=== PATIENT | female | born 1950 | race Caucasian/White ===

== ENCOUNTER 2017-05-12 10:21 | Emergency (ER) | payer MEDICARE, BC ==
[~2017-05-12] VITALS: Ht 177.8 cm; Wt 113.2 kg
[2017-05-12 10:45] VITALS: BP 161/88; PULSE 67; RESP 16; TEMP 97.7; O2SAT 97
[2017-05-12] MEDS ORDERED: FURO1TAB60 PO (11:01)
[2017-05-12] MEDS ORDERED: CELE100C PO (11:01)
[2017-05-12] MEDS ORDERED: TRAM50 PO (11:01)
[2017-05-12] MEDS ORDERED: CLON.5 PO (11:01)
--- NOTE | 2017-05-12 11:24 | PD ---
HPI Chief Complaint: GI Complaint Time Seen by Provider: 10:55 Travel History International Travel<30 days: No Contact w/Intl Traveler<30days: No Traveled to known affect area: No History of Present Illness HPI This 66-year-old female is complaining of weakness. 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 She had a transient stool transplant In November at the [facility] in [place]. She had 3 subsequent urinary tract infections and has had a recurrence of the C. difficile. He had been on vancomycin 4 times a day and it had been tapered and she is currently taking 1 tablet a day. She has been feeling nauseated. She has been having 2-7 episodes of loose stools times watery. She says she was hospitalized couple of months ago for dehydration. She has a history of coronary artery disease and macular degeneration. She is legally blind. PFSH Past Medical History Anxiety: Yes Depression: Yes Cardiovascular Problems: Yes Coronary Artery Disease: Yes Diminished Hearing: No Hypertension: Yes Respiratory: Yes (copd) Immunizations Current: Yes Tetanus Vaccination: Unknown Influenza Vaccination: Yes ?: Not Past Surgical History Appendectomy: Yes Oral Surgery: Yes Tonsillectomy: Yes Social History Alcohol Use: No Tobacco Use: Yes (1/2 TO 1 PK) Substance Use: No Allergies-Medications (Allergen,Severity, Reaction): Coded Allergies: amoxicillin (Verified Allergy, Intermediate, throat pain, 05/12/17) Reported Meds & Prescriptions Reported Meds & Active Scripts Active Reported Celebrex (Celecoxib) 100 Mg Cap 100 Mg PO BID Ultram (Tramadol HCl) 50 Mg Tab 100 Mg PO Q6H PRN Klonopin (Clonazepam) 0.5 Mg Tab 0.5 Mg PO QID Lasix (Furosemide) 40 Mg Tab 40 Mg PO QOD Review of Systems General / Constitutional: No: Fever, Chills Eyes: Positive: Blindness, No: Diploplia HENT: No: Headaches, Vertigo Cardiovascular: No: Chest Pain or Discomfort, Palpitations Respiratory: No: Cough, Shortness of Breath Gastrointestinal: Positive: Nausea, Diarrhea, Abdominal Pain, Loss of Appetite Genitourinary: No: Frequency Neurologic: Positive: Weakness Endocrine: No: Heat Intolerance, Cold Intolerance Hematologic/Lymphatic: No: Easy Bruising Physical Exam Narrative GENERAL: Well-developed female SKIN: Focused skin assessment warm/dry. HEAD: Atraumatic. Normocephalic. EYES: Pupils equal and round. No scleral icterus. No injection or drainage. ENT: No nasal bleeding or discharge. Mucous membranes pink and moist. NECK: Trachea midline. No JVD. CARDIOVASCULAR: Regular rate and rhythm. No murmur appreciated. RESPIRATORY: No accessory muscle use. Clear to auscultation. Breath sounds equal bilaterally. GASTROINTESTINAL: Abdomen soft, non-tender, nondistended. Hepatic and splenic margins not palpable. MUSCULOSKELETAL: No obvious deformities. No clubbing. No cyanosis. No edema. NEUROLOGICAL: Awake and alert. No obvious cranial nerve deficits. Motor grossly within normal limits. Normal speech. PSYCHIATRIC: Appropriate mood and affect; insight and judgment normal. Data Data Last Documented VS Vital Signs Date Time Temp Pulse Resp B/P (MAP) Pulse Ox O2 Delivery O2 Flow Rate FiO2 05/12/17 12:18 58 18 154/84 (107) 100 Room Air 05/12/17 10:45 97.7 Orders Orders Complete Blood Count With Diff (05/12/17 11:20) Comprehensive Metabolic Panel (05/12/17 11:20) Urinalysis - C+S If Indicated (05/12/17 11:20) Magnesium (Mg) (05/12/17 11:20) Enteric Path (Stool) (05/12/17 11:20) C Diff Toxin Pcr (05/12/17 11:20) Sodium Chlor 0.9% 1000 Ml Inj (Ns 1000 M (05/12/17 11:30) Ondansetron Inj (Zofran Inj) (05/12/17 11:30) Urine Culture (05/12/17 11:30) Labs Laboratory Tests Test 05/12/17 11:30 White Blood Count 5.0 TH/MM3 Red Blood Count 4.99 MIL/MM3 Hemoglobin 11.2 GM/DL Hematocrit 35.8 % Mean Corpuscular Volume 71.7 FL Mean Corpuscular Hemoglobin 22.4 PG Mean Corpuscular Hemoglobin Concent 31.3 % Red Cell Distribution Width 19.7 % Platelet Count 179 TH/MM3 Mean Platelet Volume 7.7 FL Neutrophils (%) (Auto) 55.9 % Lymphocytes (%) (Auto) 30.6 % Monocytes (%) (Auto) 7.8 % Eosinophils (%) (Auto) 5.0 % Basophils (%) (Auto) 0.7 % Neutrophils # (Auto) 2.8 TH/MM3 Lymphocytes # (Auto) 1.5 TH/MM3 Monocytes # (Auto) 0.4 TH/MM3 Eosinophils # (Auto) 0.3 TH/MM3 Basophils # (Auto) 0.0 TH/MM3 CBC Comment AUTO DIFF Differential Comment AUTO DIFF CONFIRMED Urine Collection Type CLEAN CATCH Urine Color YELLOW Urine Turbidity SLIGHTY CLOUDY Urine pH 6.0 Urine Specific [place] 1.023 Urine Protein TRACE mg/dL Urine Glucose (UA) NEG mg/dL Urine Ketones NEG mg/dL Urine Occult Blood NEG Urine Nitrite POS Urine Bilirubin NEG Urine Leukocyte Esterase SMALL Urine WBC 20-24 /hpf Urine Squamous Epithelial Cells > 8 /hpf Urine Bacteria MANY /hpf Microscopic Urinalysis Comment CULTURE INDICATED Blood Urea Nitrogen 17 MG/DL Creatinine 1.20 MG/DL Random Glucose 98 MG/DL Total Protein 7.7 GM/DL Albumin 3.8 GM/DL Calcium Level 9.7 MG/DL Magnesium Level 2.4 MG/DL Alkaline Phosphatase 221 U/L Aspartate Amino Transf (AST/SGOT) 24 U/L Alanine Aminotransferase (ALT/SGPT) 23 U/L Total Bilirubin 0.5 MG/DL Sodium Level 141 MEQ/L Potassium Level 3.8 MEQ/L Chloride Level 106 MEQ/L Carbon Dioxide Level 24.8 MEQ/L Anion Gap 10 MEQ/L Estimat Glomerular Filtration Rate 45 ML/MIN [facility] Medical Decision Making Medical Screen Exam Complete: Yes Emergency Medical Condition: Yes Medical Record Reviewed: Yes Differential Diagnosis Differential includes C. difficile, UTI, electrolyte imbalance Narrative Course White count is normal. Urine does show infection. I will prescribe Macrodantin (please like to aggravate her C. difficile certain that she has ongoing C. difficile he was not able to provide a stool sample. She has a follow-up appointment on Wednesday Diagnosis Primary Impression: UTI (urinary tract infection) Scripts Nitrofurantoin Monohydrate Macrocrystals (Macrobid) 100 Mg Capsule 100 MG PO BID for Infection for 14 Days, #28 CAP 0 Refills Prov: Dominic Lewis MD 05/12/17 Disposition: 01 DISCHARGE HOME Condition: Stable Dominic Lewis MD May 12, 2017 11:24
[2017-05-12] MEDS ORDERED: SODIUM CHLOR 0.9% 1000 ML INJ 1,000 ML IV ONE (11:30)
[2017-05-12] MEDS ORDERED: ONDANSETRON HCL 4 MG/2 ML VIAL IV PUSH ONE (11:30)
[2017-05-12 11:46] LABS: AUTOMATED NEUTROPHIL # 2.8 TH/MM3 (1.8-7.7); BASOPHIL % 0.7 % (0.0-2.0); BLOOD, URINE NEG (NEG); EOSINOPHIL # 0.3 TH/MM3 (0-0.4); GLUCOSE,URINE NEG (NEG); HEMATOCRIT 35.8 % (35.0-46.0); KETONE, URINE NEG (NEG); LYMPH % 30.6 % (9.0-44.0); LYMPHOCYTE # 1.5 TH/MM3 (1.0-4.8); MEAN CELL VOLUME 71.7 FL (80.0-100.0); MEAN CORPUSCULAR HEMOGLOBIN 22.4 PG (27.0-34.0); MEAN CORPUSCULAR HGB CONC 31.3 % (32.0-36.0); MONO % 7.8 % (0.0-8.0); NEUT % 55.9 % (16.0-70.0); NITRITE,URINE POS (NEG); PLATELET COUNT 179 TH/MM3 (150-450); RED BLOOD COUNT 4.99 MIL/MM3 (4.00-5.30); RED CELL DISTRIBUTION WIDTH 19.7 % (11.6-17.2)
[2017-05-12 11:47] LABS: HEMO FLAGS AUTO DIFF
[2017-05-12 11:52] LABS: METHOD OF COLLECTION CLEAN CATCH
[2017-05-12 11:53] LABS: URINE COLOR YELLOW (YELLW/STRAW)
[2017-05-12 11:54] LABS: BACTERIA, URINE MANY /hpf; SQUAMOUS EPITHELIAL CELL URINE > 8 /hpf (0-5)
[2017-05-12 11:55] LABS: COMMENT (UR) CULTURE INDICATED; CULTURE IF INDICATED CULTURE INDICATED
[2017-05-12 12:00] LABS: CHLORIDE 106 MEQ/L (98-107); POTASSIUM 3.8 MEQ/L (3.5-5.1); SODIUM (NA) 141 MEQ/L (136-145)
[2017-05-12 12:04] LABS: ANION GAP 10 MEQ/L (5-15); BICARBONATE 24.8 MEQ/L (21.0-32.0); BLOOD UREA NITROGEN 17 MG/DL (7-18); MAGNESIUM 2.4 MG/DL (1.5-2.5)
[2017-05-12 12:07] LABS: ALT (GPT) 23 U/L (10-53); AST (GOT) 24 U/L (15-37); GLOMERULAR FILTRATION RATE 45 ML/MIN (>89)
[2017-05-12 12:09] LABS: TOTAL BILIRUBIN ADULT 0.5 MG/DL (0.2-1.0)
[2017-05-12 12:10] LABS: ALKALINE PHOSPHATASE 221 U/L (45-117)
[2017-05-12 12:14] LABS: SCAN/DIFF AUTO DIFF CONFIRMED
[2017-05-12 12:18] VITALS: BP 154/84; PULSE 58; RESP 18; O2SAT 100
[2017-05-12] MEDS ORDERED: MACR100C2 PO (12:53)
== END 2017-05-12 13:02 | disposition home or self-care (01) ==
LOC: PHED 10:21
DX: N39.0 Urinary tract infection, site not specified (principal); B96.1 Klebsiella pneumoniae [K. pneumoniae] as the cause of diseases classified elsewhere; F17.200 Nicotine dependence, unspecified, uncomplicated; I10 Essential (primary) hypertension; I25.10 Atherosclerotic heart disease of native coronary artery without angina pectoris; Z79.899 Other long term (current) drug therapy
CPT/HCPCS: 80053; 81001; 83735; 85025; 87077; 87086; 87186; 96361; 96374; 99284; J2405; J7030

== ENCOUNTER 2017-06-25 03:11 | Inpatient (IN) | payer MEDICARE, BC ==
[~2017-06-25] VITALS: Ht 177.8 cm; Wt 112.7 kg
[2017-06-25] VITALS (10 sets, daily range): BP systolic 133–172; BP diastolic 63–88; PULSE 50–85; RESP 14–16; TEMP 97.7–98.6; O2SAT 97–100
[~2017-06-25 03:11] MED LIST: ALBUAER3 INH; ALLO100T PO; ASPI81TA23 PO; ATOR20TA15 PO; CALC12502 PO; CELE100C PO; CLON.5 PO; COLC1TAB15 PO; FLUTI110I INH; FURO1TAB60 PO; GABA100C4 PO; GABA800T PO; IPRA17I INH; MAGN400T2 PO; NICO14DI T-DERMAL; OMEP20TA93 PO; POTA-163 PO; TRAM50 PO; VANCOMYCIN 25 MG/ML PO
[2017-06-25] MEDS ORDERED: SODIUM CHLORIDE 0.9% FLUSH 10 ML FLUSH IVF PRN (03:15)
--- NOTE | 2017-06-25 03:22 | PD ---
HPI Chief Complaint: chest pain Time Seen by Provider: 03:14 Travel History International Travel<30 days: No Contact w/Intl Traveler<30days: No Traveled to known affect area: No History of Present Illness HPI 66-year-old female presents to the emergency department by EMS transport from home for evaluation of retrosternal chest pressure and tightness radiating into her neck and jaw with some transient shortness of breath and nausea. Patient received aspirin en route to the hospital. Patient not receive any nitroglycerin. Patient rates her pain as 5/10 in intensity and states feels like a 5-year-old is sitting on her chest. Patient currently denies any shortness of breath sweats nausea or referred neck jaw back shoulder arm pain. Patient states that she recently moved here from [place] and was extensively evaluated previously and has been told that she reportedly has a 70 % occlusion of the LAD but they decided not to stent her vessel as she was asymptomatic reportedly at the time of the catheterization. Patient also has history of hypertension and continues to smoke cigarettes. Patient states she smokes cigarettes because she is nervous. Patient also has history of hypertension. Patient reports history of irregular heartbeat. Patient states that she has a history of frequent ectopic beats and has a history of a right bundle branch block. Patient also reports previous episodes episode of pulmonary edema. Patient reportedly is currently being treated for C. difficile with vancomycin. Patient takes reportedly Lasix every other day to avoid dehydration as well as potassium replacement. No recent febrile illness. No pleuritic chest pain or no reported new lower extremity pain or swelling. PFSH Past Medical History Narrative Medical Anxiety depression CAD hypertension, edema recurrent UTIs C. difficile COPD PE appendectomy tonsillectomy tobacco use nursing notes reviewed Anxiety: Yes Depression: Yes Cardiovascular Problems: Yes Coronary Artery Disease: Yes Diminished Hearing: No Hypertension: Yes Respiratory: Yes (copd) Immunizations Current: Yes Past Surgical History Appendectomy: Yes Oral Surgery: Yes Tonsillectomy: Yes Social History Alcohol Use: No Tobacco Use: Yes (1/2 TO 1 PK) Substance Use: No Allergies-Medications (Allergen,Severity, Reaction): Coded Allergies: amoxicillin (Verified Allergy, Intermediate, throat pain, 06/25/17) Reported Meds & Prescriptions Reported Meds & Active Scripts Active [vancomycin 25mg/ml] Liquid 250 Mg PO QID Gabapentin 800 Mg Tab 800 Mg PO TID Gabapentin 100 Mg Cap 100 Mg PO TID Ultram (Tramadol HCl) 50 Mg Tab 100 Mg PO Q6H PRN Klonopin (Clonazepam) 0.5 Mg Tab 0.5 Mg PO QID Reported Flovent Hfa 12 GM Inh (Fluticasone Propionate) 110 Mcg/Act Inh 2 Puff INH BID Colchicine 0.6 Mg Tab 0.6 Mg PO DAILY Calcium Carbonate 500 Mg Calcium (1250 Mg) Tab 1,250 Mg PO TID 1,250 mg calcium carbonate (500 mg elemental calcium) Proair Hfa 8.5 GM Inh (Albuterol Sulfate) 90 Mcg/Act Aer 2 Puff INH Q6H PRN 108 mcg/actuation Potassium Chloride ER (Potassium Chloride) 20 Meq Tab 20 Meq PO DAILY Omeprazole 20 Mg Tab 20 Mg PO DAILY Nicotine Patch (Nicotine) 14 Mg/24 Hr Patch 14 Mg T-DERMAL DAILY Magnesium Oxide 400 Mg Tab 400 Mg PO DAILY Atrovent HFA 12.9 GM Inh (Ipratropium [place]) 17 Mcg/Actuation Aer 2 Puff INH Q4HR PRN Aspirin EC (Aspirin) 81 Mg Tabdr 81 Mg PO DAILY Atorvastatin (Atorvastatin Calcium) 20 Mg Tab 20 Mg PO HS Allopurinol 100 Mg Tab 100 Mg PO DAILY Celebrex (Celecoxib) 100 Mg Cap 100 Mg PO BID Lasix (Furosemide) 40 Mg Tab 40 Mg PO QOD Review of Systems Except as stated in HPI: all other systems reviewed are Neg General / Constitutional: No: Fever Eyes: No: Visual changes HENT: No: Congestion Cardiovascular: Positive: Chest Pain or Discomfort, No: Diaphoresis, Syncope Respiratory: No: Shortness of Breath Gastrointestinal: No: Nausea, Vomiting, Diarrhea, Abdominal Pain Genitourinary: No: Frequency, Dysuria Musculoskeletal: No: Myalgias, Arthralgias, Edema Skin: No Rash Neurologic: No: Weakness Psychiatric: No: Anxiety Hematologic/Lymphatic: No: Lymph Node Enlargement Physical Exam Narrative GENERAL: Well-developed well-nourished female in no acute distress no respiratory distress; GCS 15 SKIN: Warm and dry. HEAD: Normocephalic. EYES: No scleral icterus. No injection or drainage. NECK: Supple, trachea midline. No JVD or lymphadenopathy. CARDIOVASCULAR: Regular rate and rhythm without murmurs, gallops, or rubs. RESPIRATORY: Breath sounds equal bilaterally. No accessory muscle use. GASTROINTESTINAL: Abdomen soft, non-tender, nondistended. MUSCULOSKELETAL: No cyanosis, or edema. Radial and dorsalis pedis pulses 2+ to palpation bilaterally. BACK: Nontender without obvious deformity. No CVA tenderness. Data Data Last Documented VS Vital Signs Date Time Temp Pulse Resp B/P (MAP) Pulse Ox O2 Delivery O2 Flow Rate FiO2 06/25/17 03:23 Room Air 06/25/17 03:23 156/78 (104) 162/82 (108) 06/25/17 03:23 98 06/25/17 03:19 98.2 85 16 Orders Orders Electrocardiogram (06/25/17 03:14) Basic Metabolic Panel (Bmp) (06/25/17 03:14) Ckmb (Isoenzyme) Profile (06/25/17 03:14) Complete Blood Count With Diff (06/25/17 03:14) Magnesium (Mg) (06/25/17 03:14) Prothrombin Time / Inr (Pt) (06/25/17 03:14) Act Partial Throm Time (Ptt) (06/25/17 03:14) Troponin I (06/25/17 03:14) Chest, Single Ap (06/25/17 03:14) Ecg Monitoring (06/25/17 03:14) Bilateral Bp Monitoring (06/25/17 03:14) Iv Access Insert/Monitor (06/25/17 03:14) Oximetry (06/25/17 03:14) Oxygen Administration (06/25/17 03:14) Sodium Chloride 0.9% Flush (Ns Flush) (06/25/17 03:15) Nitroglycerin Sl (Nitrostat Sl) (06/25/17 03:15) Admit Order (Ed Use Only) (06/25/17 ) Hydrographical Technical Officer / Telemetry [id number] (06/25/17 04:37) Diet Heart Healthy (06/25/17 Breakfast) Activity Oob With Assistance (06/25/17 04:37) Notify Dr: Other (06/25/17 04:37) Labs Laboratory Tests Test 06/25/17 03:30 White Blood Count 5.4 TH/MM3 Red Blood Count 4.74 MIL/MM3 Hemoglobin 10.7 GM/DL Hematocrit 34.5 % Mean Corpuscular Volume 72.9 FL Mean Corpuscular Hemoglobin 22.6 PG Mean Corpuscular Hemoglobin Concent 31.1 % Red Cell Distribution Width 19.9 % Platelet Count 201 TH/MM3 Mean Platelet Volume 7.5 FL Neutrophils (%) (Auto) 50.8 % Lymphocytes (%) (Auto) 34.8 % Monocytes (%) (Auto) 7.8 % Eosinophils (%) (Auto) 5.7 % Basophils (%) (Auto) 0.9 % Neutrophils # (Auto) 2.8 TH/MM3 Lymphocytes # (Auto) 1.9 TH/MM3 Monocytes # (Auto) 0.4 TH/MM3 Eosinophils # (Auto) 0.3 TH/MM3 Basophils # (Auto) 0.0 TH/MM3 CBC Comment AUTO DIFF Differential Comment AUTO DIFF CONFIRMED Platelet Estimate NORMAL Platelet Morphology Comment NORMAL Ovalocytes 1+ Prothrombin Time 10.1 SEC Prothromb Time International Ratio 1.0 RATIO Activated Partial Thromboplast Time 26.2 SEC Blood Urea Nitrogen 18 MG/DL Creatinine 1.20 MG/DL Random Glucose 107 MG/DL Calcium Level 9.5 MG/DL Magnesium Level 2.4 MG/DL Sodium Level 137 MEQ/L Potassium Level 4.0 MEQ/L Chloride Level 103 MEQ/L Carbon Dioxide Level 29.5 MEQ/L Anion Gap 5 MEQ/L Estimat Glomerular Filtration Rate 45 ML/MIN Total Creatine Kinase 35 U/L Troponin I LESS THAN 0.02 NG/ML MDM Medical Decision Making Medical Screen Exam Complete: Yes Emergency Medical Condition: Yes Medical Record Reviewed: Yes Interpretation(s) EKG normal sinus rhythm rate 65 occasional PACs and incomplete right bundle branch block no acute ST elevation or injury pattern Last Impressions Chest X-Ray 06/25/174 Signed Impressions: Service Date/Time: Sunday, June 25, 2017 03:26 - CONCLUSION: No acute disease. Luis Armando Medina MD CBC & BMP Diagram 06/25/17 03:30 Calcium Level 9.5, Magnesium Level 2.4 Vital Signs Date Time Temp Pulse Resp B/P (MAP) Pulse Ox O2 Delivery O2 Flow Rate FiO2 06/25/17 03:23 Room Air 06/25/17 03:23 156/78 (104) 162/82 (108) 06/25/17 03:23 Room Air 06/25/17 03:23 98 06/25/17 03:19 98.2 85 16 151/75 (100) 100 CK: 35, not elevated; troponin I: less than 0.02, not elevated coags: wnl Differential Diagnosis Chest pain, ACS, PA, arrhythmia, electrolyte disturbance, PE, CHF Narrative Course Patient placed on cardiac monitors continuous pulse oximetry IV access obtained specimens collected and sent for resulting EKG performed which shows sinus rhythm no ST elevation evidence of incomplete right bundle branch block. Patient administered sublingual nitroglycerin patient had received aspirin 162 mg by EMS prior to arrival. Patient administered sublingual nitroglycerin 3 with discomfort decreased to 0- 1/10 in intensity Chest x-ray reveals no acute abnormality Laboratory values to be grossly within normal range specifically CK is not elevated and troponin I is not elevated less than 0.02 Plan will be administered to admit patient to chest pain center per protocol; call placed [facility] service Physician Communication Physician Communication discussed with Kathia ESTES for Dr Garza ---obs [facility] Diagnosis Primary Impression: Chest pain Admitting Information Admitting Physician Requests: Observation Jojo Toribio MD Jun 25, 2017 03:22
[2017-06-25 03:39] LABS: AUTOMATED NEUTROPHIL # 2.8 TH/MM3 (1.8-7.7); BASOPHIL % 0.9 % (0.0-2.0); EOSINOPHIL # 0.3 TH/MM3 (0-0.4); EOSINOPHIL % 5.7 % (0.0-4.0); HEMATOCRIT 34.5 % (35.0-46.0); HEMOGLOBIN 10.7 GM/DL (11.6-15.3); LYMPH % 34.8 % (9.0-44.0); LYMPHOCYTE # 1.9 TH/MM3 (1.0-4.8); MEAN CELL VOLUME 72.9 FL (80.0-100.0); MEAN CORPUSCULAR HEMOGLOBIN 22.6 PG (27.0-34.0); MEAN CORPUSCULAR HGB CONC 31.1 % (32.0-36.0); MEAN PLATELET VOLUME 7.5 FL (7.0-11.0); MONO % 7.8 % (0.0-8.0); MONOCYTE # 0.4 TH/MM3 (0-0.9); NEUT % 50.8 % (16.0-70.0); PLATELET COUNT 201 TH/MM3 (150-450); RED BLOOD COUNT 4.74 MIL/MM3 (4.00-5.30); RED CELL DISTRIBUTION WIDTH 19.9 % (11.6-17.2); WHITE BLOOD COUNT 5.4 TH/MM3 (4.0-11.0)
[2017-06-25] MEDS: NITROGLYCERIN 0.4 MG SL 25 TABS/BTL SL SCH ×3 (03:41→04:02)
--- NOTE | 2017-06-25 03:46 | RADRPT ---
EXAM DATE/TIME: 06/25/2017 03:26 [place] COMPARISON: No previous studies available for comparison. INDICATIONS : Irregular heart rate for 1 week MEDICAL HISTORY : None. SURGICAL HISTORY : None. ENCOUNTER: Initial ACUITY: 1 week PAIN SCORE: 0/10 LOCATION: Bilateral chest FINDINGS: The heart size is within normal limits. The lungs are grossly clear. No effusion is seen. There appea rs to be surgical hardware at lower cervical spine. CONCLUSION: No acute disease. Luis Armando Medina MD on June 25, 2017 at 3:43 Board Certified Radiologist. This report was verified electronically.
[2017-06-25 03:49] LABS: CHLORIDE 103 MEQ/L (98-107); SODIUM (NA) 137 MEQ/L (136-145)
[2017-06-25 03:51] LABS: CALCIUM 9.5 MG/DL (8.5-10.1)
[2017-06-25 03:52] LABS: BICARBONATE 29.5 MEQ/L (21.0-32.0); BLOOD UREA NITROGEN 18 MG/DL (7-18); GLUCOSE,RANDOM 107 MG/DL (74-106); MAGNESIUM 2.4 MG/DL (1.5-2.5)
[2017-06-25 03:53] LABS: PROTHROMBIN TIME - PATIENT 10.1 SEC (9.8-11.6)
[2017-06-25 03:54] LABS: OVALOCYTES 1+ (NORMAL)
[2017-06-25 03:55] LABS: GLOMERULAR FILTRATION RATE 45 ML/MIN (>89)
[2017-06-25 04:00] LABS: TROPONIN I LESS THAN 0.02 NG/ML (0.02-0.05)
[2017-06-25] MEDS ORDERED: IOHEXOL 350 MG/ML 100 ML BTL (for Cath Lab) OTHER ONE (04:40)
[2017-06-25] MEDS ORDERED: IOHEXOL 350 MG/ML 50 ML BTL (for Cath Lab) OTHER ONE (04:40)
[2017-06-25] MEDS ORDERED: IODIXANOL 320 MG/ML 10 ML VIAL (for Rad CT) IVCONTRAST ONE (04:40)
[2017-06-25] MEDS ORDERED: ONDANSETRON HCL 4 MG/2 ML VIAL IV PUSH PRN (04:45)
[2017-06-25] MEDS ORDERED: ACETAMINOPHEN 500 MG CPLT PO PRN (04:45)
[2017-06-25] MEDS ORDERED: RESP: ALBUTEROL 2.5 MG/IPRATROPIUM 0.5 MG NEB (PRN) NEB (04:45)
[2017-06-25] MEDS ORDERED: SODIUM CHLORIDE 0.9% FLUSH 10 ML FLUSH IV FLUSH PRN (04:45)
[2017-06-25 06:54] LABS: TROPONIN I LESS THAN 0.02 NG/ML (0.02-0.05)
--- NOTE | 2017-06-25 08:41 | HHI.HP ---
[facility] Leti Hernandez MD Admission Diagnosis Chest pain Diagnoses: Chief Complaint: Chest pain Travel History International Travel<30 Days: No Contact w/Intl Traveler <30 Da: No Traveled to Known Affected Are: No History of Present Illness This is a pleasant 66-year-old female with a known medical history of CAD, hypertension, COPD and chronic C. difficile who presented to the ED with complaints of chest pain. Patient states that yesterday she complained of generalized pain all day and roughly around 2200 last evening she developed a midsternal chest pressure and tightness that radiated up her neck and jaw. She does state that there were associated palpitations. She denies any associated shortness of breath, nausea, vomiting or diaphoresis. Patient rates the pain a five out of ten on pain scale. She does state that she underwent a cardiac stress test over one year ago which was reportedly unremarkable. Although two years ago she did undergo a cardiac catheterization showing a 70% occlusion in her LAD, patient states that at that time she was asymptomatic and no further intervention was taken. She is from [place] and has not established with a stars specialist in [place]. She does follow with her primary care doctor. Patient does have a chronic right bundle branch block and underlying irregular heartbeat?. It should be noted that she also has been treated for chronic C. 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 Denies any recent fever, chills, abdominal pain, nausea, vomiting or dysuria. Review of Systems Constitutional: DENIES: Fever, Chills Eyes: DENIES: Blurred vision, Diplopia Respiratory: DENIES: Cough, Sputum production, Shortness of breath Cardiovascular: COMPLAINS OF: Chest pain, Palpitations Gastrointestinal: COMPLAINS OF: Diarrhea, DENIES: Abdominal pain, Black stools , Bloody stools, Constipation, Nausea, Vomiting Integumentary: DENIES: Abnormal pigmentation Hematologic/lymphatic: DENIES: Bruising Immunologic/allergic: DENIES: Eczema Neurologic: DENIES: Abnormal gait Psychiatric: COMPLAINS OF: Anxiety Except as stated in HPI: all other systems reviewed are Neg Past Family Social History Past Medical History Coronary artery disease Hypertension Recurrent UTIs Chronic C. difficile COPD Tobacco abuse Anxiety and depression Past Surgical History Appendectomy Tonsillectomy Cervical fusion Unspecified oral surgery Reported Medications Active [vancomycin 25mg/ml] Liquid 250 Mg PO QID Gabapentin 800 Mg Tab 800 Mg PO TID Gabapentin 100 Mg Cap 100 Mg PO TID Ultram (Tramadol HCl) 50 Mg Tab 100 Mg PO Q6H PRN Klonopin (Clonazepam) 0.5 Mg Tab 0.5 Mg PO QID Reported Flovent Hfa 12 GM Inh (Fluticasone Propionate) 110 Mcg/Act Inh 2 Puff INH BID Colchicine 0.6 Mg Tab 0.6 Mg PO DAILY Calcium Carbonate 500 Mg Calcium (1250 Mg) Tab 1,250 Mg PO TID 1,250 mg calcium carbonate (500 mg elemental calcium) Proair Hfa 8.5 GM Inh (Albuterol Sulfate) 90 Mcg/Act Aer 2 Puff INH Q6H PRN 108 mcg/actuation Potassium Chloride ER (Potassium Chloride) 20 Meq Tab 20 Meq PO DAILY Omeprazole 20 Mg Tab 20 Mg PO DAILY Nicotine Patch (Nicotine) 14 Mg/24 Hr Patch 14 Mg T-DERMAL DAILY Magnesium Oxide 400 Mg Tab 400 Mg PO DAILY Atrovent HFA 12.9 GM Inh (Ipratropium [place]) 17 Mcg/Actuation Aer 2 Puff INH Q4HR PRN Aspirin EC (Aspirin) 81 Mg Tabdr 81 Mg PO DAILY Atorvastatin (Atorvastatin Calcium) 20 Mg Tab 20 Mg PO HS Allopurinol 100 Mg Tab 100 Mg PO DAILY Celebrex (Celecoxib) 100 Mg Cap 100 Mg PO BID Lasix (Furosemide) 40 Mg Tab 40 Mg PO QOD Allergies: Coded Allergies: amoxicillin (Verified Allergy, Intermediate, throat pain, 06/25/17) Active Ordered Medications Current Medications Medications (Trade) Dose Ordered Sig/Milana Route Start Time Stop Time Status Last Admin (NS Flush) 2 ml UNSCH PRN IVF 06/25/17 03:15 (NS Flush) 2 ml UNSCH PRN IV FLUSH 06/25/17 04:45 (Tylenol) 500 mg Q4H PRN PO 06/25/17 04:45 ([place] 7.5-325 Mg) 1 tab Q4H PRN PO 06/25/17 04:45 (Morphine Inj) 2 mg Q4H PRN IV PUSH 06/25/17 04:45 (Zofran Inj) 4 mg Q6H PRN IV PUSH 06/25/17 04:45 (Nitrostat Sl) 0.4 mg Q5M PRN SL 06/25/17 04:45 (Aspirin) 325 mg DAILY PO 06/25/17 09:00 06/25/17 09:00 (Heparin Inj) 5,000 units Q8H SQ 06/25/17 12:00 (Duoneb Neb) 1 ampule Q4HR NEB PRN NEB 06/25/17 04:45 Family History Paternal and maternal family medical history significant for hypertension. Social History Patient does admit to current tobacco use, states she smokes less than one pack per day since the age of [age]. Denies any alcohol or illicit drug use. Physical Exam Vital Signs Vital Signs Date Time Temp Pulse Resp B/P (MAP) Pulse Ox O2 Delivery O2 Flow Rate FiO2 06/25/17 06:18 98.2 88 18 165/88 (113) 98 06/25/17 03:23 Room Air 06/25/17 03:23 156/78 (104) 162/82 (108) 06/25/17 03:23 Room Air 06/25/17 03:23 98 06/25/17 03:19 98.2 85 16 151/75 (100) 100 Physical Exam GENERAL: Well-nourished, well-developed patient in NAD. SKIN: Warm and dry. No rash. HEAD: Normocephalic. Atraumatic. EYES: Pupils equal and round. No scleral icterus. No injection or drainage. Patient is legally blind. ENT: No nasal bleeding or discharge. Mucous membranes pink and moist. NECK: Supple. Trachea midline. CARDIOVASCULAR: Regular rate and rhythm. S1, S2 noted. No murmur appreciated. No reproducible chest pain to palpation RESPIRATORY: No accessory muscle use. Clear to auscultation. Breath sounds equal bilaterally. GASTROINTESTINAL: Abdomen soft, non-tender, nondistended. Normoactive bowel sounds x4. MUSCULOSKELETAL: No obvious deformities. Extremities without clubbing, cyanosis. Trace by bilateral lower extremity edema. NEUROLOGICAL: Awake and alert. No obvious cranial nerve deficits. Motor grossly within normal limits. 5/5 muscle strength in bilateral upper and lower extremities. Normal speech. PSYCHIATRIC: Appropriate mood and affect; insight and judgment normal. Laboratory Laboratory Tests Test 06/25/17 03:30 06/25/17 06:22 White Blood Count 5.4 Red Blood Count 4.74 Hemoglobin 10.7 Hematocrit 34.5 Mean Corpuscular Volume 72.9 Mean Corpuscular Hemoglobin 22.6 Mean Corpuscular Hemoglobin Concent 31.1 Red Cell Distribution Width 19.9 Platelet Count 201 Mean Platelet Volume 7.5 Neutrophils (%) (Auto) 50.8 Lymphocytes (%) (Auto) 34.8 Monocytes (%) (Auto) 7.8 Eosinophils (%) (Auto) 5.7 Basophils (%) (Auto) 0.9 Neutrophils # (Auto) 2.8 Lymphocytes # (Auto) 1.9 Monocytes # (Auto) 0.4 Eosinophils # (Auto) 0.3 Basophils # (Auto) 0.0 CBC Comment AUTO DIFF Differential Comment AUTO DIFF CONFIRMED Platelet Estimate NORMAL Platelet Morphology Comment NORMAL Ovalocytes 1+ Prothrombin Time 10.1 Prothromb Time International Ratio 1.0 Activated Partial Thromboplast Time 26.2 Blood Urea Nitrogen 18 Creatinine 1.20 Random Glucose 107 Calcium Level 9.5 Magnesium Level 2.4 Sodium Level 137 Potassium Level 4.0 Chloride Level 103 Carbon Dioxide Level 29.5 Anion Gap 5 Estimat Glomerular Filtration Rate 45 Total Creatine Kinase 35 33 Troponin I LESS THAN 0.02 LESS THAN 0.02 Result Diagram: 06/25/17 0330 06/25/17 033 Imaging Last Impressions Chest X-Ray 06/25/17313 Signed Impressions: Service Date/Time: Sunday, June 25, 2017 03:26 - CONCLUSION: No acute disease. Luis Armando Medina MD Septic Shock Reassessment Septic shock perfusion: reassessment completed Caprini VTE Risk Assessment Caprini VTE Risk Assessment: Mod/High Risk (score >= 2) Caprini Risk Assessment Model Point Value = 1 Point Value = 2 Point Value = 3 Point Value = 5 Age 41-60 Minor surgery BMI > 25 kg/m2 Swollen legs Varicose veins or History of unexplained or recurrent spontaneous Oral contraceptives or hormone replacement Sepsis (< 1 month) Serious lung disease, including pneumonia (< 1 month) Abnormal pulmonary function Acute myocardial infarction Congestive heart failure (< 1 month) History of inflammatory bowel disease Medical patient at bed rest Age 61-74 Arthroscopic surgery Major open surgery (> 45 min) Laparoscopic surgery (> 45 min) Malignancy Confined to bed (> 72 hours) Immobilizing plaster cast Central venous access Age >= 75 History of VTE Family history of VTE Factor V Leiden Prothrombin [id number] Lupus anticoagulant Anticardiolipin antibodies Elevated serum homocysteine Heparin-induced thrombocytopenia Other congenital or acquired thrombophilia Stroke (< 1 month) Elective arthroplasty Hip, pelvis, or leg fracture Acute spinal cord injury (< 1 month) Prophylaxis Regimen Total Risk Factor Score Risk Level Prophylaxis Regimen 0-1 Low Early ambulation 2 Moderate Order ONE of the following: *Sequential Compression Device (SCD) *Heparin 5000 units SQ BID 3-4 Higher Order ONE of the following medications: *Heparin 5000 units SQ TID *Enoxaparin/Lovenox 40 mg SQ daily (WT < 150 kg, CrCl > 30 mL/min) *Enoxaparin/Lovenox 30 mg SQ daily (WT < 150 kg, CrCl > 10-29 mL/min) *Enoxaparin/Lovenox 30 mg SQ BID (WT < 150 kg, CrCl > 30 mL/min) AND/OR *Sequential Compression Device (SCD) 5 or more Highest Order ONE of the following medications: *Heparin 5000 units SQ TID (Preferred with Epidurals) *Enoxaparin/Lovenox 40 mg SQ daily (WT < 150 kg, CrCl > 30 mL/min) *Enoxaparin/Lovenox 30 mg SQ daily (WT < 150 kg, CrCl > 10-29 mL/min) *Enoxaparin/Lovenox 30 mg SQ BID (WT < 150 kg, CrCl > 30 mL/min) AND *Sequential Compression Device (SCD) Assessment and Plan Problem List: (1) Chest pain ICD Code: R07.9 - Chest pain, unspecified Status: Acute Plan: Patient has been admitted to the chest pain center for observation, serial EKGs and serial troponins have been ordered for ruling out ACS purposes. Serial troponins are all flattened negative. EKG reviewed showing chronic right bundle branch block with controlled heart rate, no ST changes to indicate any ischemia. Chest x-ray reviewed showing no acute disease. Was given nitroglycerin in the ED, aspirin daily. Chest pain has not resolved. Control pain, [place] and morphine IV available when necessary as needed per pain scale. Patient will undergo a nuclear Lexiscan to rule out any further ischemia. Further hospitalization and treatment plan will depend on nuclear imaging results. Continue to follow. Supportive care. Supplemental O2 as needed. Patient is stable at this time and agreeable to the plan. (2) Hyperlipidemia ICD Code: E78.5 - Hyperlipidemia, unspecified Plan: Continue home statin (3) Congestive heart failure ICD Code: I50.9 - Heart failure, unspecified Plan: Continue Lasix and supplemental potassium. (4) Chronic back pain ICD Code: M54.9 - Dorsalgia, unspecified; G89.29 - Other chronic pain Plan: Continue gabapentin. Morphine IV and [place] available when necessary as needed. DVT prophylaxis: SCDs. Heparin. Assessment and Plan Patient underwent a Lexiscan and reports reviewed showing significant stress- induced ischemia with intermediate risk. There is significant redistribution involving the anterior lateral wall and inferior wall suggesting severe 2-3 vessel disease. EF 60%. Patient updated on results. Call placed to Dr. Higuera, cardiology phone operator, updated on patient status. Will tx to the main [facility] for cardiac catheterization. Hannah Rodriguez Jun 25, 2017 08:41
[2017-06-25] MEDS: ASPIRIN 325 MG TAB PO SCH (09:00)
[2017-06-25 10:07] LABS: BICARBONATE 27.8 MEQ/L (21.0-32.0); BLOOD UREA NITROGEN 18 MG/DL (7-18); CALCIUM 9.4 MG/DL (8.5-10.1); GLUCOSE,RANDOM 98 MG/DL (74-106)
[2017-06-25 10:10] LABS: GLOMERULAR FILTRATION RATE 45 ML/MIN (>89)
[2017-06-25 10:16] LABS: CHLORIDE 106 MEQ/L (98-107); SODIUM (NA) 141 MEQ/L (136-145)
[2017-06-25 10:19] LABS: TROPONIN I LESS THAN 0.02 NG/ML (0.02-0.05)
[2017-06-25] MEDS ORDERED: REGADENOSON INJ 0.4 MG/5 ML SYR IV ONE (10:29)
--- NOTE | 2017-06-25 11:38 | RADRPT ---
EXAM DATE/TIME: 06/25/2017 10:13 [facility] COMPARISON: No previous studies available for comparison. INDICATIONS : Retrosternal chest pain radiating to left neck and jaw with dyspnea and nausea. Angina. Coronary vidhya ry disease. DOSE: 35 mCi Tc99m Myoview at stress. 11 mCi Tc99m Myoview at rest. 0.4 mg Lexiscan STRESS SYMPTOMS: Dyspnea. EJECTION FRACTION: 60% MEDICAL HISTORY : Hypertension. Chronic obstructive pulmonary disease. SURGICAL HISTORY : Appendectomy. Tonsillectomy. ENCOUNTER: Initial ACUITY: 1 day PAIN SCALE: 5/10 LOCATION: Retrosternal chest TECHNIQUE: The patient underwent pharmacologic stress with infusion of prescribed dose. Continuous ECG tracing was monitored during stress. Gated SPECT imaging was performed after stress and conventional SPECT i maging was performed at rest. The examination was performed on a SPECT/CT scanner, both attenuation and non-corrected datasets were reviewed. FINDINGS: There is significant redistribution involving the anterior lateral wall and inferior wall suggesting severe 2-3 vessel disease. Ejection fraction is 60% in spite of the significant redistribution. CONCLUSION: Significant stress-induced ischemia. RISK CATEGORY: Intermediate (1-3% Annual Mortality Rate) Scott Malhotra MD FACR on June 25, 2017 at 11:35 Board Certified Radiologist. This report was verified electronically.
[2017-06-25] MEDS ORDERED: HEPARIN SODIUM - SQ 10,000 UNITS/ML VIAL SQ SCH (12:00)
[2017-06-25] MEDS ORDERED: ALBUTEROL SULFATE 90 MCG/ACT HFA 8 GM INHALER INH PRN (12:00)
[2017-06-25] MEDS: FUROSEMIDE 40 MG TAB PO SCH (12:50)
[2017-06-25] MEDS: GABAPENTIN 400 MG CAP PO SCH ×2 (12:51→17:55)
[2017-06-25] MEDS: CALCIUM CARBONATE 1.25 GM (CA 500 MG) TAB PO SCH ×2 (12:51→17:55)
[2017-06-25] MEDS: GABAPENTIN 100 MG CAP PO SCH ×2 (12:51→17:55)
[2017-06-25] MEDS ORDERED: IPRATROPIUM BROMIDE 17 MCG/ACT 12.9 GM INHALER INH PRN (13:00)
--- NOTE | 2017-06-25 13:33 | TR ---
Date Performed: 06/25/2017 Time Performed: 10:39:09 DOCTOR: Rowdy Scruggs DRUG LIST: CLINICAL HISTORY: CHEST PAIN REASON FOR TEST: Chest pain REASON FOR ENDING: OBSERVATION: CONCLUSION: Lexiscan stress test was performed under standard four minute protocol. Radionucl[place] e was injected one minute prior to ending the test. No electrocardiographic abormalities were present to suggest ischemia. Nuclear imaging and interpretation are pending. COMMENTS:
--- NOTE | 2017-06-25 13:35 | EKG ---
Date Performed: 06/25/2017 Time Performed: 09:16:49 PTAGE: 66 years EKG: Sinus rhythm WITH FIRST DEGREE AV BLOCK POSSIBLE RIGHT VENTRICULAR CONDUCTION DELAY NONSPECIFIC T-WAVE ABNORMALIT Y ABNORMAL ECG PREVIOUS TRACING : 06/25/2017 06.02 Since previous tracing, no significant change noted DOCTOR: Rowdy Scruggs Interpretating Date/Time 06/25/2017 13:33:42
--- NOTE | 2017-06-25 13:37 | EKG ---
Date Performed: 06/25/2017 Time Performed: 06:02:42 PTAGE: 66 years EKG: Sinus rhythm WITH FIRST DEGREE AV BLOCK INCOMPLETE RIGHT BUNDLE BRANCH BLOCK MINIMAL VOLTAGE CRITERIA FOR LVH, CO NSIDER NORMAL VARIANT NONSPECIFIC T-WAVE ABNORMALITY ABNORMAL ECG WARNING: DATA QUALITY MAY AFFECT IN TERPRETATION PREVIOUS TRACING : 06/25/2017 03.10 Since previous tracing, no significant change noted DOCTOR: Rodwy Scruggs Interpretating Date/Time 06/25/2017 13:36:31
--- NOTE | 2017-06-25 13:38 | EKG ---
Date Performed: 06/25/2017 Time Performed: 03:10:26 PTAGE: 66 years EKG: Sinus rhythm WITH FIRST DEGREE AV BLOCK WITH OCCASIONAL SUPRAVENTRICULAR PREMATURE COMPLEXES INCOMPLETE RIGHT BUN DLE BRANCH BLOCK MODERATE VOLTAGE CRITERIA FOR LVH, CONSIDER NORMAL VARIANT ABNORMAL ECG NO PREVIOUS TRACING DOCTOR: Rowdy Scruggs Interpretating Date/Time 06/25/2017 13:37:46
[2017-06-25] MEDS ORDERED: RESP: IPRATROPIUM 0.5 MG/2.5 ML NEB NEB PRN (14:00)
[2017-06-25 14:21] LABS: CHOLESTEROL/ HDL RATIO 2.74 RATIO; HDL CHOLESTEROL 52.9 MG/DL (40.0-60.0)
[2017-06-25] MEDS ORDERED: MIDAZOLAM HCL 2 MG/2 ML VIAL ONE (16:03)
[2017-06-25] MEDS ORDERED: HEPARIN-NS/PF INJ 1,000 ML ONE (16:03)
[2017-06-25] MEDS ORDERED: VERAPAMIL HCL 5 MG/2 ML VIAL ONE (16:03)
[2017-06-25] MEDS ORDERED: HEPARIN SODIUM - IV 10,000 UNITS/10 ML VIAL ONE (16:04)
[2017-06-25] MEDS ORDERED: NITROGLYCERIN INJ 5 ML ONE (16:04)
[2017-06-25] MEDS ORDERED: hydrALAZINE HCL 20 MG/ML VIAL ONE (16:45)
[2017-06-25] MEDS ORDERED: LABETALOL HCL 100 MG/20 ML VIAL ONE (17:02)
--- NOTE | 2017-06-25 17:36 | CATHPROC ---
[email or web address] HIS Report Study Information Study Number Admission Scheduled Start Study Start [id number] Jun 25 2017 4:39AM 06/25/2017 Jun 25 2017 3:56PM Study Type [place]itar Service Left/Possible PCI Cardiac Catheterization Admit Source Facility Department Transfer in from another acute care [facility] - Casting Inspector Physician and Clinical Staff Initial Atif Abad Thermodynamics Teacher Bo RN, Gregorio Thermodynamics Teacher Phillip Foreman,BRIJESH Recorder Sarita Cotton,FIBER DRIER OPERATOR TECH2 Scrub Bethany Denis,RT(R) (BS) Scrub Jocelyne Perez ,RT(R) Procedures Performed Procedure Location (Site) Vessel Name Coronary Angiograms LCA Left Coronary Coronary Angiograms RCA Right Coronary Coronary Angiograms CIRC Prox CIRC L Heart Cath Equipment Time Nozzle And Sleeve Worker Description Size Mfg Part Number Used/Scraped TRANSDUCER, TRUWAVE [id number] 15:57 Investicare * Used W/EMILYCK *[id number] 534-545T *[id number] 534-548T *[id number] [id number] *[id number] 15:57 StartForce INDUSTRIES PACK, CCL CUSTOM * Used *[id number] 15:57 Hexadite SUPPORT, ARTERIAL ADULT 31905 *[id number] Used 16:49 MEDTRONIC AR MOD DXTERITY CATHETER FR 5 [id number] Used [id number] 16:26 MEDTRONIC JR 4.0 DXTERITY CATHETER FR 5 Used *[id number] BAND, RADIAL COMPRESSION TR [id number] 17:15 [employer]Club MEDICAL 24CM Used SHORT 24 *[id number] 15:57 [employer] MEDICAL WIRE, EXCHANGE 260CM 3MMJ 260CM Used *[id number] 15:57 NAMIC MANIFOLD, 4 PORT * Used *[id number] 15:57 NYCOMED OMNIPAQUE, 350 MG, 150ML 150ML [id number] Used [id number] 15:57 FELIPE MEDICAL BLANKET,WARM AIR CCL * Used *[id number] SHEATH, FR6 TRANSRADIAL RM*[id number] 15:57 TERLeho MEDICAL FR 6 Used SLENDER 10CM *[id number] Equipment Model, Serial, Lot Number and Expiration Data Description Model Number Serial Number Lot Number Expiration Date AR MOD DXTERITY CATHETER [id number] 09-26-2019 History: Current Medications Medication Dosage/Unit Route Frequency Last Date/Time Taken LASIX K-Dur Flovent Prilosec Magnesium Atrovent ASA Allopurinol Celebrex Statins (any) History: Allergies Allergy Reaction amoxicillin throat pain History: Risk Factors Hypertension Yes Chronic Lung Disease History: Symptoms/Diagnosis Selection Items Chest pain SOB History: CV Disease Selection Items Known CAD History: Stress Tests Stress or Imaging Studies Performed Yes Standard Exercise Stress Test No Stress Echo No Stress Test SPECT Stress Test SPECT Result Stress Test SPECT Ischemia Risk/Extent Yes Positive Intermediate Stress Test CMR No Cardiac CTA Coronary Calcium Score No No History: Other Disease Selection Items Depression History: Other Current Smoker Method Packs a Day Years Used Pack Years Yes Cigarettes 1 50 50 Labs Hgb (g/dl) Hct (%) WBC (l/cumm) Platelets (thousands) 11.60-17.00 35.00-51.00 4.00-11.00 150.00-450.00 10.7 34.5 5.4 201 Glucose (mg/dl) BUN (mg/dl) Creatinine (mg/dl) BUN:Creatinine (1:x) 74.00-106.00 7.00-18.00 0.50-1.30 10.00-20.00 107 18 1.2 15 Na (meq/l) K (meq/l) Cl (meq/l) CO2 (mmol/L) Ca (mg/dl) 136.00-145.00 3.50-5.10 98.00-107.00 21.00-32.00 8.50-10.10 141 4.2 106 27.8 9.5 PT (sec) PTT (sec) INR (PTT:PT) 9.80-11.60 24.30-30.10 0.90-1.10 10.1 26.2 1 Troponin I (ng/ml) CPK (u/l) 0.02-0.05 26.00-308.00 0.02 30 Medication Medication Total Dose (Bolus/Oral) Medication Total Dosage/Unit 1% XYLOCAINE 20 mL FENTANYL 75 mcg HYDRALAZINE 20 mg LABETOLOL 10 mg RADIAL COCKTAIL 5 mL (Bolus) VERSED 0.5 mg Medications (Bolus/Oral) Medication Time Given Dosage/Unit Administered By Reason FENTANYL 06/25/2017 4:21:42 PM 25 mcg Gregorio Soriano RN 25 mcg FENTANYL given in lab by Gregorio Soriano RN in Left Antecubital via Peripheral IV. Ordered by Atif Nj VERSED 06/25/2017 4:22:16 PM 0.5 mg Gregorio Soriano RN 0.5 mg VERSED given in lab by Gregorio Soriano RN in Left Antecubital via Peripheral IV. Ordered by Atif Odonnell 1% XYLOCAINE 06/25/2017 4:22:52 PM 20 mL Atif Higuera 20 mL 1% XYLOCAINE given in lab by Atif Higuera in Right Radial via Subcutaneous. RADIAL COCKTAIL 06/25/2017 4:24:54 PM 5 mL (Bolus) Atif Higuera 5 mL (Bolus) RADIAL COCKTAIL given in lab by Atif Higuera in Right Radial via Radial. Using [S olution Name]. Ordered by Atif Higuera Reason: Ntg 200mcg Verapamil 2.5mg Heparin 4800U. FENTANYL 06/25/2017 4:38:04 PM 50 mcg Gregorio Soriano RN 50 mcg FENTANYL given in lab by Gregorio Soriano RN in Left Antecubital via Peripheral IV. Ordered by Atif Nj HYDRALAZINE 06/25/2017 4:46:17 PM 10 mg Gregorio Soriano RN 10 mg HYDRALAZINE given in lab by Gregorio Soriano RN in Left Antecubital via Peripheral IV. Ordered by Atif Lee HYDRALAZINE 06/25/2017 5:02:24 PM 10 mg Phillip Foreman 10 mg HYDRALAZINE given in lab by Phillip Foreman RN in Left Antecubital via Peripheral IV. Ordered Atif Boles LABETOLOL 06/25/2017 5:05:05 PM 10 mg Phillip Foreman 10 mg LABETOLOL given in lab by Phillip Foreman RN in Left Antecubital via Peripheral IV. Ordered by Atif Higuera Final Case Assessment Cardiovascular HR Rhythm NIBP Chest Pain 76 sr 132/81 0 Neurological State Oriented to time-place- Alert Moves all extremities person Respiration - General Respiration Rate SpO2 (%) (B/min) 10 96 Chronological Log Time Study Chronological Log 15:51:26 Patient arrived via Bed. 15:51:30 Patient Name, D.O.B, / Armband Verified By R.N. 15:56:36 Consent signed by the physician and the patient and verified by the Casting Inspector staff. 15:56:37 Pre-op and post- op instructions given; patient acknowledges understanding of instructions. 15:56:38 Verbal Stimulation=2 Physical Stimulation=2 Airway=2 Respiration=2 TOTAL=8. (0=absent, 1=li mited, 2=present) Vitals capture started with the following parameters, Patient=Adult, Interval=5 min, Initial Pr kqpwao=017 mmHg, 16:01:15 Deflation Rate=5 mmHg, Cuff placed on Left Arm 16:02:36 HR=65 bpm, NCDV=839/92 mmhg, MfY9=414.0 %, Resp=13 B/min 16:04:33 MD arrived. 16:07:00 HR=66 bpm, AOWG=192/93 mmhg, TtH2=359.0 %, Resp=14 B/min 16:11:59 HR=68 bpm, BIYX=438/85 mmhg, SpO2=97.0 %, Resp=13 B/min 16:15:38 Pressure channel 1 zeroed. 16:16:58 HR=78 bpm, FMUQ=877/112 mmhg, SpO2=99.0 %, Resp=11 B/min 16:21:42 25 mcg FENTANYL given in lab by Gregorio Soriano RN in Left Antecubital via Peripheral IV. Orde red by Atif Higuera. Time Out. Correct patient, correct procedure, correct physician, power injector loaded, or not loaded with contrast with 16:22:04 surgical team present. Time Out Concurred by MD and individual staff in procedure. 16:22:16 0.5 mg VERSED given in lab by Gregorio Soriano RN in Left Antecubital via Peripheral IV. Ordere d by Atif Higuera. 16:22:34 Reference ECG taken 16:22:42 HR=61 bpm, FLXY=741/92 mmhg, SpO2=99.0 %, Resp=14 B/min, Carlyn=10 16:22:51 Case Start 16:22:52 20 mL 1% XYLOCAINE given in lab by Atif Higuera in Right Radial via Subcutaneous. 16:23:38 Access site was Radial Artery. Right A SHEATH, FR6 TRANSRADIAL SLENDER 10CM FR 6 was advanced into the Radial (right) using the Perc utaneous 16:24:34 technique. 5 mL (Bolus) RADIAL COCKTAIL given in lab by Atif Higuera in Right Radial via Radial. Us ing [Solution Name]. 16:24:54 Ordered by Atif Higuera. Reason: Ntg 200mcg Verapamil 2.5mg Heparin 4800U. A JR 4.0 DXTERITY CATHETER FR 5 was advanced over a wire. OMNIPAQUE, 350 MG, 150ML 150ML was us ed for 16:25:15 injections. 16:27:02 HR=79 bpm, NDJL=914/72 mmhg, SpO2=99.0 %, Resp=9 B/min Recorded Pressure: LV, HR=71, Condition=Condition 1 16:27:23 (Left Ventricle) LV 126/1/7 Recorded Pressure: LV, Ao, HR=72, Condition=Condition 1 16:27:39 (Left Ventricle) LV 131/1/7, (Aorta) Ao 131/65/90 16:28:39 The RCA was injected and visualized at various angles. OMNIPAQUE, 350 MG, 150ML 150ML used . 16:31:55 HR=77 bpm, JSZS=613/82 mmhg, SpO2=96.0 %, Resp=13 B/min After removing the current catheter a JL 3.5 INFINITI CATHETER FR 5 was advanced over a WIRE, E XCHANGE 260CM 16:31:56 3MMJ 260CM. 16:33:57 The LCA was injected and visualized at various angles. OMNIPAQUE, 350 MG, 150ML 150ML used . 16:37:39 HR=74 bpm, QIFK=434/102 mmhg, SpO2=98.0 %, Resp=12 B/min 16:38:04 50 mcg FENTANYL given in lab by Gregorio Soriano RN in Left Antecubital via Peripheral IV. Orde red by Atif Higuera 16:42:11 HR=74 bpm, FCCI=896/83 mmhg, SpO2=96.0 %, Resp=9 B/min After removing the current catheter a JR 4.0 DXTERITY CATHETER FR 5 was advanced over a WIRE, E XCHANGE 260CM 16:42:41 3MMJ 260CM. 10 mg HYDRALAZINE given in lab by Gregorio Soriano RN in Left Antecubital via Peripheral IV. Ordere d by Atif Higuera 16:46:17 G. 16:47:06 HR=69 bpm, KZMF=316/93 mmhg, SpO2=96.0 %, Resp=12 B/min After removing the current catheter a AR MOD DXTERITY CATHETER FR 5 was advanced over a WIRE, E XCHANGE 16:50:32 260CM 3MMJ 260CM. 16:52:09 HR=68 bpm, FDZM=842/89 mmhg, SpO2=98.0 %, Resp=11 B/min After removing the current catheter a AL 1 INFINITI CATHETER FR 5 was advanced over a WIRE, EXC HANGE 260CM 16:52:18 3MMJ 260CM. After removing the current catheter a AR MOD INFINITI CATHETER FR 5 was advanced over a WIRE, E XCHANGE 260CM 16:56:51 3MMJ 260CM. 16:57:08 HR=72 bpm, COBM=085/80 mmhg, SpO2=98.0 %, Resp=12 B/min 17:00:06 The CIRC Prox was injected and visualized at various angles. OMNIPAQUE, 350 MG, 150ML 150ML used. 17:00:35 The Thermodynamics Teacher is being relieved by Phillip Foreman RN. 10 mg HYDRALAZINE given in lab by Phillip Foreman RN in Left Antecubital via Peripheral IV. Ord ered by Kalen 17:02:24 Atif Collazo 17:02:57 HR=77 bpm, ZKGI=221/90 mmhg, SpO2=96.0 %, Resp=13 B/min 17:04:24 Catheter was removed 10 mg LABETOLOL given in lab by Phillip Foreman, BRIJESH in Left Antecubital via Peripheral IV. Order ed by Atif Higuera 17:05:05 G. 17:05:45 Case End 17:07:17 HR=76 bpm, BYMZ=431/68 mmhg, SpO2=99.0 %, Resp=9 B/min 17:12:06 MCQL=719/81 mmhg, SpO2=96.0 % 17:13:20 Vitals capture stopped. Radial Compression Device Used. 11 mLs of air placed in BAND, RADIAL COMPRESSION TR SHORT 24 24 CM. Affected 17:13:54 hand 96 % O2 saturation. Assessment: Final Case, HR=76 BPM, Rhythm=sr, BEME=448/81 mmhg, Chest Pain=0 17:16:04 Neurological: State=Alert, Ox3, OSORIO Respiration: Resp=10 B/min, SpO2=96 % 17:16:07 No case complications noted. 17:16:08 Cine recording checked. 17:16:10 Bedside Report will be given. 17:16:15 A Left Heart Cath was performed. 17:16:16 Patient moved to bed 17:20:14 Patient tranported to [facility]. End Study - Contrast Media Used In Study Contrast Total Opened (mL) Total Used (mL) Total Wasted (mL) Omnipaque 140 140 0 End Study - Maximum Contrast Load Max Contrast Load (mL) 495.8 End Study - Radiation Exposure Fluoro Time (minutes) 12.0 End Study - Sheaths Sheaths Pulled By Sheath Hold Time (min) Bethany Denis End Study - Patient Disposition Complications Transferred To Interventional Outcome No Telemetry Bed No attempt made
[2017-06-25] MEDS ORDERED: MISC INFORMATION XX ONE (17:45)
[2017-06-25] MEDS: VANCOMYCIN 500 MG VIAL (FOR ORAL USE ONLY) PO SCH ×2 (17:54→21:53)
[2017-06-25] MEDS: clonazePAM 0.5 MG TAB PO SCH ×2 (17:55→21:53)
[2017-06-25] MEDS ORDERED: PILL SPLITTER OTHER PRN (18:15)
[2017-06-25] MEDS: ACETAMINOPHEN/HYDROcodone 325 MG/7.5 MG TAB PO PRN (18:43)
[2017-06-25] MEDS: amLODIPine BESYLATE 5 MG TAB PO SCH (18:43)
--- NOTE | 2017-06-25 20:48 | MB ---
cc: ATIF BEDOLLA DO DATE OF CONSULTATION 06/25/17 REASON FOR CONSULTATION Abnormal stress test. HISTORY OF PRESENT ILLNESS Magalys Crespo is a pleasant 66-year-old female who presented to [facility] emergency room on June 25, 2017 due to chest pain. She states that she generally has pain all day. She was taking her normal arthritis pain medication. She continued to have pain in the center of her chest which she was concerned about and states that it radiated up to her neck and jaw. This was also associated with palpitations, although she chronically has palpitations. She denies shortness of breath, nausea, vomiting or diaphoresis with the episode. She came into the ER and was admitted to the chest pain center. During this, she underwent a pharmacologic nuclear stress test. This showed multiple areas of ischemia concerning for multivessel disease. Because of this, she was recommended cardiac catheterization. The patient states that she underwent a cardiac catheterization two years ago in [place] which showed a 70% lesion in the LAD. At that time, they felt she was asymptomatic and decided to treat it medically. PAST MEDICAL HISTORY 1. Coronary artery disease. 2. Hypertension 3. Recurrent UTIs 4. Chronic C. Diff 5. COPD 6. Tobacco abuse. 7. Anxiety/depression. PAST SURGICAL HISTORY 1. Appendectomy. 2. Tonsillectomy 3. Cervical fusion 4. Oral surgery. ALLERGIES AMOXICILLIN MEDICATIONS 1. Atrovent 2 puffs every 4 hours as needed for shortness of breath. 2. Albuterol 2 puffs every 6 hours as needed for shortness of breath. 3. Nicotine patch daily 4. Lipitor 20 mg every night 5. Aspirin 81 mg daily 6. Celebrex 100 mg b.i.d. 7. Ultram 100 mg every 6 hours as needed for pain. 8. Klonopin 0.5 mg q.i.d. 9. Gabapentin 900 mg t.i.d. 10. Potassium 20 mEq daily 11. Lasix 40 mg every other day. 12. Flovent 2 puffs b.i.d. 13. Magnesium oxide 400 mg daily 14. Omeprazole 20 mg daily 15. Allopurinol 100 mg daily 16. Colchicine 0.6 mg daily 17. Vancomycin 250 mg four times a day. FAMILY HISTORY Denies premature coronary artery disease or sudden cardiac within the family. SOCIAL HISTORY The patient states that she smokes less than one pack a day since the age of 17. She denies alcohol or drug abuse. REVIEW OF SYSTEMS 14-systems were reviewed including osteopathic. Pertinent positives and negatives above otherwise negative. PHYSICAL EXAMINATION VITAL SIGNS: Temperature 98.6, heart rate 58, blood pressure 150/79, respirations 16, pulse ox 97% on room air. GENERAL: In general the patient appears well in no acute distress, alert, awake and oriented x3. HEENT: Extraocular muscles intact. Mucous membranes moist. NECK: Supple. No JVD at 45 degrees. No carotid bruits heard bilaterally. Carotid upstroke is brisk in nature. HEART: Regular rate and rhythm. Positive first and second heart sounds with no murmurs, gallops or rubs. LUNGS: Clear to auscultation bilaterally. No wheezes, rales or rhonchi. ABDOMEN: Soft, nontender, nondistended. No organomegaly noted. EXTREMITIES: 1+ pitting edema. NEUROLOGIC: No focal deficits. SKIN: Warm, dry and intact. OSTEOPATHIC: No kyphoscoliosis, mild lordosis. No paraspinal tender points. LABORATORY FINDINGS Hemoglobin 10.7, hematocrit 34.5, platelets 201. Potassium 4.2, BUN 18, creatinine 1.2, troponin negative x3. CARDIOLOGY STUDIES Electrocardiogram (June 25, 2017 at 0916) sinus rhythm, first-degree AV block, incomplete right bundle branch block, nonspecific ST-T wave changes. IMPRESSION 1. Chest pain concerning for coronary insufficiency. 2. Abnormal stress test showing possible multiple areas of ischemia. 3. Tobacco abuse. 4. History of coronary artery disease. 5. Hypertension 6. Recurrent UTIs 7. Chronic C. Diff 8. COPD. RECOMMENDATIONS 1. Ms. Mcdaniels presented with chest pain concerning for coronary insufficiency and underwent stress testing which showed possible multiple areas of ischemia. Because of this, she will be recommended cardiac catheterization. 2. Risks, benefits and alternatives were explained to her and she consented as such. 3. I spoke to her for greater than three minutes about tobacco cessation. 4. Further recommendations will be made based on coronary visualization. 5. We will check a 2-D echo to look at her overall left ventricular function, cardiac structure and possible valvopathies. Thank you for allowing me to see Magalys Crespo. If there are any questions, please do not hesitate to call. Atif JUÁREZ /4:11 PM /8:18 PM
[2017-06-25] MEDS: FLUTICASONE PROPIONATE 110 MCG/ACT 12 GM INHALER INH SCH (21:50)
[2017-06-25] MEDS: METOPROLOL TARTRATE 25 MG TAB PO SCH (21:54)
[2017-06-25] MEDS: CELECOXIB 100 MG CAP PO SCH (21:54)
[2017-06-25] MEDS: ATORVASTATIN 20 MG TAB PO SCH (21:55)
[2017-06-25] MEDS: MORPHINE SULFATE 4 MG/ML INJ IV PUSH PRN (21:56)
[2017-06-26] VITALS (25 sets, daily range): BP systolic 103–148; BP diastolic 53–74; PULSE 52–81; RESP 16–18; TEMP 97.7–99.5; O2SAT 95–99
[2017-06-26] MEDS: MORPHINE SULFATE 4 MG/ML INJ IV PUSH PRN (02:11)
[2017-06-26 06:25] LABS: BASOPHIL # 0.1 TH/MM3 (0-0.2); BASOPHIL % 1.1 % (0.0-2.0); EOSINOPHIL # 0.2 TH/MM3 (0-0.4); EOSINOPHIL % 3.2 % (0.0-4.0); LYMPH % 26.9 % (9.0-44.0); LYMPHOCYTE # 1.8 TH/MM3 (1.0-4.8); MEAN CELL VOLUME 71.9 FL (80.0-100.0); MEAN CORPUSCULAR HEMOGLOBIN 23.1 PG (27.0-34.0); MEAN CORPUSCULAR HGB CONC 32.1 % (32.0-36.0); MEAN PLATELET VOLUME 8.3 FL (7.0-11.0); MONO % 9.6 % (0.0-8.0); MONOCYTE # 0.7 TH/MM3 (0-0.9); NEUT % 59.2 % (16.0-70.0); PLATELET COUNT 194 TH/MM3 (150-450); RED BLOOD COUNT 4.31 MIL/MM3 (4.00-5.30); RED CELL DISTRIBUTION WIDTH 20.9 % (11.6-17.2); WHITE BLOOD COUNT 6.8 TH/MM3 (4.0-11.0)
[2017-06-26 07:12] LABS: BICARBONATE 27.5 MEQ/L (21.0-32.0); CALCIUM 10.3 MG/DL (8.5-10.1); CREATININE 1.43 MG/DL (0.50-1.00)
[2017-06-26] MEDS: VANCOMYCIN 500 MG VIAL (FOR ORAL USE ONLY) PO SCH ×4 (07:30→20:35)
[2017-06-26] MEDS: GABAPENTIN 100 MG CAP PO SCH ×2 (07:30→20:34)
[2017-06-26] MEDS: GABAPENTIN 400 MG CAP PO SCH ×2 (07:30→20:35)
[2017-06-26] MEDS: METOPROLOL TARTRATE 25 MG TAB PO SCH (07:31)
[2017-06-26] MEDS: amLODIPine BESYLATE 5 MG TAB PO SCH (07:31)
[2017-06-26] MEDS: POTASSIUM CHLORIDE 20 MEQ CONTROLLED RELEASE TAB PO SCH (07:31)
[2017-06-26] MEDS: ASPIRIN 325 MG TAB PO SCH (07:31)
[2017-06-26] MEDS: CELECOXIB 100 MG CAP PO SCH ×2 (07:32→20:34)
[2017-06-26] MEDS: FLUTICASONE PROPIONATE 110 MCG/ACT 12 GM INHALER INH SCH ×2 (07:32→20:35)
[2017-06-26] MEDS: PANTOPRAZOLE SOD 20 MG DELAYED RELEASE TAB PO SCH (07:32)
[2017-06-26] MEDS: MAGNESIUM OXIDE 400 MG TAB PO SCH (07:32)
[2017-06-26] MEDS: clonazePAM 0.5 MG TAB PO SCH ×4 (07:32→20:35)
[2017-06-26] MEDS: COLCHICINE 0.6 MG TAB PO SCH (07:32)
[2017-06-26] MEDS: ACETAMINOPHEN/HYDROcodone 325 MG/7.5 MG TAB PO PRN ×3 (07:43→20:38)
--- NOTE | 2017-06-26 08:05 | MA ---
cc: ATIF BEDOLLA DO DATE: June 25, 2017 PROCEDURE Left heart catheterization, coronary angiogram. ANESTHESIA: moderate sedation 45 minutes PREPROCEDURE DIAGNOSIS Chest pain, abnormal stress test. 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 MEDICATIONS 1. Versed 0.5 mg. 2. Fentanyl 75 mcg. 3. Nitro 200 mcg. 4. Verapamil 2.5 mg. 5. Heparin 4800 units. 6. Hydralazine 20 mg. 7. Labetalol 10 mg. CONTRAST 140 cc. FLUOROSCOPY: Fluoroscopy 12 minutes ESTIMATED BLOOD LOSS 10 cc PROCEDURAL SUMMARY Magalys Crespo is a pleasant 66 year old female who presented to [facility] emergency room due to chest pain. She underwent pharmacologic nuclear stress testing which showed anterior lateral and inferior ischemia. Because of this she was recommended cardiac catheterization. Risks, benefits and alternatives were explained to her and she consented as such. She was brought to lab and prepped in the usual sterile fashion. Right radial artery was accessed using a modified Seldinger technique and placement of a 5/6 Setswana slender sheath. This was easily aspirated and flushed. JR-4 was advanced over a J-wire to the ascending aorta and across the aortic valve for measurement of left ventricular pressure. This was pulled back across the aortic valve showing no significant gradient of aortic stenosis. JR-4 was used for selective angiography of the right coronary artery system. This was exchanged out for a JL-3.5 which was used for selective angiography of the left coronary artery system. This was then exchanged out for an AR mod which was used for selective angiography of the anomalous left circumflex off the right coronary cusp. This was removed over a J-wire. Radial band was placed over the arteriotomy site for hemostasis. The patient left the label rewinder cardiovascularly stable. FINDINGS Left main normal size vessel with adequate reflux and no significant disease. He continues into the LAD. Left circumflex comes off anomalously so there is no bifurcation of the left main. LAD normal-size vessel with moderate tortuosity throughout. There is a 80% stenosis in the midportion of the LAD. The distal portion of the LAD ends up taking a very lateral course to the anterior lateral wall. LAD gives off three small diagonals with no significant disease. Left circumflex anomalous takeoff from the right coronary cusp with ostium separate from the RCA. It has a mid lesion of 80%. Distally it gives off three obtuse marginals with overall small tortuous vessels but no significant disease. RCA normal-size vessel with luminal irregularities throughout. There is a long tubular lesion in the midportion which is 60-70%. Distally it is a dominant vessel and supplies a large PDA as well as a posterior lateral branch. LVEDP 7. IMPRESSION 1. Chest pain concerning for coronary insufficiency. 2. Abnormal stress test. 3. 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 4. Hypertension. RECOMMENDATIONS 1. Ms. Crespo appears to multivessel coronary artery disease with significant disease in her LAD as well as moderate severe disease of her RCA and diseased and normal left circumflex. 2. This correlates with stress test showing anterior inferior lateral ischemia. 3. Will discuss with her consideration of revascularization with possible coronary artery bypass grafting. 4. She will need a CTA most likely tomorrow creatinine is stable with varus. To rule out intra-arterial pass of the left circumflex. 5. She will need a 2-D echo to look her overall left ventricular function, cardiac structure and possible bowel velocities. 6. Will discuss further with surgery. Will discuss further with cardiothoracic surgery consideration of coronary artery bypass grafting. 7. As she is on no antianginals at this time we will plan on adding Norvasc and metoprolol normally further antianginal but also antihypertensive properties. Thank you for allowing me to see Magalys Crespo, if there are any questions please do not hesitate to call. Atif Bedolla DO STACYP/carmen /5:36 PM /6:36 AM
[2017-06-26] MEDS: CALCIUM CARBONATE 1.25 GM (CA 500 MG) TAB PO SCH ×3 (09:00→17:20)
--- NOTE | 2017-06-26 11:08 | PD.CONS ---
History of Present Illness Service CT Surgery Consult Requested By Dr. Higuera Reason for Consult Unstable angina, multivessel CAD Primary Care Physician Leti Hernandez MD Diagnoses: (1) CAD (coronary artery disease) (2) Unstable angina History of Present Illness 66 y/o female with long-standing tobacco abuse history presents with chest pain radiating to the neck/jaw at rest. She underwent stress testing which was positive. Dr. 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 She is being considered for CABG. Review of Systems Constitutional: COMPLAINS OF: Diaphoretic episodes, Fatigue, DENIES: Fever, Weight gain, Weight loss, Chills, Dizziness, Change in appetite, Night Sweats Endocrine: DENIES: Abnorml menstrual pattern, Heat/cold intolerance, Polydipsia , Polyuria, Polyphagia Eyes: DENIES: Blurred vision, Diplopia, Eye inflammation, Eye pain, Vision loss , Photosensitivity, Double Vision Ears, nose, mouth, throat: DENIES: Tinnitus, Hearing loss, Vertigo, Nasal discharge, Oral lesions, Throat pain, Hoarseness, Ear Pain, Running Nose, Epistaxis, Sinus Pain, Toothache, Odynophagia Respiratory: COMPLAINS OF: Cough, DENIES: Apneas, Snoring, Wheezing, Hemoptysis , Sputum production, Shortness of breath Cardiovascular: COMPLAINS OF: Chest pain, Dyspnea on Exertion, DENIES: Palpitations, Syncope, PND, Lower Extremity Edema, Orthopnea, Claudication Gastrointestinal: DENIES: Abdominal pain, Black stools, Bloody stools, Constipation, Diarrhea, Nausea, Vomiting, Difficulty Swallowing, Anorexia Genitourinary: DENIES: Abnormal vaginal bleeding, Dysmenorrhea, Dyspareunia, Sexual dysfunction, Urinary frequency, Urinary incontinence, Urgency, Hematuria , Dysuria, Nocturia, Vaginal discharge Musculoskeletal: COMPLAINS OF: Joint pain, Stiffness, DENIES: Muscle aches, Joint Swelling, Back pain, Neck pain Integumentary: DENIES: Abnormal pigmentation, Pruritus, Rash, Nail changes, Breast masses, Breast skin changes, Nipple discharge Hematologic/lymphatic: DENIES: Bruising, Lymphadenopathy Immunologic/allergic: DENIES: Eczema, Urticaria Neurologic: COMPLAINS OF: Abnormal gait, Poor Balance, DENIES: Headache, Localized weakness, Paresthesias, Seizures, Speech Problems, Tremor Psychiatric: DENIES: Anxiety, Confusion, Mood changes, Depression, Hallucinations, Agitation, Suicidal Ideation, Homicidal Ideation, Delusions Past Family Social History Allergies: Coded Allergies: amoxicillin (Verified Allergy, Intermediate, throat pain, 06/25/17) Past Medical History Gout GERD Hyperlipidemia Coronary artery disease Hypertension Recurrent UTIs Chronic C. difficile COPD Tobacco abuse Anxiety and depression Macular degeneration - legally blind Osteoarthritis Past Surgical History Appendectomy Tonsillectomy Cervical fusion Unspecified oral surgery Reported Medications Active [vancomycin 25mg/ml] Liquid 250 Mg PO QID Gabapentin 800 Mg Tab 800 Mg PO TID Gabapentin 100 Mg Cap 100 Mg PO TID Ultram (Tramadol HCl) 50 Mg Tab 100 Mg PO Q6H PRN Klonopin (Clonazepam) 0.5 Mg Tab 0.5 Mg PO QID Reported Flovent Hfa 12 GM Inh (Fluticasone Propionate) 110 Mcg/Act Inh 2 Puff INH BID Colchicine 0.6 Mg Tab 0.6 Mg PO DAILY Calcium Carbonate 500 Mg Calcium (1250 Mg) Tab 1,250 Mg PO TID 1,250 mg calcium carbonate (500 mg elemental calcium) Proair Hfa 8.5 GM Inh (Albuterol Sulfate) 90 Mcg/Act Aer 2 Puff INH Q6H PRN 108 mcg/actuation Potassium Chloride ER (Potassium Chloride) 20 Meq Tab 20 Meq PO DAILY Omeprazole 20 Mg Tab 20 Mg PO DAILY Nicotine Patch (Nicotine) 14 Mg/24 Hr Patch 14 Mg T-DERMAL DAILY Magnesium Oxide 400 Mg Tab 400 Mg PO DAILY Atrovent HFA 12.9 GM Inh (Ipratropium [place]) 17 Mcg/Actuation Aer 2 Puff INH Q4HR PRN Aspirin EC (Aspirin) 81 Mg Tabdr 81 Mg PO DAILY Atorvastatin (Atorvastatin Calcium) 20 Mg Tab 20 Mg PO HS Allopurinol 100 Mg Tab 100 Mg PO DAILY Celebrex (Celecoxib) 100 Mg Cap 100 Mg PO BID Lasix (Furosemide) 40 Mg Tab 40 Mg PO QOD Current Medications Medications (Trade) Dose Ordered Sig/Milana Route Start Time Stop Time Status Last Admin (NS Flush) 2 ml UNSCH PRN IVF 06/25/17 03:15 (NS Flush) 2 ml UNSCH PRN IV FLUSH 06/25/17 04:45 (Tylenol) 500 mg Q4H PRN PO 06/25/17 04:45 ([place] 7.5-325 Mg) 1 tab Q4H PRN PO 06/25/17 04:45 (Morphine Inj) 2 mg Q4H PRN IV PUSH 06/25/17 04:45 (Zofran Inj) 4 mg Q6H PRN IV PUSH 06/25/17 04:45 (Nitrostat Sl) 0.4 mg Q5M PRN SL 06/25/17 04:45 (Aspirin) 325 mg DAILY PO 06/25/17 09:00 06/25/17 09:00 (Heparin Inj) 5,000 units Q8H SQ 06/25/17 12:00 (Duoneb Neb) 1 ampule Q4HR NEB PRN NEB 06/25/17 04:45 Family History Paternal and maternal family medical history significant for hypertension. Social History Patient does admit to current tobacco use, states she smokes less than one pack per day since the age of [age]. Denies any alcohol or illicit drug use. She lives here with her sister and recently relocated from [place]. She cannot drive and is mostly non-ambulatory due to arthritic pain in her hips and knees. She needs assistance to accomplish her ADLs Physical Exam Vital Signs Vital Signs Date Time Temp Pulse Resp B/P (MAP) Pulse Ox O2 Delivery O2 Flow Rate FiO2 06/26/17 08:56 18 06/26/17 08:00 61 06/26/17 07:30 99.5 64 16 125/53 (77) 95 06/26/17 06:00 55 06/26/17 05:00 62 06/26/17 04:00 81 06/26/17 04:00 98.5 60 16 105/65 (78) 99 06/26/17 03:00 58 06/26/17 02:00 66 06/26/17 01:00 60 06/26/17 00:00 97.7 65 16 133/67 (89) 99 06/26/17 00:00 56 06/25/17 23:00 70 06/25/17 22:00 60 06/25/17 21:00 64 06/25/17 20:00 61 06/25/17 20:00 98.4 70 16 141/73 (95) 98 06/25/17 15:20 98.6 58 16 150/79 (102) 97 06/25/17 12:00 98.4 50 16 172/77 (108) 99 Physical Exam GENERAL: This is an obese patient, in no apparent distress. SKIN: No rashes, ecchymoses or lesions. Cool and dry. HEAD: Atraumatic. Normocephalic. No temporal or scalp tenderness. EYES: Pupils equal round and reactive. Extraocular motions intact. No scleral icterus. No injection or drainage. ENT: Nose without bleeding, purulent drainage or septal hematoma. Throat without erythema, tonsillar hypertrophy or exudate. Uvula midline. Airway patent. NECK: Trachea midline. No JVD or lymphadenopathy. Supple, nontender, no meningeal signs. CARDIOVASCULAR: Regular rate and rhythm without murmurs, gallops, or rubs. RESPIRATORY: Clear to auscultation. Breath sounds equal bilaterally. No wheezes , rales, or rhonchi. GASTROINTESTINAL: Abdomen soft, non-tender, nondistended. No hepato-splenomegaly , or palpable masses. No guarding. MUSCULOSKELETAL: Extremities without clubbing, cyanosis, or edema. No joint tenderness, effusion, or edema noted. No calf tenderness. Negative Homans sign bilaterally. NEUROLOGICAL: Awake and alert. Cranial nerves II through XII intact. Motor and sensory grossly within normal limits. Five out of 5 muscle strength in all muscle groups. Normal speech. Laboratory Laboratory Tests Test 06/26/17 05:50 White Blood Count 6.8 Red Blood Count 4.31 Hemoglobin 10.0 Hematocrit 31.0 Mean Corpuscular Volume 71.9 Mean Corpuscular Hemoglobin 23.1 Mean Corpuscular Hemoglobin Concent 32.1 Red Cell Distribution Width 20.9 Platelet Count 194 Mean Platelet Volume 8.3 Neutrophils (%) (Auto) 59.2 Lymphocytes (%) (Auto) 26.9 Monocytes (%) (Auto) 9.6 Eosinophils (%) (Auto) 3.2 Basophils (%) (Auto) 1.1 Neutrophils # (Auto) 4.0 Lymphocytes # (Auto) 1.8 Monocytes # (Auto) 0.7 Eosinophils # (Auto) 0.2 Basophils # (Auto) 0.1 CBC Comment DIFF FINAL Differential Comment Blood Urea Nitrogen 22 Creatinine 1.43 Random Glucose 95 Calcium Level 10.3 Sodium Level 137 Potassium Level 4.4 Chloride Level 101 Carbon Dioxide Level 27.5 Anion Gap 9 Estimat Glomerular Filtration Rate 37 Result Diagram: 06/26/17 0550 06/26/17 0550 Imaging Last Impressions Chest X-Ray 06/25/17 0314 Signed Impressions: Service Date/Time: Sunday, June 25, 2017 03:26 - CONCLUSION: No acute disease. Luis Armando Medina MD Myocardial Perfusion Scan Nuc Med 06/25/17 0000 Signed Impressions: Service Date/Time: Sunday, June 25, 2017 10:13 - CONCLUSION: Significant stress-induced ischemia. 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 ECHO is pending. She is not a great candidate for CABG secondary to frailty. I am not sure how her chronic C Diff factors in to her operative risk, but she will likely need placement in a SNF for several weeks to months postoperatively based on her functional status and overall condition. I discussed this with Dr. Higuera and she will undergo CTA to determine the course of the LCx and whether or not she has percutaneous options. Will follow. Problem Qualifiers (1) CAD (coronary artery disease): Qualified Codes: I25.110 - Atherosclerotic heart disease of [place] coronary artery with unstable angina pectoris Calista Sun MD Jun 26, 2017 11:07
--- NOTE | 2017-06-26 12:19 | HHI.PR ---
Subjective Remarks Follow-up for chest pain and multivessel disease Patient tearful after speaking to Dr. Smith. She stated that she feels hopeless that nothing can be done. She stated that since nothing can be done she mines as well smoke. She also stated that she wished she would've stayed in [place]. Patient denies any chest pain, shortness of breathing, palpitation, lightheadedness or dizziness. Emotional support given. Objective Vitals Vital Signs Date Time Temp Pulse Resp B/P (MAP) Pulse Ox O2 Delivery O2 Flow Rate FiO2 06/26/17 08:56 18 06/26/17 08:00 61 06/26/17 07:30 99.5 64 16 125/53 (77) 95 06/26/17 06:00 55 06/26/17 05:00 62 06/26/17 04:00 81 06/26/17 04:00 98.5 60 16 105/65 (78) 99 06/26/17 03:00 58 06/26/17 02:00 66 06/26/17 01:00 60 06/26/17 00:00 97.7 65 16 133/67 (89) 99 06/26/17 00:00 56 06/25/17 23:00 70 06/25/17 22:00 60 06/25/17 21:00 64 06/25/17 20:00 61 06/25/17 20:00 98.4 70 16 141/73 (95) 98 06/25/17 15:20 98.6 58 16 150/79 (102) 97 I/O 06/25/17 06/25/17 06/25/17 06/26/17 06/26/17 06/26/17 07:00 15:00 23:00 07:00 15:00 23:00 Intake Total 240 ml 240 ml Balance 240 ml 240 ml Intake Oral 240 ml 240 ml # Voids 1 2 2 2 Result Diagram: 06/26/17 0550 06/26/17 0550 Objective Remarks GENERAL: in NAD but a little tearful. CARDIOVASCULAR: Regular rate and rhythm without murmurs, gallops, or rubs. RESPIRATORY: Breath sounds equal bilaterally. No accessory muscle use. GASTROINTESTINAL: Abdomen soft, non-tender, nondistended. MUSCULOSKELETAL: No cyanosis, or edema. Medications and IVs Current Medications Sodium Chloride (NS Flush) 2 ml UNSCH PRN IVF FLUSH AFTER USING IV ACCESS; Start 06/25/17 at 03:15 Nitroglycerin (Nitrostat Sl) 0.4 mg Q5M SL Last administered on 06/25/17at 04:02 ; Start 06/25/17 at 03:15; Stop 06/25/17 at 03:26; Status DC Sodium Chloride (NS Flush) 2 ml UNSCH PRN IV FLUSH FLUSH AFTER USING IV ACCESS ; Start 06/25/17 at 04:45 Acetaminophen (Tylenol) 500 mg Q4H PRN PO HEADACHE; Start 06/25/17 at 04:45 Acetaminophen/ Hydrocodone Bitart ([place] 7.5-325 Mg) 1 tab Q4H PRN PO PAIN SCALE 1 TO 7 Last administered on 06/26/17at 07:43; Start 06/25/17 at 04:45 Morphine Sulfate (Morphine Inj) 2 mg Q4H PRN IV PUSH PAIN SCALE 8 TO 10 Last administered on 06/26/17at 02:11; Start 06/25/17 at 04:45 Ondansetron HCl (Zofran Inj) 4 mg Q6H PRN IV PUSH NAUSEA; Start 06/25/17 at 04: 45 Nitroglycerin (Nitrostat Sl) 0.4 mg Q5M PRN SL CHEST PAIN; Start 06/25/17 at 04 :45 Aspirin (Aspirin) 325 mg DAILY PO Last administered on 06/26/17at 07:31; Start 06/25/17 at 09:00 Heparin Sodium (Porcine) (Heparin Inj) 5,000 units Q8H SQ Last administered on 06/25/17at 12:52; Start 06/25/17 at 12:00; Stop 06/25/17 at 18:15; Status DC Albuterol/ Ipratropium (Duoneb Neb) 1 ampule Q4HR NEB PRN NEB SOB/WHEEZING; Start 06/25/17 at 04:45 Regadenoson (Lexiscan Inj) 0.4 mg STK-MED ONCE IV Last administered on at 10:29; Start 06/25/17 at 10:29; Stop 06/25/17 at 10:30; Status DC Albuterol Sulfate (Proair Hfa Inh) 2 puff Q6H PRN INH SHORTNESS OF BREATH; Start 06/25/17 at 12:00 Atorvastatin Calcium (Lipitor) 20 mg HS PO Last administered on 06/25/17at 21:55 ; Start 06/25/17 at 21:00 Calcium Carbonate (Oscal) 1,250 mg TID PO Last administered on 06/26/17at 12:00 ; Start 06/25/17 at 13:00 Celecoxib (CeleBREX) 100 mg BID PO Last administered on 06/26/17 07:32; Start 06/25/17 at 21:00 Colchicine (Colchicine) 0.6 mg DAILY PO Last administered on 06/26/17 07:32; Start 06/26/17 at 09:00 Fluticasone Propionate (Flovent Hfa 110 Mcg Inh) 2 puff BID INH Last administered on 06/26/17 07:32; Start 06/25/17 at 21:00 Furosemide (Lasix) 40 mg EVERY OTHER DAY PO Last administered on 06/25/17at 12: 50; Start 06/25/17 at 13:00 Gabapentin (Neurontin) 100 mg TID PO Last administered on 06/26/17 07:30; Start 06/25/17 at 13:00; Stop 06/26/17 at 08:52; Status DC Gabapentin (Neurontin) 800 mg TID PO Last administered on 06/26/17 07:30; Start 06/25/17 at 13:00; Stop 06/26/17 at 08:52; Status DC Ipratropium [place] (Atrovent Hfa Inh) 2 puff Q4HR PRN INH SHORTNESS OF BREATH ; Start 06/25/17 at 13:00; Stop 06/25/17 at 13:37; Status DC Magnesium Oxide (Mag-Ox) 400 mg DAILY PO Last administered on 06/26/17at 07:32; Start 06/26/17 at 09:00 Potassium Chloride (KCl) 20 meq DAILY PO Last administered on 06/26/17 07:31; Start 06/26/17 at 09:00 Pantoprazole Sodium (Protonix) 20 mg DAILY PO Last administered on 06/26/17at 07 :32; Start 06/26/17 at 09:00 Vancomycin HCl (VANCOMYCIN for oral use only) 250 mg QID PO Last administered on 06/26/17at 12:00; Start 06/25/17 at 14:00 Ipratropium [place] (Atrovent Neb) 0.5 mg Q4HR NEB PRN NEB SHORTNESS OF BREATH ; Start 06/25/17 at 14:00 Clonazepam (KlonoPIN) 0.5 mg QID PO Last administered on 06/26/17at 12:00; Start 06/25/17 at 18:00 Heparin Sodium/ Sodium Chloride 1,000 ml @ As Directed STK-MED ONCE .ROUTE ; Start 06/25/17 at 16:03; Stop 06/25/17 at 16:04; Status DC Midazolam HCl (Versed Inj) 2 mg STK-MED ONCE .ROUTE Last administered on at 16:03; Start 06/25/17 at 16:03; Stop 06/25/17 at 16:04; Status DC Fentanyl Citrate (fentaNYL INJ) 100 mcg STK-MED ONCE .ROUTE Last administered on 06/25/17at 16:03; Start 06/25/17 at 16:03; Stop 06/25/17 at 16:04; Status DC Verapamil HCl (Isoptin Inj) 5 mg STK-MED ONCE .ROUTE Last administered on at 16:03; Start 06/25/17 at 16:03; Stop 06/25/17 at 16:04; Status DC Heparin Sodium (Porcine) (Heparin Inj) 10,000 units STK-MED ONCE .ROUTE Last administered on 06/25/17at 16:04; Start 06/25/17 at 16:04; Stop 06/25/17 at 16:05 ; Status DC Nitroglycerin 5 ml @ As Directed STK-MED ONCE .ROUTE Last administered on at 16:04; Start 06/25/17 at 16:04; Stop 06/25/17 at 16:05; Status DC Hydralazine HCl (Apresoline Inj) 20 mg STK-MED ONCE .ROUTE Last administered on 06/25/17at 16:45; Start 06/25/17 at 16:45; Stop 06/25/17 at 16:46; Status DC Labetalol HCl (Trandate Inj) 100 mg STK-MED ONCE .ROUTE Last administered on at 17:02; Start 06/25/17 at 17:02; Stop 06/25/17 at 17:03; Status DC Miscellaneous Information 1 ONCE ONCE XX ; Start 06/25/17 at 17:45; Stop at 18:14; Status DC Amlodipine Besylate (Norvasc) 2.5 mg DAILY PO Last administered on 06/26/17at 07 :31; Start 06/25/17 at 18:30 Metoprolol Tartrate (Lopressor) 12.5 mg Q12HR PO Last administered on at 07:31; Start 06/25/17 at 21:00 Miscellaneous (Pill Splitter) 1 ea UNSCH PRN OTHER SEE LABEL COMMENTS; Start at 18:15 Gabapentin (Neurontin) 100 mg BID PO ; Start 06/26/17 at 21:00 Gabapentin (Neurontin) 800 mg BID PO ; Start 06/26/17 at 21:00 A/P Problem List: (1) Chest pain ICD Code: R07.9 - Chest pain, unspecified Status: Acute (2) Hyperlipidemia ICD Code: E78.5 - Hyperlipidemia, unspecified (3) Congestive heart failure ICD Code: I50.9 - Heart failure, unspecified (4) Chronic back pain ICD Code: M54.9 - Dorsalgia, unspecified; G89.29 - Other chronic pain Assessment and Plan Unstable angina -Troponins were negative. Patient had an abnormal Lexiscan in which she was transfer to the main hospital for cardiac catheterization. -Cart catheterization done by Dr. 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 -CTS consulted and stated patient is a poor candidate for CABG secondary to frailty. He spoke to Dr. Higuera and she will undergo CTA determine the course of the LCx and whether or not she has percutaneous options. -Per Dr. Higuera waiting for improvement in kidney function. -Pending echo. -At the moment patient is asymptomatic. -Continue supportive care. Hyperlipidemia/congestive heart failure/chronic back pain -Continue home medication. DVT prophylaxis: SCDs. Heparin. Skyla Crane MD Jun 26, 2017 12:19
--- NOTE | 2017-06-26 12:30 | PD.CARD.PN ---
Subjective Subjective Remarks No events overnight Chronic arthritis pain Heart rates in the 50s Objective Medications Current Medications Medications (Trade) Dose Ordered Sig/Milana Route Start Time Stop Time Status Last Admin (NS Flush) 2 ml UNSCH PRN IVF 06/25/17 03:15 (NS Flush) 2 ml UNSCH PRN IV FLUSH 06/25/17 04:45 (Tylenol) 500 mg Q4H PRN PO 06/25/17 04:45 ([place] 7.5-325 Mg) 1 tab Q4H PRN PO 06/25/17 04:45 06/26/17 07:43 (Morphine Inj) 2 mg Q4H PRN IV PUSH 06/25/17 04:45 06/26/17 02:11 (Zofran Inj) 4 mg Q6H PRN IV PUSH 06/25/17 04:45 (Nitrostat Sl) 0.4 mg Q5M PRN SL 06/25/17 04:45 (Aspirin) 325 mg DAILY PO 06/25/17 09:00 06/26/17 07:31 (Duoneb Neb) 1 ampule Q4HR NEB PRN NEB 06/25/17 04:45 (Proair Hfa Inh) 2 puff Q6H PRN INH 06/25/17 12:00 (Lipitor) 20 mg HS PO 06/25/17 21:00 06/25/17 21:55 (Oscal) 1,250 mg TID PO 06/25/17 13:00 06/26/17 12:00 (CeleBREX) 100 mg BID PO 06/25/17 21:00 06/26/17 07:32 (Colchicine) 0.6 mg DAILY PO 06/26/17 09:00 06/26/17 07:32 (Flovent Hfa 110 Mcg Inh) 2 puff BID INH 06/25/17 21:00 06/26/17 07:32 (Lasix) 40 mg EVERY OTHER DAY PO 06/25/17 13:00 06/25/17 12:50 (Mag-Ox) 400 mg DAILY PO 06/26/17 09:00 06/26/17 07:32 (KCl) 20 meq DAILY PO 06/26/17 09:00 06/26/17 07:31 (Protonix) 20 mg DAILY PO 06/26/17 09:00 06/26/17 07:32 (VANCOMYCIN for oral use only) 250 mg QID PO 06/25/17 14:00 06/26/17 12:00 (Atrovent Neb) 0.5 mg Q4HR NEB PRN NEB 06/25/17 14:00 (KlonoPIN) 0.5 mg QID PO 06/25/17 18:00 06/26/17 12:00 (Norvasc) 2.5 mg DAILY PO 06/25/17 18:30 06/26/17 07:31 (Lopressor) 12.5 mg Q12HR PO 06/25/17 21:00 06/26/17 07:31 (Pill Splitter) 1 ea UNSCH PRN OTHER 06/25/17 18:15 (Neurontin) 100 mg BID PO 06/26/17 21:00 (Neurontin) 800 mg BID PO 06/26/17 21:00 Vital Signs / I&O Vital Signs Date Time Temp Pulse Resp B/P (MAP) Pulse Ox O2 Delivery O2 Flow Rate FiO2 06/26/17 08:56 18 06/26/17 08:00 61 06/26/17 07:30 99.5 64 16 125/53 (77) 95 06/26/17 06:00 55 06/26/17 05:00 62 06/26/17 04:00 81 06/26/17 04:00 98.5 60 16 105/65 (78) 99 06/26/17 03:00 58 06/26/17 02:00 66 06/26/17 01:00 60 06/26/17 00:00 97.7 65 16 133/67 (89) 99 06/26/17 00:00 56 06/25/17 23:00 70 06/25/17 22:00 60 06/25/17 21:00 64 06/25/17 20:00 61 06/25/17 20:00 98.4 70 16 141/73 (95) 98 06/25/17 15:20 98.6 58 16 150/79 (102) 97 I/O 06/25/17 06/25/17 06/25/17 06/26/17 06/26/17 06/26/17 07:00 15:00 23:00 07:00 15:00 23:00 Intake Total 240 ml 240 ml Balance 240 ml 240 ml Intake Oral 240 ml 240 ml # Voids 1 2 2 2 Physical Exam GENERAL: NAD, AAOx3 SKIN: Warm and dry. HEAD: Atraumatic. Normocephalic. EYES: Pupils equal and round. No scleral icterus. No injection or drainage. ENT: No nasal bleeding or discharge. Mucous membranes pink and moist. NECK: Trachea midline. No JVD. CARDIOVASCULAR: Regular rate and rhythm. RESPIRATORY: No accessory muscle use. Clear to auscultation. Breath sounds equal bilaterally. GASTROINTESTINAL: Abdomen soft, non-tender, nondistended. Hepatic and splenic margins not palpable. MUSCULOSKELETAL: Extremities without clubbing, cyanosis, or edema. No obvious deformities. Right radial no hematoma, neurovascularly intact distally NEUROLOGICAL: Awake and alert. No obvious cranial nerve deficits. Motor grossly within normal limits. Five out of 5 muscle strength in the arms and legs. Normal speech. PSYCHIATRIC: Appropriate mood and affect; insight and judgment normal. Laboratory Laboratory Tests Test 06/26/17 05:50 White Blood Count 6.8 TH/MM3 Red Blood Count 4.31 MIL/MM3 Hemoglobin 10.0 GM/DL Hematocrit 31.0 % Mean Corpuscular Volume 71.9 FL Mean Corpuscular Hemoglobin 23.1 PG Mean Corpuscular Hemoglobin Concent 32.1 % Red Cell Distribution Width 20.9 % Platelet Count 194 TH/MM3 Mean Platelet Volume 8.3 FL Neutrophils (%) (Auto) 59.2 % Lymphocytes (%) (Auto) 26.9 % Monocytes (%) (Auto) 9.6 % Eosinophils (%) (Auto) 3.2 % Basophils (%) (Auto) 1.1 % Neutrophils # (Auto) 4.0 TH/MM3 Lymphocytes # (Auto) 1.8 TH/MM3 Monocytes # (Auto) 0.7 TH/MM3 Eosinophils # (Auto) 0.2 TH/MM3 Basophils # (Auto) 0.1 TH/MM3 CBC Comment DIFF FINAL Differential Comment Blood Urea Nitrogen 22 MG/DL Creatinine 1.43 MG/DL Random Glucose 95 MG/DL Calcium Level 10.3 MG/DL Sodium Level 137 MEQ/L Potassium Level 4.4 MEQ/L Chloride Level 101 MEQ/L Carbon Dioxide Level 27.5 MEQ/L Anion Gap 9 MEQ/L Estimat Glomerular Filtration Rate 37 ML/MIN Assessment and Plan Problem List: (1) CAD (coronary artery disease) ICD Codes: I25.10 - Atherosclerotic heart disease of [place] coronary artery without angina pectoris (2) Abnormal stress test ICD Codes: R94.39 - Abnormal result of other cardiovascular function study (3) Unstable angina ICD Codes: I20.0 - Unstable angina (4) Chronic back pain ICD Codes: M54.9 - Dorsalgia, unspecified; G89.29 - Other chronic pain (5) Hyperlipidemia ICD Codes: E78.5 - Hyperlipidemia, unspecified (6) C. 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 Sun with CT surgery Most likely not the best candidate post-procedure for recovery Plan on CTA possible tomorrow to evaluate course of LCx, if intra-arterial then no percutaneous options If not intra-arterial will discuss with the patient about PCI 2) Bradycardia overnight Will plan to stop BB 3) Chronic C. Diff Problem Qualifiers (1) CAD (coronary artery disease): Qualified Codes: I25.110 - Atherosclerotic heart disease of [place] coronary artery with unstable angina pectoris Atif Higuera DO Jun 26, 2017 12:30
[2017-06-26] MEDS: ATORVASTATIN 20 MG TAB PO SCH (20:35)
[2017-06-27] VITALS (21 sets, daily range): BP systolic 104–170; BP diastolic 60–79; PULSE 56–84; RESP 16–18; TEMP 98–98.8; O2SAT 94–97
[2017-06-27] MEDS: ACETAMINOPHEN/HYDROcodone 325 MG/7.5 MG TAB PO PRN ×3 (03:49→18:22)
[2017-06-27] MEDS: GABAPENTIN 100 MG CAP PO SCH ×2 (08:44→20:43)
[2017-06-27] MEDS: GABAPENTIN 400 MG CAP PO SCH ×2 (08:44→20:43)
[2017-06-27] MEDS: PANTOPRAZOLE SOD 20 MG DELAYED RELEASE TAB PO SCH (08:45)
[2017-06-27] MEDS: clonazePAM 0.5 MG TAB PO SCH ×4 (08:45→20:43)
[2017-06-27] MEDS: ASPIRIN 325 MG TAB PO SCH (08:45)
[2017-06-27] MEDS: amLODIPine BESYLATE 5 MG TAB PO SCH (08:45)
[2017-06-27] MEDS: CALCIUM CARBONATE 1.25 GM (CA 500 MG) TAB PO SCH ×3 (08:45→18:22)
[2017-06-27] MEDS: CELECOXIB 100 MG CAP PO SCH (08:45)
[2017-06-27] MEDS: MAGNESIUM OXIDE 400 MG TAB PO SCH (08:45)
[2017-06-27] MEDS: COLCHICINE 0.6 MG TAB PO SCH (08:45)
[2017-06-27] MEDS: VANCOMYCIN 500 MG VIAL (FOR ORAL USE ONLY) PO SCH ×4 (08:46→20:43)
[2017-06-27] MEDS: FLUTICASONE PROPIONATE 110 MCG/ACT 12 GM INHALER INH SCH ×2 (08:46→20:43)
[2017-06-27] MEDS: POTASSIUM CHLORIDE 20 MEQ CONTROLLED RELEASE TAB PO SCH (08:46)
--- NOTE | 2017-06-27 10:55 | PD.CARD.PN ---
Subjective Subjective Remarks No events overnight Chronic arthritis pain Heart rates back into the 60s after stopping BB Objective Medications Current Medications Medications (Trade) Dose Ordered Sig/Milana Route Start Time Stop Time Status Last Admin (NS Flush) 2 ml UNSCH PRN IVF 06/25/17 03:15 (NS Flush) 2 ml UNSCH PRN IV FLUSH 06/25/17 04:45 (Tylenol) 500 mg Q4H PRN PO 06/25/17 04:45 ([place]ris 7.5-325 Mg) 1 tab Q4H PRN PO 06/25/17 04:45 06/27/17 08:46 (Morphine Inj) 2 mg Q4H PRN IV PUSH 06/25/17 04:45 06/26/17 02:11 (Zofran Inj) 4 mg Q6H PRN IV PUSH 06/25/17 04:45 (Nitrostat Sl) 0.4 mg Q5M PRN SL 06/25/17 04:45 (Aspirin) 325 mg DAILY PO 06/25/17 09:00 06/27/17 08:45 (Duoneb Neb) 1 ampule Q4HR NEB PRN NEB 06/25/17 04:45 (Proair Hfa Inh) 2 puff Q6H PRN INH 06/25/17 12:00 (Lipitor) 20 mg HS PO 06/25/17 21:00 06/26/17 20:35 (Oscal) 1,250 mg TID PO 06/25/17 13:00 06/27/17 08:45 (CeleBREX) 100 mg BID PO 06/25/17 21:00 06/27/17 08:45 (Colchicine) 0.6 mg DAILY PO 06/26/17 09:00 06/27/17 08:45 (Flovent Hfa 110 Mcg Inh) 2 puff BID INH 06/25/17 21:00 06/27/17 08:46 (Lasix) 40 mg EVERY OTHER DAY PO 06/25/17 13:00 Future hold 06/25/17 12:50 (Mag-Ox) 400 mg DAILY PO 06/26/17 09:00 06/27/17 08:45 (KCl) 20 meq DAILY PO 06/26/17 09:00 06/27/17 08:46 (Protonix) 20 mg DAILY PO 06/26/17 09:00 06/27/17 08:45 (VANCOMYCIN for oral use only) 250 mg QID PO 06/25/17 14:00 06/27/17 08:46 (Atrovent Neb) 0.5 mg Q4HR NEB PRN NEB 06/25/17 14:00 (KlonoPIN) 0.5 mg QID PO 06/25/17 18:00 06/27/17 08:45 (Norvasc) 2.5 mg DAILY PO 06/25/17 18:30 06/27/17 08:45 (Pill Splitter) 1 ea UNSCH PRN OTHER 06/25/17 18:15 (Neurontin) 100 mg BID PO 06/26/17 21:00 06/27/17 08:44 (Neurontin) 800 mg BID PO 06/26/17 21:00 06/27/17 08:44 Vital Signs / I&O Vital Signs Date Time Temp Pulse Resp B/P (MAP) Pulse Ox O2 Delivery O2 Flow Rate FiO2 06/27/17 09:53 18 06/27/17 08:45 63 06/27/17 08:41 98.0 58 18 139/71 (93) 97 06/27/17 06:00 64 06/27/17 05:00 63 06/27/17 04:00 Room Air 06/27/17 04:00 98.1 61 18 139/65 (89) 96 06/27/17 04:00 61 06/27/17 03:00 58 06/27/17 02:00 64 06/27/17 01:00 57 06/27/17 00:00 Room Air 06/27/17 00:00 56 06/27/17 00:00 98.8 56 18 104/60 (75) 96 06/26/17 23:00 58 06/26/17 22:00 59 06/26/17 21:00 58 06/26/17 20:00 98.2 57 18 139/74 (95) 97 06/26/17 20:00 57 06/26/17 20:00 Room Air 06/26/17 19:50 21 06/26/17 18:00 64 06/26/17 17:00 58 06/26/17 16:00 61 06/26/17 16:00 98.5 63 18 148/67 (94) 97 06/26/17 15:00 60 06/26/17 14:00 60 06/26/17 13:19 97 06/26/17 13:00 58 06/26/17 12:46 99.0 59 18 103/56 (72) 97 06/26/17 12:00 61 06/26/17 11:00 56 I/O 06/26/17 06/26/17 06/26/17 06/27/17 06/27/17 06/27/17 07:00 15:00 23:00 07:00 15:00 23:00 Intake Total 240 ml 800 ml 480 ml Output Total 1000 ml 800 ml Balance 240 ml -200 ml -320 ml Intake Oral 240 ml 800 ml 480 ml Output Urine Total 1000 ml 800 ml # Voids 2 # Bowel Movements 1 Physical Exam GENERAL: NAD, AAOx3 SKIN: Warm and dry. HEAD: Atraumatic. Normocephalic. EYES: Pupils equal and round. No scleral icterus. No injection or drainage. ENT: No nasal bleeding or discharge. Mucous membranes pink and moist. NECK: Trachea midline. No JVD. CARDIOVASCULAR: Regular rate and rhythm. RESPIRATORY: No accessory muscle use. Clear to auscultation. Breath sounds equal bilaterally. GASTROINTESTINAL: Abdomen soft, non-tender, nondistended. Hepatic and splenic margins not palpable. MUSCULOSKELETAL: Extremities without clubbing, cyanosis, or edema. No obvious deformities. Right radial no hematoma, neurovascularly intact distally NEUROLOGICAL: Awake and alert. No obvious cranial nerve deficits. Motor grossly within normal limits. Five out of 5 muscle strength in the arms and legs. Normal speech. PSYCHIATRIC: Appropriate mood and affect; insight and judgment normal. Laboratory Laboratory Tests Test 06/27/17 10:20 Assessment and Plan Problem List: (1) CAD (coronary artery disease) ICD Codes: I25.10 - Atherosclerotic heart disease of [place] coronary artery without angina pectoris (2) Abnormal stress test ICD Codes: R94.39 - Abnormal result of other cardiovascular function study (3) Unstable angina ICD Codes: I20.0 - Unstable angina (4) Chronic back pain ICD Codes: M54.9 - Dorsalgia, unspecified; G89.29 - Other chronic pain (5) Hyperlipidemia ICD Codes: E78.5 - Hyperlipidemia, unspecified (6) C. 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 Sun with CT surgery Most likely not the best candidate for CABG as post-procedure for recovery will be difficult Possible CTA today (await labs) to evaluate course of LCx, if intra-arterial then no percutaneous options If not intra-arterial, then plan on PCI tomorrow 2) Bradycardia overnight, resolved off BB Will plan to stop BB 3) Chronic C. Diff Problem Qualifiers (1) CAD (coronary artery disease): Qualified Codes: I25.110 - Atherosclerotic heart disease of [place] coronary artery with unstable angina pectoris Atif Higuera DO Jun 27, 2017 10:55
[2017-06-27 10:56] LABS: BICARBONATE 28.2 MEQ/L (21.0-32.0); CALCIUM 9.8 MG/DL (8.5-10.1); CREATININE 1.59 MG/DL (0.50-1.00)
[2017-06-27] MEDS: SODIUM CHLOR 0.9% 1000 ML INJ 500 ML IV SCH ×3 (12:42→23:15)
--- NOTE | 2017-06-27 14:23 | ECHRPT ---
Indication: CAD CONCLUSIONS The left ventricular systolic function is normal with an estimated ejection fraction in the range of 55-60%. Wall thickness is measured at the upper limits of normal. Trace mitral valve regurgitation. Trace aortic valve regurgitation. There is trace tricuspid valve regurgitation. Trivial pulmonary valve regurgitation. BP: / HR: Rhythm: MEASUREMENTS (Male / Female) Normal Values Technical Quality:Good 2D ECHO LV Diastolic Diameter PLAX 4.4 cm 4.2 - 5.9 / 3.9 - 5.3 cm LV Systolic Diameter PLAX 3.3 cm IVS Diastolic Thickness 1.2 cm 0.6 - 1.0 / 0.6 - 0.9 cm LVPW Diastolic Thickness 1.0 cm 0.6 - 1.0 / 0.6 - 0.9 cm LV Relative Wall Thickness 0.5 RV Internal Dim ED PLAX 2.3 cm M-MODE Aortic Root Diameter MM 3.1 cm AV Cusp Separation MM 1.7 cm DOPPLER AV Peak Velocity 283.0 cm/s AV Peak Gradient 32.0 mmHg AV Mean Gradient 16.0 mmHg AV Velocity Time Integral 53.6 cm LVOT Peak Velocity 174.0 cm/s LVOT Peak Gradient 12.1 mmHg LVOT Velocity Time Integral 34.8 cm Mitral E Point Velocity 73.1 cm/s Mitral A Point Velocity 90.3 cm/s Mitral E to A Ratio 0.8 TR Peak Velocity 231.0 cm/s TR Peak Gradient 21.3 mmHg FINDINGS LEFT VENTRICLE Normal left ventricular size. Wall thickness is measured at the upper limits of normal. The left ventricular systolic function is normal with an estimated ejection fraction in the range of 55-60%. RIGHT VENTRICLE Normal right ventricular size and systolic function. LEFT ATRIUM The left atrial size is normal. RIGHT ATRIUM The right atrial size is normal. ATRIAL SEPTUM Normal atrial septal thickness. AORTA The aortic root and proximal ascending aorta are normal in size on limited imaging. MITRAL VALVE Structurally normal mitral valve. Mitral annular calcification is present. Trace mitral valve regurgitation. No mitral valve stenosis. AORTIC VALVE Mild thickening of the aortic valve leaflets. Aortic valve sclerosis is present. Trace aortic valve regurgitation. TRICUSPID VALVE Structurally normal tricuspid valve. No tricuspid valve stenosis. There is trace tricuspid valve regurgitation. PULMONARY VALVE The pulmonary valve is not well visualized. Trivial pulmonary valve regurgitation. VESSELS The inferior vena cava is normal in size. PERICARDIUM No pericardial effusion. Atif Higuera DO (Electronically Signed) Final Date:27 June 2017 14:21
--- NOTE | 2017-06-27 16:38 | HHI.PR ---
Subjective Remarks Follow-up for chest pain Patient denies any chest pain, palpitation, shortness of breathing, lightheadedness dizziness. She complains. She stated for her osteoarthritis she uses tramadol for the pain but she feels like that does not work. Objective Vitals Vital Signs Date Time Temp Pulse Resp B/P (MAP) Pulse Ox O2 Delivery O2 Flow Rate FiO2 06/27/17 14:00 60 06/27/17 13:00 61 06/27/17 12:00 60 06/27/17 11:00 63 06/27/17 11:00 98.0 77 18 170/79 (109) 94 06/27/17 11:00 95 Room Air 06/27/17 09:53 18 06/27/17 08:45 63 06/27/17 08:41 98.0 58 18 139/71 (93) 97 06/27/17 06:00 64 06/27/17 05:00 63 06/27/17 04:00 Room Air 06/27/17 04:00 98.1 61 18 139/65 (89) 96 06/27/17 04:00 61 06/27/17 03:00 58 06/27/17 02:00 64 06/27/17 01:00 57 06/27/17 00:00 Room Air 06/27/17 00:00 56 06/27/17 00:00 98.8 56 18 104/60 (75) 96 06/26/17 23:00 58 06/26/17 22:00 59 06/26/17 21:00 58 06/26/17 20:00 98.2 57 18 139/74 (95) 97 06/26/17 20:00 57 06/26/17 20:00 Room Air 06/26/17 19:50 21 06/26/17 18:00 64 06/26/17 17:00 58 I/O 06/26/17 06/26/17 06/26/17 06/27/17 06/27/17 06/27/17 07:00 15:00 23:00 07:00 15:00 23:00 Intake Total 240 ml 800 ml 480 ml Output Total 1000 ml 800 ml Balance 240 ml -200 ml -320 ml Intake Oral 240 ml 800 ml 480 ml Output Urine Total 1000 ml 800 ml # Voids 2 # Bowel Movements 1 Result Diagram: 06/26/17 0550 06/27/17 1020 Objective Remarks GENERAL: in NAD but a little tearful. CARDIOVASCULAR: Regular rate and rhythm without murmurs, gallops, or rubs. RESPIRATORY: Breath sounds equal bilaterally. No accessory muscle use. GASTROINTESTINAL: Abdomen soft, non-tender, nondistended. MUSCULOSKELETAL: No cyanosis, or edema. Medications and IVs Current Medications Sodium Chloride (NS Flush) 2 ml UNSCH PRN IVF FLUSH AFTER USING IV ACCESS; Start 06/25/17 at 03:15 Nitroglycerin (Nitrostat Sl) 0.4 mg Q5M SL Last administered on 06/25/17at 04:02 ; Start 06/25/17 at 03:15; Stop 06/25/17 at 03:26; Status DC Sodium Chloride (NS Flush) 2 ml UNSCH PRN IV FLUSH FLUSH AFTER USING IV ACCESS ; Start 06/25/17 at 04:45 Acetaminophen (Tylenol) 500 mg Q4H PRN PO HEADACHE; Start 06/25/17 at 04:45 Acetaminophen/ Hydrocodone Bitart ([place] 7.5-325 Mg) 1 tab Q4H PRN PO PAIN SCALE 1 TO 7 Last administered on 06/27/17at 08:46; Start 06/25/17 at 04:45 Morphine Sulfate (Morphine Inj) 2 mg Q4H PRN IV PUSH PAIN SCALE 8 TO 10 Last administered on 06/26/17at 02:11; Start 06/25/17 at 04:45 Ondansetron HCl (Zofran Inj) 4 mg Q6H PRN IV PUSH NAUSEA; Start 06/25/17 at 04: 45 Nitroglycerin (Nitrostat Sl) 0.4 mg Q5M PRN SL CHEST PAIN; Start 06/25/17 at 04 :45 Aspirin (Aspirin) 325 mg DAILY PO Last administered on 06/27/17at 08:45; Start 06/25/17 at 09:00 Heparin Sodium (Porcine) (Heparin Inj) 5,000 units Q8H SQ Last administered on 06/25/17at 12:52; Start 06/25/17 at 12:00; Stop 06/25/17 at 18:15; Status DC Albuterol/ Ipratropium (Duoneb Neb) 1 ampule Q4HR NEB PRN NEB SOB/WHEEZING; Start 06/25/17 at 04:45 Regadenoson (Lexiscan Inj) 0.4 mg STK-MED ONCE IV Last administered on at 10:29; Start 06/25/17 at 10:29; Stop 06/25/17 at 10:30; Status DC Albuterol Sulfate (Proair Hfa Inh) 2 puff Q6H PRN INH SHORTNESS OF BREATH; Start 06/25/17 at 12:00 Atorvastatin Calcium (Lipitor) 20 mg HS PO Last administered on 06/26/17at 20:35 ; Start 06/25/17 at 21:00 Calcium Carbonate (Oscal) 1,250 mg TID PO Last administered on 06/27/17at 12:41 ; Start 06/25/17 at 13:00 Celecoxib (CeleBREX) 100 mg BID PO Last administered on 06/27/17at 08:45; Start 06/25/17 at 21:00; Status Future Hold Colchicine (Colchicine) 0.6 mg DAILY PO Last administered on 06/27/17at 08:45; Start 06/26/17 at 09:00 Fluticasone Propionate (Flovent Hfa 110 Mcg Inh) 2 puff BID INH Last administered on 06/27/17at 08:46; Start 06/25/17 at 21:00 Furosemide (Lasix) 40 mg EVERY OTHER DAY PO Last administered on 06/25/17at 12: 50; Start 06/25/17 at 13:00; Status Future hold Gabapentin (Neurontin) 100 mg TID PO Last administered on 06/26/17at 07:30; Start 06/25/17 at 13:00; Stop 06/26/17 at 08:52; Status DC Gabapentin (Neurontin) 800 mg TID PO Last administered on 06/26/17at 07:30; Start 06/25/17 at 13:00; Stop 06/26/17 at 08:52; Status DC Ipratropium [place] (Atrovent Hfa Inh) 2 puff Q4HR PRN INH SHORTNESS OF BREATH ; Start 06/25/17 at 13:00; Stop 06/25/17 at 13:37; Status DC Magnesium Oxide (Mag-Ox) 400 mg DAILY PO Last administered on 06/27/17at 08:45; Start 06/26/17 at 09:00 Potassium Chloride (KCl) 20 meq DAILY PO Last administered on 06/27/17at 08:46; Start 06/26/17 at 09:00 Pantoprazole Sodium (Protonix) 20 mg DAILY PO Last administered on 06/27/17at 08 :45; Start 06/26/17 at 09:00 Vancomycin HCl (VANCOMYCIN for oral use only) 250 mg QID PO Last administered on 06/27/17at 08:46; Start 06/25/17 at 14:00 Ipratropium [place] (Atrovent Neb) 0.5 mg Q4HR NEB PRN NEB SHORTNESS OF BREATH ; Start 06/25/17 at 14:00 Clonazepam (KlonoPIN) 0.5 mg QID PO Last administered on 06/27/17at 12:41; Start 06/25/17 at 18:00 Heparin Sodium/ Sodium Chloride 1,000 ml @ As Directed STK-MED ONCE .ROUTE ; Start 06/25/17 at 16:03; Stop 06/25/17 at 16:04; Status DC Midazolam HCl (Versed Inj) 2 mg STK-MED ONCE .ROUTE Last administered on at 16:03; Start 06/25/17 at 16:03; Stop 06/25/17 at 16:04; Status DC Fentanyl Citrate (fentaNYL INJ) 100 mcg STK-MED ONCE .ROUTE Last administered on 06/25/17at 16:03; Start 06/25/17 at 16:03; Stop 06/25/17 at 16:04; Status DC Verapamil HCl (Isoptin Inj) 5 mg STK-MED ONCE .ROUTE Last administered on at 16:03; Start 06/25/17 at 16:03; Stop 06/25/17 at 16:04; Status DC Heparin Sodium (Porcine) (Heparin Inj) 10,000 units STK-MED ONCE .ROUTE Last administered on 06/25/17at 16:04; Start 06/25/17 at 16:04; Stop 06/25/17 at 16:05 ; Status DC Nitroglycerin 5 ml @ As Directed STK-MED ONCE .ROUTE Last administered on at 16:04; Start 06/25/17 at 16:04; Stop 06/25/17 at 16:05; Status DC Hydralazine HCl (Apresoline Inj) 20 mg STK-MED ONCE .ROUTE Last administered on 06/25/17at 16:45; Start 06/25/17 at 16:45; Stop 06/25/17 at 16:46; Status DC Labetalol HCl (Trandate Inj) 100 mg STK-MED ONCE .ROUTE Last administered on at 17:02; Start 06/25/17 at 17:02; Stop 06/25/17 at 17:03; Status DC Miscellaneous Information 1 ONCE ONCE XX ; Start 06/25/17 at 17:45; Stop at 18:14; Status DC Amlodipine Besylate (Norvasc) 2.5 mg DAILY PO Last administered on 06/27/17at 08 :45; Start 06/25/17 at 18:30 Metoprolol Tartrate (Lopressor) 12.5 mg Q12HR PO Last administered on at 07:31; Start 06/25/17 at 21:00; Stop 06/26/17 at 12:31; Status DC Miscellaneous (Pill Splitter) 1 ea UNSCH PRN OTHER SEE LABEL COMMENTS; Start at 18:15 Gabapentin (Neurontin) 100 mg BID PO Last administered on 06/27/17at 08:44; Start 06/26/17 at 21:00 Gabapentin (Neurontin) 800 mg BID PO Last administered on 06/27/17at 08:44; Start 06/26/17 at 21:00 Sodium Chloride 500 ml @ 84 mls/hr Q5H58M IV Last administered on 06/27/17at 12 :42; Start 06/27/17 at 12:00 A/P Problem List: (1) Chest pain ICD Code: R07.9 - Chest pain, unspecified Status: Acute (2) Hyperlipidemia ICD Code: E78.5 - Hyperlipidemia, unspecified (3) Congestive heart failure ICD Code: I50.9 - Heart failure, unspecified (4) Chronic back pain ICD Code: M54.9 - Dorsalgia, unspecified; G89.29 - Other chronic pain Assessment and Plan Unstable angina -Troponins were negative. Patient had an abnormal Lexiscan in which she was transfer to the main hospital for cardiac catheterization. -Cart catheterization done by Dr. 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 -CTS consulted and stated patient is a poor candidate for CABG secondary to frailty. -Per Dr. Higuera holding off on CTA secondary to worsening kidney function. Needs CTA to evaluate the course of LCx, if intra-arterial then no percutaneous options if not intra-arterial, then plan on PCI. Acute on chronic renal sufficiency -Creatinine continues to worsen now at 1.59. Celebrex and colchicine was discontinued. On IV fluids. -Strict ins and outs. Malena monitor/trend creatinine. Bradycardia overnight -Secondary to beta blockers. Resolved with discontinuation of braided ramy. C. difficile -Presented for admission. Continue home regimen. On oral vancomycin. Osteoarthritis -Per patient she usually takes tramadol. But feels like that does not work. Will continue Beemer. Hyperlipidemia/congestive heart failure/chronic back pain -Continue home medication. DVT prophylaxis: SCDs. Heparin. Discharge Planning Possible CTA tomorrow if renal function improves. Skyla Crane MD Jun 27, 2017 16:38
[2017-06-27] MEDS: ATORVASTATIN 20 MG TAB PO SCH (20:43)
[2017-06-27] MEDS: ACETAMINOPHEN/HYDROcodone 325 MG/10 MG TAB PO PRN (23:14)
[2017-06-28] VITALS (21 sets, daily range): BP systolic 125–172; BP diastolic 52–78; PULSE 54–70; RESP 18–19; TEMP 97.7–98.4; O2SAT 96–100
[2017-06-28] MEDS: ACETAMINOPHEN/HYDROcodone 325 MG/10 MG TAB PO PRN ×3 (05:16→18:47)
[2017-06-28] MEDS: NITROGLYCERIN 0.4 MG SL 25 TABS/BTL SL PRN (05:17)
[2017-06-28] MEDS: SODIUM CHLOR 0.9% 1000 ML INJ 500 ML IV SCH ×5 (05:54→17:50)
[2017-06-28 06:53] LABS: HEMATOCRIT 30.9 % (35.0-46.0); HEMOGLOBIN 9.9 GM/DL (11.6-15.3); MEAN CELL VOLUME 73.7 FL (80.0-100.0); MEAN CORPUSCULAR HEMOGLOBIN 23.6 PG (27.0-34.0); MEAN CORPUSCULAR HGB CONC 32.1 % (32.0-36.0); MEAN PLATELET VOLUME 7.5 FL (7.0-11.0); PLATELET COUNT 147 TH/MM3 (150-450); RED CELL DISTRIBUTION WIDTH 20.8 % (11.6-17.2)
[2017-06-28 07:19] LABS: BICARBONATE 28.8 MEQ/L (21.0-32.0); CALCIUM 10.7 MG/DL (8.5-10.1); CREATININE 1.41 MG/DL (0.50-1.00)
[2017-06-28] MEDS: POTASSIUM CHLORIDE 20 MEQ CONTROLLED RELEASE TAB PO SCH (09:00)
[2017-06-28] MEDS: ASPIRIN 325 MG TAB PO SCH (09:16)
[2017-06-28] MEDS: clonazePAM 0.5 MG TAB PO SCH ×4 (09:17→21:45)
[2017-06-28] MEDS: GABAPENTIN 100 MG CAP PO SCH ×2 (09:17→21:45)
[2017-06-28] MEDS: GABAPENTIN 400 MG CAP PO SCH ×2 (09:17→21:45)
[2017-06-28] MEDS: amLODIPine BESYLATE 5 MG TAB PO SCH (09:17)
[2017-06-28] MEDS: COLCHICINE 0.6 MG TAB PO SCH (09:17)
[2017-06-28] MEDS: PANTOPRAZOLE SOD 20 MG DELAYED RELEASE TAB PO SCH (09:17)
[2017-06-28] MEDS: FLUTICASONE PROPIONATE 110 MCG/ACT 12 GM INHALER INH SCH ×2 (09:18→21:00)
[2017-06-28] MEDS: MAGNESIUM OXIDE 400 MG TAB PO SCH (09:18)
[2017-06-28] MEDS: CALCIUM CARBONATE 1.25 GM (CA 500 MG) TAB PO SCH ×3 (09:18→18:45)
[2017-06-28] MEDS: VANCOMYCIN 500 MG VIAL (FOR ORAL USE ONLY) PO SCH ×4 (09:19→21:00)
[2017-06-28] MEDS ORDERED: NITROGLYCERIN 0.4 MG SL 25 TABS/BTL SL ONE (10:50)
--- NOTE | 2017-06-28 12:13 | PD.CARD.PN ---
Subjective Subjective Remarks No events overnight Chronic arthritis pain Heart rates back into the 60s after stopping BB Objective Medications Current Medications Medications (Trade) Dose Ordered Sig/Milana Route Start Time Stop Time Status Last Admin (NS Flush) 2 ml UNSCH PRN IVF 06/25/17 03:15 (NS Flush) 2 ml UNSCH PRN IV FLUSH 06/25/17 04:45 (Tylenol) 500 mg Q4H PRN PO 06/25/17 04:45 06/27/17 20:45 ([place] 7.5-325 Mg) 1 tab Q4H PRN PO 06/25/17 04:45 06/27/17 18:22 (Zofran Inj) 4 mg Q6H PRN IV PUSH 06/25/17 04:45 (Nitrostat Sl) 0.4 mg Q5M PRN SL 06/25/17 04:45 06/28/17 05:17 (Aspirin) 325 mg DAILY PO 06/25/17 09:00 06/28/17 09:16 (Duoneb Neb) 1 ampule Q4HR NEB PRN NEB 06/25/17 04:45 (Proair Hfa Inh) 2 puff Q6H PRN INH 06/25/17 12:00 (Lipitor) 20 mg HS PO 06/25/17 21:00 06/27/17 20:43 (Oscal) 1,250 mg TID PO 06/25/17 13:00 06/28/17 09:18 (CeleBREX) 100 mg BID PO 06/25/17 21:00 Future Hold 06/27/17 08:45 (Colchicine) 0.6 mg DAILY PO 06/26/17 09:00 06/28/17 09:17 (Flovent Hfa 110 Mcg Inh) 2 puff BID INH 06/25/17 21:00 06/28/17 09:18 (Lasix) 40 mg EVERY OTHER DAY PO 06/25/17 13:00 Future hold 06/25/17 12:50 (Mag-Ox) 400 mg DAILY PO 06/26/17 09:00 06/28/17 09:18 (KCl) 20 meq DAILY PO 06/26/17 09:00 06/28/17 09:00 (Protonix) 20 mg DAILY PO 06/26/17 09:00 1/29/18 09:17 (VANCOMYCIN for oral use only) 250 mg QID PO 06/25/17 14:00 06/28/17 09:19 (Atrovent Neb) 0.5 mg Q4HR NEB PRN NEB 06/25/17 14:00 (KlonoPIN) 0.5 mg QID PO 06/25/17 18:00 06/28/17 09:17 (Norvasc) 2.5 mg DAILY PO 06/25/17 18:30 06/28/17 09:17 (Pill Splitter) 1 ea UNSCH PRN OTHER 06/25/17 18:15 (Neurontin) 100 mg BID PO 06/26/17 21:00 06/28/17 09:17 (Neurontin) 800 mg BID PO 06/26/17 21:00 06/28/17 09:17 Sodium Chloride 500 ml @ 84 mls/hr Q5H58M IV 06/27/17 12:00 06/27/17 23:15 ([place] 10-325 Mg) 1 tab Q4H PRN PO 06/27/17 16:45 06/28/17 09:28 Sodium Chloride 500 ml @ 84 mls/hr Q5H58M IV 06/28/17 10:00 Vital Signs / I&O Vital Signs Date Time Temp Pulse Resp B/P (MAP) Pulse Ox O2 Delivery O2 Flow Rate FiO2 06/28/17 06:00 56 06/28/17 05:00 59 06/28/17 04:00 98.2 57 18 161/78 (105) 97 06/28/17 04:00 57 06/28/17 04:00 Room Air 06/28/17 03:00 58 06/28/17 02:00 60 06/28/17 01:00 55 06/28/17 00:00 98.4 56 18 131/70 (90) 96 06/28/17 00:00 56 06/27/17 23:00 58 06/27/17 22:00 60 06/27/17 21:00 57 06/27/17 20:00 Room Air 06/27/17 20:00 98.8 59 18 115/70 (85) 95 06/27/17 20:00 59 06/27/17 18:00 84 06/27/17 17:00 61 06/27/17 16:00 63 06/27/17 15:00 56 06/27/17 15:00 98.0 58 16 133/62 (85) 94 06/27/17 14:00 60 06/27/17 13:00 61 I/O 06/27/17 06/27/17 06/27/17 06/28/17 06/28/17 06/28/17 07:00 15:00 23:00 07:00 15:00 23:00 Intake Total 480 ml 1080 ml 480 ml Output Total 800 ml 900 ml 800 ml Balance -320 ml 180 ml -320 ml Intake Oral 480 ml 1080 ml 480 ml Output Urine Total 800 ml 900 ml 800 ml # Bowel Movements 1 1 Physical Exam GENERAL: NAD, AAOx3 SKIN: Warm and dry. HEAD: Atraumatic. Normocephalic. EYES: Pupils equal and round. No scleral icterus. No injection or drainage. ENT: No nasal bleeding or discharge. Mucous membranes pink and moist. NECK: Trachea midline. No JVD. CARDIOVASCULAR: Regular rate and rhythm. RESPIRATORY: No accessory muscle use. Clear to auscultation. Breath sounds equal bilaterally. GASTROINTESTINAL: Abdomen soft, non-tender, nondistended. Hepatic and splenic margins not palpable. MUSCULOSKELETAL: Extremities without clubbing, cyanosis, or edema. No obvious deformities. Right radial no hematoma, neurovascularly intact distally NEUROLOGICAL: Awake and alert. No obvious cranial nerve deficits. Motor grossly within normal limits. Five out of 5 muscle strength in the arms and legs. Normal speech. PSYCHIATRIC: Appropriate mood and affect; insight and judgment normal. Laboratory Laboratory Tests Test 06/28/17 05:47 White Blood Count 4.0 TH/MM3 Red Blood Count 4.20 MIL/MM3 Hemoglobin 9.9 GM/DL Hematocrit 30.9 % Mean Corpuscular Volume 73.7 FL Mean Corpuscular Hemoglobin 23.6 PG Mean Corpuscular Hemoglobin Concent 32.1 % Red Cell Distribution Width 20.8 % Platelet Count 147 TH/MM3 Mean Platelet Volume 7.5 FL Blood Urea Nitrogen 27 MG/DL Creatinine 1.41 MG/DL Random Glucose 93 MG/DL Calcium Level 10.7 MG/DL Sodium Level 137 MEQ/L Potassium Level 4.1 MEQ/L Chloride Level 103 MEQ/L Carbon Dioxide Level 28.8 MEQ/L Anion Gap 5 MEQ/L Estimat Glomerular Filtration Rate 37 ML/MIN Assessment and Plan Problem List: (1) CAD (coronary artery disease) ICD Codes: I25.10 - Atherosclerotic heart disease of [place] coronary artery without angina pectoris (2) Abnormal stress test ICD Codes: R94.39 - Abnormal result of other cardiovascular function study (3) Unstable angina ICD Codes: I20.0 - Unstable angina (4) Chronic back pain ICD Codes: M54.9 - Dorsalgia, unspecified; G89.29 - Other chronic pain (5) Hyperlipidemia ICD Codes: E78.5 - Hyperlipidemia, unspecified (6) C. 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 Sun with CT surgery Most likely not the best candidate for CABG as post-procedure for recovery will be difficult CTA today to evaluate course of LCx, if intra-arterial then no percutaneous options If not intra-arterial, then plan on PCI LAD tomorrow or Wed based on creatinine, and then staged PCI on or Wednesday 2) Bradycardia overnight, resolved off BB BB stopped 3) Chronic C. Diff Problem Qualifiers (1) CAD (coronary artery disease): Qualified Codes: I25.110 - Atherosclerotic heart disease of [place] coronary artery with unstable angina pectoris Atif Higuera DO Jun 28, 2017 12:13
--- NOTE | 2017-06-28 16:01 | HHI.PR ---
Subjective Remarks She is in the chair, appears in not acute distress. Denies any pain at this time. No nausea or vomiting no diarrhea or constipation. Has no fever or chills overnight. Objective Vitals Vital Signs Date Time Temp Pulse Resp B/P (MAP) Pulse Ox O2 Delivery O2 Flow Rate FiO2 06/28/17 12:00 61 19 156/75 (102) 100 06/28/17 07:40 100 Room Air 06/28/17 07:40 97.7 62 19 144/66 (92) 96 06/28/17 06:00 56 06/28/17 05:00 59 06/28/17 04:00 98.2 57 18 161/78 (105) 97 06/28/17 04:00 57 06/28/17 04:00 Room Air 06/28/17 03:00 58 06/28/17 02:00 60 06/28/17 01:00 55 06/28/17 00:00 98.4 56 18 131/70 (90) 96 06/28/17 00:00 56 06/27/17 23:00 58 06/27/17 22:00 60 06/27/17 21:00 57 06/27/17 20:00 Room Air 06/27/17 20:00 98.8 59 18 115/70 (85) 95 06/27/17 20:00 59 06/27/17 18:00 84 06/27/17 17:00 61 06/27/17 16:00 63 I/O 06/27/17 06/27/17 06/27/17 06/28/17 06/28/17 06/28/17 07:00 15:00 23:00 07:00 15:00 23:00 Intake Total 480 ml 1080 ml 480 ml Output Total 800 ml 900 ml 800 ml Balance -320 ml 180 ml -320 ml Intake Oral 480 ml 1080 ml 480 ml Output Urine Total 800 ml 900 ml 800 ml # Bowel Movements 1 1 Result Diagram: 06/28/17 0547 06/28/17 0547 Imaging Last Impressions Chest X-Ray 06/25/174 Signed Impressions: Service Date/Time: Sunday, June 25, 2017 03:26 - CONCLUSION: No acute disease. Luis Armando Medina MD Myocardial Perfusion Scan Nuc Med 06/25/17 0000 Signed Impressions: Service Date/Time: Sunday, June 25, 2017 10:13 - CONCLUSION: Significant stress-induced ischemia. RISK CATEGORY: Intermediate (1-3%% Annual Mortality Rate) Scott Malhotra MD FACR Objective Remarks GENERAL: 66 yo F , well developed, well nourished, appears in NAD CARDIOVASCULAR: Regular rate and rhythm without murmurs, gallops, or rubs. RESPIRATORY: Breath sounds equal bilaterally. No accessory muscle use. GASTROINTESTINAL: Abdomen soft, non-tender, nondistended. MUSCULOSKELETAL: No cyanosis, or edema. A/P Problem List: (1) Chest pain ICD Code: R07.9 - Chest pain, unspecified Status: Acute (2) Hyperlipidemia ICD Code: E78.5 - Hyperlipidemia, unspecified (3) Congestive heart failure ICD Code: I50.9 - Heart failure, unspecified (4) Chronic back pain ICD Code: M54.9 - Dorsalgia, unspecified; G89.29 - Other chronic pain Assessment and Plan Unstable angina -Troponins were negative. Patient had an abnormal Lexiscan in which she was transfer to the [facility] for cardiac catheterization. -Cart catheterization done by Dr. 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 -CTS consulted and stated patient is a poor candidate for CABG secondary to frailty. 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 Seen by Dr. Sun with CT surgery. Most likely not the best candidate for CABG as post-procedure for recovery will be difficult Plan for CTA 06/28/17 to evaluate course of LCx, if intra-arterial then no percutaneous options If not intra-arterial, then plan on PCI LAD tomorrow or Wed based on creatinine , and then staged PCI on or Wednesday Bradycardia overnight, resolved off BB. BB stopped, cardiology ff. Acute on chronic renal sufficiency -Creatinine continues to worsen now at 1.59. Celebrex and colchicine was discontinued. On IV fluids. -Strict ins and outs. Malena monitor/trend creatinine. Bradycardia overnight -Secondary to beta blockers. Resolved with discontinuation of braided ramy. C. difficile -Presented for admission. Continue home regimen. On oral vancomycin. Osteoarthritis -Per patient she usually takes tramadol. But feels like that does not work. Will continue [place]. Hyperlipidemia/congestive heart failure/chronic back pain -Continue home medication. DVT prophylaxis: SCDs. Heparin. Discharge Planning Not ready for DC work up in progress, needs CTA, plan for PCI Quyen Lucio MD Jun 28, 2017 16:01
[2017-06-28] MEDS: ATORVASTATIN 20 MG TAB PO SCH (21:44)
[2017-06-29] VITALS (21 sets, daily range): BP systolic 108–180; BP diastolic 54–98; PULSE 52–73; RESP 17–18; TEMP 97.3–98.3; O2SAT 97–98
[2017-06-29] MEDS: ACETAMINOPHEN/HYDROcodone 325 MG/10 MG TAB PO PRN ×4 (00:15→22:29)
[2017-06-29 06:43] LABS: AUTOMATED NEUTROPHIL # 1.6 TH/MM3 (1.8-7.7); BASOPHIL % 1.2 % (0.0-2.0); EOSINOPHIL # 0.2 TH/MM3 (0-0.4); EOSINOPHIL % 5.8 % (0.0-4.0); HEMATOCRIT 29.4 % (35.0-46.0); HEMOGLOBIN 9.4 GM/DL (11.6-15.3); LYMPH % 33.2 % (9.0-44.0); LYMPHOCYTE # 1.1 TH/MM3 (1.0-4.8); MEAN CELL VOLUME 73.6 FL (80.0-100.0); MEAN CORPUSCULAR HEMOGLOBIN 23.6 PG (27.0-34.0); MEAN CORPUSCULAR HGB CONC 32.1 % (32.0-36.0); MEAN PLATELET VOLUME 7.7 FL (7.0-11.0); MONO % 12.6 % (0.0-8.0); MONOCYTE # 0.4 TH/MM3 (0-0.9); NEUT % 47.2 % (16.0-70.0); PLATELET COUNT 132 TH/MM3 (150-450); RED CELL DISTRIBUTION WIDTH 20.3 % (11.6-17.2); WHITE BLOOD COUNT 3.4 TH/MM3 (4.0-11.0)
[2017-06-29 07:04] LABS: BICARBONATE 27.9 MEQ/L (21.0-32.0); CALCIUM 10.5 MG/DL (8.5-10.1); CREATININE 1.43 MG/DL (0.50-1.00)
--- NOTE | 2017-06-29 07:59 | RADRPT ---
EXAM DATE/TIME: 06/28/2017 17:24 [place] COMPARISON: No previous studies available for comparison. INDICATIONS : Anomalous LCX possible intra-arterial route IV CONTRAST: 90 cc Visipaque (iodixanol) IV RADIATION DOSE: 10.43 CTDIvol (mGy) MEDICAL HISTORY : Cardiovascular disease. Hypertension. Chronic obstructive pulmonary disease.melanoma SURGICAL HISTORY : None. ENCOUNTER: Initial ACUITY: 1 day PAIN SCALE: 0/10 LOCATION: Cardiac TECHNIQUE: Volumetric scanning was obtained through the heart. Images were acquired on a multislice multiple ro w detector helical scanner timed for acquisition during peak arterial contrast. Images were reconstr ucted using a retrospective gating algorithm including single sector and multi-sector algorithms at m ultiple phases of the cardiac cycle. Images were interpreted using a combination of 2D and 3D visual ization modes including curved planar reformation, thin slab maximum intensity projection and volume rendering. Using automated exposure control and adjustment of the mA and/or kV according to patient size, radiation dose was kept as low as reasonably achievable to obtain optimal diagnostic quality im ages. DICOM format image data is available electronically for review and comparison. FINDINGS: VESSEL ANALYSIS: DOMINANCE: The coronary system is right dominant. LEFT MAIN: Arises along the posterior left cusp. Mild atherosclerotic changes without significant stenosis. LAD: Normal vessel with extensive calcified plaque this causes some blooming artifact in the mid segment l imiting evaluation for critical stenosis. CIRCUMFLEX: The circumflex artery arises from the right coronary trunk and courses inferior and posterior to the aortic root. There are atherosclerotic changes identified throughout the circumflex artery. This is a nonmalignant course. RCA: Normal vessel with extensive calcified plaque more notably within the proximal mid segment, limiting evaluation for significant stenosis. There is extensive plaque within the proximal mid segment. This gives rise to the posterior descending artery and posterior lateral branches. OTHER: Mild prominence of the pulmonary trunk suggesting pulmonary arterial hypertension. CONCLUSION: 1. 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 2. Extensive atherosclerotic changes in the LAD and right coronary artery limiting evaluation for cri tical stenosis. 1. Omar Cruz MD on June 29, 2017 at 7:46 Board Certified Radiologist. This report was verified electronically.
--- NOTE | 2017-06-29 08:56 | HHI.PR ---
Subjective Remarks In bed. Wants to have her own Atrovent bid. ordered. Patient says she had some chest pain/pressure overnight. No nausea, palpitations, diaphoresis. No fever ro chills.Not coughing. 'Feels weak. SOB the same Objective Vitals Vital Signs Date Time Temp Pulse Resp B/P (MAP) Pulse Ox O2 Delivery O2 Flow Rate FiO2 06/29/17 04:00 97.9 64 18 180/85 (116) 98 06/29/17 04:00 59 06/29/17 00:00 62 06/29/17 00:00 98.3 62 18 178/79 (112) 98 06/28/17 20:00 63 06/28/17 20:00 98.0 65 18 172/73 (106) 97 06/28/17 18:01 57 06/28/17 16:10 98.2 58 19 125/52 (76) 99 06/28/17 16:05 57 06/28/17 15:00 54 06/28/17 14:00 58 06/28/17 13:00 70 06/28/17 12:00 58 06/28/17 12:00 61 19 156/75 (102) 100 06/28/17 11:00 59 06/28/17 10:00 66 06/28/17 09:00 70 I/O 06/28/17 06/28/17 06/28/17 06/29/17 06/29/17 06/29/17 07:00 15:00 23:00 07:00 15:00 23:00 Intake Total 480 ml 1620 ml 960 ml Output Total 800 ml 900 ml Balance -320 ml 720 ml 960 ml Intake Oral 480 ml 720 ml 960 ml IV Total 900 ml Output Urine Total 800 ml 900 ml # Voids 4 # Bowel Movements 1 3 3 Result Diagram: 06/29/17 0530 06/29/17 0530 Imaging Last Impressions Coronary Angiography CT 06/28/17 0000 Signed Impressions: Service Date/Time: Wednesday, June 28, 2017 17:24 - CONCLUSION: 1. 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 2. Extensive atherosclerotic changes in the LAD and right coronary artery limiting evaluation for critical stenosis. 1. Omar Cruz MD Chest X-Ray 06/25/17 0314 Signed Impressions: Service Date/Time: Sunday, June 25, 2017 03:26 - CONCLUSION: No acute disease. Luis Armando Medina MD Myocardial Perfusion Scan Nuc Med 06/25/17 0000 Signed Impressions: Service Date/Time: Sunday, June 25, 2017 10:13 - CONCLUSION: Significant stress-induced ischemia. RISK CATEGORY: Intermediate (1-3%% Annual Mortality Rate) Scott Malhotra MD FACR Objective Remarks GENERAL: 66 yo F , well developed, well nourished, appears in NAD CARDIOVASCULAR: Regular rate and rhythm without murmurs, gallops, or rubs. RESPIRATORY: Breath sounds equal bilaterally. No accessory muscle use. GASTROINTESTINAL: Abdomen soft, non-tender, nondistended. MUSCULOSKELETAL: No cyanosis, or edema. A/P Problem List: (1) Chest pain ICD Code: R07.9 - Chest pain, unspecified Status: Acute (2) Hyperlipidemia ICD Code: E78.5 - Hyperlipidemia, unspecified (3) Congestive heart failure ICD Code: I50.9 - Heart failure, unspecified (4) Chronic back pain ICD Code: M54.9 - Dorsalgia, unspecified; G89.29 - Other chronic pain Assessment and Plan Unstable angina -Troponins were negative. Patient had an abnormal Lexiscan in which she was transfer to the main hospital for cardiac catheterization. -Cart catheterization done by Dr. 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 -CTS consulted and stated patient is a poor candidate for CABG secondary to frailty. 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 Seen by Dr. Sun with CT surgery. Most likely not the best candidate for CABG as post-procedure for recovery will be difficult Plan for CTA 06/28/17 to evaluate course of LCx, if intra-arterial then no percutaneous options Plan on PCI LAD when creatinine improves, and then staged PCI on or Wednesday per cardiology Bradycardia overnight, resolved off BB. BB stopped, cardiology ff. Acute on chronic renal sufficiency -Creatinine continues to worsen now at 1.59. Celebrex and colchicine was discontinued. On IV fluids. -Strict ins and outs. Malena monitor/trend creatinine. Bradycardia overnight -Secondary to beta blockers. Resolved with discontinuation of braided ramy. C. difficile -Presented for admission. Continue home regimen. On oral vancomycin. Osteoarthritis -Per patient she usually takes tramadol. But feels like that does not work. Will continue [place]. Hyperlipidemia/congestive heart failure/chronic back pain -Continue home medication. DVT prophylaxis: SCDs. Heparin. Discharge Planning Not ready for DC work up in progress, needs CTA, plan for PCI, cardiology ff Plan on PCI LAD when creatinine improves, and then staged PCI on or Wednesday per cardiology Quyen Lucio MD Jun 29, 2017 08:56
[2017-06-29] MEDS: clonazePAM 0.5 MG TAB PO SCH ×5 (09:00→22:21)
--- NOTE | 2017-06-29 10:11 | RSPPFT ---
DATE OF PROCEDURE: 06/28/17 COMMENTS: VOLUMES DYNAMIC: FVC and FEV1 moderately reduced. FLOWS: FEV1% normal; FEF 25-75 moderately reduced. IMPRESSION: Probable moderately severe restrictive ventilatory defect although full lung volumes would be necessary to confirm this.
[2017-06-29] MEDS: amLODIPine BESYLATE 5 MG TAB PO SCH (10:14)
[2017-06-29] MEDS: GABAPENTIN 100 MG CAP PO SCH ×2 (10:15→21:00)
[2017-06-29] MEDS: CALCIUM CARBONATE 1.25 GM (CA 500 MG) TAB PO SCH ×3 (10:16→18:36)
[2017-06-29] MEDS: MAGNESIUM OXIDE 400 MG TAB PO SCH (10:16)
[2017-06-29] MEDS: GABAPENTIN 400 MG CAP PO SCH ×2 (10:16→22:20)
[2017-06-29] MEDS: POTASSIUM CHLORIDE 20 MEQ CONTROLLED RELEASE TAB PO SCH (10:17)
[2017-06-29] MEDS: PANTOPRAZOLE SOD 20 MG DELAYED RELEASE TAB PO SCH (10:17)
[2017-06-29] MEDS: COLCHICINE 0.6 MG TAB PO SCH (10:17)
[2017-06-29] MEDS: ASPIRIN 325 MG TAB PO SCH (10:18)
[2017-06-29] MEDS: FLUTICASONE PROPIONATE 110 MCG/ACT 12 GM INHALER INH SCH ×2 (10:19→21:00)
[2017-06-29] MEDS: VANCOMYCIN 500 MG VIAL (FOR ORAL USE ONLY) PO SCH ×4 (10:29→21:00)
[2017-06-29] MEDS: FUROSEMIDE 40 MG TAB PO SCH (10:29)
[2017-06-29] MEDS: NITROGLYCERIN 0.4 MG SL 25 TABS/BTL SL PRN ×3 (11:32→14:39)
[2017-06-29] MEDS ORDERED: HEPARIN-NS/PF INJ 1,000 ML ONE (11:41)
[2017-06-29] MEDS ORDERED: NITROGLYCERIN INJ 5 ML ONE (11:52)
[2017-06-29] MEDS ORDERED: MIDAZOLAM HCL 2 MG/2 ML VIAL ONE (11:52)
[2017-06-29] MEDS ORDERED: HEPARIN SODIUM - IV 10,000 UNITS/10 ML VIAL ONE ×2 (11:52→12:08)
[2017-06-29] MEDS ORDERED: VERAPAMIL HCL 5 MG/2 ML VIAL ONE (11:52)
[2017-06-29] MEDS ORDERED: hydrALAZINE HCL 20 MG/ML VIAL ONE (12:14)
[2017-06-29] MEDS ORDERED: TICAGRELOR 90 MG TAB PO ONE (12:18)
[2017-06-29] MEDS ORDERED: LABETALOL HCL 100 MG/20 ML VIAL ONE (12:29)
[2017-06-29] MEDS ORDERED: ATROVENT INH PRN (12:30)
--- NOTE | 2017-06-29 12:46 | CATHPROC ---
[employer] HIS Report Study Information Study Number Admission Scheduled Start Study Start [id number] Jun 25 2017 4:39AM 06/29/2017 Jun 29 2017 11:41AM Study Type [place] [facility] PTCA Cardiac Catheterization Admit Source Facility Department Emergency department [facility] - Supervisor [employer] Workers Physician and Clinical Staff Initial Atif Abad [place] Operator Abdias Cordova,BRIJESH Other Abhinav Terry,RT(R) Recorder Sarita Cotton,RESOURCE ROOM SPECIAL EDUCATION TEACHER TECH2 Recorder Shakeel Bustillo,RT(R) Scrub Alka Andrews,RT(R) Procedures Performed Procedure Location (Site) Vessel Name Coronary Angiograms LCA Left Coronary Drug Eluting Inflatio LAD Mid Left Coronary L Heart Cath PTCA LAD Mid Left Coronary Wire insertion Radial (right) Radial Art. Equipment Time Electronic Equipment Repairmen Description Size Mfg Part Number Used/Scraped WIRE, BALANCE MIDDLEWEIGHT [id number] 12:09 [employer] 190CM Used 190CM *[id number] TRANSDUCER, TRUWAVE [id number] 11:42 [employer] * Used W/EyeScribesCK *[id number] 11:42 [employer] PACK, CCL CUSTOM * Used *[id number] 11:42 [employer] SUPPORT, ARTERIAL ADULT 88872 *[id number] Used [id number] 12:13 MEDTRONIC BALLOON, 3.0 X 6MM EUPHORA 6MM Used *[id number] 12:29 MEDTR[employer] BALLOON, 3.5 X 6MM EUPHORA 6MM Used *[id number] 12:21 MEDTRONIC STENT, 3.5 8MM TOSHIA 3.5 8MM Used *[id number] 12:02 MEDTRONIC/AVE EBU 3.5 Z2 GUIDE CATHETER FR 6 Used *[id number] 12:15 [employer]entials 30 JUAN C INDEFLATOR Used *[id number] BAND, RADIAL COMPRESSION TR [id number] 12:37 [employer] MEDICAL 24CM Used SHORT 24 *[id number] 11:42 [employer]entials WIRE, EXCHANGE 260CM 3MMJ 260CM Used *[id number] 11:42 NAMIC MANIFOLD, 4 PORT * Used *[id number] 11:42 NYCOMED OMNIPAQUE, 350 MG, 150ML 150ML [id number] Used [id number] 11:42 [employer]EL[employer] BLANKET,WARM AIR CCL * Used *[id number] SHEATH, FR6 TRANSRADIAL [id number] 11:42 [employer] FR 6 Used SLENDER 10CM *[id number] Equipment Model, Serial, Lot Number and Expiration Data Description Model Number Serial Number Lot Number Expiration Date STENT, 3.5 8MM TOSHIA [id number] 01-25-2019 History: Current Medications Medication Dosage/Unit Route Frequency Last Date/Time Taken LASIX K-Dur Flovent Prilosec Magnesium Atrovent ASA Allopurinol Celebrex Statins (any) Ultram KLONIPIN History: Allergies Allergy Reaction amoxicillin throat pain History: Risk Factors Family History of Hypertension Dyslipidemia Previous OK Previous Heart Failure Premature CAD Yes Yes No No Yes Prior Valve Prior PCI Prior CABG Surgery No No No Cerebrovascular Peripheral Artery Chronic Lung On Dialysis Diabetes Disease Disease Disease No No No Yes No History: Symptoms/Diagnosis Selection Items Chest pain SOB History: CV Disease Selection Items Known CAD History: Stress Tests Stress or Imaging Studies Performed Yes Standard Exercise Stress Test No Stress Echo No Stress Test SPECT Stress Test SPECT Result Stress Test SPECT Ischemia Risk/Extent Yes Positive Intermediate Stress Test CMR No Cardiac CTA Coronary Calcium Score No No History: Other Disease Selection Items Depression HTN History: Other Current Smoker Method Packs a Day Years Used Pack Years Yes Cigarettes 1 50 50 Labs Hgb (g/dl) Hct (%) WBC (l/cumm) Platelets (thousands) 11.60-17.00 35.00-51.00 4.00-11.00 150.00-450.00 9.4 29.4 3.4 132 Glucose (mg/dl) BUN (mg/dl) Creatinine (mg/dl) BUN:Creatinine (1:x) 74.00-106.00 7.00-18.00 0.50-1.30 10.00-20.00 96 22 1.4 15.7 Na (meq/l) K (meq/l) 136.00-145.00 3.50-5.10 139 4.3 INR (PTT:PT) 0.90-1.10 1 Troponin I (ng/ml) CPK (u/l) CPK-MB (ng/ML) 0.02-0.05 26.00-308.00 0.50-3.60 0.02 30 Not Drawn Medication Medication Total Dose (Bolus/Oral) Medication Total Dosage/Unit 1% XYLOCAINE 10 mL BRILINTA 180 mg FENTANYL 25 mcg HEPARIN 7000 units HYDRALAZINE 10 mg LABETOLOL 10 mg RADIAL COCKTAIL 5 mL (Bolus) VERSED 0.5 mg Medications (Bolus/Oral) Medication Time Given Dosage/Unit Administered By Reason 1% XYLOCAINE 06/29/2017 11:59:13 AM 10 mL Atif Higuera 10 mL 1% XYLOCAINE given in lab by Atif Higuera in Right Radial via Subcutaneous. Ordered by Atif Lee FENTANYL 06/29/2017 11:59:36 AM 25 mcg Abdias Cordova 25 mcg FENTANYL given in lab by Abdias Cordova RN in Right Antecubital via Peripheral IV. Ordered by Atif Higuera VERSED 06/29/2017 11:59:57 AM 0.5 mg Abdias Cordova 0.5 mg VERSED given in lab by Abdias Cordova RN in Right Antecubital via Peripheral IV. Ordered by Atif Chavez RADIAL COCKTAIL 06/29/2017 12:02:19 PM 5 mL (Bolus) Atif Higuera 5 mL (Bolus) RADIAL COCKTAIL given in lab by Atif Higuera in Right Radial via Radial. Using [S olution Name]. Ordered by Atif Higuera Reason: Ntg 200mcg Verapamil 2.5mg Heparin 2800U. HEPARIN 06/29/2017 12:10:13 PM 7000 units Abdias Cordova 7000 units HEPARIN given in lab by Abdias Cordova RN via Peripheral IV. Ordered by Atif Higuera HYDRALAZINE 06/29/2017 12:15:32 PM 10 mg Abdias Cordova 10 mg HYDRALAZINE given in lab by Abdias Cordova RN via Peripheral IV. Ordered by Atif Higuera LABETOLOL 06/29/2017 12:36:40 PM 10 mg Abdias Cordova 10 mg LABETOLOL given in lab by Abdias Cordova RN via Peripheral IV. Ordered by Atif Higuera BRILINTA 06/29/2017 12:41:12 PM 180 mg Abdias Cordova 180 mg BRILINTA given in lab by Abdias Cordova RN via Oral. Ordered by Atif Higuera Medication (Drip) Medication Time Given Dosage/Unit Concentration/Unit Diluent (ml) Solutio n IV Solutions 06/29/2017 11:47:15 AM 0 mL (IV) 1000 NaCl .9 Patient arrived on IV Solutions in Right Antecubital via Peripheral IV. Pump/Drip Flow = 20 ml/hr usi ng NaCl .9. Initial Case Assessment Cardiovascular HR Rhythm NIBP Chest Pain 66 sr 120/61 0 Edema Present Skin color Skin None Normal Warm Dry Circulatory - Right Pulses Dorsalis Pedis Femoral Radial 2 2 2 Scale (0,1,2,3,4,d) Scale (0,1,2,3,4,d) Neurological State Oriented to time-place- Alert Moves all extremities person Respiration - General Respiration Rate SpO2 (%) O2 (lpm) (B/min) 14 100 0 Final Case Assessment Cardiovascular HR Rhythm NIBP Chest Pain 65 Sinus 105/66 0 Edema Present Skin color Skin None Normal Warm Dry Circulatory - Right Pulses Dorsalis Pedis Femoral Radial 2 2 2 Scale (0,1,2,3,4,d) Scale (0,1,2,3,4,d) Neurological State Oriented to time-place- Alert Moves all extremities person Respiration - General Respiration Rate SpO2 (%) O2 (lpm) (B/min) 10 100 0 Chronological Log Time Study Chronological Log 11:40:00 Patient arrived via Bed. 11:40:06 Patient Name, D.O.B, / Armband Verified By R.N. 11:41:13 Consent signed by the physician and the patient and verified by the Supervisor Machine Workers staff. 11:41:14 Pre-op and post- op instructions given; patient acknowledges understanding of instructions. 11:41:16 Verbal Stimulation=2 Physical Stimulation=2 Airway=2 Respiration=2 TOTAL=8. (0=absent, 1=li mited, 2=present) 11:41:18 Presedation assessment performed by Supervisor Machine Workers RN. 11:47:05 Allens test performed on the right radial and ulnar artery. 11:47:08 Patient has been NPO for More than 6Hrs. 11:47:09 Skin Breakdown-vaginal rash per patient 11:47:12 Isha Prominences Protected 11:47:14 A # 20 IV was noted in the Antecubital (right). Grade = 0 11:47:15 Patient arrived on IV Solutions in Right Antecubital via Peripheral IV. Pump/Drip Flow = 20 ml/hr using NaCl .9. 11:47:17 History and physical on the chart or being dictated. Vitals capture started with the following parameters, Patient=Adult, Interval=5 min, Initial Pr bfksil=662 mmHg, 11:50:43 Deflation Rate=5 mmHg, Cuff placed on Left Arm 11:50:45 Reference ECG taken 11:53:45 Vitals capture stopped. Assessment: Initial Case, HR=66 BPM, Rhythm=sr, YZBG=058/61 mmhg, Chest Pain=0, Edema=None, Col or=Normal, Skin = Warm, Dry 11:55:09 Right Pulses: Julio César Ped=2, Femoral=2, Radial=2 Neurological: State=Alert, Ox3, OSORIO Respiration: Resp=14 B/min, CeT6=844 %, O2=0 lpm 11:55:12 MD arrived. 11:55:13 Right Radial and groin(s) prepped with 2% chlorhexidine, and draped after a 3 min. waiting time. Vitals capture started with the following parameters, Patient=Adult, Interval=5 min, Initial Pr umzpcv=841 mmHg, 11:56:39 Deflation Rate=5 mmHg, Cuff placed on Left Arm 11:56:46 Pressure channel 1 zeroed. Time Out. Correct patient, correct procedure, correct physician, power injector not loaded used , surgical team present. 11:58:43 Time Out Concurred by MD and individual staff in procedure. 11:59:11 Case Start 10 mL 1% XYLOCAINE given in lab by Atif Higuera in Right Radial via Subcutaneous. Ordere d by Kalen 11:59:13 Atif Collazo 25 mcg FENTANYL given in lab by Abdias Cordova, RN in Right Antecubital via Peripheral IV. Order ed by Atif Higuera 11:59:36 G. 11:59:41 Vitals capture stopped. 11:59:57 0.5 mg VERSED given in lab by Abdias Cordova, RN in Right Antecubital via Peripheral IV. Ord ered by Atif Higuera 12:01:23 Access site was Radial Artery. right Vitals capture started with the following parameters, Patient=Adult, Interval=5 min, Initial Pr rxohls=601 mmHg, 12:01:42 Deflation Rate=5 mmHg, Cuff placed on Left Arm A SHEATH, FR6 TRANSRADIAL SLENDER 10CM FR 6 was advanced into the Radial (right) using the Perc utaneous 12:01:53 technique. 5 mL (Bolus) RADIAL COCKTAIL given in lab by Atif Higuera in Right Radial via Radial. Us ing [Solution Name]. 12:02:19 Ordered by Atif Higuera. Reason: Ntg 200mcg Verapamil 2.5mg Heparin 2800U. 12:02:48 HR=65 bpm, APMI=437/61 mmhg, SpO2=98.0 %, Resp=13 B/min, Pain=0, Carlyn=10, Sandoval=2 A EBU 3.5 Z2 GUIDE CATHETER FR 6 was advanced over a wire. OMNIPAQUE, 350 MG, 150ML 150ML was u sed for 12:03:24 injections. 12:05:18 Pressure channel 1 zeroed. 12:06:30 Pressure channel 1 zeroed. 12:07:20 HR=69 bpm, MQQV=753/67 mmhg, SpO2=96.0 %, Resp=14 B/min, Pain=0, Carlyn=10, Sandoval=2 Recorded Pressure: Ao, HR=64, Condition=Condition 1 12:08:13 (Aorta) Ao 176/70/110 12:08:30 A WIRE, EXCHANGE 260CM 3MMJ 260CM was inserted via Radial (right). 12:09:34 Wire removed 12:10:13 7000 units HEPARIN given in lab by Abdias Cordova, RN via Peripheral IV. Ordered by Atif Higuera 12:11:07 The LCA was injected and visualized at various angles. OMNIPAQUE, 350 MG, 150ML 150ML used . 12:12:19 HR=66 bpm, UIPP=584/68 mmhg, SpO2=97.0 %, Resp=14 B/min, Pain=0, Carlyn=10, Sandoval=2 12:12:30 A WIRE, BALANCE MIDDLEWEIGHT 190CM 190CM was inserted via Radial (right). 12:13:12 Interventional wire has crossed the lesion A BALLOON, 3.0 X 6MM EUPHORA 6MM was inserted over WIRE, BALANCE MIDDLEWEIGHT 190CM 190CM via t he LAD 12:14:28 Mid. A BALLOON, 3.0 X 6MM EUPHORA 6MM over a WIRE, BALANCE MIDDLEWEIGHT 190CM 190CM in the LAD Mid w as 12:15:17 inflated using a 30 JUAN C INDEFLATOR at 110 juan c for 26 sec. 12:15:32 10 mg HYDRALAZINE given in lab by Abdias Cordova RN via Peripheral IV. Ordered by Atif Higuera 12:16:56 Balloon Removed. 12:17:22 HR=65 bpm, NXKD=667/68 mmhg, SpO2=96.0 %, Resp=13 B/min, Pain=0, Carlyn=10, Sandoval=2 A STENT, 3.5 8MM TOSHIA 3.5 8MM was advanced through a EBU 3.5 Z2 GUIDE CATHETER FR 6 over a WIRE , BALANCE 12:18:24 MIDDLEWEIGHT 190CM 190CM. 12:22:21 HR=71 bpm, KILZ=355/67 mmhg, SpO2=97.0 %, Resp=13 B/min, Pain=0, Carlyn=10, Sandoval=2 A STENT, 3.5 8MM TOSHIA 3.5 8MM was deployed using a 30 JUAN C INDEFLATOR at 12 atmospheres for 26 s econds in the 12:22:33 LAD Mid. 12:23:14 Delivery device removed 12:24:10 Activated Clotting Time Drawn 12:26:28 A balloons was inserted over WIRE, BALANCE MIDDLEWEIGHT 190CM 190CM via the LAD Mid. A BALLOON, 3.5 X 6MM EUPHORA 6MM over a WIRE, BALANCE MIDDLEWEIGHT 190CM 190CM in the LAD Mid w as 12:27:10 inflated using a 30 JUAN C INDEFLATOR at 12 juan c for 20 sec. 12:27:22 HR=71 bpm, FGGU=177/68 mmhg, SpO2=98.0 %, Resp=13 B/min, Pain=0, Carlyn=10, Sandoval=2 A BALLOON, 3.5 X 6MM EUPHORA 6MM over a WIRE, BALANCE MIDDLEWEIGHT 190CM 190CM in the LAD Mid w as 12:28:18 inflated using a 30 JUAN C INDEFLATOR at 15 juan c for 15 sec. 12:29:35 ACT (Normal Range 90-180) = 303 12:30:00 The LCA was injected and visualized at various angles. OMNIPAQUE, 350 MG, 150ML 150ML used . 12:31:19 Wire removed 12:31:48 A WIRE, EXCHANGE 260CM 3MMJ 260CM was inserted via Radial (right). 12:31:59 Catheter was removed 12:32:02 Wire removed 12:32:11 Case End 12:32:17 HR=68 bpm, QIYM=896/75 mmhg, SpO2=99.0 %, Resp=15 B/min, Pain=0, Carlyn=10, Sandoval=2 Radial Compression Device Used. 16 mLs of air placed in BAND, RADIAL COMPRESSION TR SHORT 24 24 CM. Affected 12:36:23 hand 100 % O2 saturation. 12:36:40 10 mg LABETOLOL given in lab by Abdias Cordova RN via Peripheral IV. Ordered by Carrie Higuera 12:36:54 No case complications noted. 12:37:00 Cine recording checked. 12:37:26 HR=65 bpm, UJMD=244/66 mmhg, BiX6=548.0 %, Resp=10 B/min, Pain=0, Carlyn=10, Sandoval=2 12:40:41 Bedside Report will be given. 12:40:43 Implantable Device card placed in patient's chart. 12:40:48 A Left Heart Cath was performed. Assessment: Final Case, HR=65 BPM, Rhythm=Sinus, KLHS=622/66 mmhg, Chest Pain=0, Edema=None, Color=Normal, Skin = Warm, Dry 12:40:53 Right Pulses: Julio César Ped=2, Femoral=2, Radial=2 Neurological: State=Alert, Ox3, OSORIO Respiration: Resp=10 B/min, WqW2=615 %, O2=0 lpm 12:41:12 180 mg BRILINTA given in lab by Abdias Cordova RN via Oral. Ordered by Atif Higuera 12:41:49 Vitals capture stopped. 12:46:16 Patient moved to [facility] End Study - Contrast Media Used In Study Contrast Total Opened (mL) Total Used (mL) Total Wasted (mL) Omnipaque 150 90 60 End Study - Maximum Contrast Load Max Contrast Load (mL) 421.1 End Study - Radiation Exposure Fluoro Time (minutes) 7.8 End Study - Patient Disposition Complications Transferred To Interventional Outcome No Telemetry Bed successful
[2017-06-29] MEDS ORDERED: IOHEXOL 350 MG/ML 100 ML BTL (for Cath Lab) OTHER ONE (13:39)
[2017-06-29] MEDS ORDERED: MORPHINE SULFATE 2 MG/ML INJ IV ONE (15:15)
[2017-06-29] MEDS ORDERED: TIOTROPIUM BROMIDE 18 MCG INH INH SCH (21:00)
[2017-06-29] MEDS: TICAGRELOR 90 MG TAB PO SCH (22:21)
[2017-06-29] MEDS: ATORVASTATIN 20 MG TAB PO SCH (22:22)
--- NOTE | 2017-06-29 23:21 | PD.CARD.PN ---
Subjective Subjective Remarks Patient was seen earlier today post-cath, late entry No events overnight Chronic arthritis pain Heart rates back into the 60s after stopping BB Objective Medications Current Medications Medications (Trade) Dose Ordered Sig/Milana Route Start Time Stop Time Status Last Admin (NS Flush) 2 ml UNSCH PRN IVF 06/25/17 03:15 06/29/17 10:19 (NS Flush) 2 ml UNSCH PRN IV FLUSH 06/25/17 04:45 (Tylenol) 500 mg Q4H PRN PO 06/25/17 04:45 06/27/17 20:45 (Interior 7.5-325 Mg) 1 tab Q4H PRN PO 06/25/17 04:45 06/27/17 18:22 (Zofran Inj) 4 mg Q6H PRN IV PUSH 06/25/17 04:45 (Nitrostat Sl) 0.4 mg Q5M PRN SL 06/25/17 04:45 06/29/17 14:39 (Duoneb Neb) 1 ampule Q4HR NEB PRN NEB 06/25/17 04:45 (Proair Hfa Inh) 2 puff Q6H PRN INH 06/25/17 12:00 (Lipitor) 20 mg HS PO 06/25/17 21:00 06/29/17 22:22 (Oscal) 1,250 mg TID PO 06/25/17 13:00 06/29/17 18:36 (CeleBREX) 100 mg BID PO 06/25/17 21:00 Future Hold 06/27/17 08:45 (Colchicine) 0.6 mg DAILY PO 06/26/17 09:00 06/29/17 10:17 (Flovent Hfa 110 Mcg Inh) 2 puff BID INH 06/25/17 21:00 06/29/17 10:19 (Lasix) 40 mg EVERY OTHER DAY PO 06/25/17 13:00 Future hold 06/29/17 10:29 (Mag-Ox) 400 mg DAILY PO 06/26/17 09:00 06/29/17 10:16 (KCl) 20 meq DAILY PO 06/26/17 09:00 06/29/17 10:17 (Protonix) 20 mg DAILY PO 06/26/17 09:00 06/29/17 10:17 (VANCOMYCIN for oral use only) 250 mg QID PO 06/25/17 14:00 06/29/17 10:29 (Atrovent Neb) 0.5 mg Q4HR NEB PRN NEB 06/25/17 14:00 (KlonoPIN) 0.5 mg QID PO 06/25/17 18:00 06/29/17 22:21 (Norvasc) 2.5 mg DAILY PO 06/25/17 18:30 06/29/17 10:14 (Pill Splitter) 1 ea UNSCH PRN OTHER 06/25/17 18:15 (Neurontin) 100 mg BID PO 06/26/17 21:00 06/29/17 10:15 (Neurontin) 800 mg BID PO 06/26/17 21:00 06/29/17 22:20 (Interior 10-325 Mg) 1 tab Q4H PRN PO 06/27/17 16:45 06/29/17 22:29 Sodium Chloride 500 ml @ 84 mls/hr Q5H58M IV 06/28/17 10:00 (Spiriva Inh) 18 mcg BID INH 06/29/17 21:00 Patient Own Medication PT OWN MED: ATROV... Q4HR PRN INH 06/29/17 12:30 (Aspirin Chew) 81 mg DAILY PO 06/30/17 09:00 (Brilinta) 90 mg BID PO 06/29/17 21:00 06/29/17 22:21 Vital Signs / I&O Vital Signs Date Time Temp Pulse Resp B/P (MAP) Pulse Ox O2 Delivery O2 Flow Rate FiO2 06/29/17 18:00 68 06/29/17 17:00 58 06/29/17 16:00 60 06/29/17 15:00 60 06/29/17 15:00 97.4 69 18 140/79 (99) 98 06/29/17 14:54 108/54 (72) 06/29/17 14:49 127/63 (84) 06/29/17 14:40 111/57 (75) 06/29/17 14:34 140/72 (94) 06/29/17 14:00 70 06/29/17 13:00 58 06/29/17 11:20 72 17 129/71 (90) 97 06/29/17 11:00 60 06/29/17 10:09 98 1/30/18 10:00 64 06/29/17 09:10 98 Room Air 06/29/17 09:00 60 06/29/17 08:00 56 06/29/17 07:05 97.3 73 17 141/70 (93) 98 06/29/17 07:00 52 06/29/17 04:00 97.9 64 18 180/85 (116) 98 06/29/17 04:00 59 06/29/17 00:00 62 06/29/17 00:00 98.3 62 18 178/79 (112) 98 I/O 06/29/17 06/29/17 06/29/17 06/30/17 06/30/17 06/30/17 07:00 15:00 23:00 07:00 15:00 23:00 Intake Total 960 ml 960 ml Output Total 700 ml Balance 960 ml 260 ml Intake Oral 960 ml 960 ml Output Urine Total 700 ml # Voids 4 7 # Bowel Movements 3 Physical Exam GENERAL: NAD, AAOx3 SKIN: Warm and dry. HEAD: Atraumatic. Normocephalic. EYES: Pupils equal and round. No scleral icterus. No injection or drainage. ENT: No nasal bleeding or discharge. Mucous membranes pink and moist. NECK: Trachea midline. No JVD. CARDIOVASCULAR: Regular rate and rhythm. RESPIRATORY: No accessory muscle use. Clear to auscultation. Breath sounds equal bilaterally. GASTROINTESTINAL: Abdomen soft, non-tender, nondistended. Hepatic and splenic margins not palpable. MUSCULOSKELETAL: Extremities without clubbing, cyanosis, or edema. No obvious deformities. Right radial no hematoma, neurovascularly intact distally NEUROLOGICAL: Awake and alert. No obvious cranial nerve deficits. Motor grossly within normal limits. Five out of 5 muscle strength in the arms and legs. Normal speech. PSYCHIATRIC: Appropriate mood and affect; insight and judgment normal. Laboratory Laboratory Tests Test 06/29/17 05:30 06/29/17 14:00 White Blood Count 3.4 TH/MM3 Red Blood Count 4.00 MIL/MM3 Hemoglobin 9.4 GM/DL Hematocrit 29.4 % Mean Corpuscular Volume 73.6 FL Mean Corpuscular Hemoglobin 23.6 PG Mean Corpuscular Hemoglobin Concent 32.1 % Red Cell Distribution Width 20.3 % Platelet Count 132 TH/MM3 Mean Platelet Volume 7.7 FL Neutrophils (%) (Auto) 47.2 % Lymphocytes (%) (Auto) 33.2 % Monocytes (%) (Auto) 12.6 % Eosinophils (%) (Auto) 5.8 % Basophils (%) (Auto) 1.2 % Neutrophils # (Auto) 1.6 TH/MM3 Lymphocytes # (Auto) 1.1 TH/MM3 Monocytes # (Auto) 0.4 TH/MM3 Eosinophils # (Auto) 0.2 TH/MM3 Basophils # (Auto) 0.0 TH/MM3 CBC Comment DIFF FINAL Differential Comment Blood Urea Nitrogen 22 MG/DL Creatinine 1.43 MG/DL Random Glucose 96 MG/DL Calcium Level 10.5 MG/DL Sodium Level 139 MEQ/L Potassium Level 4.3 MEQ/L Chloride Level 105 MEQ/L Carbon Dioxide Level 27.9 MEQ/L Anion Gap 6 MEQ/L Estimat Glomerular Filtration Rate 37 ML/MIN Stool C. difficile Toxin (PCR) NEGATIVE Stl C. difficile Toxin Epiderm 027 PRESUMPTIVE NEGATIVE Assessment and Plan Problem List: (1) CAD (coronary artery disease) ICD Codes: I25.10 - Atherosclerotic heart disease of [place] coronary artery without angina pectoris (2) Abnormal stress test ICD Codes: R94.39 - Abnormal result of other cardiovascular function study (3) Unstable angina ICD Codes: I20.0 - Unstable angina (4) Chronic back pain ICD Codes: M54.9 - Dorsalgia, unspecified; G89.29 - Other chronic pain (5) Hyperlipidemia ICD Codes: E78.5 - Hyperlipidemia, unspecified (6) C. 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 Sun with CT surgery Most likely not the best candidate for CABG as post-procedure for recovery will be difficult CTA showing non-malignant course of LCx PCI LAD today with JUANPABLO Plan for PCI LCx and IFR RCA with possible PCI on /Wednesday depending on renal function ASA/Brilinta/Norvasc/Statin No WAYNE-I at this time due to chronic kidney disease with multiple doses of contrast, will further consider later in hospitalization No BB secondary to bradycardia 2) Bradycardia overnight, resolved off BB BB stopped 3) Chronic C. Diff Problem Qualifiers (1) CAD (coronary artery disease): Qualified Codes: I25.110 - Atherosclerotic heart disease of [place] coronary artery with unstable angina pectoris Atif Higuera DO Jun 29, 2017 23:21
[2017-06-30] VITALS (21 sets, daily range): BP systolic 104–154; BP diastolic 52–89; PULSE 53–77; RESP 16–20; TEMP 97.7–98.4; O2SAT 96–100
[2017-06-30] MEDS: ACETAMINOPHEN/HYDROcodone 325 MG/10 MG TAB PO PRN (06:03)
[2017-06-30 06:41] LABS: AUTOMATED NEUTROPHIL # 2.4 TH/MM3 (1.8-7.7); BASOPHIL % 0.9 % (0.0-2.0); EOSINOPHIL # 0.2 TH/MM3 (0-0.4); EOSINOPHIL % 4.5 % (0.0-4.0); HEMATOCRIT 30.2 % (35.0-46.0); HEMOGLOBIN 9.6 GM/DL (11.6-15.3); LYMPH % 28.7 % (9.0-44.0); LYMPHOCYTE # 1.3 TH/MM3 (1.0-4.8); MEAN CELL VOLUME 73.4 FL (80.0-100.0); MEAN CORPUSCULAR HEMOGLOBIN 23.5 PG (27.0-34.0); MEAN PLATELET VOLUME 8.3 FL (7.0-11.0); MONO % 12.2 % (0.0-8.0); MONOCYTE # 0.5 TH/MM3 (0-0.9); NEUT % 53.7 % (16.0-70.0); PLATELET COUNT 142 TH/MM3 (150-450); RED BLOOD COUNT 4.11 MIL/MM3 (4.00-5.30); RED CELL DISTRIBUTION WIDTH 20.5 % (11.6-17.2); WHITE BLOOD COUNT 4.4 TH/MM3 (4.0-11.0)
[2017-06-30 07:09] LABS: BICARBONATE 29.7 MEQ/L (21.0-32.0); CALCIUM 9.9 MG/DL (8.5-10.1); CREATININE 1.37 MG/DL (0.50-1.00)
[2017-06-30] MEDS: CALCIUM CARBONATE 1.25 GM (CA 500 MG) TAB PO SCH ×3 (08:43→19:37)
[2017-06-30] MEDS: GABAPENTIN 400 MG CAP PO SCH ×2 (08:44→21:00)
[2017-06-30] MEDS: GABAPENTIN 100 MG CAP PO SCH ×2 (08:44→21:11)
[2017-06-30] MEDS: PANTOPRAZOLE SOD 20 MG DELAYED RELEASE TAB PO SCH (08:45)
[2017-06-30] MEDS: ASPIRIN 81 MG CHEW TAB PO SCH (08:45)
[2017-06-30] MEDS: TICAGRELOR 90 MG TAB PO SCH ×2 (08:46→21:11)
[2017-06-30] MEDS: clonazePAM 0.5 MG TAB PO SCH ×4 (08:46→23:54)
[2017-06-30] MEDS: amLODIPine BESYLATE 5 MG TAB PO SCH (08:46)
[2017-06-30] MEDS: COLCHICINE 0.6 MG TAB PO SCH (08:47)
[2017-06-30] MEDS: MAGNESIUM OXIDE 400 MG TAB PO SCH (08:47)
[2017-06-30] MEDS: POTASSIUM CHLORIDE 20 MEQ CONTROLLED RELEASE TAB PO SCH (08:47)
[2017-06-30] MEDS: FLUTICASONE PROPIONATE 110 MCG/ACT 12 GM INHALER INH SCH ×2 (08:48→21:12)
[2017-06-30] MEDS: VANCOMYCIN 500 MG VIAL (FOR ORAL USE ONLY) PO SCH ×4 (09:00→21:00)
--- NOTE | 2017-06-30 09:32 | EKG ---
Date Performed: 06/29/2017 Time Performed: 15:11:48 PTAGE: 66 years EKG: Sinus rhythm with borderline 1st degree A-V block Anterior T wave changes are nonspecific Borderline ECG PREVIOUS TRACING : 06/25/2017 09.16 Compared to the prior study, nonspecific T-wave changes are now present. DOCTOR: Oswald Hernandez Interpretating Date/Time 06/30/2017 09:29:40
[2017-06-30] MEDS: ACETAMINOPHEN/HYDROcodone 325 MG/7.5 MG TAB PO PRN ×3 (10:45→22:02)
--- NOTE | 2017-06-30 13:12 | PD.CARD.PN ---
Subjective Subjective Remarks No events overnight Chronic arthritis pain Objective Medications Current Medications Medications (Trade) Dose Ordered Sig/Milana Route Start Time Stop Time Status Last Admin (NS Flush) 2 ml UNSCH PRN IVF 06/25/17 03:15 06/29/17 10:19 (NS Flush) 2 ml UNSCH PRN IV FLUSH 06/25/17 04:45 (Tylenol) 500 mg Q4H PRN PO 06/25/17 04:45 06/27/17 20:45 ([place] 7.5-325 Mg) 1 tab Q4H PRN PO 06/25/17 04:45 06/30/17 10:45 (Zofran Inj) 4 mg Q6H PRN IV PUSH 06/25/17 04:45 (Nitrostat Sl) 0.4 mg Q5M PRN SL 06/25/17 04:45 06/29/17 14:39 (Duoneb Neb) 1 ampule Q4HR NEB PRN NEB 06/25/17 04:45 (Proair Hfa Inh) 2 puff Q6H PRN INH 06/25/17 12:00 (Lipitor) 20 mg HS PO 06/25/17 21:00 06/29/17 22:22 (Oscal) 1,250 mg TID PO 06/25/17 13:00 06/30/17 08:43 (CeleBREX) 100 mg BID PO 06/25/17 21:00 Future Hold 06/27/17 08:45 (Colchicine) 0.6 mg DAILY PO 06/26/17 09:00 06/30/17 08:47 (Flovent Hfa 110 Mcg Inh) 2 puff BID INH 06/25/17 21:00 06/30/17 08:48 (Lasix) 40 mg EVERY OTHER DAY PO 06/25/17 13:00 Future hold 06/29/17 10:29 (Mag-Ox) 400 mg DAILY PO 06/26/17 09:00 06/30/17 08:47 (KCl) 20 meq DAILY PO 06/26/17 09:00 06/30/17 08:47 (Protonix) 20 mg DAILY PO 06/26/17 09:00 06/30/17 08:45 (VANCOMYCIN for oral use only) 250 mg QID PO 06/25/17 14:00 06/29/17 10:29 (Atrovent Neb) 0.5 mg Q4HR NEB PRN NEB 06/25/17 14:00 (KlonoPIN) 0.5 mg QID PO 06/25/17 18:00 06/30/17 08:46 (Norvasc) 2.5 mg DAILY PO 06/25/17 18:30 06/30/17 08:46 (Pill Splitter) 1 ea UNSCH PRN OTHER 06/25/17 18:15 (Neurontin) 100 mg BID PO 06/26/17 21:00 06/30/17 08:44 (Neurontin) 800 mg BID PO 06/26/17 21:00 06/30/17 08:44 ([place] 10-325 Mg) 1 tab Q4H PRN PO 06/27/17 16:45 06/30/17 06:03 Sodium Chloride 500 ml @ 84 mls/hr Q5H58M IV 06/28/17 10:00 (Spiriva Inh) 18 mcg BID INH 06/29/17 21:00 Patient Own Medication PT OWN MED: ATROV... Q4HR PRN INH 06/29/17 12:30 (Aspirin Chew) 81 mg DAILY PO 06/30/17 09:00 06/30/17 08:45 (Brilinta) 90 mg BID PO 06/29/17 21:00 06/30/17 08:46 Vital Signs / I&O Vital Signs Date Time Temp Pulse Resp B/P (MAP) Pulse Ox O2 Delivery O2 Flow Rate FiO2 06/30/17 12:18 70 06/30/17 12:16 97.7 74 16 148/74 (98) 98 06/30/17 11:00 72 06/30/17 10:36 60 06/30/17 10:00 62 06/30/17 09:00 72 06/30/17 09:00 72 06/30/17 08:27 71 16 154/83 (106) 100 06/30/17 08:00 68 06/30/17 08:00 97.9 77 18 154/89 (110) 100 06/30/17 07:25 99 Nasal Cannula 2.00 06/30/17 07:00 53 06/30/17 04:00 53 06/30/17 00:00 98.3 60 18 134/72 (92) 97 06/29/17 21:43 98.2 60 18 157/98 (117) 98 06/29/17 20:00 98 Room Air 06/29/17 18:00 68 06/29/17 17:00 58 06/29/17 16:00 60 06/29/17 15:00 60 06/29/17 15:00 97.4 69 18 140/79 (99) 98 06/29/17 14:54 108/54 (72) 06/29/17 14:49 127/63 (84) 06/29/17 14:40 111/57 (75) 06/29/17 14:34 140/72 (94) 06/29/17 14:00 70 I/O 06/29/17 06/29/17 06/29/17 06/30/17 06/30/17 06/30/17 07:00 15:00 23:00 07:00 15:00 23:00 Intake Total 960 ml 960 ml 360 ml Output Total 700 ml Balance 960 ml 260 ml 360 ml Intake Oral 960 ml 960 ml 360 ml Output Urine Total 700 ml # Voids 4 7 # Bowel Movements 3 Physical Exam GENERAL: NAD, AAOx3 SKIN: Warm and dry. HEAD: Atraumatic. Normocephalic. EYES: Pupils equal and round. No scleral icterus. No injection or drainage. ENT: No nasal bleeding or discharge. Mucous membranes pink and moist. NECK: Trachea midline. No JVD. CARDIOVASCULAR: Regular rate and rhythm. RESPIRATORY: No accessory muscle use. Clear to auscultation. Breath sounds equal bilaterally. GASTROINTESTINAL: Abdomen soft, non-tender, nondistended. Hepatic and splenic margins not palpable. MUSCULOSKELETAL: Extremities without clubbing, cyanosis, or edema. No obvious deformities. Right radial no hematoma, neurovascularly intact distally NEUROLOGICAL: Awake and alert. No obvious cranial nerve deficits. Motor grossly within normal limits. Five out of 5 muscle strength in the arms and legs. Normal speech. PSYCHIATRIC: Appropriate mood and affect; insight and judgment normal. Laboratory Laboratory Tests Test 06/29/17 14:00 06/30/17 05:43 Stool C. difficile Toxin (PCR) NEGATIVE Stl C. difficile Toxin Epiderm 027 PRESUMPTIVE NEGATIVE White Blood Count 4.4 TH/MM3 Red Blood Count 4.11 MIL/MM3 Hemoglobin 9.6 GM/DL Hematocrit 30.2 % Mean Corpuscular Volume 73.4 FL Mean Corpuscular Hemoglobin 23.5 PG Mean Corpuscular Hemoglobin Concent 32.0 % Red Cell Distribution Width 20.5 % Platelet Count 142 TH/MM3 Mean Platelet Volume 8.3 FL Neutrophils (%) (Auto) 53.7 % Lymphocytes (%) (Auto) 28.7 % Monocytes (%) (Auto) 12.2 % Eosinophils (%) (Auto) 4.5 % Basophils (%) (Auto) 0.9 % Neutrophils # (Auto) 2.4 TH/MM3 Lymphocytes # (Auto) 1.3 TH/MM3 Monocytes # (Auto) 0.5 TH/MM3 Eosinophils # (Auto) 0.2 TH/MM3 Basophils # (Auto) 0.0 TH/MM3 CBC Comment DIFF FINAL Differential Comment Blood Urea Nitrogen 21 MG/DL Creatinine 1.37 MG/DL Random Glucose 89 MG/DL Calcium Level 9.9 MG/DL Sodium Level 140 MEQ/L Potassium Level 4.0 MEQ/L Chloride Level 102 MEQ/L Carbon Dioxide Level 29.7 MEQ/L Anion Gap 8 MEQ/L Estimat Glomerular Filtration Rate 38 ML/MIN Assessment and Plan Problem List: (1) CAD (coronary artery disease) ICD Codes: I25.10 - Atherosclerotic heart disease of [place] coronary artery without angina pectoris (2) Abnormal stress test ICD Codes: R94.39 - Abnormal result of other cardiovascular function study (3) Unstable angina ICD Codes: I20.0 - Unstable angina (4) Chronic back pain ICD Codes: M54.9 - Dorsalgia, unspecified; G89.29 - Other chronic pain (5) Hyperlipidemia ICD Codes: E78.5 - Hyperlipidemia, unspecified (6) C. 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 Sun with CT surgery Most likely not the best candidate for CABG as post-procedure for recovery will be difficult CTA showing non-malignant course of LCx PCI LAD with JUANPABLO 06/19/17 Plan for PCI LCx and IFR RCA with possible PCI on Wednesday depending on renal function ASA/Brilinta/Norvasc/Statin No WAYNE-I at this time due to chronic kidney disease with multiple doses of contrast, will further consider later in hospitalization No BB secondary to bradycardia 2) Bradycardia overnight, resolved off BB BB stopped 3) Chronic C. Diff previously Microbiology negative Problem Qualifiers (1) CAD (coronary artery disease): Qualified Codes: I25.110 - Atherosclerotic heart disease of [place] coronary artery with unstable angina pectoris Atif Higuera DO Jun 30, 2017 13:12
--- NOTE | 2017-06-30 15:01 | HHI.PR ---
Subjective Remarks In the chair. Says no chest pain however says she has discomfort n her chest . no palpitations. No n/v/d/c. Objective Vitals Vital Signs Date Time Temp Pulse Resp B/P (MAP) Pulse Ox O2 Delivery O2 Flow Rate FiO2 06/30/17 12:18 70 06/30/17 12:16 97.7 74 16 148/74 (98) 98 06/30/17 11:00 72 06/30/17 10:36 60 06/30/17 10:00 62 06/30/17 09:00 72 06/30/17 09:00 72 06/30/17 08:27 71 16 154/83 (106) 100 06/30/17 08:00 68 06/30/17 08:00 97.9 77 18 154/89 (110) 100 06/30/17 07:25 99 Nasal Cannula 2.00 06/30/17 07:00 53 06/30/17 04:00 53 06/30/17 00:00 98.3 60 18 134/72 (92) 97 06/29/17 21:43 98.2 60 18 157/98 (117) 98 06/29/17 20:00 98 Room Air 06/29/17 18:00 68 06/29/17 17:00 58 06/29/17 16:00 60 I/O 06/29/17 06/29/17 06/29/17 06/30/17 06/30/17 06/30/17 06:59 14:59 22:59 06:59 14:59 22:59 Intake Total 960 ml 960 ml 360 ml Output Total 700 ml Balance 960 ml 260 ml 360 ml Intake Oral 960 ml 960 ml 360 ml Output Urine Total 700 ml # Voids 4 7 # Bowel Movements 3 Result Diagram: 06/30/17 0543 06/30/17 0543 Imaging Last Impressions Coronary Angiography CT 06/28/17 0000 Signed Impressions: Service Date/Time: Wednesday, June 28, 2017 17:24 - CONCLUSION: 1. 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 2. Extensive atherosclerotic changes in the LAD and right coronary artery limiting evaluation for critical stenosis. 1. Omar Cruz MD Chest X-Ray 06/25/17 031 Signed Impressions: Service Date/Time: Sunday, June 25, 2017 03:26 - CONCLUSION: No acute disease. Luis Armando Medina MD Myocardial Perfusion Scan [facility] 06/25/17 0000 Signed Impressions: Service Date/Time: Sunday, June 25, 2017 10:13 - CONCLUSION: Significant stress-induced ischemia. RISK CATEGORY: Intermediate (1-3%% Annual Mortality Rate) Scott Malhotra MD FACR Objective Remarks GENERAL: 66 yo F , well developed, well nourished, appears in NAD CARDIOVASCULAR: Regular rate and rhythm without murmurs, gallops, or rubs. RESPIRATORY: Breath sounds equal bilaterally. No accessory muscle use. GASTROINTESTINAL: Abdomen soft, non-tender, nondistended. MUSCULOSKELETAL: No cyanosis, or edema. A/P Problem List: (1) Chest pain ICD Code: R07.9 - Chest pain, unspecified Status: Acute (2) Hyperlipidemia ICD Code: E78.5 - Hyperlipidemia, unspecified (3) Congestive heart failure ICD Code: I50.9 - Heart failure, unspecified (4) Chronic back pain ICD Code: M54.9 - Dorsalgia, unspecified; G89.29 - Other chronic pain Assessment and Plan Unstable angina -Troponins were negative. Patient had an abnormal Lexiscan in which she was transfer to the main hospital for cardiac catheterization. -Cart catheterization done by Dr. 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 -CTS consulted and stated patient is a poor candidate for CABG secondary to frailty. 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 Seen by Dr. Sun with CT surgery. Most likely not the best candidate for CABG as post-procedure for recovery will be difficult Plan for CTA 06/28/17 to evaluate course of LCx, if intra-arterial then no percutaneous options Plan on PCI LAD when creatinine improves, and then staged PCI on or Wednesday per cardiology Bradycardia overnight, resolved off BB. BB stopped, cardiology ff. Acute on chronic renal sufficiency -Creatinine continues to worsen now at 1.59. Celebrex and colchicine was discontinued. On IV fluids. -Strict ins and outs. Malena monitor/trend creatinine. Bradycardia overnight -Secondary to beta blockers. Resolved with discontinuation of braided ramy. C. difficile -Presented for admission. Continue home regimen. On oral vancomycin. Osteoarthritis -Per patient she usually takes tramadol. But feels like that does not work. Will continue [place]. Hyperlipidemia/congestive heart failure/chronic back pain -Continue home medication. DVT prophylaxis: SCDs. Heparin. Discharge Planning Not ready for DC work up in progress, needs CTA, plan for PCI, cardiology ff Plan on PCI LAD when creatinine improves, and then staged PCI on or Wednesday per cardiology Quyen Lucio MD Jun 30, 2017 15:01
[2017-06-30] MEDS: TIOTROPIUM BROMIDE 18 MCG INH INH SCH (15:45)
[2017-06-30] MEDS: ATORVASTATIN 20 MG TAB PO SCH (21:10)
[2017-07-01] VITALS (27 sets, daily range): BP systolic 104–155; BP diastolic 59–87; PULSE 52–88; RESP 16–18; TEMP 97.6–98.2; O2SAT 96–99
--- NOTE | 2017-07-01 00:19 | MA ---
cc: ATIF BEDOLLA DO DATE: June 29, 2017 PROCEDURE Coronary angiogram, Tom drug-eluting stent (3.58) to the LAD. PREPROCEDURE DIAGNOSIS Unstable angina, abnormal stress test, multivessel coronary artery disease turned down for coronary artery bypass grafting. POSTPROCEDURE DIAGNOSIS Unstable angina, abnormal stress test status post Tom drug-eluting stent (3.58) to the LAD. MEDICATIONS Versed 0.5 mg. Fentanyl 25 mcg. Heparin 11,700 units. Nitro 200 mcg. Verapamil 2.5 mg. Hydralazine 10 milligrams. Brilinta 180 mg. Labetalol 10 mg. CONTRAST 90 cc Fluoroscopy: 7.8 minutes Moderate sedation: 30 minutes ESTIMATED BLOOD LOSS 10 cc PROCEDURAL SUMMARY Magalys Crespo is a pleasant 66 year-old female who originally presented with chest pain and underwent stress testing which showed anterior lateral and inferior ischemia. Because of this she was recommended cardiac catheterization. She underwent the previous procedure on June 25, 2017 and was found to have multivessel disease. She was seen by cardiothoracic surgery who deemed her less likely high-risk for coronary artery bypass grafting due to her inability to rehab post procedure. Because of this, she was recommended multivessel stenting. Risks, benefits and alternatives were explained to her and she consented as such. DESCRIPTION OF PROCEDURE: She was brought to lab and prepped in the usual sterile fashion. Right radial artery was accessed using a modified Seldinger technique and placement of a 5/6 [place] slender sheath. This was easily aspirated and flushed. An EBU 3.5 guide was then advanced to the ascending aorta and engaged in the left main. The patient was given heparin as an anticoagulant. A BMW wire was advanced into the distal portion of the LAD. The lesion was ballooned with a compliant balloon (3 x 6). An [place] drug-eluting stent (3.5 x 8) was then placed over the lesion and inflated. This was then postdilated with a noncompliant balloon (3.5 x 6). The patient was given 180 mg of Brilinta. Wire and guide were removed. Final angiogram shows a well opposed stent with no perforations or dissections. A radial band was placed over the arteriotomy site for hemostasis. 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 FINDINGS Left main: 10%. There is an anomalous left circ, the left main runs straight into the LAD which has an 80% stenosis in the proximal portion. Distally the LAD appears to have 10% disease. IMPRESSION: 1. Unstable angina with an abnormal stress test showing anterior lateral and inferior ischemia. 2. Multivessel coronary artery disease for multivessel stenting as she was turned down for surgery due to inability to rehab. RECOMMENDATIONS 1. The patient underwent PCI of her LAD and will continue on aspirin and Brilinta therapy. 2. She does have significant disease in the left circumflex and so on Wednesday, I will plan on doing PCI of this. 3. Most likely on Wednesday after PCI of the left circumflex, I will IFR the RCA as it appears more likely moderate than severe. If severe, then will plan on stenting the RCA as well. 4. Will have to watch her creatinine as she does have chronic kidney disease and received multiple loads of contrast this week. 5. No beta ramy secondary to significant bradycardia. 6. We will not plan on placing an WAYNE inhibitor at this time due to her chronic kidney disease with multiple dosages of contrast. Thank you for allowing me to see Magalys Crespo. If there are any questions, please do not hesitate to call. Atif Bedolla DO YASMIN/JAQUI /11:19 PM /11:52 PM
[2017-07-01 06:19] LABS: AUTOMATED NEUTROPHIL # 3.2 TH/MM3 (1.8-7.7); BASOPHIL % 0.7 % (0.0-2.0); EOSINOPHIL # 0.2 TH/MM3 (0-0.4); EOSINOPHIL % 3.6 % (0.0-4.0); HEMATOCRIT 30.9 % (35.0-46.0); HEMOGLOBIN 10.1 GM/DL (11.6-15.3); LYMPH % 21.5 % (9.0-44.0); LYMPHOCYTE # 1.1 TH/MM3 (1.0-4.8); MEAN CELL VOLUME 73.7 FL (80.0-100.0); MEAN CORPUSCULAR HEMOGLOBIN 24.1 PG (27.0-34.0); MEAN CORPUSCULAR HGB CONC 32.6 % (32.0-36.0); MEAN PLATELET VOLUME 7.7 FL (7.0-11.0); MONO % 9.7 % (0.0-8.0); MONOCYTE # 0.5 TH/MM3 (0-0.9); NEUT % 64.5 % (16.0-70.0); PLATELET COUNT 138 TH/MM3 (150-450); RED CELL DISTRIBUTION WIDTH 20.5 % (11.6-17.2)
[2017-07-01 06:36] LABS: CALCIUM 10.4 MG/DL (8.5-10.1); CREATININE 1.41 MG/DL (0.50-1.00)
[2017-07-01] MEDS: clonazePAM 0.5 MG TAB PO SCH ×4 (08:44→21:08)
[2017-07-01] MEDS: PANTOPRAZOLE SOD 20 MG DELAYED RELEASE TAB PO SCH (08:44)
[2017-07-01] MEDS: POTASSIUM CHLORIDE 20 MEQ CONTROLLED RELEASE TAB PO SCH (08:44)
[2017-07-01] MEDS: COLCHICINE 0.6 MG TAB PO SCH (08:44)
[2017-07-01] MEDS: GABAPENTIN 100 MG CAP PO SCH (08:44)
[2017-07-01] MEDS: amLODIPine BESYLATE 5 MG TAB PO SCH (08:45)
[2017-07-01] MEDS: TICAGRELOR 90 MG TAB PO SCH ×2 (08:45→21:08)
[2017-07-01] MEDS: ASPIRIN 81 MG CHEW TAB PO SCH (08:45)
[2017-07-01] MEDS: CALCIUM CARBONATE 1.25 GM (CA 500 MG) TAB PO SCH ×3 (08:45→18:08)
[2017-07-01] MEDS: MAGNESIUM OXIDE 400 MG TAB PO SCH (08:46)
[2017-07-01] MEDS: TIOTROPIUM BROMIDE 18 MCG INH INH SCH (08:47)
[2017-07-01] MEDS: FLUTICASONE PROPIONATE 110 MCG/ACT 12 GM INHALER INH SCH ×2 (08:47→21:10)
[2017-07-01] MEDS: GABAPENTIN 400 MG CAP PO SCH ×2 (08:47→18:08)
[2017-07-01] MEDS: ACETAMINOPHEN/HYDROcodone 325 MG/7.5 MG TAB PO PRN ×2 (08:57→17:04)
[2017-07-01] MEDS: FUROSEMIDE 40 MG TAB PO SCH (08:57)
[2017-07-01] MEDS: VANCOMYCIN 500 MG VIAL (FOR ORAL USE ONLY) PO SCH ×4 (09:00→21:00)
--- NOTE | 2017-07-01 15:22 | HHI.PR ---
Subjective Remarks Patient in nad. Says she had no chest pain overnight. No n/v/d/c. no cough. Objective Vitals Vital Signs Date Time Temp Pulse Resp B/P (MAP) Pulse Ox O2 Delivery O2 Flow Rate FiO2 07/01/17 14:01 70 07/01/17 13:00 70 07/01/17 12:00 58 07/01/17 11:15 98.2 57 18 141/63 (89) 99 07/01/17 11:00 60 07/01/17 10:00 56 07/01/17 09:00 64 07/01/17 08:15 97.7 62 18 104/64 (77) 97 07/01/17 08:15 97 Room Air 07/01/17 08:00 58 07/01/17 07:01 58 07/01/17 06:00 52 07/01/17 05:00 60 07/01/17 04:00 64 07/01/17 03:00 98.0 64 139/64 (89) 97 07/01/17 03:00 58 07/01/17 02:00 70 07/01/17 01:00 60 07/01/17 00:00 58 06/30/17 23:30 18 06/30/17 23:00 54 06/30/17 23:00 98.4 64 137/71 (93) 96 06/30/17 22:00 60 06/30/17 21:00 64 06/30/17 20:00 60 06/30/17 19:00 97.7 59 104/52 (69) 97 06/30/17 19:00 62 06/30/17 19:00 97 Nasal Cannula 2.00 06/30/17 18:00 62 06/30/17 17:00 64 06/30/17 16:00 58 06/30/17 15:55 98.0 67 20 109/56 (73) 100 I/O 06/30/17 06/30/17 06/30/17 07/01/17 07/01/17 07/01/17 07:00 15:00 23:00 07:00 15:00 23:00 Intake Total 360 ml 660 ml 720 ml Output Total 400 ml 1750 ml Balance 360 ml 260 ml -1030 ml Intake Oral 360 ml 660 ml 720 ml Output Urine Total 400 ml 1750 ml # Voids 2 # Bowel Movements 1 Result Diagram: 07/01/17 0539 07/01/17 0539 Imaging Last Impressions Coronary Angiography CT 06/28/17 0000 Signed Impressions: Service Date/Time: Wednesday, June 28, 2017 17:24 - CONCLUSION: 1. 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 2. Extensive atherosclerotic changes in the LAD and right coronary artery limiting evaluation for critical stenosis. 1. Omar Cruz MD Chest X-Ray 06/25/17 0314 Signed Impressions: Service Date/Time: Sunday, June 25, 2017 03:26 - CONCLUSION: No acute disease. Luis Armando Medina MD Myocardial Perfusion Scan [facility] 06/25/17 0000 Signed Impressions: Service Date/Time: Sunday, June 25, 2017 10:13 - CONCLUSION: Significant stress-induced ischemia. RISK CATEGORY: Intermediate (1-3%% Annual Mortality Rate) Scott Malhotra MD FACR Objective Remarks GENERAL: 66 yo F , well developed, well nourished, appears in NAD CARDIOVASCULAR: Regular rate and rhythm without murmurs, gallops, or rubs. RESPIRATORY: Breath sounds equal bilaterally. No accessory muscle use. GASTROINTESTINAL: Abdomen soft, non-tender, nondistended. MUSCULOSKELETAL: No cyanosis, or edema. A/P Problem List: (1) Chest pain ICD Code: R07.9 - Chest pain, unspecified Status: Acute (2) Hyperlipidemia ICD Code: E78.5 - Hyperlipidemia, unspecified (3) Congestive heart failure ICD Code: I50.9 - Heart failure, unspecified (4) Chronic back pain ICD Code: M54.9 - Dorsalgia, unspecified; G89.29 - Other chronic pain Assessment and Plan Unstable angina -Troponins were negative. Patient had an abnormal Lexiscan in which she was transfer to the main hospital for cardiac catheterization. -Cart catheterization done by Dr. 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 -CTS consulted and stated patient is a poor candidate for CABG secondary to frailty. 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 Seen by Dr. Sun with CT surgery. Most likely not the best candidate for CABG as post-procedure for recovery will be difficult Plan for CTA 06/28/17 to evaluate course of LCx, if intra-arterial then no percutaneous options Plan on PCI LAD when creatinine improves, and then staged PCI on or Wednesday per cardiology Bradycardia , resolved off BB. BB stopped, cardiology ff. Acute on chronic renal sufficiency -Creatinine continues to worsen now at 1.59. Celebrex and colchicine was discontinued. On IV fluids. -Strict ins and outs. Malena monitor/trend creatinine. Bradycardia overnight -Secondary to beta blockers. Resolved with discontinuation of braided ramy. C. difficile -Presented for admission. Continue home regimen. On oral vancomycin. Osteoarthritis -Per patient she usually takes tramadol. But feels like that does not work. Will continue [place]. Hyperlipidemia/congestive heart failure/chronic back pain -Continue home medication. DVT prophylaxis: SCDs. Heparin. Discharge Planning Not ready for DC work up in progress, needs CTA, plan for PCI, cardiology ff Plan on PCI LAD staged PCI on Wednesday per cardiology , ff Quyen Lucio MD Jul 01, 2017 15:22
--- NOTE | 2017-07-01 19:15 | PD.CARD.PN ---
Subjective Subjective Remarks Patient was seen earlier today, late entry note No events overnight Chronic arthritis pain Objective Medications Current Medications Medications (Trade) Dose Ordered Sig/Milana Route Start Time Stop Time Status Last Admin (Tylenol) 500 mg Q4H PRN PO 06/25/17 04:45 06/27/17 20:45 (Tillson 7.5-325 Mg) 1 tab Q4H PRN PO 06/25/17 04:45 07/01/17 17:04 (Zofran Inj) 4 mg Q6H PRN IV PUSH 06/25/17 04:45 (Nitrostat Sl) 0.4 mg Q5M PRN SL 06/25/17 04:45 06/29/17 14:39 (Duoneb Neb) 1 ampule Q4HR NEB PRN NEB 06/25/17 04:45 (Proair Hfa Inh) 2 puff Q6H PRN INH 06/25/17 12:00 (Lipitor) 20 mg HS PO 06/25/17 21:00 06/30/17 21:10 (Oscal) 1,250 mg TID PO 06/25/17 13:00 07/01/17 18:08 (CeleBREX) 100 mg BID PO 06/25/17 21:00 Future Hold 06/27/17 08:45 (Colchicine) 0.6 mg DAILY PO 06/26/17 09:00 07/01/17 08:44 (Flovent Hfa 110 Mcg Inh) 2 puff BID INH 06/25/17 21:00 07/01/17 08:47 (Lasix) 40 mg EVERY OTHER DAY PO 06/25/17 13:00 Future hold 07/01/17 08:57 (Mag-Ox) 400 mg DAILY PO 06/26/17 09:00 07/01/17 08:46 (KCl) 20 meq DAILY PO 06/26/17 09:00 07/01/17 08:44 (Protonix) 20 mg DAILY PO 06/26/17 09:00 07/01/17 08:44 (VANCOMYCIN for oral use only) 250 mg QID PO 06/25/17 14:00 06/29/17 10:29 (Atrovent Neb) 0.5 mg Q4HR NEB PRN NEB 06/25/17 14:00 (KlonoPIN) 0.5 mg QID PO 06/25/17 18:00 07/01/17 18:08 (Norvasc) 2.5 mg DAILY PO 06/25/17 18:30 07/01/17 08:45 (Pill Splitter) 1 ea UNSCH PRN OTHER 06/25/17 18:15 (Tillson 10-325 Mg) 1 tab Q4H PRN PO 06/27/17 16:45 06/30/17 06:03 Patient Own Medication PT OWN MED: ATROV... Q4HR PRN INH 06/29/17 12:30 (Aspirin Chew) 81 mg DAILY PO 06/30/17 09:00 07/01/17 08:45 (Brilinta) 90 mg BID PO 06/29/17 21:00 07/01/17 08:45 (Spiriva Inh) 18 mcg DAILY INH 06/30/17 16:00 07/01/17 08:47 (Neurontin) 400 mg TID PO 07/01/17 18:00 07/01/17 18:08 Vital Signs / I&O Vital Signs Date Time Temp Pulse Resp B/P (MAP) Pulse Ox O2 Delivery O2 Flow Rate FiO2 07/01/17 17:01 64 07/01/17 16:00 64 07/01/17 15:15 98.2 70 18 115/59 (77) 96 07/01/17 15:00 66 07/01/17 14:01 70 07/01/17 13:00 70 07/01/17 12:00 58 07/01/17 11:15 98.2 57 18 141/63 (89) 99 07/01/17 11:00 60 07/01/17 10:00 56 07/01/17 09:00 64 07/01/17 08:15 97.7 62 18 104/64 (77) 97 07/01/17 08:15 97 Room Air 07/01/17 08:00 58 07/01/17 07:01 58 07/01/17 06:00 52 07/01/17 05:00 60 07/01/17 04:00 64 07/01/17 03:00 98.0 64 139/64 (89) 97 07/01/17 03:00 58 07/01/17 02:00 70 07/01/17 01:00 60 07/01/17 00:00 58 06/30/17 23:30 18 06/30/17 23:00 54 06/30/17 23:00 98.4 64 137/71 (93) 96 06/30/17 22:00 60 06/30/17 21:00 64 06/30/17 20:00 60 I/O 06/30/17 06/30/17 06/30/17 07/01/17 07/01/17 07/01/17 07:00 15:00 23:00 07:00 15:00 23:00 Intake Total 360 ml 660 ml 720 ml Output Total 400 ml 1750 ml Balance 360 ml 260 ml -1030 ml Intake Oral 360 ml 660 ml 720 ml Output Urine Total 400 ml 1750 ml # Voids 2 # Bowel Movements 1 Physical Exam GENERAL: NAD, AAOx3 SKIN: Warm and dry. HEAD: Atraumatic. Normocephalic. EYES: Pupils equal and round. No scleral icterus. No injection or drainage. ENT: No nasal bleeding or discharge. Mucous membranes pink and moist. NECK: Trachea midline. No JVD. CARDIOVASCULAR: Regular rate and rhythm. RESPIRATORY: No accessory muscle use. Clear to auscultation. Breath sounds equal bilaterally. GASTROINTESTINAL: Abdomen soft, non-tender, nondistended. Hepatic and splenic margins not palpable. MUSCULOSKELETAL: Extremities without clubbing, cyanosis, or edema. No obvious deformities. Right radial no hematoma, neurovascularly intact distally NEUROLOGICAL: Awake and alert. No obvious cranial nerve deficits. Motor grossly within normal limits. Five out of 5 muscle strength in the arms and legs. Normal speech. PSYCHIATRIC: Appropriate mood and affect; insight and judgment normal. Laboratory Laboratory Tests Test 07/01/17 05:39 White Blood Count 5.0 TH/MM3 Red Blood Count 4.20 MIL/MM3 Hemoglobin 10.1 GM/DL Hematocrit 30.9 % Mean Corpuscular Volume 73.7 FL Mean Corpuscular Hemoglobin 24.1 PG Mean Corpuscular Hemoglobin Concent 32.6 % Red Cell Distribution Width 20.5 % Platelet Count 138 TH/MM3 Mean Platelet Volume 7.7 FL Neutrophils (%) (Auto) 64.5 % Lymphocytes (%) (Auto) 21.5 % Monocytes (%) (Auto) 9.7 % Eosinophils (%) (Auto) 3.6 % Basophils (%) (Auto) 0.7 % Neutrophils # (Auto) 3.2 TH/MM3 Lymphocytes # (Auto) 1.1 TH/MM3 Monocytes # (Auto) 0.5 TH/MM3 Eosinophils # (Auto) 0.2 TH/MM3 Basophils # (Auto) 0.0 TH/MM3 CBC Comment DIFF FINAL Differential Comment Blood Urea Nitrogen 22 MG/DL Creatinine 1.41 MG/DL Random Glucose 99 MG/DL Calcium Level 10.4 MG/DL Sodium Level 138 MEQ/L Potassium Level 4.2 MEQ/L Chloride Level 104 MEQ/L Carbon Dioxide Level 28.0 MEQ/L Anion Gap 6 MEQ/L Estimat Glomerular Filtration Rate 37 ML/MIN Assessment and Plan Problem List: (1) CAD (coronary artery disease) ICD Codes: I25.10 - Atherosclerotic heart disease of [place] coronary artery without angina pectoris (2) Abnormal stress test ICD Codes: R94.39 - Abnormal result of other cardiovascular function study (3) Unstable angina ICD Codes: I20.0 - Unstable angina (4) Chronic back pain ICD Codes: M54.9 - Dorsalgia, unspecified; G89.29 - Other chronic pain (5) Hyperlipidemia ICD Codes: E78.5 - Hyperlipidemia, unspecified (6) C. 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 Sun with CT surgery Most likely not the best candidate for CABG as post-procedure for recovery will be difficult CTA showing non-malignant course of LCx PCI LAD with JUANPABLO 06/19/17 Plan for PCI LCx and IFR RCA with possible PCI tomorrow ASA/Brilinta/Norvasc/Statin No WAYNE-I at this time due to chronic kidney disease with multiple doses of contrast, will further consider later in hospitalization No BB secondary to bradycardia 2) Bradycardia overnight, resolved off BB BB stopped 3) Chronic C. Diff previously Microbiology negative Problem Qualifiers (1) CAD (coronary artery disease): Qualified Codes: I25.110 - Atherosclerotic heart disease of [place] coronary artery with unstable angina pectoris Atif Higuera DO Jul 01, 2017 19:15
[2017-07-01] MEDS: ACETAMINOPHEN/HYDROcodone 325 MG/10 MG TAB PO PRN (21:07)
[2017-07-01] MEDS: ATORVASTATIN 20 MG TAB PO SCH (21:08)
[2017-07-02] VITALS (28 sets, daily range): BP systolic 96–147; BP diastolic 41–83; PULSE 55–117; RESP 16–18; TEMP 97.7–98.6; O2SAT 96–100
[2017-07-02] MEDS: ACETAMINOPHEN/HYDROcodone 325 MG/10 MG TAB PO PRN ×4 (00:52→13:43)
--- NOTE | 2017-07-02 07:43 | HHI.PR ---
Subjective Remarks S/P PCI today by Dr. Higuera. Discussed with Dr. jf Higuera. Patient feels better, says she had no chest pain overnight however she is complaining of chronic back pain worsening today and decreased pain of the surgical site. Patient also says she doesn't have anymore diarrhea for one week and she has formed stools. She is also refusing taking vitamin vancomycin. Denies abdominal pain, nausea, vomiting, diarrhea or constipation. No fever or chills. Objective Vitals Vital Signs Date Time Temp Pulse Resp B/P (MAP) Pulse Ox O2 Delivery O2 Flow Rate FiO2 07/02/17 01:00 60 07/02/17 00:00 65 07/02/17 00:00 98.4 64 16 96/54 (68) 97 07/01/17 23:00 62 07/01/17 22:00 66 07/01/17 21:00 72 07/01/17 20:00 97.6 76 16 155/87 (109) 99 07/01/17 20:00 88 07/01/17 19:00 99 Room Air 07/01/17 19:00 76 07/01/17 18:00 73 07/01/17 17:01 64 07/01/17 16:00 64 07/01/17 15:15 98.2 70 18 115/59 (77) 96 07/01/17 15:00 66 07/01/17 14:01 70 07/01/17 13:00 70 07/01/17 12:00 58 07/01/17 11:15 98.2 57 18 141/63 (89) 99 07/01/17 11:00 60 07/01/17 10:00 56 07/01/17 09:00 64 07/01/17 08:15 97.7 62 18 104/64 (77) 97 07/01/17 08:15 97 Room Air 07/01/17 08:00 58 I/O 07/01/17 07/01/17 07/01/17 07/02/17 07/02/17 07/02/17 07:00 15:00 23:00 07:00 15:00 23:00 Intake Total 720 ml 1071 ml Output Total 1750 ml 1725 ml Balance -1030 ml -654 ml Intake Oral 720 ml 1071 ml Output Urine Total 1750 ml 1725 ml # Voids 2 # Bowel Movements 1 0 Result Diagram: 07/01/17 0539 07/01/17 0539 Imaging Last Impressions Coronary Angiography CT 06/28/17 0000 Signed Impressions: Service Date/Time: Wednesday, June 28, 2017 17:24 - CONCLUSION: 1. 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 2. Extensive atherosclerotic changes in the LAD and right coronary artery limiting evaluation for critical stenosis. 1. Omar Cruz MD Chest X-Ray 06/25/17 0314 Signed Impressions: Service Date/Time: Sunday, June 25, 2017 03:26 - CONCLUSION: No acute disease. Luis Armando Medina MD Myocardial Perfusion Scan Nuc Med 06/25/17 0000 Signed Impressions: Service Date/Time: Sunday, June 25, 2017 10:13 - CONCLUSION: Significant stress-induced ischemia. RISK CATEGORY: Intermediate (1-3%% Annual Mortality Rate) Scott Malhotra MD FACR Objective Remarks GENERAL: 66 yo F , well developed, well nourished, appears in NAD CARDIOVASCULAR: Regular rate and rhythm without murmurs, gallops, or rubs. RESPIRATORY: Breath sounds equal bilaterally. No accessory muscle use. GASTROINTESTINAL: Abdomen soft, non-tender, nondistended. MUSCULOSKELETAL: No cyanosis, or edema. A/P Problem List: (1) Chest pain ICD Code: R07.9 - Chest pain, unspecified Status: Acute (2) Hyperlipidemia ICD Code: E78.5 - Hyperlipidemia, unspecified (3) Congestive heart failure ICD Code: I50.9 - Heart failure, unspecified (4) Chronic back pain ICD Code: M54.9 - Dorsalgia, unspecified; G89.29 - Other chronic pain Assessment and Plan Unstable angina -Troponins were negative. Patient had an abnormal Lexiscan in which she was transfer to the main hospital for cardiac catheterization. -Cart catheterization done by Dr. 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 -CTS consulted and stated patient is a poor candidate for CABG secondary to frailty. 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 Seen by Dr. Sun with CT surgery. Most likely not the best candidate for CABG as post-procedure for recovery will be difficult Plan for CTA 06/28/17 to evaluate course of LCx, if intra-arterial then no percutaneous options S/p PCI LAD, staged PCI 07/02/17 per cardiology Continue ASA/Brilinta/Norvasc/Statin. No WAYNE-I at this time due to chronic kidney disease with multiple doses of contrast, will further consider later in hospitalization. No BB secondary to bradycardia Bradycardia , resolved off BB. BB stopped, cardiology ff. Acute on chronic renal sufficiency -Creatinine continues to worsen now at 1.59. Celebrex and colchicine was discontinued. On IV fluids. -Strict ins and outs. Malena monitor/trend creatinine. Bradycardia overnight -Secondary to beta blockers. Resolved with discontinuation of braided ramy. C. difficile -Presented for admission. Continue home regimen. On oral vancomycin. Osteoarthritis -Per patient she usually takes tramadol. But feels like that does not work. Will continue Ducor. Hyperlipidemia/congestive heart failure/chronic back pain -Continue home medication. DVT prophylaxis: SCDs. Heparin. Discharge Planning Dc when cleared by cardio S/p PCI LAD staged PCI on 07/02/17 per cardiology , ff Poss DC tomorrow to SNF if cleared by cardiology Quyen Lucio MD Jul 02, 2017 07:43
[2017-07-02] MEDS ORDERED: AMLO5 PO (07:46)
[2017-07-02] MEDS ORDERED: BRIL90TA PO (07:46)
[2017-07-02] MEDS ORDERED: CLON.5 PO (07:46)
[2017-07-02] MEDS ORDERED: ASPI81 PO (07:46)
[2017-07-02] MEDS ORDERED: NEUR400C PO (07:46)
[2017-07-02] MEDS ORDERED: NITR0.4S SL (07:46)
[2017-07-02] MEDS ORDERED: NORC5TAB PO (07:47)
--- NOTE | 2017-07-02 07:49 | HHI.DS ---
Discharge Summary Admission Date Jun 29, 2017 at 11:42 Discharge Date: Jul 03, 2017 Admitting Diagnosis Chest pain (1) Chest pain ICD Code: R07.9 - Chest pain, unspecified Status: Acute (2) Hyperlipidemia ICD Code: E78.5 - Hyperlipidemia, unspecified (3) Congestive heart failure ICD Code: I50.9 - Heart failure, unspecified (4) Chronic back pain ICD Code: M54.9 - Dorsalgia, unspecified; G89.29 - Other chronic pain Procedures cardiac cath by Dr Najera cardiology on 06/25/17, 06/29/17, 07/02/17 PCI LAD with JUANPABLO 06/29/17 PCI LCx and IFR RCA (negative) 07/02/17 Brief History - From Admission This is a pleasant 66-year-old female with a known medical history of CAD, hypertension, COPD and chronic C. difficile who presented to the ED with complaints of chest pain. Patient states that yesterday she complained of generalized pain all day and roughly around 2200 last evening she developed a midsternal chest pressure and tightness that radiated up her neck and jaw. She does state that there were associated palpitations. She denies any associated shortness of breath, nausea, vomiting or diaphoresis. Patient rates the pain a five out of ten on pain scale. She does state that she underwent a cardiac stress test over one year ago which was reportedly unremarkable. Although two years ago she did undergo a cardiac catheterization showing a 70% occlusion in her LAD, patient states that at that time she was asymptomatic and no further intervention was taken. She is from [place] and has not established with a senior hr generalist in [place]. She does follow with her primary care doctor. Patient does have a chronic right bundle branch block and underlying irregular heartbeat?. It should be noted that she also has been treated for chronic C. 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 Denies any recent fever, chills, abdominal pain, nausea, vomiting or dysuria. CBC/BMP: 07/01/17 0539 07/01/17 0539 Significant Findings Laboratory Tests Test 06/29/17 14:00 06/30/17 05:43 07/01/17 05:39 Hemoglobin 9.6 GM/DL (11.6-15.3) 10.1 GM/DL (11.6-15.3) Hematocrit 30.2 % (35.0-46.0) 30.9 % (35.0-46.0) Mean Corpuscular Volume 73.4 FL (80.0-100.0) 73.7 FL (80.0-100.0) Mean Corpuscular Hemoglobin 23.5 PG (27.0-34.0) 24.1 PG (27.0-34.0) Red Cell Distribution Width 20.5 % (11.6-17.2) 20.5 % (11.6-17.2) Platelet Count 142 TH/MM3 (150-450) 138 TH/MM3 (150-450) Monocytes (%) (Auto) 12.2 % (0.0-8.0) 9.7 % (0.0-8.0) Eosinophils (%) (Auto) 4.5 % (0.0-4.0) Blood Urea Nitrogen 21 MG/DL (7-18) 22 MG/DL (7-18) Creatinine 1.37 MG/DL (0.50-1.00) 1.41 MG/DL (0.50-1.00) Estimat Glomerular Filtration Rate 38 ML/MIN (>89) 37 ML/MIN (>89) Calcium Level 10.4 MG/DL (8.5-10.1) Imaging Last Impressions Coronary Angiography CT 06/28/17 0000 Signed Impressions: Service Date/Time: Wednesday, June 28, 2017 17:24 - CONCLUSION: 1. 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 2. Extensive atherosclerotic changes in the LAD and right coronary artery limiting evaluation for critical stenosis. 1. Omar Cruz MD Chest X-Ray 06/25/17 0314 Signed Impressions: Service Date/Time: Sunday, June 25, 2017 03:26 - CONCLUSION: No acute disease. Luis Armando Medina MD Myocardial Perfusion Scan Nuc Med 06/25/17 0000 Signed Impressions: Service Date/Time: Sunday, June 25, 2017 10:13 - CONCLUSION: Significant stress-induced ischemia. RISK CATEGORY: Intermediate (1-3%% Annual Mortality Rate) Scott Malhotra MD FACR PE at Discharge GENERAL: 66 yo F , well developed, well nourished, appears in NAD CARDIOVASCULAR: Regular rate and rhythm without murmurs, gallops, or rubs. RESPIRATORY: Breath sounds equal bilaterally. No accessory muscle use. GASTROINTESTINAL: Abdomen soft, non-tender, nondistended. MUSCULOSKELETAL: No cyanosis, or edema. Pt update on day of discharge In the chair. Feels better. Some bruising in her wrist, seen by Dr Carrasco and cleared for DC. No n/v/d/c. No fever or chills. Hospital Course Unstable angina -Troponins were negative. Patient had an abnormal Lexiscan in which she was transfer to the [facility] for cardiac catheterization. -Cart catheterization done by Dr. 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 -CTS consulted and stated patient is a poor candidate for CABG secondary to frailty. 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 Seen by Dr. Sun with CT surgery. Most likely not the best candidate for CABG as post-procedure for recovery will be difficult CTA 06/28/17 to evaluate course of LCx, if intra-arterial then no percutaneous options PCI LAD with JUANPABLO 06/29/17 PCI LCx and IFR RCA (negative) 07/02/17 Continue ASA/Brilinta/Norvasc/Statin. No WAYNE-I at this time due to chronic kidney disease with multiple doses of contrast, will further consider later in hospitalization. No BB secondary to bradycardia Bradycardia , resolved off BB. BB stopped, cardiology ff. Acute on chronic renal sufficiency -Creatinine worsened. Celebrex and colchicine was discontinued. On IV fluids. -Strict ins and outs. Malena monitor/trend creatinine. Bradycardia overnight -Secondary to beta blockers. Resolved with discontinuation of braided ramy. C. difficile -Presented for admission. Continue home regimen. On oral vancomycin. Reepat C diff negative,. patient refusibg taking meds, says she finished ocurse. DC vanco po. To f/u with her GI as OP Osteoarthritis -Per patient she usually takes tramadol. But feels like that does not work. Will continue Codorus. Hyperlipidemia/congestive heart failure/chronic back pain -Continue home medication. DVT prophylaxis: SCDs. Heparin. Pt Condition on Discharge: Stable Discharge Disposition: Discharge to SNF Discharge Time: > 30 minutes Discharge Instructions DIET: Follow Instructions for: Heart Healthy Diet, Diabetic Diet Activities you can perform: Regular-No Restrictions Follow up Referrals: Cardiology, Interventional @ [facility] with Atif Higuera DO PCP Follow-up with Dr. Leti Hernandez Podiatry - 1 Week New Medications: Hydrocodone-Acetaminophen (Codorus) 5 Mg-325 Mg Tab 1 TAB PO Q6H PRN for PAIN, #20 TAB 0 Refills Amlodipine (Norvasc) 5 Mg Tab 2.5 MG PO DAILY for Blood Pressure Management, #30 TAB Aspirin (Tgt Aspirin) 81 Mg Chw 81 MG PO DAILY for Blood Clot Prevention, #30 EA Gabapentin (Neurontin) 400 Mg Cap 400 MG PO TID for neuropathy, #90 CAP Nitroglycerin SL (Nitrostat SL) 0.4 Mg Subl 0.4 MG SL Q5M PRN for CHEST PAIN, #30 TAB Ticagrelor (Brilinta) 90 Mg Tab 90 MG PO BID for Blood Clot Prevention, #60 TAB Continued Medications: Albuterol 8.5 GM Inh (Proair Hfa 8.5 GM Inh) 90 Mcg/Act Aer 2 PUFF INH Q6H PRN for SHORTNESS OF BREATH, #1 INHALER 0 Refills 108 mcg/actuation Allopurinol (Allopurinol) 100 Mg Tab 100 MG PO DAILY for Gout, #30 TAB 0 Refills Atorvastatin (Atorvastatin) 20 Mg Tab 20 MG PO HS for Cholesterol Management, #30 TAB 0 Refills Calcium Carbonate (Calcium Carbonate) 500 Mg Calcium (1250 Mg) Tab 1250 MG PO TID for Calcium Supplement, TAB 0 Refills 1,250 mg calcium carbonate (500 mg elemental calcium) Celecoxib (Celebrex) 100 Mg Cap 100 MG PO BID for Pain Management, CAP 0 Refills Clonazepam (Klonopin) 0.5 Mg Tab 0.5 MG PO QID for anxiety, #10 TAB 0 Refills (This prescription has been renewed ) Colchicine (Colchicine) 0.6 Mg Tab 0.6 MG PO DAILY for Gout, TAB 0 Refills Fluticasone 12 GM Inh (Flovent Hfa 12 GM Inh) 110 Mcg/Act Inh 2 PUFF INH BID for Asthma Management, #1 INHALER 0 Refills Furosemide (Lasix) 40 Mg Tab 40 MG PO QOD, #60 TAB 0 Refills Ipratropium HFA 12.9 GM Inh (Atrovent HFA 12.9 GM Inh) 17 Mcg/Actuation Aer 2 PUFF INH Q4HR PRN for SHORTNESS OF BREATH, #1 INHALER 0 Refills Magnesium Oxide (Magnesium Oxide) 400 Mg Tab 400 MG PO DAILY for Nutritional Supplement, TAB 0 Refills Nicotine Patch (Nicotine Patch) 14 Mg/24 Hr Patch 14 MG T-DERMAL DAILY for Smoking Cessation, #30 PATCH 0 Refills Omeprazole (Omeprazole) 20 Mg Tab 20 MG PO DAILY, #30 TAB 0 Refills Potassium Chloride ER (Potassium Chloride ER) 20 Meq Tab 20 MEQ PO DAILY for Electrolyte Replacement, #30 TAB 0 Refills Discontinued Medications: Aspirin DR (Aspirin EC) 81 Mg Tabdr 81 MG PO DAILY, TAB 0 Refills Gabapentin (Gabapentin) 100 Mg Cap 100 MG PO TID, #90 CAP 3 Refills Gabapentin (Gabapentin) 800 Mg Tab 800 MG PO TID, #90 TAB 3 Refills Tramadol (Ultram) 50 Mg Tab 100 MG PO Q6H PRN for PAIN, #60 TAB 0 Refills [vancomycin 25mg/ml] () LIQUID 250 MG PO QID for c diff, #1200 ML 0 Refills Quyen Lucio MD Jul 02, 2017 07:48
[2017-07-02] MEDS ORDERED: HEPARIN-NS/PF INJ 1,000 ML ONE (08:27)
[2017-07-02] MEDS ORDERED: HEPARIN SODIUM - IV 10,000 UNITS/10 ML VIAL ONE ×2 (08:28→09:00)
[2017-07-02] MEDS ORDERED: MIDAZOLAM HCL 2 MG/2 ML VIAL ONE (08:28)
[2017-07-02] MEDS ORDERED: NITROGLYCERIN INJ 5 ML ONE (08:28)
[2017-07-02] MEDS ORDERED: VERAPAMIL HCL 5 MG/2 ML VIAL ONE (08:28)
[2017-07-02] MEDS: CALCIUM CARBONATE 1.25 GM (CA 500 MG) TAB PO SCH ×3 (09:00→18:00)
[2017-07-02] MEDS: COLCHICINE 0.6 MG TAB PO SCH (09:00)
[2017-07-02] MEDS: PANTOPRAZOLE SOD 20 MG DELAYED RELEASE TAB PO SCH (09:00)
[2017-07-02] MEDS: POTASSIUM CHLORIDE 20 MEQ CONTROLLED RELEASE TAB PO SCH (09:00)
[2017-07-02] MEDS: TIOTROPIUM BROMIDE 18 MCG INH INH SCH ×2 (09:00→13:50)
[2017-07-02] MEDS: MAGNESIUM OXIDE 400 MG TAB PO SCH (09:00)
[2017-07-02] MEDS: VANCOMYCIN 500 MG VIAL (FOR ORAL USE ONLY) PO SCH ×2 (09:00→13:00)
[2017-07-02] MEDS ORDERED: hydrALAZINE HCL 20 MG/ML VIAL ONE (09:37)
[2017-07-02] MEDS ORDERED: TICAGRELOR 90 MG TAB PO ONE (09:42)
[2017-07-02] MEDS ORDERED: ASPIRIN 81 MG CHEW TAB ONE (09:42)
[2017-07-02] MEDS: TICAGRELOR 90 MG TAB PO SCH ×2 (09:43→21:18)
[2017-07-02] MEDS: ASPIRIN 81 MG CHEW TAB PO SCH (09:43)
--- NOTE | 2017-07-02 10:00 | CATHPROC ---
[employer] HIS Report Study Information Study Number Admission Scheduled Start Study Start [id number] Jun 29 2017 11:42AM 07/01/2017 Jul 02 2017 8:18AM Meta Service Cardiac Catheterization Admit Source Facility Department Emergency department [facility] - [facility] Physician and Clinical Staff Initial Atif Abad Management Sme Makenzie Diaz,BRIJESH Management Sme Margo Waddell ,BLAKEN Other Adeel, Bethany,RT(R) (BS) Recorder Sarita Cotton RCIS TECH2 Scrub Alka Andrews,RT(R) Scrub Jocelyne Perez ,RT(R) Procedures Performed Procedure Location (Site) Vessel Name Coronary Angiograms RCA Right Coronary Coronary Angiograms CIRC Mid CIRC Drug Eluting Inflatio CIRC Mid CIRC PTCA CIRC Mid CIRC Wire insertion Radial (right) Radial Art. Equipment Time Accounts Payable Accountant Description Size Mfg Part Number Used/Scraped WIRE, BALANCE MIDDLEWEIGHT [id number] 08:32 [employer] 190CM Used 190CM *[id number] TRANSDUCER, TRUWAVE [id number] 08:33 ESTES MITCHELL * Used W/STOCKCOCK *[id number] *[id number] 08:33 [employer] PACK, CCL CUSTOM * Used *[id number] 08:33 [employer] SUPPORT, ARTERIAL ADULT 29429 *[id number] Used [id number] 09:01 MEDTRONIC BALLOON, 2.5 X 15MM EUPHORA 15MM Used *[id number] BALLOON, 2.75 X 12MM NC [id number] 09:16 MEDTRONIC 12MM Used EUPHORA *[id number] 09:10 MEDTR[employer]IC STENT, 2.75 22MM TOSHIA 2.75 22MM Used *[id number] 09:07 Tamtron 30 JUAN C INDEFLATOR Used *[id number] BAND, RADIAL COMPRESSION TR [id number] 09:35 [employer] MEDICAL 24CM Used SHORT 24 *[id number] 08:33 [employer]tron WIRE, EXCHANGE 260CM 3MMJ 260CM Used *[id number] 08:33 NAMIC MANIFOLD, 4 PORT * Used *[id number] 08:49 NAMIC MANIFOLD, 4 PORT * Used *[id number] 08:33 NYCOMED OMNIPAQUE, 350 MG, 150ML 150ML [id number] Used [id number] 08:33 [facility] BLANKET,WARM AIR CCL * Used *[id number] SHEATH, FR6 TRANSRADIAL [id number] 08:33 [employer] FR 6 Used SLENDER 10CM *[id number] 08:32 [employer] CATHETER, FR6 GUIDELINER FR 6 5571 *[id number] Used 09:27 [employer] PRIME WIRE, VERRATA 185CM 185CM 93597 *[id number] Used Equipment Model, Serial, Lot Number and Expiration Data Description Model Number Serial Number Lot Number Expiration Date STENT, 2.75 22MM TOSHIA [id number] 01-28-2019 History: Current Medications Medication Dosage/Unit Route Frequency Last Date/Time Taken LASIX K-Dur Flovent Prilosec Magnesium Atrovent ASA Allopurinol Celebrex Statins (any) Ultram KLONIPIN History: Allergies Allergy Reaction amoxicillin throat pain History: Risk Factors Family History of Hypertension Dyslipidemia Previous RI Previous Heart Failure Premature CAD Yes Yes No No Yes Prior Valve Prior PCI Prior PCIDate Prior CABG Surgery No Yes 06/29/2017 No Cerebrovascular Peripheral Artery Chronic Lung On Dialysis Diabetes Disease Disease Disease No No No Yes No History: Symptoms/Diagnosis Selection Items Chest pain SOB History: CV Disease Selection Items Known CAD History: Stress Tests Stress or Imaging Studies Performed Yes Standard Exercise Stress Test No Stress Echo No Stress Test SPECT Stress Test SPECT Result Stress Test SPECT Ischemia Risk/Extent Yes Positive Intermediate Stress Test CMR No Cardiac CTA Coronary Calcium Score No No History: Other Disease Selection Items Depression HTN History: Other Current Smoker Method Packs a Day Years Used Pack Years Yes Cigarettes 1 50 50 Labs Hgb (g/dl) Hct (%) WBC (l/cumm) Platelets (thousands) 11.60-17.00 35.00-51.00 4.00-11.00 150.00-450.00 10.1 30.9 5 138 Glucose (mg/dl) BUN (mg/dl) Creatinine (mg/dl) BUN:Creatinine (1:x) 74.00-106.00 7.00-18.00 0.50-1.30 10.00-20.00 99 22 1.4 15.7 Na (meq/l) K (meq/l) 136.00-145.00 3.50-5.10 138 4.2 Troponin I (ng/ml) CPK (u/l) CPK-MB (ng/ML) 0.02-0.05 26.00-308.00 0.50-3.60 0.02 35 Not Drawn Medication Medication Total Dose (Bolus/Oral) Medication Total Dosage/Unit 1% XYLOCAINE 10 mL ASPIRIN 81 mg BRILINTA 90 mg FENTANYL 75 mcg HEPARIN 8400 units HYDRALAZINE 10 mg OXYGEN 2 l/min RADIAL COCKTAIL 5 mL (Bolus) VERSED 1 mg Medications (Bolus/Oral) Medication Time Given Dosage/Unit Administered By Reason 1% XYLOCAINE 07/02/2017 8:49:37 AM 10 mL Atif Higuera 10 mL 1% XYLOCAINE given in lab by Atif Higuera in Right Radial via Subcutaneous. Ordered by Atif Lee VERSED 07/02/2017 8:49:57 AM 0.5 mg Makenzie Diaz 0.5 mg VERSED given in lab by Makenzie Diaz RN in Right Forearm via Peripheral IV. Ordered by Atif Chavez FENTANYL 07/02/2017 8:50:16 AM 25 mcg Makenzie Diaz 25 mcg FENTANYL given in lab by Makenzie Diaz RN in Right Forearm via Peripheral IV. Ordered by Atif Chavez RADIAL COCKTAIL 07/02/2017 8:51:25 AM 5 mL (Bolus) Atif Higuera 5 mL (Bolus) RADIAL COCKTAIL given in lab by Makenzie Diaz RN via Radial. Ordered by Hansel Higuera Reason: Ntg 200mcg Heparin 5000U. HEPARIN 07/02/2017 8:59:10 AM 8400 units Makenzie Diaz 8400 units HEPARIN given in lab by Makenzie Diaz RN in Right Forearm via Peripheral IV. Ordered by Atif Higuera FENTANYL 07/02/2017 9:18:09 AM 50 mcg Makenzie Diaz 50 mcg FENTANYL given in lab by Makenzie Diaz RN in Right Forearm via Peripheral IV. Ordered by Atif Chavez VERSED 07/02/2017 9:26:02 AM 0.5 mg Makenzie Diaz 0.5 mg VERSED given in lab by Makenzie Diaz RN in Right Forearm via Peripheral IV. Ordered by Atif Chavez HYDRALAZINE 07/02/2017 9:39:48 AM 10 mg Makenzie Diaz 10 mg HYDRALAZINE given in lab by Makenzie Diaz RN in Right Forearm via Peripheral IV. Ordered by Atif Higuera OXYGEN 07/02/2017 9:41:09 AM 2 l/min Makenzie Diaz 2 l/min OXYGEN given in lab by Makenzie Diaz RN via Nasal. Ordered by Atif Higuera BRILINTA 07/02/2017 9:43:11 AM 90 mg Makenzie Diaz 90 mg BRILINTA given in lab by Makenzie Diaz RN via Oral. Ordered by Atif Higuera ASPIRIN 07/02/2017 9:43:47 AM 81 mg Makenzie Diaz 81 mg ASPIRIN given in lab by Makenzie Diaz RN via Oral. Ordered by Atif Higuera Medication (Drip) Medication Time Given Dosage/Unit Concentration/Unit Diluent (ml) Solution IV Solutions 07/02/2017 8:21:34 AM 0 mL (IV) 500 NaCl .9 IV Solutions given in lab by Margo Waddell BSN in Right Forearm via Peripheral IV. Pump/Drip F low = 20 ml/hr using NaCl .9. Ordered by Atif Higuera Initial Case Assessment Cardiovascular HR Rhythm NIBP Chest Pain 56 sr 147/79 0 Circulatory - Right Pulses Radial 3 Scale (0,1,2,3,4,d) Scale (0,1,2,3,4,d) Neurological State Oriented to time-place- Alert Moves all extremities person Respiration - General Respiration Rate SpO2 (%) (B/min) 13 100 Final Case Assessment Cardiovascular HR Rhythm NIBP Chest Pain 60 sr 212/93 0 Circulatory - Right Pulses Radial 3 Scale (0,1,2,3,4,d) Scale (0,1,2,3,4,d) Neurological State Oriented to time-place- Alert Moves all extremities person Respiration - General Respiration Rate SpO2 (%) (B/min) 11 100 Chronological Log Time Study Chronological Log 8:18:28 Patient arrived via Bed. 8:18:29 Patient Name, D.O.B, / Armband Verified By R.N. 8:18:31 Consent signed by the physician and the patient and verified by the [facility] staff. 8:18:32 Pre-op and post- op instructions given; patient acknowledges understanding of instructions. 8:18:33 Verbal Stimulation=2 Physical Stimulation=2 Airway=2 Respiration=2 TOTAL=8. (0=absent, 1=li mited, 2=present) 8:21:03 Presedation assessment performed by Range M[facility] RN. 8:21:14 Allens test performed on the right radial and ulnar artery. 8:21:18 Patient has been NPO for More than 6Hrs. 8:21:21 Skin Breakdown-bruising noted at right wrist from previous LHC access site. 8:21:30 Isha Prominences Protected 8:21:33 A # 22 IV was noted in the Forearm (right). Grade = patent IV Solutions given in lab by Margo Waddell BSN in Right Forearm via Peripheral IV. Pump/D rip Flow = 20 ml/hr 8:21:34 using NaCl .9. Ordered by Atif Higuera 8:21:36 History and physical on the chart or being dictated. 8:23:55 MD arrived. 8:24:52 Disposable Defibrillator Pads Placed On Patient. 8:27:10 Reference ECG taken Vitals capture started with the following parameters, Patient=Adult, Interval=5 min, Initial Pre gglxf=946 mmHg, 8:27:12 Deflation Rate=5 mmHg, Cuff placed on Left Arm 8:27:48 HR=56 bpm, PKTE=204/79 mmhg, SjS7=921.0 %, Resp=8 B/min Assessment: Initial Case, HR=56 BPM, Rhythm=sr, IPTL=852/79 mmhg, Chest Pain=0 Right Pulses: Radial=3 8:27:55 Neurological: State=Alert, Ox3, OSORIO Respiration: Resp=13 B/min, LkO0=536 % 8:32:51 HR=58 bpm, ITJC=145/73 mmhg, SpO2=99.0 %, Resp=12 B/min 8:37:01 Right Radial prepped with 2% chlorhexidine, and draped after a 3 min. waiting time. 8:37:50 HR=57 bpm, TTXS=649/75 mmhg, HoE3=698.0 %, Resp=14 B/min 8:42:49 HR=59 bpm, LENE=175/80 mmhg, SpO2=99.0 %, Resp=13 B/min 8:47:51 HR=65 bpm, JBUJ=625/80 mmhg, FrM0=444.0 %, Resp=15 B/min Time Out. Correct patient, correct procedure, correct physician, power injector not loaded with contrast with surgical 8:49:09 team present. Time Out Concurred by MD and individual staff in procedure. 8:49:35 Case Start 10 mL 1% XYLOCAINE given in lab by Atif Higuera in Right Radial via Subcutaneous. Ordered by Kalen 8:49:37 Atif Collazo 8:49:57 0.5 mg VERSED given in lab by Makenzie Diaz, BRIJESH in Right Forearm via Peripheral IV. Ordere d by Atif Higuera 25 mcg FENTANYL given in lab by Makenzie Diaz, BRIJESH in Right Forearm via Peripheral IV. Ordered by Atif Higuera 8:50:16 G. 8:50:48 Access site was Radial Artery. right A SHEATH, FR6 TRANSRADIAL SLENDER 10CM FR 6 was advanced into the Radial (right) using the Mima andres 8:51:07 technique. 5 mL (Bolus) RADIAL COCKTAIL given in lab by Makenzie Diaz, BRIJESH via Radial. Ordered by Atif Higuera 8:51:25 Reason: Ntg 200mcg Heparin 5000U. 8:51:37 Pressure channel 1 zeroed. An AL .75 GUIDE CATHETER FR 6 was advanced over a wire. OMNIPAQUE, 350 MG, 150ML 150ML was used for 8:52:41 injections. 8:52:56 HR=63 bpm, OUZT=480/74 mmhg, CgZ5=172.0 %, Resp=19 B/min Recorded Pressure: Ao, HR=69, Condition=Condition 1 8:55:08 (Aorta) Ao 124/68/90 8:56:34 The CIRC Mid was injected and visualized at various angles. OMNIPAQUE, 350 MG, 150ML 150ML u sed. 8:57:51 HR=69 bpm, TRPZ=492/71 mmhg, SpO2=96.0 %, Resp=12 B/min 8400 units HEPARIN given in lab by Makenzie Diaz, BRIJESH in Right Forearm via Peripheral IV. Order ed by Kalen 8:59:10 Atif Collazo 9:00:35 A WIRE, BALANCE MIDDLEWEIGHT 190CM 190CM was inserted via Radial (right). 9:03:35 HR=67 bpm, LJPQ=840/75 mmhg, SpO2=98.0 %, Resp=12 B/min 9:04:17 Activated Clotting Time Drawn A BALLOON, 2.5 X 15MM EUPHORA 15MM was inserted over WIRE, BALANCE MIDDLEWEIGHT 190CM 190CM via the 9:05:36 CIRC Mid. A BALLOON, 2.5 X 15MM EUPHORA 15MM over a WIRE, BALANCE MIDDLEWEIGHT 190CM 190CM in the CIRC Mid was 9:06:28 inflated using a 30 JUAN C INDEFLATOR at 14 juan c for 20 sec. 9:07:53 HR=65 bpm, XGHG=106/73 mmhg, SpO2=99.0 %, Resp=12 B/min 9:10:02 Balloon Removed. 9:10:42 ACT (Normal Range 90-180) = 389 9:12:08 Activated Clotting Time Drawn 9:12:52 HR=63 bpm, RGRK=873/81 mmhg, SpO2=99.0 %, Resp=8 B/min A STENT, 2.75 22MM TOSHIA 2.75 22MM was advanced through a CATHETER, FR6 GUIDELINER FR 6 over a WI RE, 9:12:55 BALANCE MIDDLEWEIGHT 190CM 190CM. A STENT, 2.75 22MM TOSHIA 2.75 22MM was deployed using a 30 JUAN C INDEFLATOR at 14 atmospheres for 3 0 seconds 9:15:01 in the CIRC Mid. 9:16:13 Delivery device removed A BALLOON, 2.75 X 12MM NC EUPHORA 12MM was inserted over WIRE, BALANCE MIDDLEWEIGHT 190CM 190CM via 9:16:29 the CIRC Mid. 9:17:55 HR=65 bpm, XHHT=250/83 mmhg, SbH3=483.0 %, Resp=10 B/min 50 mcg FENTANYL given in lab by Makenzie Diaz RN in Right Forearm via Peripheral IV. Ordered by Atif Higuera 9:18:09 G. 9:18:43 ACT (Normal Range 90-180) = 374 A BALLOON, 2.75 X 12MM NC EUPHORA 12MM over a WIRE, BALANCE MIDDLEWEIGHT 190CM 190CM in the CIRC Mid 9:19:03 was inflated using a 30 JUAN C INDEFLATOR at 20 juan c for 20 sec. A BALLOON, 2.75 X 12MM NC EUPHORA 12MM over a WIRE, BALANCE MIDDLEWEIGHT 190CM 190CM in the CIRC Mid 9:19:51 was inflated using a 30 JUAN C INDEFLATOR at 20 juan c for 18 sec. A BALLOON, 2.75 X 12MM NC EUPHORA 12MM over a WIRE, BALANCE MIDDLEWEIGHT 190CM 190CM in the CIRC Mid 9:21:00 was inflated using a 30 JUAN C INDEFLATOR at 20 juan c for 15 sec. 9:21:07 Balloon Removed. 9:22:58 HR=63 bpm, NQLJ=308/87 mmhg, SpO2=99.0 %, Resp=9 B/min 9:23:34 Wire removed 9:24:17 Guide repositioned to cannulate RCA. 9:25:19 The RCA was injected and visualized at various angles. OMNIPAQUE, 350 MG, 150ML 150ML used. 9:26:02 0.5 mg VERSED given in lab by Makenzie Diaz RN in Right Forearm via Peripheral IV. Ordere d by Atif Higuera 9:27:57 HR=65 bpm, DMJC=062/95 mmhg, SpO2=98.0 %, Resp=8 B/min 9:29:29 A PRIME WIRE, VERRATA 185CM 185CM was inserted via Radial (right). 9:32:57 Flow Wire was was placed in the RCA. The IFR measures 0.98 Percent. 9:33:00 HR=67 bpm, QUGG=495/99 mmhg, SpO2=99.0 %, Resp=10 B/min 9:34:07 The wire was removed. 9:34:41 A WIRE, EXCHANGE 260CM 3MMJ 260CM was inserted via Radial (right). 9:34:56 Guide Catheter was removed 9:38:03 HR=64 bpm, UXVB=399/93 mmhg, HuK6=127.0 %, Resp=9 B/min Radial Compression Device Used. 13 mLs of air placed in BAND, RADIAL COMPRESSION TR SHORT 24 24C M. Affected 9:38:19 hand 100 % O2 saturation. 10 mg HYDRALAZINE given in lab by Makenzie Diaz, BRIJESH in Right Forearm via Peripheral IV. Orderedward galicia by Kalen, 9:39:48 Atif Collazo Assessment: Final Case, HR=60 BPM, Rhythm=sr, JPGQ=323/93 mmhg, Chest Pain=0 Right Pulses: Radial=3 9:40:26 Neurological: State=Alert, Ox3, OSORIO Respiration: Resp=11 B/min, LfA8=193 % 9:40:43 Case End 9:41:09 2 l/min OXYGEN given in lab by Makenzie Diaz, RN via Nasal. Ordered by Atif Higuera 9:43:09 HR=61 bpm, HNGT=550/83 mmhg, Resp=9 B/min 9:43:11 90 mg BRILINTA given in lab by Makenzie Diaz, RN via Oral. Ordered by Atif Higuera 9:43:47 81 mg ASPIRIN given in lab by Makenzie Diaz, BRIJESH via Oral. Ordered by Atif Higuera 9:47:57 Vitals capture stopped. 9:48:15 Patient moved to bed 9:50:35 Patient transported to DOCU. End Study - Contrast Media Used In Study Contrast Total Opened (mL) Total Used (mL) Total Wasted (mL) Omnipaque 80 80 0 End Study - Maximum Contrast Load Max Contrast Load (mL) 429.7 End Study - Radiation Exposure Fluoro Time (minutes) 6.7 End Study - Sheaths Sheaths Pulled By Sheath Hold Time (min) Atif Higuera End Study - Patient Disposition Complications Transferred To Interventional Outcome No Telemetry Bed successful
[2017-07-02] MEDS: clonazePAM 0.5 MG TAB PO SCH ×4 (10:43→21:18)
[2017-07-02] MEDS: GABAPENTIN 400 MG CAP PO SCH ×3 (10:43→17:07)
[2017-07-02] MEDS: amLODIPine BESYLATE 5 MG TAB PO SCH (10:44)
[2017-07-02] MEDS ORDERED: MISC INFORMATION XX ONE (11:00)
[2017-07-02] MEDS ORDERED: IOHEXOL 350 MG/ML 100 ML BTL (for Cath Lab) OTHER ONE (11:49)
--- NOTE | 2017-07-02 12:42 | PD.CARD.PN ---
Subjective Subjective Remarks Doing well No complaints, post PCI LCx today Chronic arthritis pain Objective Medications Current Medications Medications (Trade) Dose Ordered Sig/Milana Route Start Time Stop Time Status Last Admin (Tylenol) 500 mg Q4H PRN PO 06/25/17 04:45 06/27/17 20:45 ([place] 7.5-325 Mg) 1 tab Q4H PRN PO 06/25/17 04:45 07/01/17 17:04 (Zofran Inj) 4 mg Q6H PRN IV PUSH 06/25/17 04:45 (Nitrostat Sl) 0.4 mg Q5M PRN SL 06/25/17 04:45 06/29/17 14:39 (Duoneb Neb) 1 ampule Q4HR NEB PRN NEB 06/25/17 04:45 (Proair Hfa Inh) 2 puff Q6H PRN INH 06/25/17 12:00 (Lipitor) 20 mg HS PO 06/25/17 21:00 07/01/17 21:08 (Oscal) 1,250 mg TID PO 06/25/17 13:00 07/01/17 18:08 (CeleBREX) 100 mg BID PO 06/25/17 21:00 Future Hold 06/27/17 08:45 (Colchicine) 0.6 mg DAILY PO 06/26/17 09:00 07/02/17 09:00 (Flovent Hfa 110 Mcg Inh) 2 puff BID INH 06/25/17 21:00 07/01/17 21:10 (Lasix) 40 mg EVERY OTHER DAY PO 06/25/17 13:00 Future hold 07/01/17 08:57 (Mag-Ox) 400 mg DAILY PO 06/26/17 09:00 07/01/17 08:46 (KCl) 20 meq DAILY PO 06/26/17 09:00 07/01/17 08:44 (Protonix) 20 mg DAILY PO 06/26/17 09:00 07/01/17 08:44 (VANCOMYCIN for oral use only) 250 mg QID PO 06/25/17 14:00 06/29/17 10:29 (Atrovent Neb) 0.5 mg Q4HR NEB PRN NEB 06/25/17 14:00 (KlonoPIN) 0.5 mg QID PO 06/25/17 18:00 2/2/18 10:43 (Norvasc) 2.5 mg DAILY PO 06/25/17 18:30 07/02/17 10:44 (Pill Splitter) 1 ea UNSCH PRN OTHER 06/25/17 18:15 ([place] 10-325 Mg) 1 tab Q4H PRN PO 06/27/17 16:45 07/02/17 10:44 Patient Own Medication PT OWN MED: ATROV... Q4HR PRN INH 06/29/17 12:30 (Aspirin Chew) 81 mg DAILY PO 06/30/17 09:00 07/02/17 09:43 (Brilinta) 90 mg BID PO 06/29/17 21:00 07/02/17 09:43 (Spiriva Inh) 18 mcg DAILY INH 06/30/17 16:00 07/01/17 08:47 (Neurontin) 400 mg TID PO 07/01/17 18:00 07/02/17 10:43 Vital Signs / I&O Vital Signs Date Time Temp Pulse Resp B/P (MAP) Pulse Ox O2 Delivery O2 Flow Rate FiO2 07/02/17 11:52 98.0 56 18 134/41 (72) 100 07/02/17 11:30 56 134/41 (72) 07/02/17 11:19 Room Air 2.00 21 07/02/17 11:00 117 123/62 (82) 07/02/17 10:45 57 140/66 (90) 07/02/17 10:45 57 140/66 (90) 07/02/17 10:30 57 126/65 (85) 07/02/17 10:30 57 126/65 (85) 07/02/17 10:15 57 127/64 (85) 07/02/17 10:15 57 127/64 (85) 07/02/17 10:00 55 146/79 (101) 07/02/17 10:00 55 146/79 (101) 07/02/17 06:00 56 07/02/17 05:00 58 07/02/17 04:30 98.6 69 16 139/83 (101) 96 07/02/17 04:00 59 07/02/17 03:00 62 07/02/17 02:00 58 07/02/17 01:00 60 07/02/17 00:00 65 07/02/17 00:00 98.4 64 16 96/54 (68) 97 07/01/17 23:00 62 07/01/17 22:00 66 07/01/17 21:00 72 07/01/17 20:00 97.6 76 16 155/87 (109) 99 07/01/17 20:00 88 07/01/17 19:00 99 Room Air 07/01/17 19:00 76 07/01/17 18:00 73 07/01/17 17:01 64 07/01/17 16:00 64 07/01/17 15:15 98.2 70 18 115/59 (77) 96 07/01/17 15:00 66 07/01/17 14:01 70 07/01/17 13:00 70 I/O 07/01/17 07/01/17 07/01/17 07/02/17 07/02/17 07/02/17 07:00 15:00 23:00 07:00 15:00 23:00 Intake Total 960 ml 1071 ml 240 ml 400 ml Output Total 2050 ml 1725 ml 300 ml Balance -1090 ml -654 ml -60 ml 400 ml Intake Oral 960 ml 1071 ml 240 ml IV Total 400 ml Output Urine Total 2050 ml 1725 ml 300 ml # Voids 3 1 # Bowel Movements 3 0 2 Physical Exam GENERAL: NAD, AAOx3 SKIN: Warm and dry. HEAD: Atraumatic. Normocephalic. EYES: Pupils equal and round. No scleral icterus. No injection or drainage. ENT: No nasal bleeding or discharge. Mucous membranes pink and moist. NECK: Trachea midline. No JVD. CARDIOVASCULAR: Regular rate and rhythm. RESPIRATORY: No accessory muscle use. Clear to auscultation. Breath sounds equal bilaterally. GASTROINTESTINAL: Abdomen soft, non-tender, nondistended. Hepatic and splenic margins not palpable. MUSCULOSKELETAL: Extremities without clubbing, cyanosis, or edema. No obvious deformities. Right radial with ecchymosis from previous cath and minimal swelling NEUROLOGICAL: Awake and alert. No obvious cranial nerve deficits. Motor grossly within normal limits. Five out of 5 muscle strength in the arms and legs. Normal speech. PSYCHIATRIC: Appropriate mood and affect; insight and judgment normal. Assessment and Plan Problem List: (1) CAD (coronary artery disease) ICD Codes: I25.10 - Atherosclerotic heart disease of [place] coronary artery without angina pectoris (2) Abnormal stress test ICD Codes: R94.39 - Abnormal result of other cardiovascular function study (3) Unstable angina ICD Codes: I20.0 - Unstable angina (4) Chronic back pain ICD Codes: M54.9 - Dorsalgia, unspecified; G89.29 - Other chronic pain (5) Hyperlipidemia ICD Codes: E78.5 - Hyperlipidemia, unspecified (6) C. 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 Sun with CT surgery Most likely not the best candidate for CABG as post-procedure for recovery will be difficult CTA showing non-malignant course of LCx PCI LAD with JUANPABLO 06/29/17 PCI LCx and IFR RCA (negative) 07/02/17 ASA/Brilinta/Norvasc/Statin No WAYNE-I at this time due to chronic kidney disease with multiple doses of contrast throughout the week, will reconsider outpatient once stable No BB secondary to bradycardia 2) Bradycardia overnight, resolved off BB BB stopped 3) Chronic C. Diff previously Microbiology negative 4) Watch overnight and if stable in the morning can be discharge to rehab If further concerns, please call covering physician over the weekend Problem Qualifiers (1) CAD (coronary artery disease): Qualified Codes: I25.110 - Atherosclerotic heart disease of [place] coronary artery with unstable angina pectoris Atif Higuera DO Jul 02, 2017 12:42
[2017-07-02] MEDS: FLUTICASONE PROPIONATE 110 MCG/ACT 12 GM INHALER INH SCH ×2 (13:41→21:00)
[2017-07-02] MEDS: NITROGLYCERIN 0.4 MG SL 25 TABS/BTL SL PRN ×3 (18:19→21:19)
[2017-07-02] MEDS ORDERED: MORPHINE SULFATE 8 MG/ML INJ IV PUSH ONE (19:00)
[2017-07-02] MEDS: ATORVASTATIN 20 MG TAB PO SCH (21:18)
[2017-07-03] VITALS (11 sets, daily range): BP systolic 109–153; BP diastolic 65–84; PULSE 54–89; RESP 16–18; TEMP 98.3; O2SAT 97–98
[2017-07-03] MEDS: ACETAMINOPHEN/HYDROcodone 325 MG/10 MG TAB PO PRN (04:22)
[2017-07-03 07:26] LABS: AUTOMATED NEUTROPHIL # 2.8 TH/MM3 (1.8-7.7); BASOPHIL # 0.1 TH/MM3 (0-0.2); BASOPHIL % 1.2 % (0.0-2.0); EOSINOPHIL # 0.2 TH/MM3 (0-0.4); EOSINOPHIL % 4.3 % (0.0-4.0); HEMATOCRIT 29.4 % (35.0-46.0); HEMOGLOBIN 9.6 GM/DL (11.6-15.3); LYMPH % 25.8 % (9.0-44.0); LYMPHOCYTE # 1.3 TH/MM3 (1.0-4.8); MEAN CELL VOLUME 74.2 FL (80.0-100.0); MEAN CORPUSCULAR HEMOGLOBIN 24.3 PG (27.0-34.0); MEAN CORPUSCULAR HGB CONC 32.7 % (32.0-36.0); MEAN PLATELET VOLUME 8.3 FL (7.0-11.0); MONO % 11.4 % (0.0-8.0); MONOCYTE # 0.6 TH/MM3 (0-0.9); NEUT % 57.3 % (16.0-70.0); PLATELET COUNT 136 TH/MM3 (150-450); RED BLOOD COUNT 3.96 MIL/MM3 (4.00-5.30); RED CELL DISTRIBUTION WIDTH 20.9 % (11.6-17.2); WHITE BLOOD COUNT 4.9 TH/MM3 (4.0-11.0)
[2017-07-03 07:36] LABS: BICARBONATE 28.1 MEQ/L (21.0-32.0); CALCIUM 10.3 MG/DL (8.5-10.1); CREATININE 1.52 MG/DL (0.50-1.00)
[2017-07-03] MEDS: COLCHICINE 0.6 MG TAB PO SCH (09:00)
[2017-07-03] MEDS: FLUTICASONE PROPIONATE 110 MCG/ACT 12 GM INHALER INH SCH (09:00)
[2017-07-03] MEDS: FUROSEMIDE 40 MG TAB PO SCH (09:00)
[2017-07-03] MEDS: TIOTROPIUM BROMIDE 18 MCG INH INH SCH (09:00)
[2017-07-03] MEDS: GABAPENTIN 400 MG CAP PO SCH (09:25)
[2017-07-03] MEDS: CALCIUM CARBONATE 1.25 GM (CA 500 MG) TAB PO SCH (09:26)
[2017-07-03] MEDS: clonazePAM 0.5 MG TAB PO SCH (09:26)
[2017-07-03] MEDS: POTASSIUM CHLORIDE 20 MEQ CONTROLLED RELEASE TAB PO SCH (09:26)
[2017-07-03] MEDS: MAGNESIUM OXIDE 400 MG TAB PO SCH (09:26)
[2017-07-03] MEDS: amLODIPine BESYLATE 5 MG TAB PO SCH (09:26)
[2017-07-03] MEDS: PANTOPRAZOLE SOD 20 MG DELAYED RELEASE TAB PO SCH (09:26)
[2017-07-03] MEDS: TICAGRELOR 90 MG TAB PO SCH (09:26)
[2017-07-03] MEDS: ASPIRIN 81 MG CHEW TAB PO SCH (09:27)
--- NOTE | 2017-07-03 09:36 | PD.CARD.PN ---
Subjective Subjective Remarks No complaints, minor bruising at R radial site. Objective Medications Current Medications Medications (Trade) Dose Ordered Sig/Milana Route Start Time Stop Time Status Last Admin (Tylenol) 500 mg Q4H PRN PO 06/25/17 04:45 06/27/17 20:45 ([place] 7.5-325 Mg) 1 tab Q4H PRN PO 06/25/17 04:45 07/01/17 17:04 (Zofran Inj) 4 mg Q6H PRN IV PUSH 06/25/17 04:45 (Nitrostat Sl) 0.4 mg Q5M PRN SL 06/25/17 04:45 07/02/17 18:45 (Duoneb Neb) 1 ampule Q4HR NEB PRN NEB 06/25/17 04:45 (Proair Hfa Inh) 2 puff Q6H PRN INH 06/25/17 12:00 (Lipitor) 20 mg HS PO 06/25/17 21:00 07/02/17 21:18 (Oscal) 1,250 mg TID PO 06/25/17 13:00 07/03/17 09:26 (CeleBREX) 100 mg BID PO 06/25/17 21:00 Future Hold 06/27/17 08:45 (Colchicine) 0.6 mg DAILY PO 06/26/17 09:00 07/03/17 09:00 (Flovent Hfa 110 Mcg Inh) 2 puff BID INH 06/25/17 21:00 07/02/17 21:00 (Lasix) 40 mg EVERY OTHER DAY PO 06/25/17 13:00 Future hold 07/03/17 09:00 (Mag-Ox) 400 mg DAILY PO 06/26/17 09:00 07/03/17 09:26 (KCl) 20 meq DAILY PO 06/26/17 09:00 07/03/17 09:26 (Protonix) 20 mg DAILY PO 06/26/17 09:00 07/03/17 09:26 (Atrovent Neb) 0.5 mg Q4HR NEB PRN NEB 06/25/17 14:00 (KlonoPIN) 0.5 mg QID PO 06/25/17 18:00 07/03/17 09:26 (Norvasc) 2.5 mg DAILY PO 06/25/17 18:30 07/03/17 09:26 (Pill Splitter) 1 ea UNSCH PRN OTHER 06/25/17 18:15 ([place] 10-325 Mg) 1 tab Q4H PRN PO 06/27/17 16:45 07/03/17 04:22 Patient Own Medication PT OWN MED: ATROV... Q4HR PRN INH 06/29/17 12:30 (Aspirin Chew) 81 mg DAILY PO 06/30/17 09:00 07/03/17 09:27 (Brilinta) 90 mg BID PO 06/29/17 21:00 07/03/17 09:26 (Spiriva Inh) 18 mcg DAILY INH 06/30/17 16:00 07/03/17 09:00 (Neurontin) 400 mg TID PO 07/01/17 18:00 07/03/17 09:25 Vital Signs / I&O Vital Signs Date Time Temp Pulse Resp B/P (MAP) Pulse Ox O2 Delivery O2 Flow Rate FiO2 07/03/17 08:00 75 07/03/17 07:00 54 07/03/17 07:00 Nasal Cannula 1.00 21 07/03/17 07:00 98.3 54 18 153/84 (107) 97 07/03/17 06:00 54 07/03/17 05:00 54 07/03/17 04:00 98.3 62 16 109/65 (80) 98 07/03/17 04:00 58 07/03/17 03:00 59 07/03/17 02:00 64 07/03/17 01:00 78 07/03/17 00:00 58 07/02/17 23:00 60 07/02/17 23:00 98.3 62 16 127/74 (91) 98 07/02/17 22:00 62 07/02/17 21:00 68 07/02/17 20:00 68 07/02/17 20:00 97.7 58 16 125/54 (77) 100 07/02/17 19:00 70 07/02/17 19:00 100 Nasal Cannula 1.00 07/02/17 18:48 69 145/63 (90) 07/02/17 18:22 74 146/62 (90) 07/02/17 17:00 68 144/58 (86) 07/02/17 16:00 64 130/70 (90) 07/02/17 15:00 55 139/69 (92) 07/02/17 14:00 59 125/58 (80) 07/02/17 13:00 59 135/78 (97) 07/02/17 12:30 58 147/64 (91) 07/02/17 11:52 98.0 56 18 134/41 (72) 100 07/02/17 11:30 56 134/41 (72) 07/02/17 11:19 Room Air 2.00 21 07/02/17 11:00 117 123/62 (82) 07/02/17 10:45 57 140/66 (90) 07/02/17 10:45 57 140/66 (90) 07/02/17 10:30 57 126/65 (85) 07/02/17 10:30 57 126/65 (85) 07/02/17 10:15 57 127/64 (85) 07/02/17 10:15 57 127/64 (85) 07/02/17 10:00 55 146/79 (101) 07/02/17 10:00 55 146/79 (101) I/O 07/02/17 07/02/17 07/02/17 07/03/17 07/03/17 07/03/17 07:00 15:00 23:00 07:00 15:00 23:00 Intake Total 240 ml 400 ml 480 ml Output Total 300 ml 1000 ml 550 ml Balance -60 ml -600 ml -70 ml Intake Oral 240 ml 480 ml IV Total 400 ml Output Urine Total 300 ml 1000 ml 550 ml # Voids 1 # Bowel Movements 2 1 Physical Exam GENERAL: This is a well-nourished, well-developed patient, in no apparent distress. CARDIOVASCULAR: Regular rate and rhythm without murmurs, gallops, or rubs. RESPIRATORY: Clear to auscultation. Breath sounds equal bilaterally. No wheezes , rales, or rhonchi. GASTROINTESTINAL: Abdomen soft, non-tender, nondistended. Normal active bowel sounds MUSCULOSKELETAL: Extremities without clubbing, cyanosis, or edema. NEURO: Alert & Oriented x4 to person, place, time, situation. Moves all ext x4 R-wrist; mild bruising, soft, good pulses. Laboratory Laboratory Tests Test 07/03/17 06:58 White Blood Count 4.9 TH/MM3 Red Blood Count 3.96 MIL/MM3 Hemoglobin 9.6 GM/DL Hematocrit 29.4 % Mean Corpuscular Volume 74.2 FL Mean Corpuscular Hemoglobin 24.3 PG Mean Corpuscular Hemoglobin Concent 32.7 % Red Cell Distribution Width 20.9 % Platelet Count 136 TH/MM3 Mean Platelet Volume 8.3 FL Neutrophils (%) (Auto) 57.3 % Lymphocytes (%) (Auto) 25.8 % Monocytes (%) (Auto) 11.4 % Eosinophils (%) (Auto) 4.3 % Basophils (%) (Auto) 1.2 % Neutrophils # (Auto) 2.8 TH/MM3 Lymphocytes # (Auto) 1.3 TH/MM3 Monocytes # (Auto) 0.6 TH/MM3 Eosinophils # (Auto) 0.2 TH/MM3 Basophils # (Auto) 0.1 TH/MM3 CBC Comment DIFF FINAL Differential Comment Blood Urea Nitrogen 24 MG/DL Creatinine 1.52 MG/DL Random Glucose 99 MG/DL Calcium Level 10.3 MG/DL Sodium Level 138 MEQ/L Potassium Level 4.0 MEQ/L Chloride Level 103 MEQ/L Carbon Dioxide Level 28.1 MEQ/L Anion Gap 7 MEQ/L Estimat Glomerular Filtration Rate 34 ML/MIN Imaging Last Impressions Coronary Angiography CT 06/28/17 0000 Signed Impressions: Service Date/Time: Wednesday, June 28, 2017 17:24 - CONCLUSION: 1. 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 2. Extensive atherosclerotic changes in the LAD and right coronary artery limiting evaluation for critical stenosis. 1. Omar Cruz MD Chest X-Ray 06/25/17 0314 Signed Impressions: Service Date/Time: Sunday, June 25, 2017 03:26 - CONCLUSION: No acute disease. Luis Armando Medina MD Myocardial Perfusion Scan Nuc Med 06/25/17 0000 Signed Impressions: Service Date/Time: Sunday, June 25, 2017 10:13 - CONCLUSION: Significant stress-induced ischemia. RISK CATEGORY: Intermediate (1-3%% Annual Mortality Rate) Scott Malhotra MD FACR Assessment and Plan Problem List: (1) CAD (coronary artery disease) ICD Codes: I25.10 - Atherosclerotic heart disease of [place] coronary artery without angina pectoris Plan: s/p PCI to LAD, Dr. Higuera will perform staged procedure. (2) Abnormal stress test ICD Codes: R94.39 - Abnormal result of other cardiovascular function study (3) Unstable angina ICD Codes: I20.0 - Unstable angina (4) Chronic back pain ICD Codes: M54.9 - Dorsalgia, unspecified; G89.29 - Other chronic pain (5) Hyperlipidemia ICD Codes: E78.5 - Hyperlipidemia, unspecified (6) C. difficile colitis ICD Codes: A04.72 - Enterocolitis due to Clostridium difficile, not specified as recurrent Assessment and Plan Ok to d/c from cardiac standpoint Problem Qualifiers (1) CAD (coronary artery disease): Qualified Codes: I25.110 - Atherosclerotic heart disease of [place] coronary artery with unstable angina pectoris Ja Carrasco MD Jul 03, 2017 09:36
--- NOTE | 2017-07-03 14:44 | EKG ---
Date Performed: 07/02/2017 Time Performed: 18:42:26 PTAGE: 66 years EKG: Sinus rhythm with borderline 1st degree A-V block. Borderline first degree AV block. Left atrial abnormality. Inc omplete right bundle branch block. Nonspecific ST-T wave change. Probable left ventricular hypertroph y. When compared to previous tracing, no significant change. Abnormal ECG PREVIOUS TRACING : 06/29/2017 15.11 DOCTOR: Rowdy Scruggs Interpretating Date/Time 07/03/2017 14:42:54
--- NOTE | 2017-07-06 09:29 | MA ---
cc: ATIF BEDOLLA DO DATE 07/02/2017 PROCEDURE 1. Coronary angiogram. 2. Tom drug-eluting stent (2.75 x 22) to anomalous left circumflex. 3. IFR RCA. 4. Moderate sedation 15 minutes. 5. Complex case. PREPROCEDURE DIAGNOSIS 1. Multivessel coronary artery disease, turned down for CT surgery. 2. Previous stent of LAD with plan for complete revascularization. 3. Abnormal stress test. POSTPROCEDURE DIAGNOSIS 1. 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 2. Moderate disease RCA. MEDICATION Versed 1 mg, fentanyl 75 mcg, heparin 13,400 units, nitroglycerin 200 mcg, aspirin 81 mg, Brilinta 90 mg, hydralazine 10 mg. CONTRAST USED 80 cc. FLUOROSCOPY 6.7 minutes. SEDATION Moderate sedation 15 minutes. ESTIMATED BLOOD LOSS 10 cc. PROCEDURAL SUMMARY Magalys Crespo is a pleasant 66-year-old female who originally presented with chest pain and underwent stress testing which showed anterior, lateral and inferior ischemia. She was turned down by CT surgery and because of this she was recommended multivessel stenting for complete revascularization. She previously underwent stenting of her LAD and now is back for stenting of her anomalous left circumflex and because the disease of the RCA appears moderate in nature I will perform possible intervention of her RCA. The risks, benefits and alternatives were explained to her and she consented as such. She was brought to the lab and prepped in the usual sterile fashion. I decided to access her right radial artery for the third time as her left radial artery is weak in comparison as well as due to significance of her back disease and inability to lay her legs flat and difficulty with lying flat in general. The radial artery was accessed using a modified Seldinger technique and placement of a 5/6 [place] sheath. This was easily aspirated and flushed. An AL 0.75 guide was advanced to the ascending aorta over a J-wire. This was engaged into the anomalous left circumflex. The patient was given heparin as an anticoagulant. A BMW wire was advanced in the distal circumflex. A compliant balloon (2.5 x 15) was then advanced into and inflated across the lesion. This was exchanged for an [place] drug-eluting stent (2.75 x 22) which was inflated over the lesion. This was post dilated with a noncompliant balloon (2.75 x 15). Final angiogram shows a well-apposed stent with no perforations or dissections. Because of the moderate disease of the RCA I was not totally sure that this was ischemic in nature. The AL guide was then engaged into the RCA. A [place] wire was then advanced into the distal RCA. IFR measurements were taken at 0.98 showing non-physiologic stenosis. The wire was pulled back and final angiogram showed no disruption of the coronary anatomy. An AL 0.75 guide was then removed over a J-wire. A radial band was placed over the arteriotomy site for hemostasis. Because of the multiple sticks in the radial artery for three catheterizations a reverse Barbeau test was done showing patent hemostasis. The patient was given her dose of aspirin and Brilinta since she had not received it that morning. 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 FINDINGS Left Circumflex: Anomalous takeoff from the right coronary artery cusp. Midportion has an 80% lesion. Distally there is 40% throughout the obtuse marginals. RCA: Long tubular 50% lesion. IFR 0.98 showing non-physiologic stenosis. IMPRESSIONS 1. Multivessel coronary artery disease, turned down for CT surgery. 2. Coronary artery disease status post stenting of the left circumflex as well as LAD. RECOMMENDATIONS 1. Ms. Crespo underwent PCI of her left circumflex with previous PCI of her LAD and moderate disease of her RCA. She will be recommended continuing aspirin and Brilinta therapy. 2. I discussed with her the importance of antiplatelet therapy and if she is unable to afford Brilinta therapy she will call my office and be changed to Plavix. 3. She will be watched overnight and if stable in the morning discharged home. 4. She will not be placed on beta-ramy therapy secondary to significant bradycardia. 5. She will continue on statin therapy. 6. At this time will not start her on WAYNE inhibitor therapy due to her significant chronic kidney disease as well as multiple doses of contrast including three catheterizations and a CTA. This will be reconsidered outpatient to make sure creatinine is stable. Thank you for allowing me to see Magalys Crespo. If there are any questions please do not hesitate to call. Atif Bedolla DO VGP/BT /10:22 PM /8:45 AM
== END 2017-07-03 11:08 | DRG 247 ==
LOC: PHED 03:11 → PHEDA 04:39 → PH3B 06:31 → HCIS 15:02 → OBSVTOIN 06-29 11:42
PROVIDERS: ADMIT Family Medicine; ATTEND Hospitalist
PROC: 4A023N7 Measurement of Cardiac Sampling and Pressure, Left Heart, Percutaneous Approach (ICD-10-PCS; 2017-06-25)
PROC: B2111ZZ Fluoroscopy of Multiple Coronary Arteries using Low Osmolar Contrast (ICD-10-PCS; 2017-06-25)
PROC: B2111ZZ Fluoroscopy of Multiple Coronary Arteries using Low Osmolar Contrast (ICD-10-PCS; 2017-06-29)
PROC: 027034Z Dilation of Coronary Artery, One Artery with Drug-eluting Intraluminal Device, Percutaneous Approach (ICD-10-PCS; principal; 2017-06-29 11:15)
PROC: 027034Z Dilation of Coronary Artery, One Artery with Drug-eluting Intraluminal Device, Percutaneous Approach (ICD-10-PCS; 2017-07-02)
PROC: B2111ZZ Fluoroscopy of Multiple Coronary Arteries using Low Osmolar Contrast (ICD-10-PCS; 2017-07-02)
PROC: 4A033BC Measurement of Arterial Pressure, Coronary, Percutaneous Approach (ICD-10-PCS; 2017-07-02)
DX: I25.110 Atherosclerotic heart disease of native coronary artery with unstable angina pectoris (principal); Q24.5 Malformation of coronary vessels; A04.71 Enterocolitis due to Clostridium difficile, recurrent; I50.9 Heart failure, unspecified; I13.0 Hypertensive heart and chronic kidney disease with heart failure and stage 1 through stage 4 chronic kidney disease, or unspecified chronic kidney disease; J44.9 Chronic obstructive pulmonary disease, unspecified; F17.210 Nicotine dependence, cigarettes, uncomplicated; E78.5 Hyperlipidemia, unspecified; G89.29 Other chronic pain; M19.90 Unspecified osteoarthritis, unspecified site; R00.1 Bradycardia, unspecified; T44.7X5A Adverse effect of beta-adrenoreceptor antagonists, initial encounter; N28.9 Disorder of kidney and ureter, unspecified; N18.9 Chronic kidney disease, unspecified; M54.9 Dorsalgia, unspecified; F41.8 Other specified anxiety disorders; M10.9 Gout, unspecified; K21.9 Gastro-esophageal reflux disease without esophagitis; Z79.2 Long term (current) use of antibiotics; Z88.0 Allergy status to penicillin
CPT/HCPCS: 71045; 75574; 76937; 78452; 80048; 80061; 82550; 83735; 84484; 85002; 85025; 85027; 85610; 85730; 87493; 92928; 93005; 93017; 93306; 93454; 93458; 93571; 94010; 96361; 96372; 96374; 96376; 99152; 99153; A9502; C1725; C1769; C1874; C1887; C1893; G0378; J0360; J1644; J2250; J2270; J2785; J3010; J7030; Q9967

== ENCOUNTER 2017-07-31 11:43 | Inpatient (IN) | payer MEDICARE, BC ==
[2017-07-31] VITALS (11 sets, daily range): BP systolic 150–242; BP diastolic 65–148; PULSE 60–70; RESP 14–24; TEMP 97.5–98.7; O2SAT 96–100
[~2017-07-31] VITALS: Ht 177.8 cm; Wt 116.8 kg
[~2017-07-31 11:43] MED LIST changes: +AMLO5 PO; +ASPI81 PO; -ASPI81TA23 PO; +BRIL90TA PO; -GABA100C4 PO; -GABA800T PO; +NEUR400C PO; +NITR0.4S SL; +NORC5TAB PO; -TRAM50 PO; -VANCOMYCIN 25 MG/ML PO
[2017-07-31] MEDS ORDERED: VANCOMYCIN PO (12:01)
--- NOTE | 2017-07-31 12:49 | PD ---
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 Patient states that she woke up yesterday her stools more loose than usual and she developed weakness. Patient says that she did not eat or drink much as she felt nauseous and believe this is contributed to her weakness. Patient denies one-sided weakness or dysarthria. She denies fevers or chills. Denies chest pain, shortness of breath, unusual abdominal pain. Says that she felt like she had "weird urethritis" started last week and describes her symptoms as pain with the start of urination but resolves throughout the urination process. States that she was unable to take her medication yesterday because of the nausea. She has not taken her lasix in a few days because of the decreased intake. Patient states that she had a heart cath [address] Higuera was due to follow-up today. However, she felt too weak to do so. Patient does not have a gastrointestinal doctor in [place]. She does not take probiotics. 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 She does take Brilinta daily. PFSH Past Medical History Hx Anticoagulant Therapy: Yes Arthritis: Yes Anxiety: Yes Depression: Yes Cancer: Yes Cardiovascular Problems: Yes Coronary Artery Disease: Yes Diminished Hearing: No Gastrointestinal Disorders: Yes (cdiff active right now getting treated) Genitourinary: Yes Hypertension: Yes Musculoskeletal: Yes Neurologic: No Psychiatric: Yes Reproductive: No Respiratory: Yes Immunizations Current: Yes Tetanus Vaccination: Unknown Influenza Vaccination: Yes Past Surgical History Abdominal Surgery: Yes (appy) Appendectomy: Yes Oral Surgery: Yes (T and A) Tonsillectomy: Yes Other Surgery: Yes Social History Alcohol Use: No Tobacco Use: Yes (12 TO 1 PK) Substance Use: No Allergies-Medications (Allergen,Severity, Reaction): Coded Allergies: amoxicillin (Verified Allergy, Intermediate, throat pain, 06/25/17) Reported Meds & Prescriptions Reported Meds & Active Scripts Active [place] (Hydrocodone-Acetaminophen) 5 Mg-325 Mg Tab 1 Tab PO Q6H PRN Neurontin (Gabapentin) 400 Mg Cap 400 Mg PO TID Tgt Aspirin (Aspirin) 81 Mg Chw 81 Mg PO DAILY Norvasc (Amlodipine Besylate) 5 Mg Tab 2.5 Mg PO DAILY Nitrostat SL (Nitroglycerin) 0.4 Mg Subl 0.4 Mg SL Q5M PRN Brilinta (Ticagrelor) 90 Mg Tab 90 Mg PO BID Klonopin (Clonazepam) 0.5 Mg Tab 0.5 Mg PO QID Reported [vancomycin liquid] 250 Mg PO Q6HR Flovent Hfa 12 GM Inh (Fluticasone Propionate) 110 Mcg/Act Inh 2 Puff INH BID Proair Hfa 8.5 GM Inh (Albuterol Sulfate) 90 Mcg/Act Aer 2 Puff INH Q6H PRN 108 mcg/actuation Potassium Chloride ER (Potassium Chloride) 20 Meq Tab 20 Meq PO DAILY Omeprazole 20 Mg Tab 20 Mg PO DAILY Magnesium Oxide 400 Mg Tab 400 Mg PO DAILY Atrovent HFA 12.9 GM Inh (Ipratropium [place]) 17 Mcg/Actuation Aer 2 Puff INH Q4HR PRN Atorvastatin (Atorvastatin Calcium) 20 Mg Tab 20 Mg PO HS Lasix (Furosemide) 40 Mg Tab 40 Mg PO QOD Review of Systems Except as stated in HPI: all other systems reviewed are Neg Physical Exam Narrative GENERAL: WD, WN in NAD, fatigue SKIN: Focused skin assessment warm/dry. HEAD: Atraumatic. Normocephalic. EYES: Pupils equal and round. No scleral icterus. No injection or drainage. ENT: No nasal bleeding or discharge. Mucous membranes pink and moist. NECK: Trachea midline. No JVD. CARDIOVASCULAR: Regular rate and rhythm. No murmur appreciated. RESPIRATORY: No accessory muscle use. Clear to auscultation. Breath sounds equal bilaterally. GASTROINTESTINAL: Abdomen soft, non-tender, nondistended. Hepatic and splenic margins not palpable. MUSCULOSKELETAL: No obvious deformities. No clubbing. No cyanosis. No edema. Homans sign negative bilaterally NEUROLOGICAL: Awake and alert. No obvious cranial nerve deficits. Motor grossly within normal limits. Normal speech. PSYCHIATRIC: Appropriate mood and affect; insight and judgment normal. Data Data Last Documented VS Vital Signs Date Time Temp Pulse Resp B/P (MAP) Pulse Ox O2 Delivery O2 Flow Rate FiO2 07/31/17 14:26 63 14 182/84 (116) 76 16 210/91 (130) 86 24 242/148 (179) 07/31/17 12:20 98.7 96 Room Air Orders Orders Electrocardiogram (07/31/17 12:49) Complete Blood Count With Diff (07/31/17 12:49) Comprehensive Metabolic Panel (07/31/17 12:49) Magnesium (Mg) (07/31/17 12:49) B-Type Natriuretic Peptide (07/31/17 12:49) Ckmb (Isoenzyme) Profile (07/31/17 12:49) Troponin I (07/31/17 12:49) Act Partial Throm Time (Ptt) (07/31/17 12:49) Prothrombin Time / Inr (Pt) (07/31/17 12:49) Urinalysis - C+S If Indicated (07/31/17 12:49) Chest, Single Ap (07/31/17 12:49) Ct Brain W/O Iv Contrast(Rout) (07/31/17 12:49) Blood Glucose (07/31/17 12:49) Ecg Monitoring (07/31/17 12:49) Iv Access Insert/Monitor (07/31/17 12:49) Oximetry (07/31/17 12:49) Ondansetron Inj (Zofran Inj) (07/31/17 13:00) Orthostatic Vital Signs (07/31/17 12:49) Sodium Chlorid 0.9% 500 Ml Inj (Ns 500 M (07/31/17 13:00) Thyroid Stimulating Hormone (07/31/17 13:08) Hydralazine Inj (Apresoline Inj) (07/31/17 15:45) Red Blood Cells (Rbc) (07/31/17 15:46) Blood Product Administration (07/31/17 15:46) Sodium Chlor 0.9% 250 Ml Inj (Ns 250 Ml (07/31/17 16:00) Type And Screen (07/31/17 15:46) Acetamin-Hydrocod 325-5 Mg ([place] 5-325 (07/31/17 16:15) Admit To Inpatient (07/31/17 ) Vital Signs (Adult) Q4H (07/31/17 16:06) Activity Oob With Assistance (07/31/17 16:06) Teacher Tutor / Telemetry .CONTINUOUS (07/31/17 16:06) Intake + Output YEIMY.QSHIFT (07/31/17 16:06) Diet Heart Healthy (07/31/17 Dinner) Sodium Chloride 0.9% Flush (Ns Flush) (07/31/17 16:15) Sodium Chloride 0.9% Flush (Ns Flush) (07/31/17 21:00) Acetaminophen (Tylenol) (07/31/17 16:15) Ondansetron Inj (Zofran Inj) (07/31/17 16:15) Scd Bilateral/Knee High YEIMY.BID (07/31/17 16:06) Naloxone Inj (Narcan Inj) (07/31/17 16:15) Magnesium Hydroxide Liq (Milk Of Magnesi (07/31/17 16:15) Sennosides (Senokot) (07/31/17 16:15) Bisacodyl Supp (Dulcolax Supp) (07/31/17 16:15) Inpatient Certification (07/31/17 ) Admit Order (Ed Use Only) (07/31/17 16:07) Labs Laboratory Tests Test 07/31/17 13:08 White Blood Count 4.4 TH/MM3 Red Blood Count 3.21 MIL/MM3 Hemoglobin 7.8 GM/DL Hematocrit 24.3 % Mean Corpuscular Volume 75.7 FL Mean Corpuscular Hemoglobin 24.5 PG Mean Corpuscular Hemoglobin Concent 32.3 % Red Cell Distribution Width 21.2 % Platelet Count 162 TH/MM3 Mean Platelet Volume 6.5 FL Neutrophils (%) (Auto) 72.6 % Lymphocytes (%) (Auto) 15.9 % Monocytes (%) (Auto) 8.3 % Eosinophils (%) (Auto) 2.3 % Basophils (%) (Auto) 0.9 % Neutrophils # (Auto) 3.2 TH/MM3 Lymphocytes # (Auto) 0.7 TH/MM3 Monocytes # (Auto) 0.4 TH/MM3 Eosinophils # (Auto) 0.1 TH/MM3 Basophils # (Auto) 0.0 TH/MM3 CBC Comment DIFF FINAL Differential Comment Prothrombin Time 10.8 SEC Prothromb Time International Ratio 1.1 RATIO Activated Partial Thromboplast Time 23.4 SEC Urine Color YELLOW Urine Turbidity HAZY Urine pH 8.0 Urine Specific [place] 1.011 Urine Protein NEG mg/dL Urine Glucose (UA) NEG mg/dL Urine Ketones NEG mg/dL Urine Occult Blood NEG Urine Nitrite NEG Urine Bilirubin NEG Urine Urobilinogen LESS THAN 2.0 MG/DL Urine Leukocyte Esterase TRACE Urine RBC 1 /hpf Urine WBC 5 /hpf Urine Squamous Epithelial Cells 7 /hpf Urine Amorphous Sediment RARE Urine Bacteria RARE /hpf Urine Mucus FEW /lpf Microscopic Urinalysis Comment CULT NOT INDICATED Blood Urea Nitrogen 11 MG/DL Creatinine 1.19 MG/DL Random Glucose 112 MG/DL Total Protein 7.1 GM/DL Albumin 3.5 GM/DL Calcium Level 9.4 MG/DL Magnesium Level 2.0 MG/DL Alkaline Phosphatase 168 U/L Aspartate Amino Transf (AST/SGOT) 21 U/L Alanine Aminotransferase (ALT/SGPT) 27 U/L Total Bilirubin 0.4 MG/DL Sodium Level 141 MEQ/L Potassium Level 3.8 MEQ/L Chloride Level 110 MEQ/L Carbon Dioxide Level 24.9 MEQ/L Anion Gap 6 MEQ/L Estimat Glomerular Filtration Rate 45 ML/MIN Total Creatine Kinase 33 U/L Troponin I LESS THAN 0.02 NG/ML B-Type Natriuretic Peptide 189 PG/ML Thyroid Stimulating Hormone 3rd Gen 1.550 uIU/ML MDM Medical Decision Making Medical Screen Exam Complete: Yes Emergency Medical Condition: Yes Differential Diagnosis Dehydration, colitis, ANDRIY, anemia Narrative Course 66-year-old female with a history of cardiac stents placed July 2017, pancytopenia, CHF presents to emergency department complaining of weakness and nausea after waking up yesterday. Says that she has had more bowel movements than normal and is concerned that this is the cause of her weakness. She states that she had "urethritis" last week and believes this may also be contributing factor. Pt has not taken her medications since yesterday because of nausea, to include Brilinta. Denies fevers, chills, shortness of breath, chest pain, abdominal pain. After review the EMR, it appears the patient had a cardiac stent placed July 09. She was due to follow-up with Dr. Higuera today however, she came to the emergency room airway evaluate for her weakness. In addition, review of labs demonstrate a negative C. difficile PCR from June 29, 2017. Patient also has chronic anemia with stable CKD 3. It appears she had a urinary tract infection in April 2017 as well. EKG shows sinus rhythm without STEMI changes rate of 67. Chest x-ray read compensated cardiomegaly, otherwise negative. Head CT reads normal examination except for old lacunar infarct on the right. Worsening anemia since 1 month ago. Cardiac enzymes negative. BNP slightly elevated at 189. TSH 1.550. CKD actually slightly improved 1.19/45. Hydralazine 10mg IV administered for HTN. Note that pt did not take her medications today. Hydrocodone 5-325 for chronic joint pain. 1328: Pt c/o intermittent, band-like chest pain under her left breast without radiation, rated 5/10, duration of 5-10min. Upon assessment, she did not have chest pain. Pt does not have nitro at home. Pain resolved prior to intervention. Patient should be admitted for observation for accelerated hypertension, symptomatic anemia. Consult with hematology as her H&H is 7.8/24.3, down from 9.6/29.4 1 month ago. Hemoccult negative although poor sample. 1U PRBCs ordered. Diagnosis Primary Impression: CAD (coronary artery disease) Qualified Codes: I25.10 - Atherosclerotic heart disease of [place] coronary artery without angina pectoris; I25.84 - Coronary atherosclerosis due to calcified coronary lesion Additional Impressions: Symptomatic anemia Hypertensive urgency Admitting Information Admitting Physician Requests: Admit Condition: Stable Lilliana Fitzpatrick Jul 31, 2017 12:49
[2017-07-31] MEDS ORDERED: SODIUM CHLORID 0.9% 500 ML INJ 500 ML IV ONE (13:00)
[2017-07-31] MEDS ORDERED: ONDANSETRON HCL 4 MG/2 ML VIAL IVP ONE (13:00)
--- NOTE | 2017-07-31 13:13 | RADRPT ---
EXAM DATE/TIME: 07/31/2017 12:56 [facility] COMPARISON: CHEST SINGLE AP, June 25, 2017, 3:26. CTA CARDIAC W/IV CONTRAST,CORONARY ARTERIES W/3D, June [id number], 17:24. INDICATIONS : Shortness of breath. MEDICAL HISTORY : Hypertension. SURGICAL HISTORY : Coronary artery stent. ENCOUNTER: Initial ACUITY: 2 days PAIN SCORE: 2/10 LOCATION: Bilateral chest FINDINGS: The lungs are clear. The heart is minimally enlarged. The pulmonary vascularity is normal. There is n o evidence for infiltrate or failure. Prominent pulmonary artery centrally. The portion of the bony skeleton visualized is unremarkable. CONCLUSION: Compensated cardiomegaly otherwise negative Scott Malhotra MD FACR on July 31, 2017 at 13:10 Board Certified Radiologist. This report was verified electronically.
[2017-07-31 13:24] LABS: AUTOMATED NEUTROPHIL # 3.2 TH/MM3 (1.8-7.7); BASOPHIL % 0.9 % (0.0-2.0); EOSINOPHIL # 0.1 TH/MM3 (0-0.4); EOSINOPHIL % 2.3 % (0.0-4.0); HEMATOCRIT 24.3 % (35.0-46.0); HEMOGLOBIN 7.8 GM/DL (11.6-15.3); LYMPH % 15.9 % (9.0-44.0); LYMPHOCYTE # 0.7 TH/MM3 (1.0-4.8); MEAN CELL VOLUME 75.7 FL (80.0-100.0); MEAN CORPUSCULAR HEMOGLOBIN 24.5 PG (27.0-34.0); MEAN CORPUSCULAR HGB CONC 32.3 % (32.0-36.0); MEAN PLATELET VOLUME 6.5 FL (7.0-11.0); MONO % 8.3 % (0.0-8.0); MONOCYTE # 0.4 TH/MM3 (0-0.9); NEUT % 72.6 % (16.0-70.0); PLATELET COUNT 162 TH/MM3 (150-450); RED BLOOD COUNT 3.21 MIL/MM3 (4.00-5.30); RED CELL DISTRIBUTION WIDTH 21.2 % (11.6-17.2); WHITE BLOOD COUNT 4.4 TH/MM3 (4.0-11.0)
[2017-07-31 13:31] LABS: INTERNATIONAL NORMALIZED RATIO 1.1 RATIO; PROTHROMBIN TIME - PATIENT 10.8 SEC (9.8-11.6)
[2017-07-31 13:38] LABS: AMORPHOUS SEDIMENT, URINE RARE; BACTERIA, URINE RARE /hpf; BILIRUBIN, URINE NEG (NEG); BLOOD, URINE NEG (NEG); GLUCOSE,URINE NEG (NEG); KETONE, URINE NEG (NEG); MUCUS URINE FEW /lpf (OCC); NITRITE,URINE NEG (NEG); SQUAMOUS EPITHELIAL CELL URINE 7 /hpf (0-5); URINE COLOR YELLOW (YELLW/STRAW); URINE LEUKOCYTE ESTERASE TRACE (NEG)
[2017-07-31 13:47] LABS: ALBUMIN 3.5 GM/DL (3.4-5.0); ALT (GPT) 27 U/L (10-53); AST (GOT) 21 U/L (15-37); BICARBONATE 24.9 MEQ/L (21.0-32.0); BLOOD UREA NITROGEN 11 MG/DL (7-18); CALCIUM 9.4 MG/DL (8.5-10.1); CHLORIDE 110 MEQ/L (98-107); CREATININE 1.19 MG/DL (0.50-1.00); GLOMERULAR FILTRATION RATE 45 ML/MIN (>89); GLUCOSE,RANDOM 112 MG/DL (74-106); SODIUM (NA) 141 MEQ/L (136-145)
[2017-07-31 13:51] LABS: ALKALINE PHOSPHATASE 168 U/L (45-117); TOTAL BILIRUBIN ADULT 0.4 MG/DL (0.2-1.0); TOTAL PROTEIN 7.1 GM/DL (6.4-8.2); TROPONIN I LESS THAN 0.02 NG/ML (0.02-0.05)
--- NOTE | 2017-07-31 13:55 | RADRPT ---
EXAM DATE/TIME: 07/31/2017 13:42 [place] COMPARISON: No previous studies available for comparison. INDICATIONS : Patient complains of weakness and dizzines. RADIATION DOSE: 21.18 CTDIvol (mGy) MEDICAL HISTORY : Cardiovascular disease. Hypertension. cancer SURGICAL HISTORY : Fusion, cervical. ENCOUNTER: Initial ACUITY: 2 days PAIN SCALE: 0/10 LOCATION: cranial TECHNIQUE: Multiple contiguous axial images were obtained of the head. Using automated exposure control and adj ustment of the mA and/or kV according to patient size, radiation dose was kept as low as reasonably a chievable to obtain optimal diagnostic quality images. DICOM format image data is available electro nically for review and comparison. FINDINGS: CEREBRUM: The ventricles are normal for age. 4 mm hypodensity internal capsule anteriorly on the right old lacu rafa infarct. No evidence of midline shift, mass lesion, hemorrhage or acute infarction. No extra-ax ial fluid collections are seen. POSTERIOR FOSSA: The cerebellum and brainstem are intact. The 4th ventricle is midline. The cerebellopontine angle i s unremarkable. EXTRACRANIAL: The visualized portion of the orbits is intact. SKULL: The calvaria is intact. No evidence of skull fracture. CONCLUSION: Normal examination except for old lacunar infarct on the right. Torey Levin MD on July 31, 2017 at 13:53 Board Certified Radiologist. This report was verified electronically.
[2017-07-31] MEDS ORDERED: hydrALAZINE HCL 20 MG/ML VIAL IV PUSH ONE (15:45)
[2017-07-31] MEDS ORDERED: SODIUM CHLOR 0.9% 250 ML INJ 250 ML IV ONE (16:00)
[2017-07-31] MEDS ORDERED: ACETAMINOPHEN 325 MG TAB PO PRN (16:15)
[2017-07-31] MEDS ORDERED: ACETAMINOPHEN/HYDROcodone 325 MG/5 MG TAB PO ONE (16:15)
[2017-07-31] MEDS ORDERED: MAGNESIUM HYDROXIDE SUSP 30 ML CUP PO PRN (16:15)
[2017-07-31] MEDS ORDERED: BISACODYL 10 MG SUPP RECTAL PRN (16:15)
[2017-07-31] MEDS ORDERED: NALOXONE HCL 0.4 MG/ML AMP IV PUSH PRN (16:15)
[2017-07-31] MEDS ORDERED: ONDANSETRON HCL 4 MG/2 ML VIAL IVP PRN (16:15)
[2017-07-31] MEDS ORDERED: SODIUM CHLORIDE 0.9% FLUSH 10 ML FLUSH IV FLUSH PRN (16:15)
[2017-07-31] MEDS ORDERED: SENNOSIDES 8.6 MG TAB PO PRN (16:15)
--- NOTE | 2017-07-31 17:10 | HHI.HP ---
[facility] Primary Care Physician Leti Hernandez MD Admission Diagnosis symptomatic anemia, hypertensive urgency Diagnoses: Travel History International Travel<30 Days: No Contact w/Intl Traveler <30 Da: No Traveled to Known Affected Are: No Past Family Social History Reported Medications [place] (Hydrocodone-Acetaminophen) 5 Mg-325 Mg Tab 1 Tab PO Q6H PRN Neurontin (Gabapentin) 400 Mg Cap 400 Mg PO TID Tgt Aspirin (Aspirin) 81 Mg Chw 81 Mg PO DAILY Norvasc (Amlodipine Besylate) 5 Mg Tab 2.5 Mg PO DAILY Nitrostat SL (Nitroglycerin) 0.4 Mg Subl 0.4 Mg SL Q5M PRN Brilinta (Ticagrelor) 90 Mg Tab 90 Mg PO BID Klonopin (Clonazepam) 0.5 Mg Tab 0.5 Mg PO QID Reported [vancomycin liquid] 250 Mg PO Q6HR Flovent Hfa 12 GM Inh (Fluticasone Propionate) 110 Mcg/Act Inh 2 Puff INH BID Proair Hfa 8.5 GM Inh (Albuterol Sulfate) 90 Mcg/Act Aer 2 Puff INH Q6H PRN 108 mcg/actuation Potassium Chloride ER (Potassium Chloride) 20 Meq Tab 20 Meq PO DAILY Omeprazole 20 Mg Tab 20 Mg PO DAILY Magnesium Oxide 400 Mg Tab 400 Mg PO DAILY Atrovent HFA 12.9 GM Inh (Ipratropium [place]) 17 Mcg/Actuation Aer 2 Puff INH Q4HR PRN Atorvastatin (Atorvastatin Calcium) 20 Mg Tab 20 Mg PO HS Lasix (Furosemide) 40 Mg Tab 40 Mg PO QOD Allergies: Coded Allergies: amoxicillin (Verified Allergy, Intermediate, throat pain, 06/25/17) Physical Exam Vital Signs Vital Signs Date Time Temp Pulse Resp B/P (MAP) Pulse Ox O2 Delivery O2 Flow Rate FiO2 07/31/17 16:15 60 18 185/86 (119) 100 Room Air 07/31/17 14:26 63 14 182/84 (116) 76 16 210/91 (130) 86 24 242/148 (179) 07/31/17 12:20 98.7 67 19 202/86 (124 96 Room Air 07/31/17 12:16 19 Room Air Physical Exam GENERAL: This is a well-nourished, well-developed patient, in no apparent distress. SKIN: No rashes, ecchymoses or lesions. Cool and dry. HEAD: Atraumatic. Normocephalic. No temporal or scalp tenderness. EYES: Pupils equal round and reactive. Extraocular motions intact. No scleral icterus. No injection or drainage. ENT: Nose without bleeding, purulent drainage or septal hematoma. Throat without erythema, tonsillar hypertrophy or exudate. Uvula midline. Airway patent. NECK: Trachea midline. No JVD or lymphadenopathy. Supple, nontender, no meningeal signs. CARDIOVASCULAR: Regular rate and rhythm without murmurs, gallops, or rubs. RESPIRATORY: Clear to auscultation. Breath sounds equal bilaterally. No wheezes , rales, or rhonchi. GASTROINTESTINAL: Abdomen soft, non-tender, nondistended. No hepato-splenomegaly , or palpable masses. No guarding. MUSCULOSKELETAL: Extremities without clubbing, cyanosis, or edema. No joint tenderness, effusion, or edema noted. No calf tenderness. Negative Homans sign bilaterally. NEUROLOGICAL: Awake and alert. Cranial nerves II through XII intact. Motor and sensory grossly within normal limits. Five out of 5 muscle strength in all muscle groups. Normal speech. Laboratory Laboratory Tests Test 07/31/17 13:08 White Blood Count 4.4 Red Blood Count 3.21 Hemoglobin 7.8 Hematocrit 24.3 Mean Corpuscular Volume 75.7 Mean Corpuscular Hemoglobin 24.5 Mean Corpuscular Hemoglobin Concent 32.3 Red Cell Distribution Width 21.2 Platelet Count 162 Mean Platelet Volume 6.5 Neutrophils (%) (Auto) 72.6 Lymphocytes (%) (Auto) 15.9 Monocytes (%) (Auto) 8.3 Eosinophils (%) (Auto) 2.3 Basophils (%) (Auto) 0.9 Neutrophils # (Auto) 3.2 Lymphocytes # (Auto) 0.7 Monocytes # (Auto) 0.4 Eosinophils # (Auto) 0.1 Basophils # (Auto) 0.0 CBC Comment DIFF FINAL Differential Comment Prothrombin Time 10.8 Prothromb Time International Ratio 1.1 Activated Partial Thromboplast Time 23.4 Urine Color YELLOW Urine Turbidity HAZY Urine pH 8.0 Urine Specific [place] 1.011 Urine Protein NEG Urine Glucose (UA) NEG Urine Ketones NEG Urine Occult Blood NEG Urine Nitrite NEG Urine Bilirubin NEG Urine Urobilinogen LESS THAN 2.0 Urine Leukocyte Esterase TRACE Urine RBC 1 Urine WBC 5 Urine Squamous Epithelial Cells 7 Urine Amorphous Sediment RARE Urine Bacteria RARE Urine Mucus FEW Microscopic Urinalysis Comment CULT NOT INDICATED Blood Urea Nitrogen 11 Creatinine 1.19 Random Glucose 112 Total Protein 7.1 Albumin 3.5 Calcium Level 9.4 Magnesium Level 2.0 Alkaline Phosphatase 168 Aspartate Amino Transf (AST/SGOT) 21 Alanine Aminotransferase (ALT/SGPT) 27 Total Bilirubin 0.4 Sodium Level 141 Potassium Level 3.8 Chloride Level 110 Carbon Dioxide Level 24.9 Anion Gap 6 Estimat Glomerular Filtration Rate 45 Total Creatine Kinase 33 Troponin I LESS THAN 0.02 B-Type Natriuretic Peptide 189 Thyroid Stimulating Hormone 3rd Gen 1.550 Result Diagram: 07/31/17 1308 07/31/17 1308 Caprini VTE Risk Assessment Caprini Risk Assessment Model Point Value = 1 Point Value = 2 Point Value = 3 Point Value = 5 Age 41-60 Minor surgery BMI > 25 kg/m2 Swollen legs Varicose veins or History of unexplained or recurrent spontaneous Oral contraceptives or hormone replacement Sepsis (< 1 month) Serious lung disease, including pneumonia (< 1 month) Abnormal pulmonary function Acute myocardial infarction Congestive heart failure (< 1 month) History of inflammatory bowel disease Medical patient at bed rest Age 61-74 Arthroscopic surgery Major open surgery (> 45 min) Laparoscopic surgery (> 45 min) Malignancy Confined to bed (> 72 hours) Immobilizing plaster cast Central venous access Age >= 75 History of VTE Family history of VTE Factor V Leiden Prothrombin [id number] Lupus anticoagulant Anticardiolipin antibodies Elevated serum homocysteine Heparin-induced thrombocytopenia Other congenital or acquired thrombophilia Stroke (< 1 month) Elective arthroplasty Hip, pelvis, or leg fracture Acute spinal cord injury (< 1 month) Prophylaxis Regimen Total Risk Factor Score Risk Level Prophylaxis Regimen 0-1 Low Early ambulation 2 Moderate Order ONE of the following: *Sequential Compression Device (SCD) *Heparin 5000 units SQ BID 3-4 Higher Order ONE of the following medications: *Heparin 5000 units SQ TID *Enoxaparin/Lovenox 40 mg SQ daily (WT < 150 kg, CrCl > 30 mL/min) *Enoxaparin/Lovenox 30 mg SQ daily (WT < 150 kg, CrCl > 10-29 mL/min) *Enoxaparin/Lovenox 30 mg SQ BID (WT < 150 kg, CrCl > 30 mL/min) AND/OR *Sequential Compression Device (SCD) 5 or more Highest Order ONE of the following medications: *Heparin 5000 units SQ TID (Preferred with Epidurals) *Enoxaparin/Lovenox 40 mg SQ daily (WT < 150 kg, CrCl > 30 mL/min) *Enoxaparin/Lovenox 30 mg SQ daily (WT < 150 kg, CrCl > 10-29 mL/min) *Enoxaparin/Lovenox 30 mg SQ BID (WT < 150 kg, CrCl > 30 mL/min) AND *Sequential Compression Device (SCD) Skyla Crane MD Jul 31, 2017 17:10
[2017-07-31] MEDS ORDERED: NITROGLYCERIN 0.4 MG SL 25 TABS/BTL SL ONE (17:15)
--- NOTE | 2017-07-31 17:17 | HHI.HP ---
[facility] Leti [facility] MD Admission Diagnosis symptomatic anemia, hypertensive urgency Diagnoses: Chief Complaint: Nausea, generalized weakness, diarrhea, chest pain Travel History International Travel<30 Days: No Contact w/Intl Traveler <30 Da: No Traveled to Known Affected Are: No History of Present Illness This is a 66-year-old female past medical history of coronary artery disease status post recent stent placement about 1 month ago of the left circumflex coronary cusp who presented with generalized weakness, diarrhea, nausea, and chest pain. Patient stated yesterday she had generalized weakness, diarrhea and nausea she went to emergency department. She stated that she could not take her medication at all due to nausea. Patient then stated that in the ED she developed chest pain. Chest pain described as pressure-like radiating to her right arm, lasting for 15 minutes, nothing makes it better or worse, resolves on its own. She denies any fevers or chills. Denies any episodes of emesis. Patient stated that she stopped smoking tobacco 2 days ago. Patient smokes 1 pack per day since the age of 17. Patient stated that she had appointment with Dr. Higuera yesterday but did not see him because she felt nauseous. All other review of system reviewed and negative. Past Family Social History Past Medical History Coronary artery disease Hypertension Recurrent UTIs Chronic C. difficile COPD Tobacco abuse Anxiety and depression Past Surgical History PCI Appendectomy Tonsillectomy Cervical fusion Unspecified oral surgery Reported Medications [place] (Hydrocodone-Acetaminophen) 5 Mg-325 Mg Tab 1 Tab PO Q6H PRN Neurontin (Gabapentin) 400 Mg Cap 400 Mg PO TID Tgt Aspirin (Aspirin) 81 Mg Chw 81 Mg PO DAILY Norvasc (Amlodipine Besylate) 5 Mg Tab 2.5 Mg PO DAILY Nitrostat SL (Nitroglycerin) 0.4 Mg Subl 0.4 Mg SL Q5M PRN Brilinta (Ticagrelor) 90 Mg Tab 90 Mg PO BID Klonopin (Clonazepam) 0.5 Mg Tab 0.5 Mg PO QID [vancomycin liquid] 250 Mg PO Q6HR Flovent Hfa 12 GM Inh (Fluticasone Propionate) 110 Mcg/Act Inh 2 Puff INH BID Proair Hfa 8.5 GM Inh (Albuterol Sulfate) 90 Mcg/Act Aer 2 Puff INH Q6H PRN 108 mcg/actuation Potassium Chloride ER (Potassium Chloride) 20 Meq Tab 20 Meq PO DAILY Omeprazole 20 Mg Tab 20 Mg PO DAILY Magnesium Oxide 400 Mg Tab 400 Mg PO DAILY Atrovent HFA 12.9 GM Inh (Ipratropium [place]) 17 Mcg/Actuation Aer 2 Puff INH Q4HR PRN Atorvastatin (Atorvastatin Calcium) 20 Mg Tab 20 Mg PO HS Lasix (Furosemide) 40 Mg Tab 40 Mg PO QOD Allergies: Coded Allergies: amoxicillin (Verified Allergy, Intermediate, throat pain, 06/25/17) Active Ordered Medications Current Medications Ondansetron HCl (Zofran Inj) 4 mg ONCE ONCE IVP Last administered on 07/31/17at 13:15; Start 07/31/17 at 13:00; Stop 07/31/17 at 13:01; Status DC Sodium Chloride 500 ml @ 500 mls/hr BOLUS ONCE IV Last administered on at 13:15; Start 07/31/17 at 13:00; Stop 07/31/17 at 13:59; Status DC Hydralazine HCl (Apresoline Inj) 10 mg ONCE ONCE IV PUSH Last administered on 07/31/17at 16:19; Start 07/31/17 at 15:45; Stop 07/31/17 at 15:46; Status DC Sodium Chloride 250 ml @ 15 mls/hr ONCE ONCE IV ; Start 07/31/17 at 16:00; Stop 08/01/17 at 08:39 Acetaminophen/ Hydrocodone Bitart ([place] 5-325 Mg) 1 tab ONCE ONCE PO Last administered on 07/31/17at 16:24; Start 07/31/17 at 16:15; Stop 07/31/17 at 16:16; Status DC Sodium Chloride (NS Flush) 2 ml UNSCH PRN IV FLUSH FLUSH AFTER USING IV ACCESS ; Start 07/31/17 at 16:15 Sodium Chloride (NS Flush) 2 ml BID IV FLUSH ; Start 07/31/17 at 21:00 Acetaminophen (Tylenol) 650 mg Q4H PRN PO TEMP > 100.4; Start 07/31/17 at 16:15 Ondansetron HCl (Zofran Inj) 4 mg Q6H PRN IVP NAUSEA OR VOMITING; Start at 16:15 Naloxone HCl (Narcan Inj) 0.4 mg UNSCH PRN IV PUSH SEE LABEL COMMENTS; Start at 16:15 Magnesium Hydroxide (Milk Of Magnfrance Liq) 30 ml Q12H PRN PO Mild constipation ; Start 07/31/17 at 16:15 Sennosides (Senokot) 17.2 mg Q12H PRN PO Moderate constipation; Start 07/31/17 at 16:15 Bisacodyl (Dulcolax Supp) 10 mg DAILY PRN RECTAL SEVERE CONSITIPATION; Start at 16:15 Pantoprazole Sodium (Protonix Inj) 40 mg Q12H IV PUSH ; Start 07/31/17 at 17:15 Nitroglycerin (Nitrostat Sl) 0.4 mg ONCE ONCE SL ; Start 07/31/17 at 17:15; Stop 07/31/17 at 17:16; Status DC Family History Mother and father had history of hypertension. Social History Patient stop smoking tobacco 2 days ago. Prior smoked 1 pack per day since the age of 17. Denies any alcohol or illicit drug use. Physical Exam Vital Signs Vital Signs Date Time Temp Pulse Resp B/P (MAP) Pulse Ox O2 Delivery O2 Flow Rate FiO2 07/31/17 17:13 07/31/17 16:15 60 18 185/86 (119) 100 Room Air 07/31/17 14:26 63 14 182/84 (116) 76 16 210/91 (130) 86 24 242/148 (179) 07/31/17 12:20 98.7 67 19 202/86 (124) 96 Room Air 07/31/17 12:16 19 Room Air Physical Exam GENERAL: This is a well-nourished, well-developed patient, in no apparent distress. SKIN: No rashes, ecchymoses or lesions. Cool and dry. HEAD: Atraumatic. Normocephalic. No temporal or scalp tenderness. EYES: Pupils equal round and reactive. Extraocular motions intact. No scleral icterus. No injection or drainage. ENT: Nose without bleeding, purulent drainage or septal hematoma. Throat without erythema, tonsillar hypertrophy or exudate. Uvula midline. Airway patent. NECK: Trachea midline. No JVD or lymphadenopathy. Supple, nontender, no meningeal signs. CARDIOVASCULAR: Regular rate and rhythm without murmurs, gallops, or rubs. RESPIRATORY: Clear to auscultation. Breath sounds equal bilaterally. No wheezes , rales, or rhonchi. GASTROINTESTINAL: Abdomen soft, non-tender, nondistended. No hepato-splenomegaly , or palpable masses. No guarding. MUSCULOSKELETAL: Extremities without clubbing, cyanosis, or edema. No joint tenderness, effusion, or edema noted. No calf tenderness. Negative Homans sign bilaterally. NEUROLOGICAL: Awake and alert. Cranial nerves II through XII intact. Motor and sensory grossly within normal limits. Five out of 5 muscle strength in all muscle groups. Normal speech. Laboratory Laboratory Tests Test 07/31/17 13:08 White Blood Count 4.4 Red Blood Count 3.21 Hemoglobin 7.8 Hematocrit 24.3 Mean Corpuscular Volume 75.7 Mean Corpuscular Hemoglobin 24.5 Mean Corpuscular Hemoglobin Concent 32.3 Red Cell Distribution Width 21.2 Platelet Count 162 Mean Platelet Volume 6.5 Neutrophils (%) (Auto) 72.6 Lymphocytes (%) (Auto) 15.9 Monocytes (%) (Auto) 8.3 Eosinophils (%) (Auto) 2.3 Basophils (%) (Auto) 0.9 Neutrophils # (Auto) 3.2 Lymphocytes # (Auto) 0.7 Monocytes # (Auto) 0.4 Eosinophils # (Auto) 0.1 Basophils # (Auto) 0.0 CBC Comment DIFF FINAL Differential Comment Prothrombin Time 10.8 Prothromb Time International Ratio 1.1 Activated Partial Thromboplast Time 23.4 Urine Color YELLOW Urine Turbidity HAZY Urine pH 8.0 Urine Specific [place] 1.011 Urine Protein NEG Urine Glucose (UA) NEG Urine Ketones NEG Urine Occult Blood NEG Urine Nitrite NEG Urine Bilirubin NEG Urine Urobilinogen LESS THAN 2.0 Urine Leukocyte Esterase TRACE Urine RBC 1 Urine WBC 5 Urine Squamous Epithelial Cells 7 Urine Amorphous Sediment RARE Urine Bacteria RARE Urine Mucus FEW Microscopic Urinalysis Comment CULT NOT INDICATED Blood Urea Nitrogen 11 Creatinine 1.19 Random Glucose 112 Total Protein 7.1 Albumin 3.5 Calcium Level 9.4 Magnesium Level 2.0 Alkaline Phosphatase 168 Aspartate Amino Transf (AST/SGOT) 21 Alanine Aminotransferase (ALT/SGPT) 27 Total Bilirubin 0.4 Sodium Level 141 Potassium Level 3.8 Chloride Level 110 Carbon Dioxide Level 24.9 Anion Gap 6 Estimat Glomerular Filtration Rate 45 Total Creatine Kinase 33 Troponin I LESS THAN 0.02 B-Type Natriuretic Peptide 189 Thyroid Stimulating Hormone 3rd Gen 1.550 Result Diagram: 07/31/17 1308 07/31/17 1308 Imaging Last Impressions Head CT 07/31/17 1249 Signed Impressions: Service Date/Time: Monday, July 31, 2017 13:42 - CONCLUSION: Normal examination except for old lacunar infarct on the right. Torey Levin MD Chest X-Ray 07/31/17 1249 Signed Impressions: Service Date/Time: Monday, July 31, 2017 12:56 - CONCLUSION: Compensated cardiomegaly otherwise negative Scott Malhotra MD FACR [place] VTE Risk Assessment [place] VTE Risk Assessment: Mod/High Risk (score >= 2) Caprini Risk Assessment Model Point Value = 1 Point Value = 2 Point Value = 3 Point Value = 5 Age 41-60 Minor surgery BMI > 25 kg/m2 Swollen legs Varicose veins or History of unexplained or recurrent spontaneous Oral contraceptives or hormone replacement Sepsis (< 1 month) Serious lung disease, including pneumonia (< 1 month) Abnormal pulmonary function Acute myocardial infarction Congestive heart failure (< 1 month) History of inflammatory bowel disease Medical patient at bed rest Age 61-74 Arthroscopic surgery Major open surgery (> 45 min) Laparoscopic surgery (> 45 min) Malignancy Confined to bed (> 72 hours) Immobilizing plaster cast Central venous access Age >= 75 History of VTE Family history of VTE Factor V Leiden Prothrombin [id number] Lupus anticoagulant Anticardiolipin antibodies Elevated serum homocysteine Heparin-induced thrombocytopenia Other congenital or acquired thrombophilia Stroke (< 1 month) Elective arthroplasty Hip, pelvis, or leg fracture Acute spinal cord injury (< 1 month) Prophylaxis Regimen Total Risk Factor Score Risk Level Prophylaxis Regimen 0-1 Low Early ambulation 2 Moderate Order ONE of the following: *Sequential Compression Device (SCD) *Heparin 5000 units SQ BID 3-4 Higher Order ONE of the following medications: *Heparin 5000 units SQ TID *Enoxaparin/Lovenox 40 mg SQ daily (WT < 150 kg, CrCl > 30 mL/min) *Enoxaparin/Lovenox 30 mg SQ daily (WT < 150 kg, CrCl > 10-29 mL/min) *Enoxaparin/Lovenox 30 mg SQ BID (WT < 150 kg, CrCl > 30 mL/min) AND/OR *Sequential Compression Device (SCD) 5 or more Highest Order ONE of the following medications: *Heparin 5000 units SQ TID (Preferred with Epidurals) *Enoxaparin/Lovenox 40 mg SQ daily (WT < 150 kg, CrCl > 30 mL/min) *Enoxaparin/Lovenox 30 mg SQ daily (WT < 150 kg, CrCl > 10-29 mL/min) *Enoxaparin/Lovenox 30 mg SQ BID (WT < 150 kg, CrCl > 30 mL/min) AND *Sequential Compression Device (SCD) Assessment and Plan Assessment and Plan 66-year-old female who had generalized symptoms did not develop chest pain in the ED Chest pain -Atypical, but patient is high risk. First troponin negative. EKG did not show any ST depression or elevation. Will try nitroglycerin since patient states she has not received any nitroglycerin. -Monitor over telemetry, trend troponin and EKG. -Continue with home medication. -Consult her [facility] Dr. Higuera for further recommendations. Hypertensive urgency -Patient had a systolic blood pressure reading in the 240s. She was given hydralazine with improvement in her blood pressure. -She has not taken any her blood pressure medicine since 2 days ago most likely secondary to noncompliance. -We will resume home medication and give as needed medications. Monitor over telemetry. Anemia, symptomatic -Hemoglobin 1 month ago 9.6. Hemoglobin now 7.8. Patient did have recent stent placement so goal hemoglobin should be above 8. ED provider are ready in order to transfuse patient 1 unit packed red blood cells. This may be the cause of her generalized weakness and intermittent chest pain. -Follow up with posttransfusion H&H. Diarrhea -This seems to be a chronic problem. 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 C. difficile done by ED provider PCR negative. COPD/coronary artery disease status post stent placement/chronic pain/GERD/ anxiety -Continue home medication DVT prophylaxis -Heparin Discussed Condition With patient and ED nurse Physician Certification 2 Midnight Certification Type: Admission for Inpatient Services Order for Inpatient Services The services are ordered in accordance with Medicare regulations or non- Medicare payer requirements, as applicable. In the case of services not specified as inpatient-only, they are appropriately provided as inpatient services in accordance with the 2-midnight benchmark. Estimated LOS (days): 2 2 days is the estimated time the patient will need to remain in the hospital, assuming treatment plan goals are met and no additional complications. Post-Hospital Plan: Skyla Sevilla MD Jul 31, 2017 17:17
[2017-07-31] MEDS: PANTOPRAZOLE SODIUM 40 MG VIAL IV PUSH SCH (17:40)
[2017-07-31] MEDS: POTASSIUM CHLORIDE 20 MEQ CONTROLLED RELEASE TAB PO SCH (17:45)
[2017-07-31] MEDS ORDERED: IPRATROPIUM BROMIDE 17 MCG/ACT 12.9 GM INHALER INH PRN (17:45)
[2017-07-31] MEDS ORDERED: ALBUTEROL SULFATE 90 MCG/ACT HFA 8 GM INHALER INH PRN (17:45)
[2017-07-31] MEDS ORDERED: hydrALAZINE HCL 20 MG/ML VIAL IV PUSH PRN (17:45)
[2017-07-31] MEDS ORDERED: RESP: IPRATROPIUM 0.5 MG/2.5 ML NEB NEB PRN (18:00)
[2017-07-31] MEDS: GABAPENTIN 400 MG CAP PO SCH (20:39)
[2017-07-31] MEDS: clonazePAM 0.5 MG TAB PO SCH (20:40)
[2017-07-31] MEDS: amLODIPine BESYLATE 5 MG TAB PO SCH (20:41)
[2017-07-31] MEDS: FUROSEMIDE 40 MG TAB PO SCH (20:41)
[2017-07-31] MEDS: ASPIRIN 81 MG CHEW TAB PO SCH (20:44)
[2017-07-31] MEDS: MAGNESIUM OXIDE 400 MG TAB PO SCH (20:45)
[2017-07-31] MEDS: PANTOPRAZOLE SOD 20 MG DELAYED RELEASE TAB PO SCH (20:46)
[2017-07-31] MEDS: FLUTICASONE PROPIONATE 110 MCG/ACT 12 GM INHALER INH SCH (20:48)
[2017-07-31] MEDS: SODIUM CHLORIDE 0.9% FLUSH 10 ML FLUSH IV FLUSH SCH (20:48)
[2017-07-31] MEDS: HEPARIN SODIUM - SQ 10,000 UNITS/ML VIAL SQ SCH (20:49)
[2017-07-31] MEDS: ATORVASTATIN 20 MG TAB PO SCH (20:58)
[2017-07-31] MEDS: VANCOMYCIN 25 MG/ML SOLN 100 ML BOTTLE PO SCH (21:54)
[2017-07-31] MEDS: TICAGRELOR 90 MG TAB PO SCH (21:54)
[2017-07-31] MEDS: ACETAMINOPHEN/HYDROcodone 325 MG/5 MG TAB PO PRN (22:18)
[2017-08-01] MEDS: ACETAMINOPHEN/HYDROcodone 325 MG/5 MG TAB PO PRN ×2 (05:55→18:11)
[2017-08-01] MEDS: VANCOMYCIN 25 MG/ML SOLN 100 ML BOTTLE PO SCH ×4 (05:55→18:10)
[2017-08-01] MEDS: PANTOPRAZOLE SODIUM 40 MG VIAL IV PUSH SCH ×2 (05:57→18:09)
[2017-08-01 06:26] LABS: HEMATOCRIT 27.6 % (35.0-46.0); MEAN CELL VOLUME 75.1 FL (80.0-100.0); MEAN CORPUSCULAR HEMOGLOBIN 24.4 PG (27.0-34.0); MEAN CORPUSCULAR HGB CONC 32.5 % (32.0-36.0); MEAN PLATELET VOLUME 6.4 FL (7.0-11.0); PLATELET COUNT 172 TH/MM3 (150-450); RED BLOOD COUNT 3.68 MIL/MM3 (4.00-5.30); RED CELL DISTRIBUTION WIDTH 20.4 % (11.6-17.2); WHITE BLOOD COUNT 5.2 TH/MM3 (4.0-11.0)
[2017-08-01 06:49] LABS: BICARBONATE 23.1 MEQ/L (21.0-32.0); BLOOD UREA NITROGEN 13 MG/DL (7-18); CALCIUM 9.9 MG/DL (8.5-10.1); CHLORIDE 108 MEQ/L (98-107); CREATININE 1.26 MG/DL (0.50-1.00); GLOMERULAR FILTRATION RATE 42 ML/MIN (>89); GLUCOSE,RANDOM 84 MG/DL (74-106); SODIUM (NA) 141 MEQ/L (136-145)
[2017-08-01 06:53] LABS: TROPONIN I LESS THAN 0.02 NG/ML (0.02-0.05)
[2017-08-01 09:01] VITALS: BP 136/62; PULSE 58; O2SAT 99
[2017-08-01] MEDS: TICAGRELOR 90 MG TAB PO SCH (09:03)
[2017-08-01] MEDS: FLUTICASONE PROPIONATE 110 MCG/ACT 12 GM INHALER INH SCH ×2 (09:04→20:58)
[2017-08-01] MEDS: SODIUM CHLORIDE 0.9% FLUSH 10 ML FLUSH IV FLUSH SCH ×2 (09:05→20:58)
[2017-08-01] MEDS: MAGNESIUM OXIDE 400 MG TAB PO SCH (09:05)
[2017-08-01] MEDS: POTASSIUM CHLORIDE 20 MEQ CONTROLLED RELEASE TAB PO SCH (09:05)
[2017-08-01] MEDS: FUROSEMIDE 40 MG TAB PO SCH (09:05)
[2017-08-01] MEDS: GABAPENTIN 400 MG CAP PO SCH ×3 (09:06→18:09)
[2017-08-01] MEDS: ASPIRIN 81 MG CHEW TAB PO SCH (09:07)
[2017-08-01] MEDS: clonazePAM 0.5 MG TAB PO SCH ×4 (09:07→20:59)
[2017-08-01] MEDS: amLODIPine BESYLATE 5 MG TAB PO SCH (09:07)
[2017-08-01] MEDS: PANTOPRAZOLE SOD 20 MG DELAYED RELEASE TAB PO SCH (09:07)
[2017-08-01] MEDS: HEPARIN SODIUM - SQ 10,000 UNITS/ML VIAL SQ SCH (09:09)
--- NOTE | 2017-08-01 10:52 | EKG ---
Date Performed: 07/31/2017 Time Performed: 14:29:44 PTAGE: 66 years EKG: Sinus rhythm WITH OCCASIONAL SUPRAVENTRICULAR PREMATURE COMPLEXES POSSIBLE RIGHT VENTRICULAR CONDUCTION DELAY BOR DERLINE ECG PREVIOUS TRACING : 07/02/2017 18.42 DOCTOR: Torey [place]ri[place] Interpretating Date/Time 08/01/2017 10:51:33
[2017-08-01 11:28] VITALS: BP 145/69; PULSE 99; O2SAT 98
[2017-08-01] MEDS: CLOPIDOGREL 75 MG TAB PO SCH (11:31)
[2017-08-01] MEDS: METOPROLOL TARTRATE 25 MG TAB PO SCH ×2 (11:32→20:59)
--- NOTE | 2017-08-01 11:51 | MB ---
cc: Naty Calzada MD DATE OF CONSULT: REASON FOR CONSULTATION: Chest pain and uncontrolled hypertension. HISTORY OF PRESENT ILLNESS: Ms. Crespo is a 66-year-old patient of my partner, Dr. Higuera. 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 The patient notes that she began having generalized weakness and diarrhea on that progressed Wednesday. On Wednesday this precipitated her admission. On arrival to the emergency room she did have some chest pressure that radiated to her arm for about 15 minutes. She denied that this was similar to before her stent, as she reports she did not have any real symptoms then. She is currently pain free. PAST MEDICAL HISTORY: Significant for coronary artery disease with multi-vessel stenting earlier this year, hypertension, chronic C. difficile, UTIs, COPD, tobacco abuse, and dyslipidemia. She is legally blind. ALLERGIES: AMOXICILLIN OUTPATIENT MEDICATIONS: 1. [place]. 2. Neurontin. 3. Aspirin. 4. Amlodipine. 5. Brilinta. 6. Klonopin. 7. Vancomycin liquid. 8. Flovent. 9. ProAir. 10. Potassium. 11. Omeprazole. 12. Magnesium. 13. Atrovent. 14. Atorvastatin. 15. Lasix. FAMILY HISTORY: Positive for hypertension. SOCIAL HISTORY: The patient reports quitting smoking two days ago. REVIEW OF SYSTEMS: Except as mentioned in the history of present illness, all 12-systems are negative. PHYSICAL EXAMINATION: VITAL SIGNS: Peak blood pressure was 242/148. Currently it is 136/62 with a heart rate of 58 and a respiratory rate of 18. GENERAL: She is a morbidly obese female who is in no apparent distress. NECK: Free from JVD. LUNGS: Bilaterally clear to auscultation. CARDIOVASCULAR: She has a normal S1 and S2. I did not appreciate any murmurs, rubs or gallops. ABDOMEN: Soft. EXTREMITIES: Free from edema. LABORATORY DATA: Significant for a hemoglobin of 9.0. Her creatinine is 1.26 and serial troponins are less than 0.02. Her BNP is 189. EKG: Shows normal sinus rhythm with nonspecific ST-T wave changes and an RSR prime. IMPRESSION: Uncontrolled hypertension - the patient does have a history of the same. She reports that she has had labile blood pressure for many years. At this point she reports that she is compliant with her medications. She may, however, in light of her nausea and vomiting not been able to keep some of the medications down. In any case her blood pressure appears appropriate this morning on her present medications and thus, I would continue them. Chest pain - the patient has ruled out with serial enzymes that are negative. Her ECG is also not suggestive of an acute event. At this point it does appear that the chest pain was related to her blood pressure as she did not have any until arrival when her blood pressure spiked to approximately systolic of 240. At this point I would continue to treat her conservatively. Ultimately, Dr. Higuera will follow with her tomorrow and decide if he wishes to pursue further evaluation. Anemia - this is also chronic per the patient. C. difficile - this is being managed by the primary team. Case Management - Case Management will be consulted as the patient reports she cannot afford the Brilinta. I will change her to Plavix and consult Case Management. Dr. Higuera will follow in the morning. MD MARIA M Reid/MICHELLE/rr , 09:36 AM , 10:19 AM MTDD
--- NOTE | 2017-08-01 13:17 | PD.CONS ---
HPI History of Present Illness This is a 66 year old obese female came to the emergency room and was admitted on 07/31/17 for nausea uncontrolled, dry heaves, generalized weakness and diarrhea within 48 hours of admission date. She notes that stools were darker, originally but then lightened up. According to the record she has significant history of coronary artery disease and is post stent placement 1 month ago left circumflex. Patient did note some chest pain when coming to the emergency room and has been seen per cardiology. Patient has long history of tobacco use pack a day or less recently. Currently she is resting in the bed, awake, and a good historian. Initially hemoglobin was 7.8 on admission she received one unit of packed RBCs; Current labs show hemoglobin 9. On 08/01/17. She denies any further chest pain she notes EGD colonoscopy done 1 year ago in the [facility] , patient does have a history of polyps, C. difficile which was treated with fecal transplant. Currently patient denies any dysphasia, no hematemesis, no constipation. Patient does note history 1 of ferrous sulfate tablet becoming lodged upper GI. Also has history of anemia. (Deirdre Drake) PFSH Past Medical History Coronary artery disease Hypertension Recurrent UTIs Chronic C. difficile COPD Tobacco abuse Anxiety and depression Past Surgical History PCI Appendectomy Tonsillectomy Cervical fusion Unspecified oral surgery Cardiac stent 1 month ago (Deirdre Drake) Coded Allergies: amoxicillin (Verified Allergy, Intermediate, throat pain, 06/25/17) Medications Administered Medications Medications (Trade) Dose Ordered Sig/Milana Route PRN Reason Start Time Stop Time Status Last Admin Dose Admin Sodium Chloride (NS Flush) 2 ml BID IV FLUSH 07/31/17 21:00 08/01/17 09:05 Pantoprazole Sodium (Protonix Inj) 40 mg Q12H IV PUSH 07/31/17 17:15 08/01/17 05:57 Heparin Sodium (Porcine) (Heparin Inj) 5,000 units Q12HR SQ 07/31/17 21:00 08/01/17 09:09 Amlodipine Besylate (Norvasc) 2.5 mg DAILY PO 07/31/17 17:45 08/01/17 09:07 Aspirin (Aspirin Chew) 81 mg DAILY PO 07/31/17 17:45 08/01/17 09:07 Atorvastatin Calcium (Lipitor) 20 mg HS PO 07/31/17 21:00 07/31/17 20:58 Clonazepam (KlonoPIN) 0.5 mg QID PO 07/31/17 18:00 08/01/17 09:07 Fluticasone Propionate (Flovent Hfa 110 Mcg Inh) 2 puff BID INH 07/31/17 21:00 08/01/17 09:04 Furosemide (Lasix) 40 mg DAILY PO 07/31/17 17:45 08/01/17 09:05 Gabapentin (Neurontin) 400 mg TID PO 07/31/17 18:00 08/01/17 09:06 Acetaminophen/ Hydrocodone Bitart ([place] 5-325 Mg) 1 tab Q6H PRN PO PAIN 07/31/17 17:45 08/01/17 05:55 Magnesium Oxide (Mag-Ox) 400 mg DAILY PO 07/31/17 17:45 08/01/17 09:05 Potassium Chloride (KCl) 20 meq DAILY PO 07/31/17 17:45 08/01/17 09:05 Pantoprazole Sodium (Protonix) 20 mg DAILY PO 07/31/17 17:45 08/01/17 09:07 Vancomycin HCl (Vancomycin 25 Mg/ml Liq) 250 mg Q6HR PO 07/31/17 18:00 08/01/17 05:55 Clopidogrel Bisulfate (Plavix) 75 mg DAILY PO 08/01/17 09:45 08/01/17 11:31 Metoprolol Tartrate (Lopressor) 12.5 mg Q12HR PO 08/01/17 09:45 08/01/17 11:32 Family History Mother and father had history of hypertension. Family history of polyps and diverticulitis No family history of colon cancer EGD colonoscopy done in [place] at [place], approximately one year ago Social History Patient stop smoking tobacco 2 days ago. Prior smoked 1 pack per day since the age of 17. Denies any alcohol or illicit drug use. Patient is single (Deirdre Drake) Review of Systems Constitutional: COMPLAINS OF: Fatigue Gastrointestinal: COMPLAINS OF: Black stools, Diarrhea, Nausea (Deirdre Drake) GI Exam Vitals I&O Vital Signs Date Time Temp Pulse Resp B/P (MAP) Pulse Ox O2 Delivery O2 Flow Rate FiO2 08/01/17 11:28 99 145/69 (94) 98 08/01/17 09:01 58 136/62 (86) 99 07/31/17 21:51 97.5 66 18 150/68 100 07/31/17 21:28 66 18 160/72 (101) 100 07/31/17 21:00 68 190/70 (110) 07/31/17 19:10 100 Nasal Cannula 2.00 07/31/17 19:00 98.2 66 20 156/67 100 07/31/17 18:44 97.6 64 18 154/65 100 07/31/17 18:29 97.8 68 18 178/76 100 07/31/17 17:13 07/31/17 17:12 98.6 70 16 152/66 (94) 100 07/31/17 16:15 60 18 185/86 (119) 100 Room Air 07/31/17 14:26 63 14 182/84 (116) 76 16 210/91 (130) 86 24 242/148 (179) I/O 07/31/17 07/31/17 07/31/17 08/01/17 08/01/17 08/01/17 07:00 15:00 23:00 07:00 15:00 23:00 Intake Total 500 ml 400 ml Output Total 600 ml Balance 500 ml -200 ml Intake IV Total 500 ml Packed Cells 400 ml Output Urine Total 600 ml Imaging Last Impressions Head CT [id number]/31/171248 Signed Impressions: Service Date/Time: Monday, July 31, 2017 13:42 - CONCLUSION: Normal examination except for old lacunar infarct on the right. Torey Levin MD Chest X-Ray 07/31/17 1249 Signed Impressions: Service Date/Time: Monday, July 31, 2017 12:56 - CONCLUSION: Compensated cardiomegaly otherwise negative Scott Malhotra MD FACR Laboratory Test 08/01/17 01:35 08/01/17 06:00 Troponin I LESS THAN 0.02 NG/ML LESS THAN 0.02 NG/ML White Blood Count 5.2 TH/MM3 Red Blood Count 3.68 MIL/MM3 Hemoglobin 9.0 GM/DL Hematocrit 27.6 % Mean Corpuscular Volume 75.1 FL Mean Corpuscular Hemoglobin 24.4 PG Mean Corpuscular Hemoglobin Concent 32.5 % Red Cell Distribution Width 20.4 % Platelet Count 172 TH/MM3 Mean Platelet Volume 6.4 FL Blood Urea Nitrogen 13 MG/DL Creatinine 1.26 MG/DL Random Glucose 84 MG/DL Calcium Level 9.9 MG/DL Sodium Level 141 MEQ/L Potassium Level 3.8 MEQ/L Chloride Level 108 MEQ/L Carbon Dioxide Level 23.1 MEQ/L Anion Gap 10 MEQ/L Estimat Glomerular Filtration Rate 42 ML/MIN Physical Examination HEENT: Pupils round and reactive to light; normocephalic; atraumatic; oral cavity clean, no obvious jaundice NECK: Neck is supple CHEST: Chest is carlos clear without obvious rhonchi CARDIAC: Regular rate and rhythm, sounds distant ABDOMEN: Round, obese, Soft, nondistended, nontender; no hepatosplenomegaly; bowel sounds are present in all four quadrants. EXTREMITIES: No edema. SKIN: Normal; no rash; no jaundice., Pale PATCH SANDER: No focal deficits; alert and oriented times three. (Deirdre Drake) Assessment and Plan Plan Nausea, with dry heaving. Dark tarry stool 1 rule out upper GI bleed, History of some dysphasia with ferrous sulfate tablet getting hung in the upper GI area. History of anemia, has been on ferrous sulfate in the past Diarrhea, dark stools initially but lightened up. Resolved now denies any constipation EGD colonoscopy one year ago in the [facility]. History of polyps Distress C. difficile with fecal transplant successful Anemia, possible acute on chronic, GI bleed. Hemoglobin 7.8 on admission, receiving 1 unit packed RBCs, now 9. Hemoglobin Plan EGD with colonoscopy in the a.m. Prep GoLYTELY Nothing by mouth at midnight except for her meds Clear liquids today PPI IV Monitor for any other acute bleeding or dark stools Monitor hemoglobin and other labs Supportive care Patient was seen per myself and Dr. Chris, note is written on his behalf (Deirdre Drake) Physician Comments Seen and examined with STUART, egd/colonoscopy planned for tomorrow. Monitor labs. C.Diff -ve. Thank you (Onesimo Chris MD) Deirdre Drake Aug 01, 2017 13:17 Onesimo Chris MD Aug 01, 2017 16:25
--- NOTE | 2017-08-01 15:35 | HHI.PR ---
Objective Vital Signs Date Time Temp Pulse Resp B/P (MAP) Pulse Ox O2 Delivery O2 Flow Rate FiO2 08/01/17 11:28 99 145/69 (94) 98 08/01/17 09:01 58 136/62 (86) 99 07/31/17 21:51 97.5 66 18 150/68 100 07/31/17 21:28 66 18 160/72 (101) 100 07/31/17 21:00 68 190/70 (110) 07/31/17 19:10 100 Nasal Cannula 2.00 07/31/17 19:00 98.2 66 20 156/67 100 07/31/17 18:44 97.6 64 18 154/65 100 07/31/17 18:29 97.8 68 18 178/76 100 07/31/17 17:13 07/31/17 17:12 98.6 70 16 152/66 (94) 100 07/31/17 16:15 60 18 185/86 (119) 100 Room Air I/O 07/31/17 07/31/17 07/31/17 08/01/17 08/01/17 08/01/17 07:00 15:00 23:00 07:00 15:00 23:00 Intake Total 500 ml 400 ml Output Total 600 ml Balance 500 ml -200 ml Intake IV Total 500 ml Packed Cells 400 ml Output Urine Total 600 ml # Voids 1 Result Diagram: 08/01/17 0600 08/01/17 0600 Objective Remarks GENERAL: Lying in bed. Appears comfortable. Alert and oriented 3. SKIN: Warm and dry. HEAD: Normocephalic. EYES: No scleral icterus. No injection or drainage. NECK: Supple, trachea midline. No JVD. CARDIOVASCULAR: Regular rate and rhythm without murmurs, gallops, or rubs. RESPIRATORY: Breath sounds equal bilaterally. No accessory muscle use. GASTROINTESTINAL: Abdomen soft, non-tender, nondistended. MUSCULOSKELETAL: No cyanosis, or edema. BACK: Nontender without obvious deformity. No CVA tenderness. A/P Assessment and Plan 66-year-old female who had generalized symptoms did not develop chest pain in the ED //Chest pain -Atypical, but patient is high risk. First troponin negative. EKG did not show any ST depression or elevation. Will try nitroglycerin since patient states she has not received any nitroglycerin. -Monitor over telemetry, trend troponin and EKG. -Continue with home medication. -Consult her manager of engineering Dr. Higuera for further recommendations. = Appreciate cardiology assistance. No evidence of acute event at this time. Continue to monitor. //Hypertensive urgency -Patient had a systolic blood pressure reading in the 240s. She was given hydralazine with improvement in her blood pressure. -She has not taken any her blood pressure medicine since 2 days ago most likely secondary to noncompliance. -We will resume home medication and give as needed medications. Monitor over telemetry. = Blood pressure improved. Continue current regimen. Continue to monitor. //Anemia, symptomatic -Hemoglobin 1 month ago 9.6. Hemoglobin now 7.8. Patient did have recent stent placement so goal hemoglobin should be above 8. ED provider are ready in order to transfuse patient 1 unit packed red blood cells. This may be the cause of her generalized weakness and intermittent chest pain. -Follow up with posttransfusion H&H. = Hemoglobin improved to 9.0 after transfusion. Abrupt drop in hemoglobin. GI following. Appreciate assistance. //Diarrhea -This seems to be a chronic problem. 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 C. difficile done by ED provider PCR negative. //COPD/coronary artery disease status post stent placement/chronic pain/GERD/ anxiety -Continue home medication = We will place on isolation and check C. difficile of stool. DVT prophylaxis -We are going to stop heparin due to presentation with symptomatic anemia. Discharge Planning Pending GI and cardiology clearance. Jacob Stokes MD Aug 01, 2017 15:35
[2017-08-01 16:00] VITALS: BP 121/59; PULSE 58; PULSE 59; RESP 18; TEMP 98; O2SAT 96
[2017-08-01] MEDS ORDERED: PEG (High)/E-LYTE SOLN 4000 ML BTL PO ONE (16:00)
[2017-08-01 20:00] VITALS: BP 144/79; PULSE 66; PULSE 69; RESP 16; TEMP 98.1; O2SAT 100
[2017-08-01] MEDS: ATORVASTATIN 20 MG TAB PO SCH (20:58)
[2017-08-01] MEDS ORDERED: LACTATED RINGER'S 1000 ML IV PRN (21:45)
[2017-08-01] MEDS ORDERED: SODIUM CHLORID 0.9% 500 ML IV PRN (21:45)
[2017-08-01] MEDS ORDERED: CHLORHEXIDINE GLUCONATE 2 % 1 PACK (2 CLOTHS) TOPICAL PRN (21:45)
[2017-08-01] MEDS ORDERED: POVIDONE IODINE 5% (ANTISEPSIS KIT) 4 APPLICATIONS EACH NARE PRN (21:45)
[2017-08-02] VITALS (9 sets, daily range): BP systolic 111–137; BP diastolic 54–61; PULSE 49–57; RESP 16–20; TEMP 97.7–98.5; O2SAT 95–99
[2017-08-02] MEDS: VANCOMYCIN 25 MG/ML SOLN 100 ML BOTTLE PO SCH ×4 (00:20→18:29)
[2017-08-02] MEDS: ACETAMINOPHEN/HYDROcodone 325 MG/5 MG TAB PO PRN ×3 (03:42→22:07)
[2017-08-02] MEDS: PANTOPRAZOLE SODIUM 40 MG VIAL IV PUSH SCH ×2 (04:45→18:30)
[2017-08-02 06:09] LABS: AUTOMATED NEUTROPHIL # 2.4 TH/MM3 (1.8-7.7); BASOPHIL # 0.1 TH/MM3 (0-0.2); BASOPHIL % 1.1 % (0.0-2.0); EOSINOPHIL # 0.3 TH/MM3 (0-0.4); EOSINOPHIL % 5.5 % (0.0-4.0); HEMATOCRIT 28.5 % (35.0-46.0); HEMOGLOBIN 9.4 GM/DL (11.6-15.3); LYMPH % 34.9 % (9.0-44.0); LYMPHOCYTE # 1.8 TH/MM3 (1.0-4.8); MEAN CELL VOLUME 75.8 FL (80.0-100.0); MEAN CORPUSCULAR HEMOGLOBIN 24.9 PG (27.0-34.0); MEAN CORPUSCULAR HGB CONC 32.9 % (32.0-36.0); MEAN PLATELET VOLUME 6.6 FL (7.0-11.0); MONOCYTE # 0.6 TH/MM3 (0-0.9); NEUT % 46.5 % (16.0-70.0); PLATELET COUNT 149 TH/MM3 (150-450); RED BLOOD COUNT 3.76 MIL/MM3 (4.00-5.30); RED CELL DISTRIBUTION WIDTH 20.1 % (11.6-17.2); WHITE BLOOD COUNT 5.2 TH/MM3 (4.0-11.0)
[2017-08-02 06:26] LABS: ALBUMIN 3.5 GM/DL (3.4-5.0); BICARBONATE 25.7 MEQ/L (21.0-32.0); CALCIUM 9.6 MG/DL (8.5-10.1); CREATININE 1.42 MG/DL (0.50-1.00); MAGNESIUM 1.9 MG/DL (1.5-2.5); PHOSPHORUS 2.7 MG/DL (2.5-4.9)
[2017-08-02] MEDS: CLOPIDOGREL 75 MG TAB PO SCH (09:00)
[2017-08-02] MEDS: METOPROLOL TARTRATE 25 MG TAB PO SCH ×2 (09:00→21:59)
[2017-08-02] MEDS: ASPIRIN 81 MG CHEW TAB PO SCH (09:00)
[2017-08-02] MEDS: FUROSEMIDE 40 MG TAB PO SCH (10:34)
[2017-08-02] MEDS: PANTOPRAZOLE SOD 20 MG DELAYED RELEASE TAB PO SCH (10:34)
[2017-08-02] MEDS: GABAPENTIN 400 MG CAP PO SCH ×3 (10:34→18:29)
[2017-08-02] MEDS: MAGNESIUM OXIDE 400 MG TAB PO SCH (10:34)
--- NOTE | 2017-08-02 10:34 | HHI.PR ---
Subjective Remarks Patient is a little anxious of upcoming procedure. Says she has no bleeding , stool is dark color. no abd pain . No cp, sob, palpitations. H.H stable. No n/v /d/c. Denies chest pain or sob. Objective Vitals Vital Signs Date Time Temp Pulse Resp B/P (MAP) Pulse Ox O2 Delivery O2 Flow Rate FiO2 08/02/17 08:00 97.7 53 18 114/59 (77) 99 08/02/17 04:00 Room Air 08/02/17 04:00 51 08/02/17 03:37 98.1 53 18 111/54 (73) 95 08/02/17 00:18 98.0 50 16 126/60 (82) 99 08/02/17 00:00 55 08/02/17 00:00 Room Air 08/01/17 20:00 98.1 66 16 144/79 (100) 100 08/01/17 20:00 69 08/01/17 20:00 Room Air 08/01/17 16:00 58 08/01/17 16:00 98.0 59 18 121/59 (79) 96 08/01/17 11:28 99 145/69 (94) 98 I/O 08/01/17 08/01/17 08/01/17 08/02/17 08/02/17 08/02/17 07:00 15:00 23:00 07:00 15:00 23:00 Output Total 1100 ml Balance -1100 ml Output Urine Total 300 ml Stool Total 800 ml # Voids 1 4 # Bowel Movements 5 Result Diagram: 08/02/17 0426 08/02/17 0420 Imaging Last Impressions Head CT 07/31/171248 Signed Impressions: Service Date/Time: Monday, July 31, 2017 13:42 - CONCLUSION: Normal examination except for old lacunar infarct on the right. Torey Levin MD Chest X-Ray 07/31/17 6736 Signed Impressions: Service Date/Time: Monday, July 31, 2017 12:56 - CONCLUSION: Compensated cardiomegaly otherwise negative Scott Malhotra MD FACR Objective Remarks GENERAL: Lying in bed. Appears comfortable. Alert and oriented 3. CARDIOVASCULAR: Regular rate and rhythm without murmurs, gallops, or rubs. RESPIRATORY: Breath sounds equal bilaterally. No accessory muscle use. GASTROINTESTINAL: Abdomen soft, non-tender, nondistended. MUSCULOSKELETAL: No cyanosis, or edema. BACK: Nontender without obvious deformity. No CVA tenderness. A/P Assessment and Plan 66-year-old female who had generalized symptoms did not develop chest pain in the ED Chest pain Atypical, but patient is high risk. First troponin negative. EKG did not show any ST depression or elevation. Will try nitroglycerin since patient states she has not received any nitroglycerin. Monitor over telemetry, trend troponin x3 negative. EKG no ischemic changes. Continue with home medication. Consult her death surveys coder Dr. Higuera for further recommendations. Appreciate cardiology assistance. No evidence of acute event at this time. Continue to monitor. Hypertensive urgency Patient had a systolic blood pressure reading in the 240s. She was given hydralazine with improvement in her blood pressure. She has not taken any her blood pressure medicine since 2 days ago most likely secondary to noncompliance. We will resume home medication and give as needed medications. Monitor over telemetry. Blood pressure improved. Continue current regimen. Continue to monitor. Anemia, symptomatic Hemoglobin 1 month ago 9.6. Hemoglobin now 7.8. Patient did have recent stent placement so goal hemoglobin should be above 8. ED provider are ready in order to transfuse patient 1 unit packed red blood cells. This may be the cause of her generalized weakness and intermittent chest pain. Follow up with posttransfusion H&H. Hemoglobin improved to 9.0 after transfusion. Abrupt drop in hemoglobin. GI following. Appreciate assistance. Plan for EGD/colonoscopy H/H stable so far after 1U PRBC Diarrhea This seems to be a chronic problem. 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 C. difficile done by ED provider PCR negative. COPD/coronary artery disease status post stent placement/chronic pain/GERD/ anxiety Continue home medication We will place on isolation and check C. difficile of stool. DVT prophylaxis We are going to stop heparin due to presentation with symptomatic anemia. Discharge Planning Pending GI and cardiology clearance. Plan for EGD/colonoscopy H/H stable so far after 1U PRBC Quyen Lucio MD Aug 02, 2017 10:34
[2017-08-02] MEDS: amLODIPine BESYLATE 5 MG TAB PO SCH (10:35)
[2017-08-02] MEDS: POTASSIUM CHLORIDE 20 MEQ CONTROLLED RELEASE TAB PO SCH (10:35)
[2017-08-02] MEDS: clonazePAM 0.5 MG TAB PO SCH ×4 (10:35→21:59)
[2017-08-02] MEDS: SODIUM CHLORIDE 0.9% FLUSH 10 ML FLUSH IV FLUSH SCH ×2 (10:37→22:00)
[2017-08-02] MEDS ORDERED: METO25TA3 PO (10:42)
[2017-08-02] MEDS ORDERED: PLAV75TA29 PO (10:42)
[2017-08-02] MEDS ORDERED: MAGNESIUM OXIDE 400 MG TAB PO SCH (10:45)
[2017-08-02] MEDS: FLUTICASONE PROPIONATE 110 MCG/ACT 12 GM INHALER INH SCH ×2 (10:46→22:00)
[2017-08-02] MEDS: POTASSIUM CHLOR 20 MEQ PREMIX 100 ML IV SCH ×2 (11:00→16:46)
--- NOTE | 2017-08-02 11:31 | PD.CARD.PN ---
Subjective Subjective Remarks No chest pain/SOB Feels relatively well No nausea/emesis Objective Medications Current Medications Medications (Trade) Dose Ordered Sig/Milana Route Start Time Stop Time Status Last Admin (NS Flush) 2 ml UNSCH PRN IV FLUSH 07/31/17 16:15 (NS Flush) 2 ml BID IV FLUSH 07/31/17 21:00 08/02/17 10:37 (Tylenol) 650 mg Q4H PRN PO 07/31/17 16:15 (Zofran Inj) 4 mg Q6H PRN IVP 07/31/17 16:15 (Narcan Inj) 0.4 mg UNSCH PRN IV PUSH 07/31/17 16:15 (Milk Of Magnesia Liq) 30 ml Q12H PRN PO 07/31/17 16:15 (Senokot) 17.2 mg Q12H PRN PO 07/31/17 16:15 (Dulcolax Supp) 10 mg DAILY PRN RECTAL 07/31/17 16:15 (Protonix Inj) 40 mg Q12H IV PUSH 07/31/17 17:15 08/02/17 04:45 (Proair Hfa Inh) 2 puff Q6H PRN INH 07/31/17 17:45 (Norvasc) 2.5 mg DAILY PO 07/31/17 17:45 08/02/17 10:35 (Aspirin Chew) 81 mg DAILY PO 07/31/17 17:45 08/01/17 09:07 (Lipitor) 20 mg HS PO 07/31/17 21:00 08/01/17 20:58 (KlonoPIN) 0.5 mg QID PO 07/31/17 18:00 08/02/17 10:35 (Flovent Hfa 110 Mcg Inh) 2 puff BID INH 07/31/17 21:00 08/02/17 10:46 (Lasix) 40 mg DAILY PO 07/31/17 17:45 08/02/17 10:34 (Neurontin) 400 mg TID PO 07/31/17 18:00 08/02/17 10:34 ([place] 5-325 Mg) 1 tab Q6H PRN PO 07/31/17 17:45 08/02/17 03:42 (Mag-Ox) 400 mg DAILY PO 07/31/17 17:45 08/02/17 10:34 (KCl) 20 meq DAILY PO 07/31/17 17:45 08/02/17 10:35 (Protonix) 20 mg DAILY PO 07/31/17 17:45 08/02/17 10:34 (Vancomycin 25 Mg/ml Liq) 250 mg Q6HR PO 07/31/17 18:00 08/02/17 04:45 (Apresoline Inj) 20 mg Q4H PRN IV PUSH 07/31/17 17:45 (Atrovent Neb) 0.5 mg Q4HR NEB PRN NEB 07/31/17 18:00 (Plavix) 75 mg DAILY PO 08/01/17 09:45 08/01/17 11:31 (Lopressor) 12.5 mg Q12HR PO 08/01/17 09:45 08/01/17 20:59 Lactated Ringer's 1,000 ml @ 30 mls/hr Q24H PRN IV 08/01/17 21:45 08/04/17 21:44 Sodium Chloride 500 ml @ 30 mls/hr [id number] PRN IV 08/01/17 21:45 08/04/17 21:44 (Betadine 5% Antisepsis Kit) 1 applic TWITCHELL OPERATOR PRN EACH NARE 08/01/17 21:45 08/04/17 21:44 (Chlorhexidine 2% Cloth) 3 pack TWITCHELL OPERATOR PRN TOPICAL 08/01/17 21:45 08/04/17 21:44 Potassium Chloride 100 ml @ 50 mls/hr Q2H IV 08/02/17 11:00 08/02/17 14:59 Vital Signs / I&O Vital Signs Date Time Temp Pulse Resp B/P (MAP) Pulse Ox O2 Delivery O2 Flow Rate FiO2 08/02/17 08:00 97.7 53 18 114/59 (77) 99 08/02/17 04:00 Room Air 08/02/17 04:00 51 08/02/17 03:37 98.1 53 18 111/54 (73) 95 08/02/17 00:18 98.0 50 16 126/60 (82) 99 08/02/17 00:00 55 08/02/17 00:00 Room Air 08/01/17 20:00 98.1 66 16 144/79 (100) 100 08/01/17 20:00 69 08/01/17 20:00 Room Air 08/01/17 16:00 58 08/01/17 16:00 98.0 59 18 121/59 (79) 96 I/O 08/01/17 08/01/17 08/01/17 08/02/17 08/02/17 08/02/17 07:00 15:00 23:00 07:00 15:00 23:00 Output Total 1100 ml Balance -1100 ml Output Urine Total 300 ml Stool Total 800 ml # Voids 1 4 # Bowel Movements 5 Physical Exam GENERAL: NAD, AAOx3 SKIN: Warm and dry. HEAD: Atraumatic. Normocephalic. EYES: Pupils equal and round. No scleral icterus. No injection or drainage. ENT: No nasal bleeding or discharge. Mucous membranes pink and moist. NECK: Trachea midline. No JVD. CARDIOVASCULAR: Regular rate and rhythm. RESPIRATORY: No accessory muscle use. Clear to auscultation. Breath sounds equal bilaterally. GASTROINTESTINAL: Abdomen soft, non-tender, nondistended. Hepatic and splenic margins not palpable. MUSCULOSKELETAL: Extremities without clubbing, cyanosis, or edema. No obvious deformities. NEUROLOGICAL: Awake and alert. No obvious cranial nerve deficits. Motor grossly within normal limits. Five out of 5 muscle strength in the arms and legs. Normal speech. PSYCHIATRIC: Appropriate mood and affect; insight and judgment normal. Laboratory Laboratory Tests Test 08/01/17 19:23 08/01/17 20:02 08/02/17 04:20 08/02/17 04:26 Stool C. difficile Toxin (PCR) NEGATIVE Stl C. difficile Toxin Epiderm 027 PRESUMPTIVE NEGATIVE Hemoglobin 10.3 GM/DL 9.4 GM/DL Blood Urea Nitrogen 18 MG/DL Creatinine 1.42 MG/DL Random Glucose 83 MG/DL Albumin 3.5 GM/DL Calcium Level 9.6 MG/DL Phosphorus Level 2.7 MG/DL Magnesium Level 1.9 MG/DL Sodium Level 140 MEQ/L Potassium Level 3.2 MEQ/L Chloride Level 105 MEQ/L Carbon Dioxide Level 25.7 MEQ/L Anion Gap 9 MEQ/L Estimat Glomerular Filtration Rate 37 ML/MIN White Blood Count 5.2 TH/MM3 Red Blood Count 3.76 MIL/MM3 Hematocrit 28.5 % Mean Corpuscular Volume 75.8 FL Mean Corpuscular Hemoglobin 24.9 PG Mean Corpuscular Hemoglobin Concent 32.9 % Red Cell Distribution Width 20.1 % Platelet Count 149 TH/MM3 Mean Platelet Volume 6.6 FL Neutrophils (%) (Auto) 46.5 % Lymphocytes (%) (Auto) 34.9 % Monocytes (%) (Auto) 12.0 % Eosinophils (%) (Auto) 5.5 % Basophils (%) (Auto) 1.1 % Neutrophils # (Auto) 2.4 TH/MM3 Lymphocytes # (Auto) 1.8 TH/MM3 Monocytes # (Auto) 0.6 TH/MM3 Eosinophils # (Auto) 0.3 TH/MM3 Basophils # (Auto) 0.1 TH/MM3 CBC Comment DIFF FINAL Differential Comment Assessment and Plan Problem List: (1) Hypertensive urgency ICD Codes: I16.0 - Hypertensive urgency Status: Acute (2) Symptomatic anemia ICD Codes: D64.9 - Anemia, unspecified Status: Acute (3) CAD (coronary artery disease) ICD Codes: I25.10 - Atherosclerotic heart disease of [place] coronary artery without angina pectoris (4) Accelerated hypertension ICD Codes: I10 - Essential (primary) hypertension Status: Acute Assessment and Plan 1) Hypertensive urgency Most likely cause of chest pain Blood pressure better controlled No elevation of troponins, EKG with no changes, con't medical management 2) Symptomatic anemia Received 1 unit PRBC Plan EGD/Cscope today 3) CAD Difficulty with Bo rogers Will plan to be on ASA/Plavix Problem Qualifiers (1) CAD (coronary artery disease): Qualified Codes: I25.10 - Atherosclerotic heart disease of [place] coronary artery without angina pectoris; I25.84 - Coronary atherosclerosis due to calcified coronary lesion Atif Higuera DO Aug 02, 2017 11:31
[2017-08-02] MEDS ORDERED: PROPOFOL 200 MG/20 ML AMP IV ONE (12:00)
--- NOTE | 2017-08-02 13:07 | GIPROC ---
[employer] [facility] [address] [facility]. [facility], [address] EGD PROCEDURE REPORT EXAM DATE: 08/02/2017 PATIENT NAME: Magalys Crespo MR #: [id number] BIRTHDATE: 1950 ATTENDING: Dolores Garcia MD ORDER #: [id number] BIOMATHEMATICIAN: Enedelia Lopez RN STATUS: inpatient INDICATIONS: The patient is a 66 yr old female here for an EGD due to anemia PROCEDURE PERFORMED: EGD w/ biopsy MEDICATIONS: None and Per Anesthesia. TOPICAL ANESTHETIC: none CONSENT: The patient understands the risks and benefits of the procedure and understands that these risks include, but are not limited to: sedation, allergic reaction, infection, perforation and/or bleeding. Alternative means of evaluation and treatment include, among others: physical exam, x-rays, and/or surgical intervention. The patient elects to proceed with this endoscopic procedure. medical equipment was checked for proper function. Hand hygiene and appropriate measures for infection prevention was taken. After the risks, benefits and alternatives of the procedure were thoroughly explained, Informed consent was verified, confirmed and timeout was successfully executed by the treatment team. The patient was anesthetized with topical anesthesia and the EC-[id number] (Pedi C) endoscope was introduced through the mouth and advanced to the second portion of the duodenum. Retroflexion was performed and was normal The gastroscope was then slowly withdrawn and removed. ESOPHAGUS: The mucosa of the esophagus appeared normal. STOMACH: There was mild gastritis in the gastric antrum. Multiple biopsies were performed using cold forceps. Sample sent for histology. DUODENUM: The duodenal mucosa appeared normal in the bulb and second portion of the duodenum. ADVERSE EVENTS: There were no complications. IMPRESSIONS: 1. The esophagus appeared normal 2. There was mild gastritis in the gastric antrum; multiple biopsies were performed 3. Normal duodenal mucosa in the bulb and second portion of the duodenum 4. Retroflexion was performed and was normal RECOMMENDATIONS: 1. Await biopsy results. Biopsy results will not be ready for 7-10 days. If you don't hear from us in two weeks, call our office for biopsy results. 2. Continue PPI PATIENT CONDITION: stable DISPOSITION: Observation REPEAT EXAM: NONE Dolores Garcia MD eSigned: Dolores Garcia MD 08/02/2017 1:07 PM cc: PATIENT NAME: Magalys Crespo Montse MR#: [id number]
--- NOTE | 2017-08-02 13:10 | GIPROC ---
[facility] [address] [facility]. [facility], [address] COLONOSCOPY PROCEDURE REPORT EXAM DATE: 08/02/2017 PATIENT NAME: Magalys Crespo MR #: [id number] BIRTHDATE: 1950 ENDOSCOPIST: Dolores Garcia MD ORDER #: [id number] SKIN CARE SPECIALIST: Enedelia Lopez RN STATUS: inpatient INDICATIONS: The patient is a 66 yr old female here for a colonoscopy due to anemia, non-specific PROCEDURE PERFORMED: Colonoscopy, diagnostic MEDICATIONS: None and Per Anesthesia. PREP QUALITY: poor PREP TYPE:GoLytely PREP TYPE:Type: ESTIMATED BLOOD LOSS: None CONSENT: The patient understands the risks and benefits of the procedure and understands that these risks include, but are not limited to: sedation, allergic reaction, infection, perforation and/or bleeding. Alternative means of evaluation and treatment include, among others: physical exam, x-rays, and/or surgical intervention. The patient elects to proceed with this endoscopic procedure. medical equipment was checked for proper function. Hand hygiene and appropriate measures for infection prevention was taken. After the risks, benefits and alternatives of the procedure were thoroughly explained, Informed consent was verified, confirmed and timeout was successfully executed by the treatment team. A digital exam revealed no abnormalities of the rectum The Pentax EC-[id number] endoscope was introduced through the anus and advanced to the cecum, which was identified by both the appendix and ileocecal valve. The instrument was then slowly withdrawn as the colon was fully examined. COLON FINDINGS: Moderate diverticulosis was noted in the sigmoid colon. No bleeding was noted from the diverticulosis. The colon mucosa was otherwise normal. Retroflexed views revealed no abnormalities The scope was then completely withdrawn from the patient and the procedure terminated. PROCEDURE WITHDRAWAL TIME:10minutes ADVERSE EVENTS: There were no complications. IMPRESSIONS: 1. Moderate diverticulosis was noted in the sigmoid colon 2. The colon mucosa was otherwise normal 3. Retroflexed views revealed no abnormalities RECOMMENDATIONS: High fiber diet RECALL: Return 1 year Colonoscopy Dolores Garcia MD eSigned: Dolores Garcia MD 08/02/2017 1:09 PM cc: PATIENT NAME: Magalsy Crespo MR#: [id number]
[2017-08-02] MEDS: ATORVASTATIN 20 MG TAB PO SCH (21:59)
[2017-08-03] MEDS: VANCOMYCIN 25 MG/ML SOLN 100 ML BOTTLE PO SCH ×2 (00:46→05:07)
[2017-08-03 04:28] VITALS: BP 115/55; PULSE 50; RESP 16; TEMP 98.2; O2SAT 95
[2017-08-03] MEDS: PANTOPRAZOLE SODIUM 40 MG VIAL IV PUSH SCH (05:07)
[2017-08-03 06:22] LABS: AUTOMATED NEUTROPHIL # 2.9 TH/MM3 (1.8-7.7); BASOPHIL # 0.1 TH/MM3 (0-0.2); BASOPHIL % 1.3 % (0.0-2.0); EOSINOPHIL # 0.4 TH/MM3 (0-0.4); HEMATOCRIT 29.6 % (35.0-46.0); HEMOGLOBIN 9.6 GM/DL (11.6-15.3); LYMPH % 36.9 % (9.0-44.0); LYMPHOCYTE # 2.4 TH/MM3 (1.0-4.8); MEAN CELL VOLUME 74.4 FL (80.0-100.0); MEAN CORPUSCULAR HEMOGLOBIN 24.2 PG (27.0-34.0); MEAN CORPUSCULAR HGB CONC 32.5 % (32.0-36.0); MEAN PLATELET VOLUME 7.1 FL (7.0-11.0); MONO % 11.2 % (0.0-8.0); MONOCYTE # 0.7 TH/MM3 (0-0.9); NEUT % 44.6 % (16.0-70.0); PLATELET COUNT 180 TH/MM3 (150-450); RED BLOOD COUNT 3.97 MIL/MM3 (4.00-5.30); RED CELL DISTRIBUTION WIDTH 20.7 % (11.6-17.2); WHITE BLOOD COUNT 6.4 TH/MM3 (4.0-11.0)
[2017-08-03 06:45] LABS: BICARBONATE 26.2 MEQ/L (21.0-32.0); CALCIUM 9.8 MG/DL (8.5-10.1); CREATININE 1.56 MG/DL (0.50-1.00)
--- NOTE | 2017-08-03 07:49 | HHI.DS ---
Discharge Summary Admission Date Jul 31, 2017 at 16:10 Discharge Date: Aug 03, 2017 Admitting Diagnosis symptomatic anemia, hypertensive urgency (1) Chronic back pain ICD Code: M54.9 - Dorsalgia, unspecified; G89.29 - Other chronic pain (2) GIB (gastrointestinal bleeding) ICD Code: K92.2 - Gastrointestinal hemorrhage, unspecified (3) Hyperlipidemia ICD Code: E78.5 - Hyperlipidemia, unspecified (4) CAD (coronary artery disease) ICD Code: I25.10 - Atherosclerotic heart disease of [place] coronary artery without angina pectoris (5) Congestive heart failure ICD Code: I50.9 - Heart failure, unspecified (6) C. difficile colitis ICD Code: A04.72 - Enterocolitis due to Clostridium difficile, not specified as recurrent Procedures egd/colonoscopy Brief History - From Admission This is a 66-year-old female past medical history of coronary artery disease status post recent stent placement about 1 month ago of the left circumflex coronary cusp who presented with generalized weakness, diarrhea, nausea, and chest pain. Patient stated yesterday she had generalized weakness, diarrhea and nausea she went to emergency department. She stated that she could not take her medication at all due to nausea. Patient then stated that in the ED she developed chest pain. Chest pain described as pressure-like radiating to her right arm, lasting for 15 minutes, nothing makes it better or worse, resolves on its own. She denies any fevers or chills. Denies any episodes of emesis. Patient stated that she stopped smoking tobacco 2 days ago. Patient smokes 1 pack per day since the age of 17. Patient stated that she had appointment with Dr. Higuera yesterday but did not see him because she felt nauseous. All other review of system reviewed and negative. CBC/BMP: 08/03/17 0505 08/03/17 0505 Significant Findings Laboratory Tests Test 07/31/17 13:08 08/01/17 01:35 08/01/17 06:00 08/01/17 19:23 Red Blood Count 3.21 MIL/MM3 (4.00-5.30) 3.68 MIL/MM3 (4.00-5.30) Hemoglobin 7.8 GM/DL (11.6-15.3) 9.0 GM/DL (11.6-15.3) Hematocrit 24.3 % (35.0-46.0) 27.6 % (35.0-46.0) Mean Corpuscular Volume 75.7 FL (80.0-100.0) 75.1 FL (80.0-100.0) Mean Corpuscular Hemoglobin 24.5 PG (27.0-34.0) 24.4 PG (27.0-34.0) Red Cell Distribution Width 21.2 % (11.6-17.2) 20.4 % (11.6-17.2) Mean Platelet Volume 6.5 FL (7.0-11.0) 6.4 FL (7.0-11.0) Neutrophils (%) (Auto) 72.6 % (16.0-70.0) Monocytes (%) (Auto) 8.3 % (0.0-8.0) Lymphocytes # (Auto) 0.7 TH/MM3 (1.0-4.8) Activated Partial Thromboplast Time 23.4 SEC (24.3-30.1) Urine Turbidity HAZY (CLEAR) Urine Leukocyte Esterase TRACE (NEG) Urine Bacteria RARE /hpf (NONE) Urine Mucus FEW /lpf (OCC) Creatinine 1.19 MG/DL (0.50-1.00) 1.26 MG/DL (0.50-1.00) Random Glucose 112 MG/DL (74-106) Alkaline Phosphatase 168 U/L (45-117) Chloride Level 110 MEQ/L (98-107) 108 MEQ/L (98-107) Estimat Glomerular Filtration Rate 45 ML/MIN (>89) 42 ML/MIN (>89) Troponin I LESS THAN 0.02 NG/ML LESS THAN 0.02 NG/ML LESS THAN 0.02 NG/ML B-Type Natriuretic Peptide 189 PG/ML (0-100) Test 08/01/17 20:02 08/02/17 04:20 08/02/17 04:26 08/02/17 14:27 Hemoglobin 10.3 GM/DL (11.6-15.3) 9.4 GM/DL (11.6-15.3) 10.0 GM/DL (11.6-15.3) Creatinine 1.42 MG/DL (0.50-1.00) Potassium Level 3.2 MEQ/L (3.5-5.1) Estimat Glomerular Filtration Rate 37 ML/MIN (>89) Red Blood Count 3.76 MIL/MM3 (4.00-5.30) Hematocrit 28.5 % (35.0-46.0) Mean Corpuscular Volume 75.8 FL (80.0-100.0) Mean Corpuscular Hemoglobin 24.9 PG (27.0-34.0) Red Cell Distribution Width 20.1 % (11.6-17.2) Platelet Count 149 TH/MM3 (150-450) Mean Platelet Volume 6.6 FL (7.0-11.0) Monocytes (%) (Auto) 12.0 % (0.0-8.0) Eosinophils (%) (Auto) 5.5 % (0.0-4.0) Test 08/02/17 21:42 08/03/17 05:03 08/03/17 05:05 Hemoglobin 10.4 GM/DL (11.6-15.3) 9.6 GM/DL (11.6-15.3) 9.6 GM/DL (11.6-15.3) Red Blood Count 3.97 MIL/MM3 (4.00-5.30) Hematocrit 29.6 % (35.0-46.0) Mean Corpuscular Volume 74.4 FL (80.0-100.0) Mean Corpuscular Hemoglobin 24.2 PG (27.0-34.0) Red Cell Distribution Width 20.7 % (11.6-17.2) Monocytes (%) (Auto) 11.2 % (0.0-8.0) Eosinophils (%) (Auto) 6.0 % (0.0-4.0) Blood Urea Nitrogen 23 MG/DL (7-18) Creatinine 1.56 MG/DL (0.50-1.00) Potassium Level 3.4 MEQ/L (3.5-5.1) Estimat Glomerular Filtration Rate 33 ML/MIN (>89) Imaging Last Impressions Head CT 07/31/17 1249 Signed Impressions: Service Date/Time: Monday, July 31, 2017 13:42 - CONCLUSION: Normal examination except for old lacunar infarct on the right. Torey Levin MD Chest X-Ray 07/31/17 1249 Signed Impressions: Service Date/Time: Monday, July 31, 2017 12:56 - CONCLUSION: Compensated cardiomegaly otherwise negative Scott Malhotra MD FACR PE at Discharge GENERAL: Lying in bed. Appears comfortable. Alert and oriented 3. CARDIOVASCULAR: Regular rate and rhythm without murmurs, gallops, or rubs. RESPIRATORY: Breath sounds equal bilaterally. No accessory muscle use. GASTROINTESTINAL: Abdomen soft, non-tender, nondistended. MUSCULOSKELETAL: No cyanosis, or edema. BACK: Nontender without obvious deformity. No CVA tenderness. Pt update on day of discharge Feels better. No BM today. no cp, sob, n/v/d/c. Denies fever ro chills. no cp, sob, palpitations, lightheadedness. Hospital Course 66-year-old female who had generalized symptoms did not develop chest pain in the ED Chest pain Atypical, but patient is high risk. First troponin negative. EKG did not show any ST depression or elevation. Will try nitroglycerin since patient states she has not received any nitroglycerin. Monitor over telemetry, trend troponin x3 negative. EKG no ischemic changes. Continue with home medication. Consult her parboiler Dr. Higuera for further recommendations. Appreciate cardiology assistance. No evidence of acute event at this time. Continue to monitor. Hypertensive urgency Patient had a systolic blood pressure reading in the 240s. She was given hydralazine with improvement in her blood pressure. She has not taken any her blood pressure medicine since 2 days ago most likely secondary to noncompliance. We will resume home medication and give as needed medications. Monitor over telemetry. Blood pressure improved. Continue current regimen. Continue to monitor. NO BETA BLOCKERS PATIENT WITH BRADYCARDIA. Anemia, symptomatic Hemoglobin 1 month ago 9.6. Hemoglobin now 7.8. Patient did have recent stent placement so goal hemoglobin should be above 8. ED provider are ready in order to transfuse patient 1 unit packed red blood cells. This may be the cause of her generalized weakness and intermittent chest pain. Follow up with posttransfusion H&H. Hemoglobin improved to 9.0 after transfusion. Abrupt drop in hemoglobin. GI following. Appreciate assistance. s/p EGD/colonoscopy with gastritis and diverticulosis. G=Homa fiber diet, continue ppi. F.u with GI , biopsy also obtained will have resultes as oP, colonoscopy in 1 year . Discused with the patient H/H stable so far after 1U PRBC Diarrhea This seems to be a chronic problem. 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 C. difficile done by ED provider PCR negative. COPD/coronary artery disease status post stent placement/chronic pain/GERD/ anxiety Continue home medication We will place on isolation and check C. difficile of stool. DVT prophylaxis We are going to stop heparin due to presentation with symptomatic anemia. Discharge Planning Pending GI and cardiology clearance. Plan for EGD/colonoscopy H/H stable so far after 1U PRBC Discussed with Dr Najera cardio. NO BETA BLOCKERS PATIENT WITH BRADYCARDIA. Discharge home with [facility] to follow up as OP with PCP and consultants Pt Condition on Discharge: Stable Discharge Disposition: Disch w/ Home Health Serv Discharge Time: > 30 minutes Discharge Instructions DIET: Follow Instructions for: Heart Healthy Diet Activities you can perform: Regular-No Restrictions Follow up Referrals: Appointment for Follow Up @ [facility] Appointment for Follow Up @ [facility] - 2 Weeks Cardiology @ [facility] - 2 Weeks PCP Follow-up - 2-3 Days PCP Follow-up @ [facility]/ with [facility] New Medications: Clopidogrel (Plavix) 75 Mg Tab 75 MG PO DAILY for Blood Clot Prevention, #60 TAB Changed Medications: Omeprazole (Omeprazole) 20 Mg Tab 40 MG PO DAILY for gerd, #30 TAB 0 Refills (Changed from: 20 MG) Continued Medications: Albuterol 8.5 GM Inh (Proair Hfa 8.5 GM Inh) 90 Mcg/Act Aer 2 PUFF INH Q6H PRN for SHORTNESS OF BREATH, #1 INHALER 0 Refills 108 mcg/actuation Amlodipine (Norvasc) 5 Mg Tab 2.5 MG PO DAILY for Blood Pressure Management, #30 TAB Aspirin (Tgt Aspirin) 81 Mg Chw 81 MG PO DAILY for Blood Clot Prevention, #30 EA Atorvastatin (Atorvastatin) 20 Mg Tab 20 MG PO HS for Cholesterol Management, #30 TAB 0 Refills Clonazepam (Klonopin) 0.5 Mg Tab 0.5 MG PO QID for anxiety, #10 TAB 0 Refills Fluticasone 12 GM Inh (Flovent Hfa 12 GM Inh) 110 Mcg/Act Inh 2 PUFF INH BID for Asthma Management, #1 INHALER 0 Refills Furosemide (Lasix) 40 Mg Tab 40 MG PO QOD, #60 TAB 0 Refills Gabapentin (Neurontin) 400 Mg Cap 400 MG PO TID for neuropathy, #90 CAP Hydrocodone-Acetaminophen (Artesian) 5 Mg-325 Mg Tab 1 TAB PO Q6H PRN for PAIN, #20 TAB 0 Refills Ipratropium HFA 12.9 GM Inh (Atrovent HFA 12.9 GM Inh) 17 Mcg/Actuation Aer 2 PUFF INH Q4HR PRN for SHORTNESS OF BREATH, #1 INHALER 0 Refills Magnesium Oxide (Magnesium Oxide) 400 Mg Tab 400 MG PO DAILY for Nutritional Supplement, TAB 0 Refills Nitroglycerin SL (Nitrostat SL) 0.4 Mg Subl 0.4 MG SL Q5M PRN for CHEST PAIN, #30 TAB Potassium Chloride ER (Potassium Chloride ER) 20 Meq Tab 20 MEQ PO DAILY for Electrolyte Replacement, #30 TAB 0 Refills [vancomycin liquid] () 250 MG PO Q6HR Discontinued Medications: Ticagrelor (Brilinta) 90 Mg Tab 90 MG PO BID for Blood Clot Prevention, #60 TAB Quyen Lucio MD Aug 03, 2017 07:49
[2017-08-03] MEDS ORDERED: OMEP20TA93 PO (07:53)
--- NOTE | 2017-08-03 07:54 | HHI.FF ---
Face to Face Verification Diagnosis: (1) Chronic back pain (2) CAD (coronary artery disease) (3) Hyperlipidemia (4) Accelerated hypertension (5) Symptomatic anemia (6) GIB (gastrointestinal bleeding) Physical Therapy Order: Evaluate and Treat Home Health Nursing Order: Medical education Signs/symptoms of disease process CHF education Medication education-adverse effect Nursing assessment with vital signs I have seen patient Magalys Crespo on 08/03/17. My clinical findings support the need for the requested home health care services because: Ltd mobility - disease progression Patient has SOB Deconditioned w/ increased weakness I certify that my clinical findings support that this patient is homebound because: Post-op weakness Quyen Lucio MD Aug 03, 2017 07:54
[2017-08-03 08:00] VITALS: BP 124/58; PULSE 51; PULSE 53; RESP 20; TEMP 97.6; O2SAT 96
[2017-08-03] MEDS ORDERED: POTASSIUM CHLORIDE 10 MEQ CONTROLLED RELEASE TAB PO ONE (08:00)
[2017-08-03] MEDS: FLUTICASONE PROPIONATE 110 MCG/ACT 12 GM INHALER INH SCH (09:15)
[2017-08-03] MEDS: amLODIPine BESYLATE 5 MG TAB PO SCH (09:15)
[2017-08-03] MEDS: clonazePAM 0.5 MG TAB PO SCH (09:16)
[2017-08-03] MEDS: CLOPIDOGREL 75 MG TAB PO SCH (09:16)
[2017-08-03] MEDS: MAGNESIUM OXIDE 400 MG TAB PO SCH (09:16)
[2017-08-03] MEDS: FUROSEMIDE 40 MG TAB PO SCH (09:16)
[2017-08-03] MEDS: POTASSIUM CHLORIDE 20 MEQ CONTROLLED RELEASE TAB PO SCH (09:17)
[2017-08-03] MEDS: GABAPENTIN 400 MG CAP PO SCH (09:17)
[2017-08-03] MEDS: ASPIRIN 81 MG CHEW TAB PO SCH (09:17)
[2017-08-03] MEDS: SODIUM CHLORIDE 0.9% FLUSH 10 ML FLUSH IV FLUSH SCH (09:18)
[2017-08-03] MEDS: PANTOPRAZOLE SOD 20 MG DELAYED RELEASE TAB PO SCH (09:18)
[2017-08-03] MEDS: METOPROLOL TARTRATE 25 MG TAB PO SCH (09:18)
[2017-08-03 11:15] VITALS: BP 130/61; PULSE 46; RESP 20; TEMP 98.2; O2SAT 98
--- NOTE | 2017-08-03 14:10 | PD.CARD.PN ---
Subjective Subjective Remarks No chest pain/SOB Feels relatively well No nausea/emesis Objective Vital Signs / I&O Vital Signs Date Time Temp Pulse Resp B/P (MAP) Pulse Ox O2 Delivery O2 Flow Rate FiO2 08/03/17 11:15 98.2 46 20 130/61 (84) 98 08/03/17 08:00 97.6 53 20 124/58 (80) 96 08/03/17 04:28 98.2 50 16 115/55 (75) 95 08/02/17 20:00 57 08/02/17 20:00 Room Air 08/02/17 18:32 98.3 57 20 137/60 (85) 98 08/02/17 16:10 98.0 57 18 113/61 (78) 97 08/02/17 16:00 Room Air I/O 08/02/17 08/02/17 08/02/17 08/03/17 08/03/17 08/03/17 07:00 15:00 23:00 07:00 15:00 23:00 Intake Total 200 ml Output Total 1100 ml Balance -1100 ml 200 ml Other 200 ml Output Urine Total 300 ml Stool Total 800 ml # Voids 4 4 # Bowel Movements 5 1 Physical Exam GENERAL: NAD, AAOx3 SKIN: Warm and dry. HEAD: Atraumatic. Normocephalic. EYES: Pupils equal and round. No scleral icterus. No injection or drainage. ENT: No nasal bleeding or discharge. Mucous membranes pink and moist. NECK: Trachea midline. No JVD. CARDIOVASCULAR: Regular rate and rhythm. RESPIRATORY: No accessory muscle use. Clear to auscultation. Breath sounds equal bilaterally. GASTROINTESTINAL: Abdomen soft, non-tender, nondistended. Hepatic and splenic margins not palpable. MUSCULOSKELETAL: Extremities without clubbing, cyanosis, or edema. No obvious deformities. NEUROLOGICAL: Awake and alert. No obvious cranial nerve deficits. Motor grossly within normal limits. Five out of 5 muscle strength in the arms and legs. Normal speech. PSYCHIATRIC: Appropriate mood and affect; insight and judgment normal. Laboratory Laboratory Tests Test 08/02/17 14:27 08/02/17 21:42 08/03/17 05:03 08/03/17 05:05 Hemoglobin 10.0 GM/DL 10.4 GM/DL 9.6 GM/DL 9.6 GM/DL White Blood Count 6.4 TH/MM3 Red Blood Count 3.97 MIL/MM3 Hematocrit 29.6 % Mean Corpuscular Volume 74.4 FL Mean Corpuscular Hemoglobin 24.2 PG Mean Corpuscular Hemoglobin Concent 32.5 % Red Cell Distribution Width 20.7 % Platelet Count 180 TH/MM3 Mean Platelet Volume 7.1 FL Neutrophils (%) (Auto) 44.6 % Lymphocytes (%) (Auto) 36.9 % Monocytes (%) (Auto) 11.2 % Eosinophils (%) (Auto) 6.0 % Basophils (%) (Auto) 1.3 % Neutrophils # (Auto) 2.9 TH/MM3 Lymphocytes # (Auto) 2.4 TH/MM3 Monocytes # (Auto) 0.7 TH/MM3 Eosinophils # (Auto) 0.4 TH/MM3 Basophils # (Auto) 0.1 TH/MM3 CBC Comment DIFF FINAL Differential Comment Blood Urea Nitrogen 23 MG/DL Creatinine 1.56 MG/DL Random Glucose 82 MG/DL Calcium Level 9.8 MG/DL Sodium Level 139 MEQ/L Potassium Level 3.4 MEQ/L Chloride Level 104 MEQ/L Carbon Dioxide Level 26.2 MEQ/L Anion Gap 9 MEQ/L Estimat Glomerular Filtration Rate 33 ML/MIN Assessment and Plan Problem List: (1) Hypertensive urgency ICD Codes: I16.0 - Hypertensive urgency Status: Acute (2) Symptomatic anemia ICD Codes: D64.9 - Anemia, unspecified Status: Acute (3) CAD (coronary artery disease) ICD Codes: I25.10 - Atherosclerotic heart disease of [place] coronary artery without angina pectoris (4) Accelerated hypertension ICD Codes: I10 - Essential (primary) hypertension Status: Acute Assessment and Plan 1) Hypertensive urgency Most likely cause of chest pain Blood pressure better controlled No elevation of troponins, EKG with no changes, con't medical management 2) Symptomatic anemia Received 1 unit PRBC EGD/Cscope negative 3) CAD Difficulty with Brilinta rogers ASA/Plavix 4) Asymptomatic bradycardia Plan to stop BB 5) Cardiovascularly stable for discharge, scheduled to follow up with me next week Problem Qualifiers (1) CAD (coronary artery disease): Qualified Codes: I25.10 - Atherosclerotic heart disease of [place] coronary artery without angina pectoris; I25.84 - Coronary atherosclerosis due to calcified coronary lesion Atif Higuera DO Aug 03, 2017 14:10
== END 2017-08-03 13:05 | disposition home health service (06) | DRG 812 ==
LOC: NEPC 11:43 → NEDA 16:10 → N04A 08-01 15:46
PROVIDERS: ADMIT Hospitalist; ATTEND Hospitalist
PROC: 30253N1 (ICD-10-PCS; 2017-07-31)
PROC: 0DB78ZX Excision of Stomach, Pylorus, Via Natural or Artificial Opening Endoscopic, Diagnostic (ICD-10-PCS; principal; 2017-08-02 12:35)
PROC: 0DJD8ZZ Inspection of Lower Intestinal Tract, Via Natural or Artificial Opening Endoscopic (ICD-10-PCS; 2017-08-02 12:35)
DX: D64.9 Anemia, unspecified (principal); A04.72 Enterocolitis due to Clostridium difficile, not specified as recurrent; I13.0 Hypertensive heart and chronic kidney disease with heart failure and stage 1 through stage 4 chronic kidney disease, or unspecified chronic kidney disease; K92.2 Gastrointestinal hemorrhage, unspecified; I50.9 Heart failure, unspecified; J44.9 Chronic obstructive pulmonary disease, unspecified; E66.01 Morbid (severe) obesity due to excess calories; N18.3 Chronic kidney disease, stage 3 (moderate); I25.10 Atherosclerotic heart disease of native coronary artery without angina pectoris; I16.0 Hypertensive urgency; M19.90 Unspecified osteoarthritis, unspecified site; R20.0 Anesthesia of skin; R20.2 Paresthesia of skin; R07.9 Chest pain, unspecified; R00.1 Bradycardia, unspecified; R53.1 Weakness; K57.30 Diverticulosis of large intestine without perforation or abscess without bleeding; K29.70 Gastritis, unspecified, without bleeding; F41.9 Anxiety disorder, unspecified; K21.9 Gastro-esophageal reflux disease without esophagitis; M54.9 Dorsalgia, unspecified; G89.29 Other chronic pain; E78.5 Hyperlipidemia, unspecified; F17.210 Nicotine dependence, cigarettes, uncomplicated; H54.8 Legal blindness, as defined in USA; Z87.440 Personal history of urinary (tract) infections; Z86.73 Personal history of transient ischemic attack (TIA), and cerebral infarction without residual deficits; Z98.1 Arthrodesis status; Z95.5 Presence of coronary angioplasty implant and graft; Z91.19 Patient's noncompliance with other medical treatment and regimen; Z68.36 Body mass index [BMI] 36.0-36.9, adult
CPT/HCPCS: 36430; 70450; 71045; 80048; 80053; 80069; 81001; 82550; 83735; 83880; 84443; 84484; 85018; 85025; 85027; 85610; 85730; 86850; 86900; 86901; 86920; 87493; 88305; 93005; 96365; 96375; C9113; J0360; J1644; J2405; J3480; J7040; J7050; P9016

== ENCOUNTER 2017-08-21 04:01 | Emergency (ER) | payer MEDICARE, BC ==
[~2017-08-21] VITALS: Ht 172.7 cm; Wt 100.0 kg
[~2017-08-21 04:01] MED LIST changes: -ALLO100T PO; -BRIL90TA PO; -CALC12502 PO; -CELE100C PO; -COLC1TAB15 PO; -NICO14DI T-DERMAL; +PLAV75TA29 PO; +VANCOMYCIN PO
[2017-08-21 04:09] VITALS: BP 144/79; PULSE 75; RESP 16; TEMP 98.6; O2SAT 98
[2017-08-21] MEDS ORDERED: LORazepam 2 MG/ML VIAL IV PUSH ONE (04:45)
[2017-08-21] MEDS ORDERED: SODIUM CHLORIDE 0.9% FLUSH 10 ML FLUSH IVF PRN (04:45)
--- NOTE | 2017-08-21 04:56 | PD ---
HPI . Chest pain Chief Complaint: Chest Pain Time Seen by Provider: 04:19 Travel History International Travel<30 days: No Contact w/Intl Traveler<30days: No Traveled to known affect area: No History of Present Illness HPI This patient presents with chief complaint of chest pain which started tonight after a "bad day with by sister." She describes a stabbing/burning chest discomfort which she rates 3-4/10. She states that it is associated with feeling weak and dizzy. She states that she took Lortab with no relief of her symptoms. She then tried nitroglycerin with no relief of her symptoms. She has had aspirin with no relief of her symptoms. PFSH Past Medical History Hx Anticoagulant Therapy: Yes Arthritis: Yes Anxiety: Yes Depression: Yes Cancer: Yes Cardiovascular Problems: Yes COPD: Yes Coronary Artery Disease: Yes Diminished Hearing: No Endocrine: No Gastrointestinal Disorders: Yes (cdiff active right now getting treated) Genitourinary: Yes Hypertension: Yes Immune Disorder: No Musculoskeletal: Yes Neurologic: No Psychiatric: Yes Reproductive: No Respiratory: Yes Immunizations Current: Yes Tetanus Vaccination: Unknown Influenza Vaccination: Yes Past Surgical History Abdominal Surgery: Yes (appy) Appendectomy: Yes Oral Surgery: Yes (T and A) Tonsillectomy: Yes Other Surgery: Yes Social History Alcohol Use: No Tobacco Use: Yes (1/2 TO 1 PK) Substance Use: No Allergies-Medications (Allergen,Severity, Reaction): Coded Allergies: amoxicillin (Verified Allergy, Intermediate, throat pain, 08/21/17) Reported Meds & Prescriptions Reported Meds & Active Scripts Active Omeprazole 20 Mg Tab 40 Mg PO DAILY Plavix (Clopidogrel Bisulfate) 75 Mg Tab 75 Mg PO DAILY [place] (Hydrocodone-Acetaminophen) 5 Mg-325 Mg Tab 1 Tab PO Q6H PRN Neurontin (Gabapentin) 400 Mg Cap 400 Mg PO TID Tgt Aspirin (Aspirin) 81 Mg Chw 81 Mg PO DAILY Norvasc (Amlodipine Besylate) 5 Mg Tab 2.5 Mg PO DAILY Nitrostat SL (Nitroglycerin) 0.4 Mg Subl 0.4 Mg SL Q5M PRN Klonopin (Clonazepam) 0.5 Mg Tab 0.5 Mg PO QID Reported [vancomycin liquid] 250 Mg PO Q6HR Flovent Hfa 12 GM Inh (Fluticasone Propionate) 110 Mcg/Act Inh 2 Puff INH BID Proair Hfa 8.5 GM Inh (Albuterol Sulfate) 90 Mcg/Act Aer 2 Puff INH Q6H PRN 108 mcg/actuation Potassium Chloride ER (Potassium Chloride) 20 Meq Tab 20 Meq PO DAILY Magnesium Oxide 400 Mg Tab 400 Mg PO DAILY Atrovent HFA 12.9 GM Inh (Ipratropium [place]) 17 Mcg/Actuation Aer 2 Puff INH Q4HR PRN Atorvastatin (Atorvastatin Calcium) 20 Mg Tab 20 Mg PO HS Lasix (Furosemide) 40 Mg Tab 40 Mg PO QOD Review of Systems Except as stated in HPI: all other systems reviewed are Neg HENT: Positive: Lightheadedness Cardiovascular: Positive: Chest Pain or Discomfort Neurologic: Positive: Weakness Physical Exam Narrative GENERAL: Awake and alert and in no distress. SKIN: warm/dry. Normal color. HEAD: Normocephalic. Atraumatic. EYES: Legally blind. NECK: Trachea midline. Full range of motion without pain.. CARDIOVASCULAR: Regular rate and rhythm. Heart sounds are normal. RESPIRATORY: No accessory muscle use. Clear to auscultation. Breath sounds equal bilaterally. GASTROINTESTINAL: Obese. MUSCULOSKELETAL: No obvious deformities. NEUROLOGICAL: Awake and alert. No obvious cranial nerve deficits. Motor grossly within normal limits. Normal speech. PSYCHIATRIC: Appropriate mood and affect; insight and judgment normal. Data Data Last Documented VS Vital Signs Date Time Temp Pulse Resp B/P (MAP) Pulse Ox O2 Delivery O2 Flow Rate FiO2 08/21/17 04:09 98.6 75 16 144/79 (100) 98 Orders Orders Basic Metabolic Panel (Bmp) (08/21/17 04:45) Complete Blood Count With Diff (08/21/17 04:45) Magnesium (Mg) (08/21/17 04:45) Troponin I (08/21/17 04:45) Ecg Monitoring (08/21/17 04:45) Iv Access Insert/Monitor (08/21/17 04:45) Oximetry (08/21/17 04:45) Sodium Chloride 0.9% Flush (Ns Flush) (08/21/17 04:45) Chest, Pa & Lat (08/21/17 04:45) Lorazepam Inj (Ativan Inj) (08/21/17 04:45) Labs Laboratory Tests Test 08/21/17 04:52 White Blood Count 8.3 TH/MM3 Red Blood Count 3.82 MIL/MM3 Hemoglobin 9.1 GM/DL Hematocrit 28.4 % Mean Corpuscular Volume 74.5 FL Mean Corpuscular Hemoglobin 23.8 PG Mean Corpuscular Hemoglobin Concent 32.0 % Red Cell Distribution Width 19.7 % Platelet Count 201 TH/MM3 Mean Platelet Volume 7.3 FL Neutrophils (%) (Auto) 61.0 % Lymphocytes (%) (Auto) 24.9 % Monocytes (%) (Auto) 9.8 % Eosinophils (%) (Auto) 3.8 % Basophils (%) (Auto) 0.5 % Neutrophils # (Auto) 5.0 TH/MM3 Lymphocytes # (Auto) 2.1 TH/MM3 Monocytes # (Auto) 0.8 TH/MM3 Eosinophils # (Auto) 0.3 TH/MM3 Basophils # (Auto) 0.0 TH/MM3 CBC Comment DIFF FINAL Differential Comment Blood Urea Nitrogen 11 MG/DL Creatinine 1.24 MG/DL Random Glucose 98 MG/DL Calcium Level 9.9 MG/DL Magnesium Level 2.1 MG/DL Sodium Level 140 MEQ/L Potassium Level 3.6 MEQ/L Chloride Level 106 MEQ/L Carbon Dioxide Level 25.0 MEQ/L Anion Gap 9 MEQ/L Estimat Glomerular Filtration Rate 43 ML/MIN Troponin I LESS THAN 0.02 NG/ML Exceptions Acute Myocardial Infarction ASA Not Given on Arrival: Already taken by patient MDM Medical Decision Making Medical Screen Exam Complete: Yes Emergency Medical Condition: Yes Medical Record Reviewed: Yes (patient was admitted in early July with multiple complaints including elevated blood pressure. She was ruled out for ACS. She has had 3 recent cardiac catheterizations. She has multivessel coronary artery disease. This is not amenable to stenting. She is not a candidate for CABG.) Interpretation(s) EKG shows a sinus rhythm with no acute ST segment elevation or depression. Differential Diagnosis Differential diagnosis of chest pain includes but is not limited to musculoskeletal pain, pulmonary embolism, acute coronary syndrome, pneumonia, pleurisy Narrative Course This patient presents with chest pain. She states that the pain started after a particularly bad day with her sister. The pain has been unrelieved by Lortab and by nitroglycerin. She has had aspirin prior to arrival. I suspect a component of anxiety. I have ordered Ativan. CXR>>No acute disease. The chest x-ray was independently viewed by me. CBC & BMP Diagram 08/21/17 04:52 Calcium Level 9.9, Magnesium Level 2.1 trop < 0.02 The patient reports no change in her symptomatology. She has been observed for several hours and is in no distress. I do not feel that there would be any gain from admission to the hospital. We know that she has coronary artery disease. We know that it is not amenable to stenting he is not a candidate for CABG. Furthermore, her chest pain had no relief with nitroglycerin. I will discharge her to home. Diagnosis Primary Impression: Chest pain Qualified Codes: R07.9 - Chest pain, unspecified Patient Instructions: Chest Pain (DC), General Instructions Disposition: 01 DISCHARGE HOME Condition: Stable Shobha Goldberg MD Aug 21, 2017 04:56
[2017-08-21 05:10] LABS: BASOPHIL % 0.5 % (0.0-2.0); EOSINOPHIL # 0.3 TH/MM3 (0-0.4); EOSINOPHIL % 3.8 % (0.0-4.0); HEMATOCRIT 28.4 % (35.0-46.0); HEMOGLOBIN 9.1 GM/DL (11.6-15.3); LYMPH % 24.9 % (9.0-44.0); LYMPHOCYTE # 2.1 TH/MM3 (1.0-4.8); MEAN CELL VOLUME 74.5 FL (80.0-100.0); MEAN CORPUSCULAR HEMOGLOBIN 23.8 PG (27.0-34.0); MEAN PLATELET VOLUME 7.3 FL (7.0-11.0); MONO % 9.8 % (0.0-8.0); MONOCYTE # 0.8 TH/MM3 (0-0.9); PLATELET COUNT 201 TH/MM3 (150-450); RED BLOOD COUNT 3.82 MIL/MM3 (4.00-5.30); RED CELL DISTRIBUTION WIDTH 19.7 % (11.6-17.2); WHITE BLOOD COUNT 8.3 TH/MM3 (4.0-11.0)
[2017-08-21 05:24] LABS: BLOOD UREA NITROGEN 11 MG/DL (7-18); CALCIUM 9.9 MG/DL (8.5-10.1); CHLORIDE 106 MEQ/L (98-107); CREATININE 1.24 MG/DL (0.50-1.00); GLOMERULAR FILTRATION RATE 43 ML/MIN (>89); GLUCOSE,RANDOM 98 MG/DL (74-106); MAGNESIUM 2.1 MG/DL (1.5-2.5); SODIUM (NA) 140 MEQ/L (136-145)
[2017-08-21 05:28] LABS: TROPONIN I LESS THAN 0.02 NG/ML (0.02-0.05)
--- NOTE | 2017-08-21 05:57 | RADRPT ---
EXAM DATE/TIME: 08/21/2017 05:05 [facility] COMPARISON: No previous studies available for comparison. INDICATIONS : Chesty pain. MEDICAL HISTORY : Chronic obstructive pulmonary disease. Renal failure, acute. Hypercholesterolemia. Cardiovascular disease. Melanoma. Macular degeneration. Pulmonary edema. Pulmonary emboli. Hypertension. C-Diff. SURGICAL HISTORY : Stents. Fusion, cervical. ENCOUNTER: Initial ACUITY: 1 day PAIN SCORE: 3/10 LOCATION: Left chest FINDINGS: PA and lateral views of the chest demonstrate the lungs to be symmetrically aerated without evidence of mass, infiltrate or effusion. The cardiomediastinal contours are unremarkable. Osseous structure s are intact. CONCLUSION: No acute disease. Kevin Brown MD on August 21, 2017 at 5:54 Board Certified Radiologist. This report was verified electronically.
--- NOTE | 2017-08-21 20:00 | EKG ---
Date Performed: 08/21/2017 Time Performed: 04:11:39 PTAGE: 66 years EKG: Sinus rhythm INCOMPLETE RIGHT BUNDLE BRANCH BLOCK MODERATE VOLTAGE CRITERIA FOR LVH, CONSIDER NORMAL VARIANT NONS PECIFIC T-WAVE ABNORMALITY BORDERLINE ECG Since the PREVIOUS TRACING , no significant change noted PREVIOUS TRACIN07/31/2017 14.29 DOCTOR: Rupali Botello Interpretating Date/Time 08/21/2017 19:59:04
== END 2017-08-21 06:30 | disposition home or self-care (01) ==
LOC: NEPC 04:01
DX: R07.9 Chest pain, unspecified (principal); R42 Dizziness and giddiness; I10 Essential (primary) hypertension; R94.31 Abnormal electrocardiogram [ECG] [EKG]; J44.9 Chronic obstructive pulmonary disease, unspecified; Z88.1 Allergy status to other antibiotic agents; Z86.711 Personal history of pulmonary embolism; Z88.0 Allergy status to penicillin; Z79.01 Long term (current) use of anticoagulants; Z72.0 Tobacco use
CPT/HCPCS: 71046; 80048; 83735; 84484; 85025; 93005; 96374; 99284; J2060

== ENCOUNTER 2017-08-23 12:14 | Emergency (ER) | payer MEDICARE, BC ==
[~2017-08-23] VITALS: Ht 177.8 cm; Wt 120.6 kg
[2017-08-23 12:19] VITALS: BP 110/70; PULSE 89; RESP 16; TEMP 100.4; O2SAT 97
[2017-08-23 12:30] VITALS: O2SAT 98
[2017-08-23] MEDS ORDERED: SODIUM CHLOR 0.9% 1000 ML INJ 1,000 ML IV SCH (12:48)
[2017-08-23] MEDS ORDERED: FAMOTIDINE 20 MG/2 ML VIAL IV PUSH ONE (13:00)
[2017-08-23] MEDS ORDERED: SODIUM CHLORIDE 0.9% FLUSH 10 ML FLUSH IV FLUSH PRN (13:00)
--- NOTE | 2017-08-23 13:16 | PD ---
HPI Chief Complaint: GI Complaint Time Seen by Provider: 12:37 Travel History International Travel<30 days: No Contact w/Intl Traveler<30days: No Traveled to known affect area: No History of Present Illness HPI 66-year-old female complains of fever chills diarrhea low abdominal pain. Patient states that she started having diarrhea for the past week. Patient states that she started having chills yesterday. Patient has low-grade fever today . Patient noted occasional black tarry stool. Patient states that abdominal pain and cramping pain localized to lower abdomen. Patient denies any pain radiation. Patient denies any dysuria or frequency. Patient has history of C. difficile in the past. Patient has history of anemia, hypertension, chronic back pain, GI bleed, hyperlipidemia, CAD status post stent placement, CHF. Patient recently had upper GI and colonoscopy done for GI bleed. PFSH Past Medical History Hx Anticoagulant Therapy: Yes (PLAVIX) Arthritis: Yes Anxiety: Yes Depression: Yes Cancer: Yes Cardiovascular Problems: Yes (HTN CHOL, STENTS) COPD: Yes Coronary Artery Disease: Yes Diabetes: No Diminished Hearing: No Endocrine: No Gastrointestinal Disorders: Yes (cdiff active right now getting treated) Genitourinary: Yes Hypertension: Yes Immune Disorder: No Musculoskeletal: Yes Neurologic: No Psychiatric: Yes Reproductive: No Respiratory: Yes Immunizations Current: Yes ?: Not Past Surgical History Abdominal Surgery: Yes (appy) Appendectomy: Yes Oral Surgery: Yes (T and A) Tonsillectomy: Yes Other Surgery: Yes Social History Alcohol Use: No Tobacco Use: Yes (1/2 TO 1 PK) Substance Use: No Allergies-Medications (Allergen,Severity, Reaction): Coded Allergies: amoxicillin (Verified Allergy, Intermediate, throat pain, 08/23/17) Reported Meds & Prescriptions Reported Meds & Active Scripts Active Lomotil (Diphenoxylate-Atropine) 2.5-0.025 Mg Tab 1 Tab PO Q6H PRN Omeprazole 20 Mg Tab 40 Mg PO DAILY Plavix (Clopidogrel Bisulfate) 75 Mg Tab 75 Mg PO DAILY [place] (Hydrocodone-Acetaminophen) 5 Mg-325 Mg Tab 1 Tab PO Q6H PRN Neurontin (Gabapentin) 400 Mg Cap 400 Mg PO TID Tgt Aspirin (Aspirin) 81 Mg Chw 81 Mg PO DAILY Norvasc (Amlodipine Besylate) 5 Mg Tab 2.5 Mg PO DAILY Nitrostat SL (Nitroglycerin) 0.4 Mg Subl 0.4 Mg SL Q5M PRN Klonopin (Clonazepam) 0.5 Mg Tab 0.5 Mg PO QID Reported Flovent Hfa 12 GM Inh (Fluticasone Propionate) 110 Mcg/Act Inh 2 Puff INH BID Proair Hfa 8.5 GM Inh (Albuterol Sulfate) 90 Mcg/Act Aer 2 Puff INH Q6H PRN 108 mcg/actuation Potassium Chloride ER (Potassium Chloride) 20 Meq Tab 20 Meq PO DAILY Magnesium Oxide 400 Mg Tab 400 Mg PO DAILY Atrovent HFA 12.9 GM Inh (Ipratropium [place]) 17 Mcg/Actuation Aer 2 Puff INH Q4HR PRN Atorvastatin (Atorvastatin Calcium) 20 Mg Tab 20 Mg PO HS Lasix (Furosemide) 40 Mg Tab 40 Mg PO QOD Review of Systems General / Constitutional: No: Fever Eyes: No: Visual changes HENT: No: Headaches Cardiovascular: No: Chest Pain or Discomfort Respiratory: No: Shortness of Breath Gastrointestinal: Positive: Diarrhea, Abdominal Pain Genitourinary: No: Dysuria Musculoskeletal: No: Pain Skin: No Rash Neurologic: No: Weakness Psychiatric: No: Depression Endocrine: No: Polydipsia Hematologic/Lymphatic: No: Easy Bruising Physical Exam Narrative GENERAL: Well-nourished, well-developed patient. SKIN: Focused skin assessment warm/dry. HEAD: Normocephalic. EYES: No scleral icterus. No injection or drainage. NECK: Supple, trachea midline. No JVD or lymphadenopathy. CARDIOVASCULAR: Regular rate and rhythm without murmurs, gallops, or rubs. RESPIRATORY: Breath sounds equal bilaterally. No accessory muscle use. GASTROINTESTINAL: Abdomen soft, nondistended. Patient has mild tenderness on palpation lower abdomen. No rebound tenderness. No mass. Rectal exam Hemoccult negative. MUSCULOSKELETAL: No cyanosis, or edema. BACK: Nontender without obvious deformity. No CVA tenderness. Neurologic exam normal. Data Data Last Documented VS Vital Signs Date Time Temp Pulse Resp B/P (MAP) Pulse Ox O2 Delivery O2 Flow Rate FiO2 08/23/17 14:47 67 18 91/47 (62) 96 Room Air 08/23/17 12:19 100.4 Orders Orders Complete Blood Count With Diff (08/23/17 12:48) Comprehensive Metabolic Panel (08/23/17 12:48) Lipase (08/23/17 12:48) Prothrombin Time / Inr (Pt) (08/23/17 12:48) Act Partial Throm Time (Ptt) (08/23/17 12:48) Urinalysis - C+S If Indicated (08/23/17 12:48) Ct Abd/Pel W Iv Contrast(Rout) (08/23/17 12:48) Iv Access Insert/Monitor (08/23/17 12:48) Ecg Monitoring (08/23/17 12:48) Oximetry (08/23/17 12:48) Sodium Chlor 0.9% 1000 Ml Inj (Ns 1000 M (08/23/17 12:48) Sodium Chloride 0.9% Flush (Ns Flush) (08/23/17 13:00) Electrocardiogram (08/23/17 12:48) Famotidine Inj (Pepcid Inj) (08/23/17 13:00) Enteric Path (Stool) (08/23/17 13:05) C Diff Toxin Pcr (08/23/17 13:05) Troponin I (08/23/17 12:30) Iohexol 350 Inj (Omnipaque 350 Inj) (08/23/17 14:42) Ed Discharge Order (08/23/17 15:28) Labs Laboratory Tests Test 08/23/17 12:30 White Blood Count 11.5 TH/MM3 Red Blood Count 4.16 MIL/MM3 Hemoglobin 9.5 GM/DL Hematocrit 30.8 % Mean Corpuscular Volume 74.0 FL Mean Corpuscular Hemoglobin 22.8 PG Mean Corpuscular Hemoglobin Concent 30.8 % Red Cell Distribution Width 18.3 % Platelet Count 222 TH/MM3 Mean Platelet Volume 7.6 FL Neutrophils (%) (Auto) 81.5 % Lymphocytes (%) (Auto) 7.9 % Monocytes (%) (Auto) 8.2 % Eosinophils (%) (Auto) 2.0 % Basophils (%) (Auto) 0.4 % Neutrophils # (Auto) 9.5 TH/MM3 Lymphocytes # (Auto) 0.9 TH/MM3 Monocytes # (Auto) 0.9 TH/MM3 Eosinophils # (Auto) 0.2 TH/MM3 Basophils # (Auto) 0.0 TH/MM3 CBC Comment AUTO DIFF Differential Comment AUTO DIFF CONFIRMED Prothrombin Time 10.7 SEC Prothromb Time International Ratio 1.1 RATIO Activated Partial Thromboplast Time 25.1 SEC Urine Collection Type CLEAN CATCH Urine Color YELLOW Urine Turbidity CLOUDY Urine pH 6.0 Urine Specific [place] 1.010 Urine Protein TRACE mg/dL Urine Glucose (UA) NEG mg/dL Urine Ketones NEG mg/dL Urine Occult Blood TRACE Urine Nitrite NEG Urine Bilirubin NEG Urine Urobilinogen 0.2 MG/DL Urine Leukocyte Esterase SMALL Urine RBC 0-3 /hpf Urine WBC 0-2 /hpf Urine Squamous Epithelial Cells 0-5 /hpf Urine Amorphous Sediment FEW Microscopic Urinalysis Comment CULT NOT INDICATED Urine Collection Time 1220 Blood Urea Nitrogen 9 MG/DL Creatinine 1.20 MG/DL Random Glucose 110 MG/DL Total Protein 7.6 GM/DL Albumin 3.5 GM/DL Calcium Level 9.3 MG/DL Alkaline Phosphatase 169 U/L Aspartate Amino Transf (AST/SGOT) 14 U/L Alanine Aminotransferase (ALT/SGPT) 14 U/L Total Bilirubin 0.4 MG/DL Sodium Level 142 MEQ/L Potassium Level 3.6 MEQ/L Chloride Level 109 MEQ/L Carbon Dioxide Level 24.4 MEQ/L Anion Gap 9 MEQ/L Estimat Glomerular Filtration Rate 45 ML/MIN Troponin I LESS THAN 0.02 NG/ML Lipase 69 U/L MDM Medical Decision Making Medical Screen Exam Complete: Yes Emergency Medical Condition: Yes Interpretation(s) [address] scan abdomen shows gastroenteritis. CBC WBC 11.5. Hemoglobin 9.5 hematocrit 30.8. MCV 74.0. 81 neutrophil. BUN 9. Creatinine 1.20. GFR 45. Patient at baseline. Cardiac enzymes are normal. UA is negative. Differential Diagnosis Differential diagnosis including colitis, UTI, pyelonephritis, nephrolithiasis, electrolyte imbalance, dehydration. Narrative Course 66-year-old female with low abdominal pain and diarrhea. History of C. difficile in the past. C. difficile was negative in May, July of this year. Patient is unable to give us a stool sample for C. difficile PCR. Diagnosis Primary Impression: Gastroenteritis Patient Instructions: General Instructions Additional Instructions: Advised patient to continue with regular diet. Lomotil as needed for diarrhea. Follow-up with personal physician. Return if persistent problem or worse. Follow-up with personal physician for C. difficile stool check. Med/Other Pt SpecificInfo: Prescription(s) given Scripts Diphenoxylate-Atropine (Lomotil) 2.5-0.025 Mg Tab 1 TAB PO Q6H Y for DIARRHEA, #10 TAB 0 Refills Prov: Deonte Perez MD 08/23/17 Disposition: 01 DISCHARGE HOME Condition: Stable Deonte Perez MD Aug 23, 2017 13:16
[2017-08-23 13:26] VITALS: BP 109/50; PULSE 75; RESP 18; O2SAT 96
[2017-08-23 13:29] LABS: AUTOMATED NEUTROPHIL # 9.5 TH/MM3 (1.8-7.7); BASOPHIL % 0.4 % (0.0-2.0); EOSINOPHIL # 0.2 TH/MM3 (0-0.4); HEMATOCRIT 30.8 % (35.0-46.0); HEMOGLOBIN 9.5 GM/DL (11.6-15.3); LYMPH % 7.9 % (9.0-44.0); LYMPHOCYTE # 0.9 TH/MM3 (1.0-4.8); MEAN CORPUSCULAR HEMOGLOBIN 22.8 PG (27.0-34.0); MEAN CORPUSCULAR HGB CONC 30.8 % (32.0-36.0); MEAN PLATELET VOLUME 7.6 FL (7.0-11.0); MONO % 8.2 % (0.0-8.0); MONOCYTE # 0.9 TH/MM3 (0-0.9); NEUT % 81.5 % (16.0-70.0); PLATELET COUNT 222 TH/MM3 (150-450); RED BLOOD COUNT 4.16 MIL/MM3 (4.00-5.30); RED CELL DISTRIBUTION WIDTH 18.3 % (11.6-17.2); WHITE BLOOD COUNT 11.5 TH/MM3 (4.0-11.0)
[2017-08-23 13:36] LABS: BILIRUBIN, URINE NEG (NEG); BLOOD, URINE TRACE (NEG); CHLORIDE 109 MEQ/L (98-107); GLUCOSE,URINE NEG (NEG); KETONE, URINE NEG (NEG); NITRITE,URINE NEG (NEG); SODIUM (NA) 142 MEQ/L (136-145); URINE COLOR YELLOW (YELLW/STRAW); URINE LEUKOCYTE ESTERASE SMALL (NEG)
[2017-08-23 13:39] LABS: CALCIUM 9.3 MG/DL (8.5-10.1)
[2017-08-23 13:40] LABS: ALBUMIN 3.5 GM/DL (3.4-5.0); BICARBONATE 24.4 MEQ/L (21.0-32.0); BLOOD UREA NITROGEN 9 MG/DL (7-18); GLUCOSE,RANDOM 110 MG/DL (74-106)
[2017-08-23 13:41] LABS: INTERNATIONAL NORMALIZED RATIO 1.1 RATIO; PROTHROMBIN TIME - PATIENT 10.7 SEC (9.8-11.6)
[2017-08-23 13:42] LABS: ALT (GPT) 14 U/L (10-53)
[2017-08-23 13:43] LABS: AST (GOT) 14 U/L (15-37); GLOMERULAR FILTRATION RATE 45 ML/MIN (>89)
[2017-08-23 13:44] LABS: TOTAL BILIRUBIN ADULT 0.4 MG/DL (0.2-1.0); TOTAL PROTEIN 7.6 GM/DL (6.4-8.2)
[2017-08-23 13:45] LABS: ALKALINE PHOSPHATASE 169 U/L (45-117)
[2017-08-23 13:46] LABS: AMORPHOUS SEDIMENT, URINE FEW; RBC, URINE 0-3 /hpf (0-3); SQUAMOUS EPITHELIAL CELL URINE 0-5 /hpf (0-5); WBC, URINE 0-2 /hpf (0-5)
[2017-08-23 13:48] LABS: TROPONIN I LESS THAN 0.02 NG/ML (0.02-0.05)
[2017-08-23] MEDS ORDERED: IOHEXOL 350 MG/ML 10 ML VIAL (for RAD DIAG) IVCONTRAST ONE (14:42)
[2017-08-23 14:47] VITALS: BP 91/47; PULSE 67; RESP 18; O2SAT 96
--- NOTE | 2017-08-23 14:50 | RADRPT ---
EXAM DATE/TIME: 08/23/2017 14:12 [facility] COMPARISON: No previous studies available for comparison. INDICATIONS : Lower abdominal pain and diarrhea. IV CONTRAST: 90 cc Omnipaque 350 (iohexol) IV ORAL CONTRAST: No oral contrast ingested. RADIATION DOSE: 23.77 CTDIvol (mGy) MEDICAL HISTORY : Hypertension. Chronic obstructive pulmonary disease. Cardiovascular disease SURGICAL HISTORY : Appendectomy. ENCOUNTER: Initial ACUITY: 1 week PAIN SCALE: 4/10 LOCATION: lower quadrant TECHNIQUE: Volumetric scanning of the abdomen and pelvis was performed. Using automated exposure control and ad justment of the mA and/or kV according to patient size, radiation dose was kept as low as reasonably achievable to obtain optimal diagnostic quality images. DICOM format image data is available electro nically for review and comparison. FINDINGS: LOWER LUNGS: The visualized lower lungs are clear. LIVER: Homogeneous density without lesion. There is no dilation of the biliary tree. No calcified gallston es. SPLEEN: Normal size without lesion. PANCREAS: Within normal limits. KIDNEYS: The right kidney is normal in size and shape. The left kidney is small and atrophic in appearance wit h cortical thinning. There is no focal mass or hydronephrosis. ADRENAL GLANDS: Within normal limits. VASCULAR: There is no aortic aneurysm. BOWEL/MESENTERY: There is a mildly nonspecific, nonobstructive bowel gas pattern with several loops of nondilated air- containing small bowel with several small air-fluid levels in the right mid and lower abdomen. Gas an d stool is noted segments within the colon. There is no free air or fluid. No oral contrast was given limiting the sensitivity. ABDOMINAL WALL: Within normal limits. RETROPERITONEUM: There is no lymphadenopathy. BLADDER: No wall thickening or mass. REPRODUCTIVE: Within normal limits. INGUINAL: There is no lymphadenopathy or hernia. MUSCULOSKELETAL: Within normal limits for patient age. CONCLUSION: 1. Mildly nonspecific, nonobstructive bowel gas pattern which may represent a mild ileus and/or gastr oenteritis. 2. The left kidney is smaller and atrophic in appearance with no hydronephrosis. 3. Unremarkable gallbladder. Kevin Brown MD on August 23, 2017 at 14:44 Board Certified Radiologist. This report was verified electronically.
[2017-08-23] MEDS ORDERED: LOMO2.5T PO (15:15)
[2017-08-23 15:47] VITALS: BP 112/51
--- NOTE | 2017-08-24 15:43 | EKG ---
Date Performed: 08/23/2017 Time Performed: 12:59:58 PTAGE: 66 years EKG: Sinus rhythm WITH FREQUENT SUPRAVENTRICULAR PREMATURE COMPLEXES INCOMPLETE RIGHT BUNDLE BRANCH BLOCK NONSPECIFIC ST & T-WAVE ABNORMALITY ABNORMAL RHYTHM ECG Since the PREVIOUS TRACING , no significant change noted PREVIOUS TRACIN08/21/2017 04.11 DOCTOR: Sagar Baptiste Interpretating Date/Time 08/24/2017 15:40:00
== END 2017-08-23 15:47 | disposition home or self-care (01) ==
LOC: PHED 12:14
DX: K52.9 Noninfective gastroenteritis and colitis, unspecified (principal); R94.31 Abnormal electrocardiogram [ECG] [EKG]; E78.5 Hyperlipidemia, unspecified; I11.0 Hypertensive heart disease with heart failure; I50.9 Heart failure, unspecified; I25.10 Atherosclerotic heart disease of native coronary artery without angina pectoris; F32.9 Major depressive disorder, single episode, unspecified; F41.9 Anxiety disorder, unspecified; F17.200 Nicotine dependence, unspecified, uncomplicated
CPT/HCPCS: 74177; 80053; 81001; 83690; 84484; 85025; 85610; 85730; 93005; 96361; 96374; 99285; J7030; Q9967

== ENCOUNTER 2018-01-26 14:47 | Inpatient (IN) ==
[2018-01-26] MEDS ORDERED: Sod Chloride 0.9% Inj 1,000 ML IV.SIG ONE (15:13)
[2018-01-26] MEDS ORDERED: Pantoprazole Inj 40 MG Vial IV.PUSH ONE (15:37)
[2018-01-26 15:38] LABS: Baso # (Auto) 0.1 th/mm3 (0.0-0.2); Baso % (Auto) 0.7 % (0.0-2.0); Eos # (Auto) 0.1 th/mm3 (0.0-0.4); Eos % (Auto) 1.1 % (0.0-4.0); Hematocrit 27.8 % (35.0-46.0); Hemoglobin 8.4 gm/dL (11.6-15.3); Lymph # (Auto) 0.9 th/mm3 (1.0-4.8); Lymph % (Auto) 9.7 % (9.0-44.0); Mean Corpuscular Hemoglobin 20.4 pg (27.0-34.0); Mean Corpuscular Volume 67.4 fL (80.0-100.0); Mean Platelet Volume 8.7 fL (7.0-11.0); Mono # (Auto) 0.6 th/mm3 (0.0-0.9); Mono % (Auto) 6.4 % (0.0-8.0); Neut # (Auto) 7.2 th/mm3 (1.8-7.7); Neut % (Auto) 82.1 % (16.0-70.0); Platelet Count 222 th/mm3 (150-450); Red Blood Count 4.11 mil/mm3 (4.00-5.30); Red Cell Distribution Width 20.3 % (11.6-17.2); White Blood Count 8.8 th/mm3 (4.0-11.0)
[2018-01-26 15:42] LABS: Mean Corpuscular HGB Conc 30.2 % (32.0-36.0)
[2018-01-26 16:00] LABS: Alanine Aminotransferase 10 U/L (10-53); Albumin 3.2 g/dL (3.4-5.0); Anion Gap 9 meq/L (5-15); Aspartate Aminotransferase 10 U/L (15-37); Blood Urea Nitrogen 14 mg/dL (7-18); Calcium 9.4 mg/dL (8.5-10.1); Carbon Dioxide 26.3 meq/L (21.0-32.0); Chloride 106 meq/L (98-107); Glomerular Filtration Rate 33 mL/min (>89); Glucose,Random 100 mg/dL (74-106); Lipase 33 U/L (73-393); Potassium 3.9 meq/L (3.5-5.1); Sodium 141 meq/L (136-145)
[2018-01-26 16:11] LABS: Alkaline Phosphatase 168 U/L (45-117)
[2018-01-26 16:30] LABS: Bacteria,Urine Many /hpf; Bilirubin,Urine Negative (Negative); Clarity,Urine Hazy (Clear); Color,Urine Yellow (Yellw/Straw); Glucose,Urine (UA) Negative (Negative); Hyaline Casts,Urine 4 /lpf (0-3); Leukocyte Esterase,Urine Small (Negative); Mucus,Urine Few /lpf (Occasional); Nitrite,Urine Negative (Negative); Specific Gravity,Urine 1.012 (1.002-1.035); Squamous Epithelial Cell,Urine 1 /hpf (0-5)
--- NOTE | 2018-01-26 17:28 | ED ---
HPI General Chief complaint: Nausea/Vomiting/Diarrhea Stated complaint: GI Time Seen by Provider: 01/26/18 14:53 Source: patient Mode of arrival: ambulatory Limitations: no limitations History of Present Illness HPI Narrative: 67-year-old female that presents to the ED for evaluation of weakness, diarrhea for about a month now. Per patient she suffers from depression as well as has had bouts of diarrhea for the past month. Per patient it comes and goes. She is been seen here 3 times for similar in the past. She does state that she takes blood thinners and she has a history of C. difficile in the past as well as GI bleeds in the past. Per patient she does have blood transfusions and she does have a history of anemia but she cannot really tell me what her numbers usually are. Denies any fevers chills or sweats. She feels nauseous. She chronically takes Lortab for pain from her PCP Dr. Hernandez. She was just seen here actually a week ago. Per patient she has not felt better and she call her doctor. Apparently she is having some social issues as well with her sister who lives with her who is currently having her own medical issues including dealing with cancer and cannot really take care of her. Per patient she is legally blind and currently with the diarrhea and all of her weakness she does not feel safe at home. She apparently told this to the nurse for Dr. Hernandez who recommended to the patient comes here for possible placement. Patient states that currently her pain is 2 out of 10. Per patient she gets cramping pain. Mostly lower abdomen. She does have a CAT scan less than a week ago. She denies any other medical issues. She has not been put on any antibiotics. No recent hospitalizations. No chest pain or shortness of breath. Related Data Home Medications Medication Instructions Recorded Confirmed aspirin 81 mg PO DAILY 01/08/18 01/26/18 clopidogrel [Plavix] 75 mg PO DAILY 01/08/18 01/26/18 hydrocodone-acetaminophen 1 tab PO Q6HR 01/08/18 01/26/18 amlodipine 2.5 mg PO DAILY 01/24/18 01/26/18 atorvastatin [Lipitor] 20 mg PO DAILY 01/24/18 01/26/18 clonazepam [Klonopin] 0.5 mg PO QID 01/24/18 01/26/18 gabapentin 400 mg PO TID 01/24/18 01/26/18 nitroglycerin [Nitrostat] 0.4 mg SUBLINGUAL Q5-15M PRN 01/24/18 01/26/18 Allergies Allergy/AdvReac Type Severity Reaction Status Date / Time amoxicillin Allergy Intermediate throat pain Verified 08/23/17 12:18 Review of Systems ROS: all other systems reviewed are negative [facility] Medical History Medical History Anxiety (Acute) CAD (coronary artery disease) (Acute) COPD (chronic obstructive pulmonary disease) (Acute) Clostridium difficile diarrhea (Acute) Hypercholesteremia (Acute) Hypertension (Acute) MDD (major depressive disorder) (Acute) Panic attack (Acute) Renal failure (Acute) Skin cancer (melanoma) (Acute) Social History Social History Substance History: No History of Abuse Second Hand Smoke Exposure: Yes Smoking Status: Current every day smoker Tobacco Type: Cigarettes How Often Do You Have a Drink Containing Alcohol: Never Recent Travel in [facility] within the Last 8 Weeks: No Recent Out of Country Travel within the Last 8 Weeks: No Immunization History Tetanus Immunization: >5 Years Hx Influenza Vaccine This Season: Yes Exam Narrative Exam Narrative: GENERAL: Well appering. SKIN: Focused skin assessment warm/dry. HEAD: Atraumatic. Normocephalic. EYES: Pupils equal and round. No scleral icterus. No injection or drainage. ENT: No nasal bleeding or discharge. Mucous membranes pink and moist. Tongue is midline. No uvula deviation. NECK: Trachea midline. No JVD. CARDIOVASCULAR: Regular rate and rhythm. No murmur appreciated. RESPIRATORY: No accessory muscle use. Clear to auscultation. Breath sounds equal bilaterally. GASTROINTESTINAL: Abdomen soft, non-tender, nondistended. Hepatic and splenic margins not palpable. Rectal exam done: With female nurse present. No sign of red blood but Hemoccult was done and was positive. Patient does have brownish/ dark stools noted. Minimal obtain however. MUSCULOSKELETAL: No obvious deformities. No clubbing. No cyanosis. No edema. Full range of motion of the upper and lower extremities bilaterally. 2+ pulses bilaterally. NEUROLOGICAL: Awake and alert. No obvious cranial nerve deficits. Motor grossly within normal limits. Normal speech. PSYCHIATRIC: Appropriate mood and affect; insight and judgment normal. Procedures Hemaprompt Stool Procedural Steps Taken: specimen placed in appropriate test area, developer placed on specimen and control areas and controls appropriately positive and negative Hemaprompt Stool Result: positive Course Initial Documented Vital Signs Temperature 98.5 F 01/26/18 14:57 Pulse Rate 64 01/26/18 14:57 Respiratory Rate 18 01/26/18 14:57 Blood Pressure 134/58 L 01/26/18 14:57 Pulse Oximetry 96 01/26/18 14:57 Last Documented Vital Signs Temperature 98.5 F 01/26/18 14:57 Pulse Rate 60 01/26/18 15:01 Respiratory Rate 18 01/26/18 15:01 Blood Pressure 134/58 L 01/26/18 14:57 Pulse Oximetry 96 01/26/18 15:01 Medical Decision Making CRISTA Attestation CRISTA supervised visit: Yes Attestation: I, Dr. Camacho, have reviewed the advance practice practitioner's documentation and am in agreement, met with the patient face to face, made the diagnosis, and the medical decision making was done by me. *My assessment and Findings: This patient has a host of complaints but having GI bleed with anemia and generalized weakness. She will be admitted for evaluation of GI bleed. She may ultimately require placement and it was reviewed with case management as well. MDM Narrative Medical decision making narrative: 67-year-old female that presents to the ED for evaluation of diarrhea and weakness. Patient was properly examined and was found to have signs and symptoms which appear to be consistent with what appears to be diarrhea. Patient is legally blind so she cannot really see her stool. I did a rectal here as patient has not had one on the 3 times that she has been here per patient. Hemoccult here was slightly positive. Patient overall looks well but does appear to be somewhat weak. She appears to have some social issues as well. I did review the previous medical records and there has been a trend of her hemoglobin coming down as well as her hematocrit. She is possibly having another GI bleed again. Patient was started on Protonix. Labs were ordered. No imaging was ordered as patient just had a CAT scan that was negative. C. difficile was ordered. Patient's hemoglobin today is 8.4. Patient does take blood thinners. Case was discussed with my attending Dr Camacho who recommends admission for further evaluation and possible colonoscopy and EGD. Will withhold on giving blood at this time. Patient agrees with plan. Case management has already spoken with patient about possible placement. Dr Schmitz agreed to admission. Medical Screen Exam Complete: Yes Emergency Medical Condition: Yes Differential Diagnosis Differential Diagnosis: GI bleed versus diarrhea versus chronic weakness versus symptomatic anemia Medical Records Medical records reviewed: Yes I reviewed the patient's medical records. Lab Data Lab results reviewed: Yes I reviewed the patient's lab results. Lab results narrative: UA shows possible UTI Result diagrams: 01/26/18 15:23 01/26/18 15:23 Lab Results 01/26/18 01/26/18 01/26/18 Range/Units 15:23 15:23 15:50 WBC 8.8 (4.0-11.0) th/mm3 RBC 4.11 (4.00-5.30) mil/mm3 Hgb 8.4 L (11.6-15.3) gm/dL Hct 27.8 L (35.0-46.0) % MCV 67.4 L (80.0-100.0) fL MCH 20.4 L (27.0-34.0) pg MCHC 30.2 L (32.0-36.0) % RDW 20.3 H (11.6-17.2) % Plt Count 222 (150-450) th/mm3 MPV 8.7 (7.0-11.0) fL Neut % (Auto) 82.1 H (16.0-70.0) % Lymph % (Auto) 9.7 (9.0-44.0) % [place] % (Auto) 6.4 (0.0-8.0) % Eos % (Auto) 1.1 (0.0-4.0) % Baso % (Auto) 0.7 (0.0-2.0) % Neut # (Auto) 7.2 (1.8-7.7) th/mm3 Lymph # (Auto) 0.9 L (1.0-4.8) th/mm3 [place] # (Auto) 0.6 (0.0-0.9) th/mm3 Eos # (Auto) 0.1 (0.0-0.4) th/mm3 Baso # (Auto) 0.1 (0.0-0.2) th/mm3 WBC Differential . Differential Comment Auto diff final Sodium 141 (136-145) meq/L Potassium 3.9 (3.5-5.1) meq/L Chloride 106 (98-107) meq/L Carbon Dioxide 26.3 (21.0-32.0) meq/L Anion Gap 9 (5-15) meq/L BUN 14 (7-18) mg/dL Creatinine 1.58 H (0.50-1.00) mg/dL Estimated GFR 33 L (>89) mL/min Random Glucose 100 (74-106) mg/dL Calcium 9.4 (8.5-10.1) mg/dL Total Bilirubin 0.6 (0.2-1.0) mg/dL AST 10 L (15-37) U/L ALT 10 (10-53) U/L Alkaline Phosphatase 168 H (45-117) U/L Total Protein 8.0 (6.4-8.2) g/dL Albumin 3.2 L (3.4-5.0) g/dL Lipase 33 L (73-393) U/L TSH 1.230 (0.358-3.740) uIU/mL Urine Color Yellow (Yellw/Straw) Urine Clarity Hazy H (Clear) Urine pH 6.0 (5.0-8.5) Ur Specific [place] 1.012 (1.002-1.035) Urine Protein 30 H (Neg-Trace) mg/dL Urine Glucose (UA) Negative (Negative) mg/dL Urine Ketones Negative (Negative) mg/dL Urine Occult Blood Large H (Negative) Urine Nitrate Negative (Negative) Urine Bilirubin Negative (Negative) Urine Urobilinogen Less than 2 (Less than 2) mg/dL Ur Leukocyte Esterase Small H (Negative) Urine RBC 26 H (0-3) /hpf Urine WBC 21 H (0-5) /hpf Urine WBC Clumps Rare H (None) Ur Squamous Epith Cells 1 (0-5) /hpf Urine Bacteria Many H (None) /hpf Hyaline Casts 4 (0-3) /lpf Urine Mucus Few H (Occasional) /lpf Micro UA Comment Cath-culture ind Ur Microscopic Review Not Reportable Urine Culture Comments Cath-cult indicated Blood Type Antibody Screen 01/26/18 Range/Units 16:03 WBC (4.0-11.0) th/mm3 RBC (4.00-5.30) mil/mm3 Hgb (11.6-15.3) gm/dL Hct (35.0-46.0) % MCV (80.0-100.0) fL MCH (27.0-34.0) pg MCHC (32.0-36.0) % RDW (11.6-17.2) % Plt Count (150-450) th/mm3 MPV (7.0-11.0) fL Neut % (Auto) (16.0-70.0) % Lymph % (Auto) (9.0-44.0) % [place] % (Auto) (0.0-8.0) % Eos % (Auto) (0.0-4.0) % Baso % (Auto) (0.0-2.0) % Neut # (Auto) (1.8-7.7) th/mm3 Lymph # (Auto) (1.0-4.8) th/mm3 [place] # (Auto) (0.0-0.9) th/mm3 Eos # (Auto) (0.0-0.4) th/mm3 Baso # (Auto) (0.0-0.2) th/mm3 WBC Differential Differential Comment Sodium (136-145) meq/L Potassium (3.5-5.1) meq/L Chloride (98-107) meq/L Carbon Dioxide (21.0-32.0) meq/L Anion Gap (5-15) meq/L BUN (7-18) mg/dL Creatinine (0.50-1.00) mg/dL Estimated GFR (>89) mL/min Random Glucose (74-106) mg/dL Calcium (8.5-10.1) mg/dL Total Bilirubin (0.2-1.0) mg/dL AST (15-37) U/L ALT (10-53) U/L Alkaline Phosphatase (45-117) U/L Total Protein (6.4-8.2) g/dL Albumin (3.4-5.0) g/dL Lipase (73-393) U/L TSH (0.358-3.740) uIU/mL Urine Color (Yellw/Straw) Urine Clarity (Clear) Urine pH (5.0-8.5) Ur Specific [place] (1.002-1.035) Urine Protein (Neg-Trace) mg/dL Urine Glucose (UA) (Negative) mg/dL Urine Ketones (Negative) mg/dL Urine Occult Blood (Negative) Urine Nitrate (Negative) Urine Bilirubin (Negative) Urine Urobilinogen (Less than 2) mg/dL Ur Leukocyte Esterase (Negative) Urine RBC (0-3) /hpf Urine WBC (0-5) /hpf Urine WBC Clumps (None) Ur Squamous Epith Cells (0-5) /hpf Urine Bacteria (None) /hpf Hyaline Casts (0-3) /lpf Urine Mucus (Occasional) /lpf Micro UA Comment Ur Microscopic Review Urine Culture Comments Blood Type O Positive Antibody Screen Negative Discharge Plan Discharge Disposition Patient Disposition: 30 Still Patient Discharge Details Diagnosis: Acute GI bleeding Physicians Team ED Provider: Juan C Camacho ED Midlevel Provider: Leandro Mcqueen Primary Care Provider: Leti Hernandez Attending Provider: Ja Schmitz Other Providers: Onesimo Chris Status ED Status: Admitted Patient
[2018-01-26] MEDS ORDERED: Nitroglycerin SL (Override) 0.4 MG Tab SL PRN (18:07)
--- NOTE | 2018-01-26 18:28 | P.HPIM ---
History of Present Illness Service: [facility] Primary Care Physician: Leti Hernandez MD Chief Complaint: GI Bleed History of Present Illness: This is a 67-year-old female with past medical history significant for COPD, hypertension, major depressive disorder, and melanoma surgically removed. She is presenting to the clinic today with several bouts of diarrhea the last month. She says the diarrhea comes and goes however recently has been very frequently. She has had similar episodes of this in the past and before is been told that she had a GI bleed. Usually this happens to her though is usually due to C. difficile that she has had that in the past as well. She has a chronic history of anemia and requires blood transfusion at that time but uncertain as to her last time or how many she has had. She is legally blind and is uncertain if she has noticed any blood in her stool. This morning she woke up with diarrhea covering everything in her bed and knew she needed to be evaluated by the hospital. Been feeling increased weakness as well as nausea. Denies any fevers chills or sweating. Has felt weak since the symptoms are recurring. She is on Lortabs for chronic lower back pain. She describes the abdominal pain she is feeling as a cramping pain that comes in waves mostly in the lower abdomen. It is relieved with bowel movements. - Diagnosis (1) Acute GI bleeding (2) COPD (chronic obstructive pulmonary disease) (3) HTN (hypertension) (4) CAD (coronary artery disease) (5) Depressed Inpatient Certification: I certify that the inpatient services were ordered in accordance with Medicare regulations governing the order. This includes certification that hospital inpatient services are reasonable and necessary and in the case of services not specified as inpatient-only under 42 CFR 419.22(n), that they are appropriately provided as inpatient services in accordance to with the 2-midnight benchmark under 43 CFR 412.3(e) Estimated Total Length of Stay (Days): 3 Plans for Post Hospital Care: Home Review of Systems Constitutional: Reports anorexia, Reports body ache(s), Reports chills, Reports fatigue, Reports lack of energy, Reports weakness, Denies excessive sweating, Denies fever(s), Denies headache(s) Comments: legally blind Ears, Nose, Mouth, and Throat: Reports dry mouth, Reports sore throat, Denies abnormal hearing, Denies bad breath, Denies change in voice, Denies difficulty swallowing, Denies headache(s), Denies nasal congestion Cardiovascular: Denies chest pain, Denies chest pain at rest, Denies chest pain with activity, Denies leg swelling, Denies rapid, pounding, or irregular heartbeat, Denies shortness of breath Respiratory: Denies cough, Denies coughing up blood Gastrointestinal: Reports abdominal pain, Reports bright, red blood in stools, Reports change in stools, Reports coffee ground vomit, Reports loose stools, Reports nausea, Denies heartburn, Denies vomiting Musculoskeletal: Reports back pain, Denies abnormal walking, Denies muscle weakness Neurologic: Denies abnormal hearing, Denies abnormal speech, Denies abnormal walking, Denies behavioral changes, Denies loss of vision, Denies numbness, Denies radiating pain, Denies restless legs Psychiatric: Reports anxiety, Reports depression PMFSH - History History Provided By: Patient - Medical History Medical History: Medical History (Last Reviewed 01/26/18 @ 17:21 by HOLLY Lacey) Anxiety CAD (coronary artery disease) COPD (chronic obstructive pulmonary disease) Clostridium difficile diarrhea Hypercholesteremia Hypertension MDD (major depressive disorder) Panic attack Renal failure Skin cancer (melanoma) - Surgical History Surgical History: Surgical History (Last Updated 01/26/18 @ 18:27 by Ja Schmitz MD) H/O spinal fusion History of appendectomy Hx of tonsillectomy Stented coronary artery - Tobacco History Second Hand Smoke Exposure: Yes Tobacco Use In Past 30 Days: Yes Smoking Status: Current every day smoker Tobacco Type: Cigarettes Packs Per Day: 1 - Alcohol History How Often Do You Have a Drink Containing Alcohol: Never - Substance Use History Substance History: No History of Abuse - Travel History Recent Travel in the [place] Within the Last 8 Weeks: No Recent Travel Out of the Country Within the Last 8 Weeks: No - Immunization History Tetanus Immunization: >5 Years Hx Influenza Vaccine This Season: Yes Medications and Allergies Active Medications: Active Medications Hydrocodone Bitart/Acetaminophen (Dazey 5/325) 1 tab PO Q6HR FRANKY Atorvastatin Calcium (Lipitor) 20 mg PO DAILY FRANKY Clonazepam (Klonopin) 0.5 mg PO QID FARNKY Sodium Chloride (Ns Inj) 1,000 mls @ 125 mls/hr IV.CONT .Q8H FRANKY Nitroglycerin (Nitrostat Sl (Override)) 0.4 mg SL Q5-15M PRN PRN Reason: Chest Pain Non-Formulary Medication (Amlodipine [Amlodipine]) 2.5 mg PO DAILY FRANKY Ondansetron HCl (Zofran Inj) 4 mg IV.PUSH Q6H PRN PRN Reason: NAUSEA Pantoprazole Sodium (Protonix Inj) 40 mg IV.PUSH DAILY FRANKY Sodium Chloride (Ns Flush) 2 ml IV.FLUSH BID FRANKY Sodium Chloride (Ns Flush) 2 ml IV.FLUSH PRN PRN PRN Reason: FLUSH AFTER USING IV ACCESS Allergies Allergy/AdvReac Type Severity Reaction Status Date / Time amoxicillin Allergy Intermediate throat pain Verified 08/23/17 12:18 Home Medications Medication Instructions Recorded Confirmed Type aspirin 81 mg PO DAILY 01/08/18 01/26/18 History clopidogrel [Plavix] 75 mg PO DAILY 01/08/18 01/26/18 History hydrocodone-acetaminophen 1 tab PO Q6HR 01/08/18 01/26/18 History amlodipine 2.5 mg PO DAILY 01/24/18 01/26/18 History atorvastatin [Lipitor] 20 mg PO DAILY 01/24/18 01/26/18 History clonazepam [Klonopin] 0.5 mg PO QID 01/24/18 01/26/18 History gabapentin 400 mg PO TID 01/24/18 01/26/18 History nitroglycerin [Nitrostat] 0.4 mg SUBLINGUAL Q5-15M PRN 01/24/18 01/26/18 History Exam Vital signs: Vital Signs 01/26/18 14:57 01/26/18 15:01 01/26/18 18:14 Temperature 98.5 F Pulse Rate 64 60 Respiratory Rate 18 18 Blood Pressure 134/58 L Pulse Oximetry 96 96 96 Intake & Output 01/25/18 01/26/18 01/26/18 18:59 06:59 18:59 Weight 240 kg Narrative: GENERAL: Well appearing. SKIN: Focused skin assessment warm/dry. HEAD: Atraumatic. Normocephalic. EYES: Pupils equal and round. No scleral icterus. No injection or drainage. ENT: No nasal bleeding or discharge. Mucous membranes pink and moist. Tongue is midline. No uvula deviation. NECK: Trachea midline. No JVD. CARDIOVASCULAR: Regular rate and rhythm. No murmur appreciated. RESPIRATORY: No accessory muscle use. Clear to auscultation. Breath sounds equal bilaterally. GASTROINTESTINAL: Abdomen soft, non-tender, nondistended. Hepatic and splenic margins not palpable. Hemoccult was done and was positive. Patient does have brownish/dark stools noted. MUSCULOSKELETAL: No obvious deformities. No clubbing. No cyanosis. No edema. Full range of motion of the upper and lower extremities bilaterally. 2+ pulses bilaterally. NEUROLOGICAL: Awake and alert. No obvious cranial nerve deficits. Motor grossly within normal limits. Normal speech. PSYCHIATRIC: Appropriate mood and affect; insight and judgment normal. Results - Labs CBC & Chem 7: 01/26/18 19:10 01/26/18 15:23 Labs: Short CBC 01/26/18 Range/Units 15:23 WBC 8.8 (4.0-11.0) th/mm3 Hgb 8.4 L (11.6-15.3) gm/dL Hct 27.8 L (35.0-46.0) % Plt Count 222 (150-450) th/mm3 BMP 01/26/18 15:23 Sodium 141 Potassium 3.9 Chloride 106 Carbon Dioxide 26.3 BUN 14 Creatinine 1.58 H Calcium 9.4 Liver Function 01/26/18 Range/Units 15:23 Total Bilirubin 0.6 (0.2-1.0) mg/dL AST 10 L (15-37) U/L ALT 10 (10-53) U/L Alkaline Phosphatase 168 H (45-117) U/L Albumin 3.2 L (3.4-5.0) g/dL Urine 01/26/18 Range/Units 15:50 Urine Color Yellow (Yellw/Straw) Urine Clarity Hazy H (Clear) Urine pH 6.0 (5.0-8.5) Ur Specific [place] 1.012 (1.002-1.035) Urine Protein 30 H (Neg-Trace) mg/dL Urine Glucose (UA) Negative (Negative) mg/dL Caprini VTE Risk Assessment Caprini VTE Risk Assessment: Moderate/High Risk (score >= 2) Caprini Risk Assessment Model: Point Value = 1 Point Value = 2 Point Value = 3 Point Value = 5 Age 41-60 Minor surgery BMI > 25 kg/m2 Swollen legs Varicose veins or History of unexplained or recurrent spontaneous Oral contraceptives or hormone replacement Sepsis (< 1 month) Serious lung disease, including pneumonia (< 1 month) Abnormal pulmonary function Acute myocardial infarction Congestive heart failure (< 1 month) History of inflammatory bowel disease Medical patient at bed rest Age 61-74 Arthroscopic surgery Major open surgery (> 45 min) Laparoscopic surgery (> 45 min) Malignancy Confined to bed (> 72 hours) Immobilizing plaster cast Central venous access Age >= 75 History of VTE Family history of VTE Factor V Leiden Prothrombin [id number] Lupus anticoagulant Anticardiolipin antibodies Elevated serum homocysteine Heparin-induced thrombocytopenia Other congenital or acquired thrombophilia Stroke (< 1 month) Elective arthroplasty Hip, pelvis, or leg fracture Acute spinal cord injury (< 1 month) Prophylaxis Regimen: Total Risk Factor Score Risk Level Prophylaxis Regimen 0-1 Low Early ambulation 2 Moderate Order ONE of the following: *Sequential Compression Device (SCD) *Heparin 5000 units SQ BID 3-4 Higher Order ONE of the following medications: *Heparin 5000 units SQ TID *Enoxaparin/Lovenox 40 mg SQ daily (WT < 150 kg, CrCl > 30 mL/min) *Enoxaparin/Lovenox 30 mg SQ daily (WT < 150 kg, CrCl > 10-29 mL/min) *Enoxaparin/Lovenox 30 mg SQ BID (WT < 150 kg, CrCl > 30 mL/min) AND/OR *Sequential Compression Device (SCD) 5 or more Highest Order ONE of the following medications: *Heparin 5000 units SQ TID (Preferred with Epidurals) *Enoxaparin/Lovenox 40 mg SQ daily (WT < 150 kg, CrCl > 30 mL/min) *Enoxaparin/Lovenox 30 mg SQ daily (WT < 150 kg, CrCl > 10-29 mL/min) *Enoxaparin/Lovenox 30 mg SQ BID (WT < 150 kg, CrCl > 30 mL/min) AND *Sequential Compression Device (SCD) Assessment and Plan - Assessment (1) Acute GI bleeding Code(s): K92.2 - Gastrointestinal hemorrhage, unspecified Status: Acute (2) COPD (chronic obstructive pulmonary disease) Code(s): J44.9 - Chronic obstructive pulmonary disease, unspecified Status: Chronic (3) HTN (hypertension) Code(s): I10 - Essential (primary) hypertension Status: Chronic (4) CAD (coronary artery disease) Code(s): I25.10 - Atherosclerotic heart disease of elim ira coronary artery without angina pectoris Status: Chronic (5) Depressed Code(s): F32.9 - Major depressive disorder, single episode, unspecified Status : Chronic - Plan This is a 67-year-old female with past history significant for COPD, coronary artery disease, hypertension, major depressive disorder, anxiety, chronic lower back pain and depression. Is presenting to the hospital being admitted at this time for GI bleed with positive Hemoccult. 1. GI bleed -Gastroenterology consulted, recommendations appreciated -Monitoring H&H currently 8.4 if below 8 will transfuse due to coronary disease. -Protonix -Zofran 2. COPD -Albuterol nebulizer as needed shortness of breath 3. Hypertension -Continue home amlodipine 4. Major depressive disorder -Continue home medications 5. Chronic pain due to back -Continue home Lortabs 6. Coronary artery disease -Patient on Plavix being held concern for GI bleed DVT prophylaxis with SCDs due to concern of GI bleed no pharmacological prophylaxis Code Status: full code Discussed Condition With: ED Discharge Planning: clinical work up pending (2) COPD (chronic obstructive pulmonary disease) Qualifiers: COPD type: unspecified COPD Qualified Code(s): J44.9 - Chronic obstructive pulmonary disease, unspecified (3) HTN (hypertension) Qualifiers: Hypertension type: essential hypertension Qualified Code(s): I10 - Essential (primary) hypertension (4) CAD (coronary artery disease) Qualifiers: Coronary Disease-Associated Artery/Lesion type: unspecified vessel or lesion type Associated angina: without angina (5) Depressed Qualifiers: Depression Type: major depressive disorder Major depression recurrence: recurrent Active/Remission status: in partial remission Qualified Code(s): F33.41 - Major depressive disorder, recurrent, in partial remission
[2018-01-26] MEDS: Sod Chloride 0.9% Inj 1,000 ML IV.CONT SCH (19:00)
[2018-01-26 19:33] LABS: Hematocrit 23.9 % (35.0-46.0); Hemoglobin 7.1 gm/dL (11.6-15.3)
[2018-01-26] MEDS ORDERED: RESP: Albuterol Concentrated 2.5 MG/0.5 ML Neb NEB PRN (19:59)
[2018-01-26 21:21] LABS: Activated Partial Thrombo Time 26.8 sec (24.3-30.1); INR 1.1 Ratio; Prothrombin Time 11.4 sec (9.8-11.6)
[2018-01-26] MEDS: clonazePAM 0.5 MG Tablet PO PRN (23:23)
[2018-01-27 03:25] LABS: Baso # (Auto) 0.1 th/mm3 (0.0-0.2); Baso % (Auto) 0.9 % (0.0-2.0); Eos # (Auto) 0.1 th/mm3 (0.0-0.4); Eos % (Auto) 1.7 % (0.0-4.0); Hematocrit 21.4 % (35.0-46.0); Lymph # (Auto) 1.3 th/mm3 (1.0-4.8); Mean Corpuscular HGB Conc 31.9 % (32.0-36.0); Mean Corpuscular Hemoglobin 21.1 pg (27.0-34.0); Mean Platelet Volume 8.6 fL (7.0-11.0); Mono # (Auto) 0.4 th/mm3 (0.0-0.9); Mono % (Auto) 6.6 % (0.0-8.0); Neut # (Auto) 4.6 th/mm3 (1.8-7.7); Neut % (Auto) 70.8 % (16.0-70.0); Platelet Count 171 th/mm3 (150-450); Red Blood Count 3.24 mil/mm3 (4.00-5.30); Red Cell Distribution Width 19.9 % (11.6-17.2); White Blood Count 6.4 th/mm3 (4.0-11.0)
[2018-01-27] MEDS: Sod Chloride 0.9% Inj 1,000 ML IV.CONT SCH (03:28)
[2018-01-27 03:32] LABS: Hemoglobin 6.8 gm/dL (11.6-15.3)
[2018-01-27 03:43] LABS: Calcium 8.7 mg/dL (8.5-10.1); Carbon Dioxide 22.4 meq/L (21.0-32.0)
[2018-01-27] MEDS ORDERED: Sodium Chlor 0.9% Inj 250 ML IV.SIG SCH (05:00)
[2018-01-27] MEDS: clonazePAM 0.5 MG Tablet PO PRN ×2 (08:32→22:27)
[2018-01-27] MEDS: amLODIPine 5 MG Tablet PO SCH (08:32)
[2018-01-27] MEDS: Pantoprazole Inj 40 MG Vial IV.PUSH SCH (08:50)
[2018-01-27] MEDS: Dextrose 5%/NaCl 0.45% Inj 1,000 ML IV.CONT SCH ×2 (09:24→19:33)
--- NOTE | 2018-01-27 10:07 | P.PNIM ---
Subjective Interval history: The patient was upset that she had C. difficile again. She said she came to the hospital because her diarrhea was so bad. She says she has a history of GI bleed. She says she still smokes cigarettes. 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 She denies any abdominal pain. Physical Exam Vital signs: Vital Signs 01/26/18 14:57 01/26/18 15:01 01/26/18 15:13 Temperature 98.5 F Pulse Rate 64 60 60 Respiratory Rate 18 18 Blood Pressure 134/58 L Pulse Oximetry 96 96 01/26/18 18:14 01/26/18 18:46 01/26/18 19:12 Temperature Pulse Rate 58 L 51 L Respiratory Rate 18 18 Blood Pressure 127/71 128/60 Pulse Oximetry 96 98 98 01/26/18 20:00 01/27/18 00:00 01/27/18 04:00 Temperature 99.8 F H 98.0 F 97.4 F L Pulse Rate 52 L 61 51 L Respiratory Rate 18 19 18 Blood Pressure 121/56 L 143/67 H 118/55 L Pulse Oximetry 92 L 98 94 L 01/27/18 05:48 01/27/18 06:06 01/27/18 08:00 Temperature 98.0 F 97.9 F 98.5 F Pulse Rate 52 L 50 L 49 L Respiratory Rate 18 16 Blood Pressure 138/67 141/66 H 149/67 H Pulse Oximetry 96 96 96 Intake & Output 01/26/18 01/27/18 01/27/18 18:59 06:59 18:59 Intake Total 2240 / 2240 Output Total 200 / 200 0 / 0 Balance -200 / -200 2240 / 2240 Weight 240 kg Intake: IV 1999 NS Inj 1,000 ML @ 125 mls/hr IV 1000 / 1000 .CONT .Q8H FRANKY Rx#:[id number] NS Inj 1,000 ML @ Wide Open IV. 1000 / 1000 SIG BOLUS ONE Rx#:[id number] Oral 240 / 240 Intake (Blood Product) Amt 0 / 0 Rbc As-3 Leukoreduced Unit 0 / 0 [id number] Output: Urine 0 / 0 Urine Amount (Catheter) 200 / 200 Straight 200 / 200 Other: Date of Last Bowel Movement 01/27/18 # Bowel Movements 2 Narrative: GENERAL: Well appearing. SKIN: Focused skin assessment warm/dry. HEAD: Atraumatic. Normocephalic. EYES: Pupils equal and round. No scleral icterus. No injection or drainage. ENT: No nasal bleeding or discharge. Mucous membranes pink and moist. Tongue is midline. No uvula deviation. NECK: Trachea midline. No JVD. CARDIOVASCULAR: Regular rate and rhythm. No murmur appreciated. RESPIRATORY: No accessory muscle use. Clear to auscultation. Breath sounds equal bilaterally. GASTROINTESTINAL: Abdomen soft, non-tender, nondistended. Hepatic and splenic margins not palpable. MUSCULOSKELETAL: No obvious deformities. No clubbing. No cyanosis. No edema. Full range of motion of the upper and lower extremities bilaterally. 2+ pulses bilaterally. NEUROLOGICAL: Awake and alert. No obvious cranial nerve deficits. Motor grossly within normal limits. Normal speech. - Urinary Catheter Management Straight Cath placed during this visit: no Results - Labs CBC & Chem 7: 01/27/18 02:59 01/27/18 02:59 Laboratory Results - last 24 hr 01/26/18 01/26/18 01/26/18 15:23 15:23 15:50 WBC 8.8 RBC 4.11 Hgb 8.4 L Hct 27.8 L MCV 67.4 L MCH 20.4 L MCHC 30.2 L RDW 20.3 H Plt Count 222 MPV 8.7 Prelim Diff (Auto) Neut % (Auto) 82.1 H Lymph % (Auto) 9.7 Burt % (Auto) 6.4 Eos % (Auto) 1.1 Baso % (Auto) 0.7 Neut # (Auto) 7.2 Lymph # (Auto) 0.9 L Burt # (Auto) 0.6 Eos # (Auto) 0.1 Baso # (Auto) 0.1 WBC Differential . Differential Comment Auto diff final PT INR APTT Sodium 141 Potassium 3.9 Chloride 106 Carbon Dioxide 26.3 Anion Gap 9 BUN 14 Creatinine 1.58 H Estimated GFR 33 L Random Glucose 100 Calcium 9.4 Total Bilirubin 0.6 AST 10 L ALT 10 Alkaline Phosphatase 168 H Total Protein 8.0 Albumin 3.2 L Lipase 33 L TSH 1.230 Urine Color Yellow Urine Clarity Hazy H Urine pH 6.0 Ur Specific [place] 1.012 Urine Protein 30 H Urine Glucose (UA) Negative Urine Ketones Negative Urine Occult Blood Large H Urine Nitrate Negative Urine Bilirubin Negative Urine Urobilinogen Less than 2 Ur Leukocyte Esterase Small H Urine RBC 26 H Urine WBC 21 H Urine WBC Clumps Rare H Ur Squamous Epith Cells 1 Urine Bacteria Many H Hyaline Casts 4 Urine Mucus Few H Micro UA Comment Cath-culture ind Ur Microscopic Review Not Reportable Urine Culture Comments Cath-cult indicated St C. diff Tox Epid 027 C. difficile (PCR) Blood Type Antibody Screen MTS Gel Crossmatch 01/26/18 01/26/18 01/26/18 16:03 19:10 20:10 WBC RBC Hgb 7.1 L Hct 23.9 L MCV MCH MCHC RDW Plt Count MPV Prelim Diff (Auto) Neut % (Auto) Lymph % (Auto) Burt % (Auto) Eos % (Auto) Baso % (Auto) Neut # (Auto) Lymph # (Auto) Burt # (Auto) Eos # (Auto) Baso # (Auto) WBC Differential Differential Comment PT 11.4 INR 1.1 APTT 26.8 Sodium Potassium Chloride Carbon Dioxide Anion Gap BUN Creatinine Estimated GFR Random Glucose Calcium Total Bilirubin AST ALT Alkaline Phosphatase Total Protein Albumin Lipase TSH Urine Color Urine Clarity Urine pH Ur Specific [place] Urine Protein Urine Glucose (UA) Urine Ketones Urine Occult Blood Urine Nitrate Urine Bilirubin Urine Urobilinogen Ur Leukocyte Esterase Urine RBC Urine WBC Urine WBC Clumps Ur Squamous Epith Cells Urine Bacteria Hyaline Casts Urine Mucus Micro UA Comment Ur Microscopic Review Urine Culture Comments St C. diff Tox Epid 027 C. difficile (PCR) Blood Type O Positive Antibody Screen Negative MTS Gel Crossmatch 01/27/18 01/27/18 01/27/18 00:54 02:59 02:59 WBC 6.4 RBC 3.24 L Hgb 6.8 L* Hct 21.4 L MCV 66.0 L MCH 21.1 L MCHC 31.9 L RDW 19.9 H Plt Count 171 MPV 8.6 Prelim Diff (Auto) Separator Tender Neut % (Auto) 70.8 H Lymph % (Auto) 20.0 Burt % (Auto) 6.6 Eos % (Auto) 1.7 Baso % (Auto) 0.9 Neut # (Auto) 4.6 Lymph # (Auto) 1.3 Burt # (Auto) 0.4 Eos # (Auto) 0.1 Baso # (Auto) 0.1 WBC Differential . Differential Comment Auto diff final PT INR APTT Sodium 143 Potassium 4.0 Chloride 112 H Carbon Dioxide 22.4 Anion Gap 9 BUN 13 Creatinine 1.36 H Estimated GFR 39 L Random Glucose 83 Calcium 8.7 Total Bilirubin AST ALT Alkaline Phosphatase Total Protein Albumin Lipase TSH Urine Color Urine Clarity Urine pH Ur Specific [place] Urine Protein Urine Glucose (UA) Urine Ketones Urine Occult Blood Urine Nitrate Urine Bilirubin Urine Urobilinogen Ur Leukocyte Esterase Urine RBC Urine WBC Urine WBC Clumps Ur Squamous Epith Cells Urine Bacteria Hyaline Casts Urine Mucus Micro UA Comment Ur Microscopic Review Urine Culture Comments St C. diff Tox Epid 027 Positive H C. difficile (PCR) Positive H Blood Type Antibody Screen MTS Gel Crossmatch 01/27/18 04:05 WBC RBC Hgb Hct MCV MCH MCHC RDW Plt Count MPV Prelim Diff (Auto) Neut % (Auto) Lymph % (Auto) Burt % (Auto) Eos % (Auto) Baso % (Auto) Neut # (Auto) Lymph # (Auto) Burt # (Auto) Eos # (Auto) Baso # (Auto) WBC Differential Differential Comment PT INR APTT Sodium Potassium Chloride Carbon Dioxide Anion Gap BUN Creatinine Estimated GFR Random Glucose Calcium Total Bilirubin AST ALT Alkaline Phosphatase Total Protein Albumin Lipase TSH Urine Color Urine Clarity Urine pH Ur Specific [place] Urine Protein Urine Glucose (UA) Urine Ketones Urine Occult Blood Urine Nitrate Urine Bilirubin Urine Urobilinogen Ur Leukocyte Esterase Urine RBC Urine WBC Urine WBC Clumps Ur Squamous Epith Cells Urine Bacteria Hyaline Casts Urine Mucus Micro UA Comment Ur Microscopic Review Urine Culture Comments St C. diff Tox Epid 027 C. difficile (PCR) Blood Type Antibody Screen MTS Gel Crossmatch See Detail Microbiology 01/27/18 00:54 Stool Stool for WBCs - Final Rare WBC's Assessment and Plan - Assessment (1) Acute GI bleeding Code(s): K92.2 - Gastrointestinal hemorrhage, unspecified Status: Acute (2) COPD (chronic obstructive pulmonary disease) Code(s): J44.9 - Chronic obstructive pulmonary disease, unspecified Status: Chronic (3) HTN (hypertension) Code(s): I10 - Essential (primary) hypertension Status: Chronic (4) CAD (coronary artery disease) Code(s): I25.10 - Atherosclerotic heart disease of [place] coronary artery without angina pectoris Status: Chronic (5) Depressed Code(s): F32.9 - Major depressive disorder, single episode, unspecified Status : Chronic - Plan This is a 67-year-old female with past history significant for COPD, coronary artery disease, hypertension, major depressive disorder, anxiety, chronic lower back pain and depression. Is presenting to the hospital being admitted at this time for GI bleed with positive Hemoccult. GI bleed/ C diff S/p one unit of blood 01/27. 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 C diff is positive. -Gastroenterology and ID consulted. -Monitor CBC. -Protonix IV. -continue PO vancomycin. Coronary artery disease S/p stents. -Plavix and ASA being held in setting of GI bleed. Resume MARY LOU when cleared by GI. COPD The pt is still a smoker. -Albuterol nebulizer as needed for shortness of breath. -smoking cessation instruction. Hypertension Relatively well controlled. -Continue home amlodipine. Major depressive disorder Mood is stable. -Continue home medications. DVT prophylaxis with SCDs due to concern of GI bleed (2) COPD (chronic obstructive pulmonary disease) Qualifiers: COPD type: unspecified COPD Qualified Code(s): J44.9 - Chronic obstructive pulmonary disease, unspecified (3) HTN (hypertension) Qualifiers: Hypertension type: essential hypertension Qualified Code(s): I10 - Essential (primary) hypertension (4) CAD (coronary artery disease) Qualifiers: Coronary Disease-Associated Artery/Lesion type: unspecified vessel or lesion type Associated angina: without angina (5) Depressed Qualifiers: Depression Type: major depressive disorder Major depression recurrence: recurrent Active/Remission status: in partial remission Qualified Code(s): F33.41 - Major depressive disorder, recurrent, in partial remission
--- NOTE | 2018-01-27 10:28 | P.CONGI ---
History of Present Illness Consult date: 01/27/18 Chief complaint: GI Bleed History of Present Illness: This is a 67 yo F with PMH significant for COPD, hypertension, major depressive disorder, melanoma surgically removed, and multiple recurrences of C. Diff. Pt presented to the ER last night with complaints of multiple episodes of diarrhea that has been going on for the past month, states now with fecal urgency and incontinence. Reports she is having about 4 BMs a day. Pt is unsure of any hematochezia, states that she is legally blind and can not see her stool, Hemoccult positive stool in the ER. Also complaining of nausea, denies emesis. Denies abdominal pain. Reports occasional chills, unsure of fevers. Pt has had multiple episodes of C. 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 Her last recurrence of C. Diff was in September when she was seen by our service, followed up outpatient in September and was advised to finish the Vancomycin and to repeat C. Diff testing. No repeat testing was done. Of note, pt also reports that her sister who she is currently living with has a resistant strain of C. Diff. Denies recent travel. Last EGD and colonoscopy done in July of this year revealed mild gastritis and moderate diverticulosis. <Jane Cuevas - Last Filed: 01/27/18 10:09> Review of Systems Constitutional: Reports chills Gastrointestinal: Reports incontinent of stools, Reports loose stools, Reports nausea, Denies abdominal pain, Denies vomiting, Denies vomiting blood <Jane Cuevas - Last Filed: 01/27/18 10:09> PMFSH - History History Provided By: Patient - Medical History Medical History: Medical History (Last Reviewed 01/26/18 @ 17:21 by HOLLY Lacey) Anxiety CAD (coronary artery disease) COPD (chronic obstructive pulmonary disease) Clostridium difficile diarrhea Hypercholesteremia Hypertension MDD (major depressive disorder) Panic attack Renal failure Skin cancer (melanoma) - Surgical History Surgical History: Surgical History (Last Updated 01/26/18 @ 18:27 by Ja Schmitz MD) H/O spinal fusion History of appendectomy Hx of tonsillectomy Stented coronary artery - Tobacco History Second Hand Smoke Exposure: Yes Tobacco Use In Past 30 Days: Yes Smoking Status: Current every day smoker Tobacco Type: Cigarettes Packs Per Day: 1 - Alcohol History How Often Do You Have a Drink Containing Alcohol: Never - Substance Use History Substance History: No History of Abuse - Travel History Recent Travel in the [place] Within the Last 8 Weeks: No Recent Travel Out of the Country Within the Last 8 Weeks: No - Immunization History Tetanus Immunization: <5 Years Tetanus Immunization Year if Known: 2016 Hx Influenza Vaccine This Season: No <Jane Cuevas - Last Filed: 01/27/18 10:09> - Medical History Medical History: Medical History (Last Reviewed 01/26/18 @ 17:21 by HOLLY Lacey) Anxiety CAD (coronary artery disease) COPD (chronic obstructive pulmonary disease) Clostridium difficile diarrhea Hypercholesteremia Hypertension MDD (major depressive disorder) Panic attack Renal failure Skin cancer (melanoma) - Surgical History Surgical History: Surgical History (Last Updated 01/26/18 @ 18:27 by Ja Schmitz MD) H/O spinal fusion History of appendectomy Hx of tonsillectomy Stented coronary artery <Onesimo Chris - Last Filed: 01/27/18 16:29> Medications and Allergies Active Medications: Active Medications Hydrocodone Bitart/Acetaminophen ([place] 5/325) 1 tab PO Q6H PRN PRN Reason: PAIN 3-10 Last Admin: 01/27/18 02:06 Dose: 1 tab Albuterol (Albuterol Concentrated Neb) 2.5 mg NEB Q4HR NEB PRN PRN Reason: SHORTNESS OF BREATH/WHEEZING Amlodipine Besylate (Norvasc) 2.5 mg PO DAILY [facility] Last Admin: 01/27/18 08:32 Dose: 2.5 mg Atorvastatin Calcium (Lipitor) 20 mg PO DAILY [facility] Last Admin: 01/27/18 08:32 Dose: 20 mg Clonazepam (Klonopin) 0.5 mg PO Q6H PRN PRN Reason: ANXIETY Last Admin: 01/27/18 08:32 Dose: 0.5 mg Sodium Chloride (Ns Inj) 250 mls @ 15 mls/hr IV.SIG ONCE [facility] Stop: 01/27/18 21:39 Last Admin: 01/27/18 06:34 Dose: Not Given Dextrose/Sodium Chloride (D5w/1/2 Ns Inj) 1,000 mls @ 100 mls/hr IV.CONT .Q10H [facility] Nitroglycerin (Nitrostat Sl) 0.4 mg SL Q5M PRN PRN Reason: CHEST PAIN Ondansetron HCl (Zofran Inj) 4 mg IV.PUSH Q6H PRN PRN Reason: NAUSEA Pantoprazole Sodium (Protonix Inj) 40 mg IV.PUSH DAILY [facility] Last Admin: 01/27/18 08:50 Dose: 40 mg Sodium Chloride (Ns Flush) 2 ml IV.FLUSH BID [facility] Last Admin: 01/27/18 08:32 Dose: Not Given Sodium Chloride (Ns Flush) 2 ml IV.FLUSH PRN PRN PRN Reason: FLUSH AFTER USING IV ACCESS Vancomycin HCl (Vancomycin Po) 125 mg PO QID [facility] Stop: 02/06/18 08:59 Last Admin: 01/27/18 08:31 Dose: 125 mg <Jane Cuevas - Last Filed: 01/27/18 10:09> Active Medications: Active Medications Hydrocodone Bitart/Acetaminophen ([place] 5/325) 1 tab PO Q6H PRN PRN Reason: PAIN 3-10 Last Admin: 01/27/18 15:49 Dose: 1 tab Albuterol (Albuterol Concentrated Neb) 2.5 mg NEB Q4HR NEB PRN PRN Reason: SHORTNESS OF BREATH/WHEEZING Amlodipine Besylate (Norvasc) 2.5 mg PO DAILY [facility] Last Admin: 01/27/18 08:32 Dose: 2.5 mg Aspirin (Aspirin Chew) 81 mg PO DAILY [facility] Last Admin: 01/27/18 12:20 Dose: 81 mg Atorvastatin Calcium (Lipitor) 20 mg PO DAILY [facility] Last Admin: 01/27/18 08:32 Dose: 20 mg Clonazepam (Klonopin) 0.5 mg PO Q6H PRN PRN Reason: ANXIETY Last Admin: 01/27/18 08:32 Dose: 0.5 mg Clopidogrel Bisulfate (Plavix) 75 mg PO DAILY [facility] Last Admin: 01/27/18 12:20 Dose: 75 mg Sodium Chloride (Ns Inj) 250 mls @ 15 mls/hr IV.SIG ONCE [facility] Stop: 01/27/18 21:39 Last Admin: 01/27/18 06:34 Dose: Not Given Dextrose/Sodium Chloride (D5w/1/2 Ns Inj) 1,000 mls @ 100 mls/hr IV.CONT .Q10H [facility] Last Admin: 01/27/18 09:24 Dose: 100 mls/hr Nitroglycerin (Nitrostat Sl) 0.4 mg SL Q5M PRN PRN Reason: CHEST PAIN Ondansetron HCl (Zofran Inj) 4 mg IV.PUSH Q6H PRN PRN Reason: NAUSEA Last Admin: 01/27/18 12:32 Dose: 4 mg Pantoprazole Sodium (Protonix Inj) 40 mg IV.PUSH DAILY [facility] Last Admin: 01/27/18 08:50 Dose: 40 mg Sodium Chloride (Ns Flush) 2 ml IV.FLUSH BID [facility] Last Admin: 01/27/18 08:32 Dose: Not Given Sodium Chloride (Ns Flush) 2 ml IV.FLUSH PRN PRN PRN Reason: FLUSH AFTER USING IV ACCESS Vancomycin HCl (Vancomycin Po) 125 mg PO QID [facility] Stop: 02/06/18 08:59 Last Admin: 01/27/18 12:20 Dose: 125 mg <Onesimo Chris - Last Filed: 01/27/18 16:29> Allergies Allergy/AdvReac Type Severity Reaction Status Date / Time amoxicillin Allergy Intermediate throat pain Verified 08/23/17 12:18 Home Medications Medication Instructions Recorded Confirmed Type aspirin 81 mg PO DAILY 01/08/18 01/26/18 History clopidogrel [Plavix] 75 mg PO DAILY 01/08/18 01/26/18 History hydrocodone-acetaminophen 1 tab PO Q6HR 01/08/18 01/26/18 History amlodipine 2.5 mg PO DAILY 01/24/18 01/26/18 History atorvastatin [Lipitor] 20 mg PO DAILY 01/24/18 01/26/18 History clonazepam [Klonopin] 0.5 mg PO QID 01/24/18 01/26/18 History gabapentin 400 mg PO TID 01/24/18 01/26/18 History nitroglycerin [Nitrostat] 0.4 mg SUBLINGUAL Q5-15M PRN 01/24/18 01/26/18 History Exam Vital signs: Vital Signs 01/26/18 14:57 01/26/18 15:01 01/26/18 15:13 Temperature 98.5 F Pulse Rate 64 60 60 Respiratory Rate 18 18 Blood Pressure 134/58 L Pulse Oximetry 96 96 01/26/18 18:14 01/26/18 18:46 01/26/18 19:12 Temperature Pulse Rate 58 L 51 L Respiratory Rate 18 18 Blood Pressure 127/71 128/60 Pulse Oximetry 96 98 98 01/26/18 20:00 01/27/18 00:00 01/27/18 04:00 Temperature 99.8 F H 98.0 F 97.4 F L Pulse Rate 52 L 61 51 L Respiratory Rate 18 19 18 Blood Pressure 121/56 L 143/67 H 118/55 L Pulse Oximetry 92 L 98 94 L 01/27/18 05:48 01/27/18 06:06 01/27/18 08:00 Temperature 98.0 F 97.9 F 98.5 F Pulse Rate 52 L 50 L 49 L Respiratory Rate 18 16 Blood Pressure 138/67 141/66 H 149/67 H Pulse Oximetry 96 96 96 Intake & Output 01/26/18 01/27/18 01/27/18 18:59 06:59 18:59 Intake Total 2240 / 2240 Output Total 200 / 200 0 / 0 Balance -200 / -200 2240 / 2240 Weight 240 kg Intake: IV 1999 / 1999 NS Inj 1,000 ML @ 125 mls/hr IV 1000 / 1000 .CONT .Q8H [facility] Rx#:[id number] NS Inj 1,000 ML @ Wide Open IV. 1000 / 1000 SIG BOLUS ONE Rx#:[id number] Oral 240 / 240 Intake (Blood Product) Amt 0 / 0 Rbc As-3 Leukoreduced Unit 0 / 0 [id number] Output: Urine 0 / 0 Urine Amount (Catheter) 200 / 200 Straight 200 / 200 Other: Date of Last Bowel Movement 01/27/18 # Bowel Movements 2 - Constitutional no acute distress - Routine HEENT Exam Head: Present: normocephalic, atraumatic - Routine Respiratory Exam Absent: accessory muscle use - Routine Abdominal Exam Present: soft, normoactive bowel sounds. Absent: tenderness, distended - Routine Skin Exam Present: dry, warm - Routine Neurological Exam Present: alert, oriented X3 <Jane Cuevas - Last Filed: 01/27/18 10:09> Vital signs: Vital Signs 01/26/18 18:14 01/26/18 18:46 01/26/18 19:12 Temperature Pulse Rate 58 L 51 L Respiratory Rate 18 18 Blood Pressure 127/71 128/60 Pulse Oximetry 96 98 98 01/26/18 20:00 01/27/18 00:00 01/27/18 04:00 Temperature 99.8 F H 98.0 F 97.4 F L Pulse Rate 52 L 61 51 L Respiratory Rate 18 19 18 Blood Pressure 121/56 L 143/67 H 118/55 L Pulse Oximetry 92 L 98 94 L 01/27/18 05:48 01/27/18 06:06 01/27/18 08:00 Temperature 98.0 F 97.9 F 98.5 F Pulse Rate 52 L 50 L 49 L Respiratory Rate 18 16 Blood Pressure 138/67 141/66 H 149/67 H Pulse Oximetry 96 96 96 01/27/18 12:00 01/27/18 13:46 Temperature 98.0 F Pulse Rate 59 L Respiratory Rate 16 Blood Pressure 139/65 Pulse Oximetry 97 96 Intake & Output 01/26/18 01/27/18 01/27/18 18:59 06:59 18:59 Intake Total 2240 / 2240 400 / 400 Output Total 200 / 200 0 / 0 Balance -200 / -200 2240 / 2240 400 / 400 Weight 240 kg Intake: IV 1999 / 1999 NS Inj 1,000 ML @ 125 mls/hr IV 1000 / 1000 .CONT .Q8H [facility] Rx#:[id number] NS Inj 1,000 ML @ Wide Open IV. 1000 / 1000 SIG BOLUS ONE Rx#:[id number] Oral 240 / 240 Intake (Blood Product) Amt 0 / 0 400 / 400 Rbc As-3 Leukoreduced Unit 0 / 0 400 / 400 [id number] Output: Urine 0 / 0 Urine Amount (Catheter) 200 / 200 Straight 200 / 200 Other: Date of Last Bowel Movement 01/27/18 # Bowel Movements 2 <Onesimo Chris - Last Filed: 01/27/18 16:29> Results - Labs CBC & Chem 7: 01/27/18 02:59 01/27/18 02:59 Labs: Laboratory Results - last 24 hr 01/26/18 01/26/18 01/26/18 15:23 15:23 15:50 WBC 8.8 RBC 4.11 Hgb 8.4 L Hct 27.8 L MCV 67.4 L MCH 20.4 L MCHC 30.2 L RDW 20.3 H Plt Count 222 MPV 8.7 Prelim Diff (Auto) Neut % (Auto) 82.1 H Lymph % (Auto) 9.7 Schleicher % (Auto) 6.4 Eos % (Auto) 1.1 Baso % (Auto) 0.7 Neut # (Auto) 7.2 Lymph # (Auto) 0.9 L Schleicher # (Auto) 0.6 Eos # (Auto) 0.1 Baso # (Auto) 0.1 WBC Differential . Differential Comment Auto diff final PT INR APTT Sodium 141 Potassium 3.9 Chloride 106 Carbon Dioxide 26.3 Anion Gap 9 BUN 14 Creatinine 1.58 H Estimated GFR 33 L Random Glucose 100 Calcium 9.4 Total Bilirubin 0.6 AST 10 L ALT 10 Alkaline Phosphatase 168 H Total Protein 8.0 Albumin 3.2 L Lipase 33 L TSH 1.230 Urine Color Yellow Urine Clarity Hazy H Urine pH 6.0 Ur Specific [place] 1.012 Urine Protein 30 H Urine Glucose (UA) Negative Urine Ketones Negative Urine Occult Blood Large H Urine Nitrate Negative Urine Bilirubin Negative Urine Urobilinogen Less than 2 Ur Leukocyte Esterase Small H Urine RBC 26 H Urine WBC 21 H Urine WBC Clumps Rare H Ur Squamous Epith Cells 1 Urine Bacteria Many H Hyaline Casts 4 Urine Mucus Few H Micro UA Comment Cath-culture ind Ur Microscopic Review Not Reportable Urine Culture Comments Cath-cult indicated St C. diff Tox Epid 027 C. difficile (PCR) Blood Type Antibody Screen MTS Gel Crossmatch 01/26/18 01/26/18 01/26/18 16:03 19:10 20:10 WBC RBC Hgb 7.1 L Hct 23.9 L MCV MCH MCHC RDW Plt Count MPV Prelim Diff (Auto) Neut % (Auto) Lymph % (Auto) Schleicher % (Auto) Eos % (Auto) Baso % (Auto) Neut # (Auto) Lymph # (Auto) Schleicher # (Auto) Eos # (Auto) Baso # (Auto) WBC Differential Differential Comment PT 11.4 INR 1.1 APTT 26.8 Sodium Potassium Chloride Carbon Dioxide Anion Gap BUN Creatinine Estimated GFR Random Glucose Calcium Total Bilirubin AST ALT Alkaline Phosphatase Total Protein Albumin Lipase TSH Urine Color Urine Clarity Urine pH Ur Specific [place] Urine Protein Urine Glucose (UA) Urine Ketones Urine Occult Blood Urine Nitrate Urine Bilirubin Urine Urobilinogen Ur Leukocyte Esterase Urine RBC Urine WBC Urine WBC Clumps Ur Squamous Epith Cells Urine Bacteria Hyaline Casts Urine Mucus Micro UA Comment Ur Microscopic Review Urine Culture Comments St C. diff Tox Epid 027 C. difficile (PCR) Blood Type O Positive Antibody Screen Negative MTS Gel Crossmatch 01/27/18 01/27/18 01/27/18 00:54 02:59 02:59 WBC 6.4 RBC 3.24 L Hgb 6.8 L* Hct 21.4 L MCV 66.0 L MCH 21.1 L MCHC 31.9 L RDW 19.9 H Plt Count 171 MPV 8.6 Prelim Diff (Auto) Primer Inserting Machine Operator Neut % (Auto) 70.8 H Lymph % (Auto) 20.0 Schleicher % (Auto) 6.6 Eos % (Auto) 1.7 Baso % (Auto) 0.9 Neut # (Auto) 4.6 Lymph # (Auto) 1.3 Schleicher # (Auto) 0.4 Eos # (Auto) 0.1 Baso # (Auto) 0.1 WBC Differential . Differential Comment Auto diff final PT INR APTT Sodium 143 Potassium 4.0 Chloride 112 H Carbon Dioxide 22.4 Anion Gap 9 BUN 13 Creatinine 1.36 H Estimated GFR 39 L Random Glucose 83 Calcium 8.7 Total Bilirubin AST ALT Alkaline Phosphatase Total Protein Albumin Lipase TSH Urine Color Urine Clarity Urine pH Ur Specific [place] Urine Protein Urine Glucose (UA) Urine Ketones Urine Occult Blood Urine Nitrate Urine Bilirubin Urine Urobilinogen Ur Leukocyte Esterase Urine RBC Urine WBC Urine WBC Clumps Ur Squamous Epith Cells Urine Bacteria Hyaline Casts Urine Mucus Micro UA Comment Ur Microscopic Review Urine Culture Comments St C. diff Tox Epid 027 Positive H C. difficile (PCR) Positive H Blood Type Antibody Screen MTS Gel Crossmatch 01/27/18 04:05 WBC RBC Hgb Hct MCV MCH MCHC RDW Plt Count MPV Prelim Diff (Auto) Neut % (Auto) Lymph % (Auto) Schleicher % (Auto) Eos % (Auto) Baso % (Auto) Neut # (Auto) Lymph # (Auto) Schleicher # (Auto) Eos # (Auto) Baso # (Auto) WBC Differential Differential Comment PT INR APTT Sodium Potassium Chloride Carbon Dioxide Anion Gap BUN Creatinine Estimated GFR Random Glucose Calcium Total Bilirubin AST ALT Alkaline Phosphatase Total Protein Albumin Lipase TSH Urine Color Urine Clarity Urine pH Ur Specific [place] Urine Protein Urine Glucose (UA) Urine Ketones Urine Occult Blood Urine Nitrate Urine Bilirubin Urine Urobilinogen Ur Leukocyte Esterase Urine RBC Urine WBC Urine WBC Clumps Ur Squamous Epith Cells Urine Bacteria Hyaline Casts Urine Mucus Micro UA Comment Ur Microscopic Review Urine Culture Comments St C. diff Tox Epid 027 C. difficile (PCR) Blood Type Antibody Screen MTS Gel Crossmatch See Detail <Jane Cuevas - Last Filed: 01/27/18 10:09> - Labs CBC & Chem 7: 01/27/18 10:48 01/27/18 02:59 Labs: Laboratory Results - last 24 hr 01/26/18 01/26/18 01/26/18 15:50 16:03 19:10 WBC RBC Hgb 7.1 L Hct 23.9 L MCV MCH MCHC RDW Plt Count MPV Prelim Diff (Auto) Neut % (Auto) Lymph % (Auto) Schleicher % (Auto) Eos % (Auto) Baso % (Auto) Neut # (Auto) Lymph # (Auto) Schleicher # (Auto) Eos # (Auto) Baso # (Auto) WBC Differential Differential Comment PT INR APTT Sodium Potassium Chloride Carbon Dioxide Anion Gap BUN Creatinine Estimated GFR Random Glucose Calcium Urine Color Yellow Urine Clarity Hazy H Urine pH 6.0 Ur Specific [place] 1.012 Urine Protein 30 H Urine Glucose (UA) Negative Urine Ketones Negative Urine Occult Blood Large H Urine Nitrate Negative Urine Bilirubin Negative Urine Urobilinogen Less than 2 Ur Leukocyte Esterase Small H Urine RBC 26 H Urine WBC 21 H Urine WBC Clumps Rare H Ur Squamous Epith Cells 1 Urine Bacteria Many H Hyaline Casts 4 Urine Mucus Few H Micro UA Comment Cath-culture ind Ur Microscopic Review Not Reportable Urine Culture Comments Cath-cult indicated St C. diff Tox Epid 027 C. difficile (PCR) Blood Type O Positive Antibody Screen Negative MTS Gel Crossmatch 01/26/18 01/27/18 01/27/18 20:10 00:54 02:59 WBC 6.4 RBC 3.24 L Hgb 6.8 L* Hct 21.4 L MCV 66.0 L MCH 21.1 L MCHC 31.9 L RDW 19.9 H Plt Count 171 MPV 8.6 Prelim Diff (Auto) Primer Inserting Machine Operator Neut % (Auto) 70.8 H Lymph % (Auto) 20.0 Schleicher % (Auto) 6.6 Eos % (Auto) 1.7 Baso % (Auto) 0.9 Neut # (Auto) 4.6 Lymph # (Auto) 1.3 Schleicher # (Auto) 0.4 Eos # (Auto) 0.1 Baso # (Auto) 0.1 WBC Differential . Differential Comment Auto diff final PT 11.4 INR 1.1 APTT 26.8 Sodium Potassium Chloride Carbon Dioxide Anion Gap BUN Creatinine Estimated GFR Random Glucose Calcium Urine Color Urine Clarity Urine pH Ur Specific [place] Urine Protein Urine Glucose (UA) Urine Ketones Urine Occult Blood Urine Nitrate Urine Bilirubin Urine Urobilinogen Ur Leukocyte Esterase Urine RBC Urine WBC Urine WBC Clumps Ur Squamous Epith Cells Urine Bacteria Hyaline Casts Urine Mucus Micro UA Comment Ur Microscopic Review Urine Culture Comments St C. diff Tox Epid 027 Positive H C. difficile (PCR) Positive H Blood Type Antibody Screen MTS Gel Crossmatch 01/27/18 01/27/18 01/27/18 02:59 04:05 10:48 WBC RBC Hgb 7.7 L Hct 24.9 L MCV MCH MCHC RDW Plt Count MPV Prelim Diff (Auto) Neut % (Auto) Lymph % (Auto) Schleicher % (Auto) Eos % (Auto) Baso % (Auto) Neut # (Auto) Lymph # (Auto) Schleicher # (Auto) Eos # (Auto) Baso # (Auto) WBC Differential Differential Comment PT INR APTT Sodium 143 Potassium 4.0 Chloride 112 H Carbon Dioxide 22.4 Anion Gap 9 BUN 13 Creatinine 1.36 H Estimated GFR 39 L Random Glucose 83 Calcium 8.7 Urine Color Urine Clarity Urine pH Ur Specific [place] Urine Protein Urine Glucose (UA) Urine Ketones Urine Occult Blood Urine Nitrate Urine Bilirubin Urine Urobilinogen Ur Leukocyte Esterase Urine RBC Urine WBC Urine WBC Clumps Ur Squamous Epith Cells Urine Bacteria Hyaline Casts Urine Mucus Micro UA Comment Ur Microscopic Review Urine Culture Comments St C. diff Tox Epid 027 C. difficile (PCR) Blood Type Antibody Screen MTS Gel Crossmatch See Detail <Onesimo Chris - Last Filed: 01/27/18 16:29> Assessment and Plan - Plan Assessment: - C. Diff positive, epid positive Complaining of diarrhea for about a month, now with fecal urgency and incontinence. Unsure of hematochezia because she is legally blind. Occasional chills, unsure of fevers. Reports nausea, denies emesis. Denies abdominal pain. Afebrile, no leukocytosis Pt reports multiple episodes of C. Diff over the past three years, had a fecal transplant done in [place] 2 years ago. Last occurrence was in September of this year, was treated with Vancomycin, followed up with our service outpatient, advised to have repeat C. Diff testing done, was not done. Of note, her sister has resistant strain of C. Diff, lives with her sister. Last EGD and colonoscopy done in July of this year revealed mild gastritis and moderate diverticulosis. Pathology (gastric antrum) antral mucosa with no significant histopathologic abnormalities. - Anemia- Pt has history of GIB, noted to be Hemoccult positive in the ER, no chelle bloody stools have been witnessed Pt has CAD with S/P stents- on ASA and Plavix Plan: ID consult Continue PO Vancomycin for now IVF Monitor for signs of worsening infection Monitor H/H OK for Plavix and ASA from a GI standpoint No plans for procedures at this time Supportive care Further recommendations to follow Pt has been seen and examined by myself and Dr. Chris and this note is written on his behalf <Jane Cuevas - Last Filed: 01/27/18 10:09> - Plan Seen and examined with [facility], recurrent C diff. On vancomicin with some improvement in symptoms. Add dificid 200mg 1 po bid x 10 days. Diet as tolerated. Thank you The exam, history, and the medical decision-making described in the above note were completed with the assistance of the mid-level provider. I reviewed and agree with the findings presented. I attest that I had a [id number] encounter with the patient on the same day, and personally performed and documented my assessment and findings in the medical record. <Onesimo Chris - Last Filed: 01/27/18 16:29>
[2018-01-27 11:22] LABS: Hematocrit 24.9 % (35.0-46.0); Hemoglobin 7.7 gm/dL (11.6-15.3)
--- NOTE | 2018-01-27 17:36 | P.CONID ---
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 h/o UTI Rx'd with rocephine after which she developped omn/off diarrhea She presented with liquid diarrhea, poor appetite, fatigue and malaise prominent irone deficient anemia no leukocytosis afebrile Her C.diff test is positive for hypervirulent 027 strain She has abnormal UA and is growing Enterobacter from the urine culture, however pt denies disuria Pt was started on Fidaxomicin (Dificid) 200 mg PO BID and Vancomycin HCl ( Vancomycin Po) 125 mg PO QID Review of Systems All other systems reviewed negative except as stated in HPI PMFSH - History History Provided By: Patient - Medical History Medical History: Medical History (Last Reviewed 01/27/18 @ 17:16 by Ora Obregon MD) Anxiety CAD (coronary artery disease) COPD (chronic obstructive pulmonary disease) Clostridium difficile diarrhea Hypercholesteremia Hypertension MDD (major depressive disorder) Panic attack Renal failure Skin cancer (melanoma) - Surgical History Surgical History: Surgical History (Last Reviewed 01/27/18 @ 17:16 by Ora Obregon MD) H/O spinal fusion History of appendectomy Hx of tonsillectomy Stented coronary artery - Tobacco History Second Hand Smoke Exposure: Yes Tobacco Use In Past 30 Days: Yes Smoking Status: Current every day smoker Tobacco Type: Cigarettes Packs Per Day: 1 - Alcohol History How Often Do You Have a Drink Containing Alcohol: Never - Substance Use History Substance History: No History of Abuse - Travel History Recent Travel in the [place] Within the Last 8 Weeks: No Recent Travel Out of the Country Within the Last 8 Weeks: No - Immunization History Tetanus Immunization: <5 Years Tetanus Immunization Year if Known: 2016 Hx Influenza Vaccine This Season: No Medications and Allergies Active Medications: Active Medications Hydrocodone Bitart/Acetaminophen (Nerinx 5/325) 1 tab PO Q6H PRN PRN Reason: PAIN 3-10 Last Admin: 01/27/18 15:49 Dose: 1 tab Albuterol (Albuterol Concentrated Neb) 2.5 mg NEB Q4HR NEB PRN PRN Reason: SHORTNESS OF BREATH/WHEEZING Amlodipine Besylate (Norvasc) 2.5 mg PO DAILY [facility] Last Admin: 01/27/18 08:32 Dose: 2.5 mg Aspirin (Aspirin Chew) 81 mg PO DAILY [facility] Last Admin: 01/27/18 12:20 Dose: 81 mg Atorvastatin Calcium (Lipitor) 20 mg PO DAILY [facility] Last Admin: 01/27/18 08:32 Dose: 20 mg Clonazepam (Klonopin) 0.5 mg PO Q6H PRN PRN Reason: ANXIETY Last Admin: 01/27/18 08:32 Dose: 0.5 mg Clopidogrel Bisulfate (Plavix) 75 mg PO DAILY [facility] Last Admin: 01/27/18 12:20 Dose: 75 mg Fidaxomicin (Dificid) 200 mg PO BID [facility] Sodium Chloride (Ns Inj) 250 mls @ 15 mls/hr IV.SIG ONCE [facility] Stop: 01/27/18 21:39 Last Admin: 01/27/18 06:34 Dose: Not Given Dextrose/Sodium Chloride (D5w/1/2 Ns Inj) 1,000 mls @ 100 mls/hr IV.CONT .Q10H [facility] Last Admin: 01/27/18 09:24 Dose: 100 mls/hr Nitroglycerin (Nitrostat Sl) 0.4 mg SL Q5M PRN PRN Reason: CHEST PAIN Ondansetron HCl (Zofran Inj) 4 mg IV.PUSH Q6H PRN PRN Reason: NAUSEA Last Admin: 01/27/18 12:32 Dose: 4 mg Pantoprazole Sodium (Protonix Inj) 40 mg IV.PUSH DAILY [facility] Last Admin: 01/27/18 08:50 Dose: 40 mg Sodium Chloride (Ns Flush) 2 ml IV.FLUSH BID [facility] Last Admin: 01/27/18 08:32 Dose: Not Given Sodium Chloride (Ns Flush) 2 ml IV.FLUSH PRN PRN PRN Reason: FLUSH AFTER USING IV ACCESS Vancomycin HCl (Vancomycin Po) 125 mg PO QID [facility] Stop: 02/06/18 08:59 Last Admin: 01/27/18 12:20 Dose: 125 mg Allergies Allergy/AdvReac Type Severity Reaction Status Date / Time amoxicillin Allergy Intermediate throat pain Verified 08/23/17 12:18 Home Medications Medication Instructions Recorded Confirmed Type aspirin 81 mg PO DAILY 01/08/18 01/26/18 History clopidogrel [Plavix] 75 mg PO DAILY 01/08/18 01/26/18 History hydrocodone-acetaminophen 1 tab PO Q6HR 01/08/18 01/26/18 History amlodipine 2.5 mg PO DAILY 01/24/18 01/26/18 History atorvastatin [Lipitor] 20 mg PO DAILY 01/24/18 01/26/18 History clonazepam [Klonopin] 0.5 mg PO QID 01/24/18 01/26/18 History gabapentin 400 mg PO TID 01/24/18 01/26/18 History nitroglycerin [Nitrostat] 0.4 mg SUBLINGUAL Q5-15M PRN 01/24/18 01/26/18 History Exam Vital signs: Vital Signs 01/26/18 18:14 01/26/18 18:46 01/26/18 19:12 Temperature Pulse Rate 58 L 51 L Respiratory Rate 18 18 Blood Pressure 127/71 128/60 Pulse Oximetry 96 98 98 01/26/18 20:00 01/27/18 00:00 01/27/18 04:00 Temperature 99.8 F H 98.0 F 97.4 F L Pulse Rate 52 L 61 51 L Respiratory Rate 18 19 18 Blood Pressure 121/56 L 143/67 H 118/55 L Pulse Oximetry 92 L 98 94 L 01/27/18 05:48 01/27/18 06:06 01/27/18 08:00 Temperature 98.0 F 97.9 F 98.5 F Pulse Rate 52 L 50 L 49 L Respiratory Rate 18 16 Blood Pressure 138/67 141/66 H 149/67 H Pulse Oximetry 96 96 96 01/27/18 12:00 01/27/18 13:46 Temperature 98.0 F Pulse Rate 59 L Respiratory Rate 16 Blood Pressure 139/65 Pulse Oximetry 97 96 Intake & Output 01/26/18 01/27/18 01/27/18 18:59 06:59 18:59 Intake Total 2240 / 2240 400 / 400 Output Total 200 / 200 0 / 0 Balance -200 / -200 2240 / 2240 400 / 400 Weight 240 kg Intake: IV 1999 NS Inj 1,000 ML @ 125 mls/hr IV 1000 / 1000 .CONT .Q8H [facility] Rx#:[id number] NS Inj 1,000 ML @ Wide Open IV. 1000 / 1000 SIG [facility] Rx#:[id number] Oral 240 / 240 Intake (Blood Product) Amt 0 / 0 400 / 400 Rbc As-3 Leukoreduced Unit 0 / 0 400 / 400 [id number] Output: Urine 0 / 0 Urine Amount (Catheter) 200 / 200 Straight 200 / 200 Other: Date of Last Bowel Movement 01/27/18 # Bowel Movements 2 - Constitutional no acute distress, morbidly obese - Routine HEENT Exam Head: Present: normocephalic, atraumatic Eye: Present: EOMI, PERRL ENT: Present: mucous membranes dry, oropharynx clear - Routine Neck Exam Present: supple, full ROM - Routine Respiratory Exam Present: decreased breath sounds, CTA bilaterally - Routine Cardiovascular Exam Present: RRR, S1, S2 Comments: no murmurs, rubs and gallops - Routine Abdominal Exam Present: soft Comments: very obese,unable to appreciate megaly or masses not tender, not distended - Routine Extremities Exam Present: full ROM Comments: no cyanosis, clubbing or edema - Routine Skin Exam Present: dry, warm Comments: no rash - Routine Neurological Exam Present: alert, oriented X3, CN II-XII intact - Routine Psychiatric Exam Present: normal affect, normal thought process, cooperative Results - Labs CBC & Chem 7: 01/27/18 10:48 01/27/18 02:59 Labs: Laboratory Results - last 24 hr 01/26/18 01/26/18 01/26/18 15:50 16:03 19:10 WBC RBC Hgb 7.1 L Hct 23.9 L MCV MCH MCHC RDW Plt Count MPV Prelim Diff (Auto) Neut % (Auto) Lymph % (Auto) [place] % (Auto) Eos % (Auto) Baso % (Auto) Neut # (Auto) Lymph # (Auto) [place] # (Auto) Eos # (Auto) Baso # (Auto) WBC Differential Differential Comment PT INR APTT Sodium Potassium Chloride Carbon Dioxide Anion Gap BUN Creatinine Estimated GFR Random Glucose Calcium Urine Color Yellow Urine Clarity Hazy H Urine pH 6.0 Ur Specific [place] 1.012 Urine Protein 30 H Urine Glucose (UA) Negative Urine Ketones Negative Urine Occult Blood Large H Urine Nitrate Negative Urine Bilirubin Negative Urine Urobilinogen Less than 2 Ur Leukocyte Esterase Small H Urine RBC 26 H Urine WBC 21 H Urine WBC Clumps Rare H Ur Squamous Epith Cells 1 Urine Bacteria Many H Hyaline Casts 4 Urine Mucus Few H Micro UA Comment Cath-culture ind Urine Culture Comments Cath-cult indicated St C. diff Tox Epid 027 C. difficile (PCR) Antibody Screen Negative MTS Gel Crossmatch 01/26/18 01/27/18 01/27/18 20:10 00:54 02:59 WBC 6.4 RBC 3.24 L Hgb 6.8 L* Hct 21.4 L MCV 66.0 L MCH 21.1 L MCHC 31.9 L RDW 19.9 H Plt Count 171 MPV 8.6 Prelim Diff (Auto) [place] Neut % (Auto) 70.8 H Lymph % (Auto) 20.0 [place] % (Auto) 6.6 Eos % (Auto) 1.7 Baso % (Auto) 0.9 Neut # (Auto) 4.6 Lymph # (Auto) 1.3 [place] # (Auto) 0.4 Eos # (Auto) 0.1 Baso # (Auto) 0.1 WBC Differential . Differential Comment Auto diff final PT 11.4 INR 1.1 APTT 26.8 Sodium Potassium Chloride Carbon Dioxide Anion Gap BUN Creatinine Estimated GFR Random Glucose Calcium Urine Color Urine Clarity Urine pH Ur Specific [place] Urine Protein Urine Glucose (UA) Urine Ketones Urine Occult Blood Urine Nitrate Urine Bilirubin Urine Urobilinogen Ur Leukocyte Esterase Urine RBC Urine WBC Urine WBC Clumps Ur Squamous Epith Cells Urine Bacteria Hyaline Casts Urine Mucus Micro UA Comment Urine Culture Comments St C. diff Tox Epid 027 Positive H C. difficile (PCR) Positive H Antibody Screen MTS Gel Crossmatch 01/27/18 01/27/18 01/27/18 02:59 04:05 10:48 WBC RBC Hgb 7.7 L Hct 24.9 L MCV MCH MCHC RDW Plt Count MPV Prelim Diff (Auto) Neut % (Auto) Lymph % (Auto) [place] % (Auto) Eos % (Auto) Baso % (Auto) Neut # (Auto) Lymph # (Auto) [place] # (Auto) Eos # (Auto) Baso # (Auto) WBC Differential Differential Comment PT INR APTT Sodium 143 Potassium 4.0 Chloride 112 H Carbon Dioxide 22.4 Anion Gap 9 BUN 13 Creatinine 1.36 H Estimated GFR 39 L Random Glucose 83 Calcium 8.7 Urine Color Urine Clarity Urine pH Ur Specific [place] Urine Protein Urine Glucose (UA) Urine Ketones Urine Occult Blood Urine Nitrate Urine Bilirubin Urine Urobilinogen Ur Leukocyte Esterase Urine RBC Urine WBC Urine WBC Clumps Ur Squamous Epith Cells Urine Bacteria Hyaline Casts Urine Mucus Micro UA Comment Urine Culture Comments St C. diff Tox Epid 027 C. difficile (PCR) Antibody Screen MTS Gel Crossmatch See Detail Assessment and Plan - Plan recurrent C.diff Failed fecal transplant Bacteriruia, Entrococcus vs UTI cont dificid cont vanco po; after 2 weeks of tx completed withh swich to vanmycin taper repeat UA, C+S will try to avoid abx unless clearly clincially indicated
[2018-01-27 19:32] LABS: Hematocrit 26.6 % (35.0-46.0)
[2018-01-28] MEDS: Dextrose 5%/NaCl 0.45% Inj 1,000 ML IV.CONT SCH ×4 (03:25→22:15)
[2018-01-28] MEDS ORDERED: Morphine Inj 4 MG/ML Vial IV.PUSH ONE (03:39)
[2018-01-28] MEDS: clonazePAM 0.5 MG Tablet PO PRN ×3 (04:15→18:22)
[2018-01-28 06:03] LABS: Eos # (Auto) 0.1 th/mm3 (0.0-0.4); Eos % (Auto) 2.3 % (0.0-4.0); Hematocrit 23.7 % (35.0-46.0); Hemoglobin 7.6 gm/dL (11.6-15.3); Lymph # (Auto) 1.5 th/mm3 (1.0-4.8); Lymph % (Auto) 29.1 % (9.0-44.0); Mean Corpuscular Hemoglobin 21.6 pg (27.0-34.0); Mean Corpuscular Volume 67.7 fL (80.0-100.0); Mean Platelet Volume 8.5 fL (7.0-11.0); Mono # (Auto) 0.4 th/mm3 (0.0-0.9); Mono % (Auto) 8.6 % (0.0-8.0); Platelet Count 177 th/mm3 (150-450); Red Blood Count 3.49 mil/mm3 (4.00-5.30); Red Cell Distribution Width 21.9 % (11.6-17.2)
[2018-01-28 06:33] LABS: Calcium 8.7 mg/dL (8.5-10.1); Carbon Dioxide 22.2 meq/L (21.0-32.0); Magnesium 2.2 mg/dL (1.5-2.5); Potassium 3.6 meq/L (3.5-5.1)
[2018-01-28] MEDS: amLODIPine 5 MG Tablet PO SCH (09:04)
[2018-01-28] MEDS: Pantoprazole Inj 40 MG Vial IV.PUSH SCH (09:04)
--- NOTE | 2018-01-28 11:00 | P.DCO ---
- Tray Server Order: To evaluate: Living conditions/environment, Support services - Certification I have seen patient Magalys Crespo on 01/28/18. My clinical findings support the need for the requested home health care services because: Limited ability to care for self I certify that my clinical findings support that this patient is homebound because: Unsafe to leave home unassisted
--- NOTE | 2018-01-28 13:17 | P.PNGI ---
Subjective Interval history: Pt resting in bed, states some improvement today. She reports some nausea but denies any emesis. Tolerating PO. Pt is legally blind, discussed with RN states pt has had a few soft but formed stools, no obvious bleeding. <Jane Cuevas - Last Filed: 01/28/18 13:13> Physical Exam Vital signs: Vital Signs 01/27/18 13:46 01/27/18 16:00 01/27/18 20:00 Temperature 97.7 F 98.3 F Pulse Rate 52 L 60 Respiratory Rate 16 18 Blood Pressure 136/62 178/77 H Pulse Oximetry 96 95 98 01/28/18 00:00 01/28/18 04:00 01/28/18 08:00 Temperature 97.9 F 97.5 F L 97.6 F Pulse Rate 57 L 51 L 49 L Respiratory Rate 18 19 18 Blood Pressure 149/67 H 139/63 182/77 H Pulse Oximetry 95 95 98 01/28/18 11:43 Temperature Pulse Rate Respiratory Rate Blood Pressure Pulse Oximetry 98 Intake & Output 01/27/18 01/28/18 01/28/18 18:59 06:59 18:59 Intake Total 400 / 400 2520 / 2520 Balance 400 / 400 2520 / 2520 Weight 108.6 kg Intake: IV 1999 / 1999 D5W/1/2 NS Inj 1,000 ML @ 100 2000 / 2000 mls/hr IV.CONT .Q10H [facility] Rx#: [id number] Oral 520 / 520 Intake (Blood Product) Amt 400 / 400 Rbc As-3 Leukoreduced Unit 400 / 400 [id number] Other: # Voids 5 3 Date of Last Bowel Movement 01/28/18 # Bowel Movements 1 - Constitutional no acute distress - Routine HEENT Exam Head: Present: normocephalic, atraumatic - Routine Respiratory Exam Absent: accessory muscle use - Routine Abdominal Exam Present: soft, normoactive bowel sounds. Absent: tenderness, distended - Routine Skin Exam Present: dry, warm - Routine Neurological Exam Present: alert, oriented X3 - Urinary Catheter Management Straight Cath placed during this visit: no <Jane Cuevas - Last Filed: 01/28/18 13:13> Vital signs: Vital Signs 01/27/18 20:00 01/28/18 00:00 01/28/18 04:00 Temperature 98.3 F 97.9 F 97.5 F L Pulse Rate 60 57 L 51 L Respiratory Rate 18 18 19 Blood Pressure 178/77 H 149/67 H 139/63 Pulse Oximetry 98 95 95 01/28/18 08:00 01/28/18 11:43 01/28/18 12:00 Temperature 97.6 F 97.4 F L Pulse Rate 49 L 48 L Respiratory Rate 18 18 Blood Pressure 182/77 H 158/69 H Pulse Oximetry 98 98 96 Intake & Output 01/27/18 01/28/18 01/28/18 18:59 06:59 18:59 Intake Total 400 / 400 2520 / 2520 Balance 400 / 400 2520 / 2520 Weight 108.6 kg Intake: IV 1999 / 1999 D5W/1/2 NS Inj 1,000 ML @ 100 2000 / 2000 mls/hr IV.CONT .Q10H [facility] Rx#: [id number] Oral 520 / 520 Intake (Blood Product) Amt 400 / 400 Rbc As-3 Leukoreduced Unit 400 / 400 [id number] Other: # Voids 5 3 Date of Last Bowel Movement 01/28/18 # Bowel Movements 1 - Urinary Catheter Management Straight Cath placed during this visit: no <Onesimo Chris - Last Filed: 01/28/18 17:09> Results - Labs CBC & Chem 7: 01/28/18 05:24 01/28/18 05:24 Laboratory Results - last 24 hr 01/26/18 01/27/18 01/28/18 15:50 18:30 05:24 WBC 5.0 RBC 3.49 L Hgb 8.0 L 7.6 L Hct 26.6 L 23.7 L MCV 67.7 L MCH 21.6 L MCHC 32.0 RDW 21.9 H Plt Count 177 MPV 8.5 Neut % (Auto) 59.0 Lymph % (Auto) 29.1 [place] % (Auto) 8.6 H Eos % (Auto) 2.3 Baso % (Auto) 1.0 Neut # (Auto) 3.0 Lymph # (Auto) 1.5 [place] # (Auto) 0.4 Eos # (Auto) 0.1 Baso # (Auto) 0.0 WBC Differential . Differential Comment Auto diff final Sodium Potassium Chloride Carbon Dioxide Anion Gap BUN Creatinine Estimated GFR Random Glucose Calcium Magnesium Urine Color Yellow Urine Clarity Hazy H Urine pH 6.0 Ur Specific [place] 1.012 Urine Protein 30 H Urine Glucose (UA) Negative Urine Ketones Negative Urine Occult Blood Large H Urine Nitrate Negative Urine Bilirubin Negative Urine Urobilinogen Less than 2 Ur Leukocyte Esterase Small H Urine RBC 26 H Urine WBC 21 H Urine WBC Clumps Rare H Ur Squamous Epith Cells 1 Urine Bacteria Many H Hyaline Casts 4 Urine Mucus Few H Micro UA Comment Cath-culture ind Urine Culture Comments Cath-cult indicated 01/28/18 05:24 WBC RBC Hgb Hct MCV MCH MCHC RDW Plt Count MPV Neut % (Auto) Lymph % (Auto) [place] % (Auto) Eos % (Auto) Baso % (Auto) Neut # (Auto) Lymph # (Auto) [place] # (Auto) Eos # (Auto) Baso # (Auto) WBC Differential Differential Comment Sodium 143 Potassium 3.6 Chloride 110 H Carbon Dioxide 22.2 Anion Gap 11 BUN 12 Creatinine 1.30 H Estimated GFR 41 L Random Glucose 86 Calcium 8.7 Magnesium 2.2 Urine Color Urine Clarity Urine pH Ur Specific [place] Urine Protein Urine Glucose (UA) Urine Ketones Urine Occult Blood Urine Nitrate Urine Bilirubin Urine Urobilinogen Ur Leukocyte Esterase Urine RBC Urine WBC Urine WBC Clumps Ur Squamous Epith Cells Urine Bacteria Hyaline Casts Urine Mucus Micro UA Comment Urine Culture Comments Microbiology 01/27/18 00:54 Stool Enteric Pathogens (PCR) - Final No enteric pathogens detected by PCR (No Salmonella sp., Shigella sp., Campylobacter sp., Yersinia enterocolitica, Vibrio sp., Norovirus, or EHEC (Shiga Toxin 1 or Shiga Toxin 2) detected. 01/26/18 15:50 Catheterized Urine Urine Culture - Preliminary Group D Enterococcus 01/27/18 00:54 Stool Cryptosporidium Antigen - Final Negative - No Cryptosporicium antigen detected In selected cases of patients with a history of immunosuppression or foreign travel, a full ova and parasites examination may be desired. Contact the microbiology lab if full workup is indicated and subit another specimen for testing. 01/27/18 00:54 Stool Giardia Antigen (SEVERIANO) - Final Negative - No Giardia Antigen detected In selected cases of patients with a history of immunosuppression or foreign travel, a full ova and parasites examination may be desired. Contact the microbiology lab if full workup is indicated and subit another specimen for testing. 01/27/18 00:54 Stool Stool for WBCs - Final Rare WBC's <Jane Cuevas - Last Filed: 01/28/18 13:13> - Labs CBC & Chem 7: 01/28/18 05:24 01/28/18 05:24 Laboratory Results - last 24 hr 01/27/18 01/28/18 01/28/18 18:30 05:24 05:24 WBC 5.0 RBC 3.49 L Hgb 8.0 L 7.6 L Hct 26.6 L 23.7 L MCV 67.7 L MCH 21.6 L MCHC 32.0 RDW 21.9 H Plt Count 177 MPV 8.5 Neut % (Auto) 59.0 Lymph % (Auto) 29.1 [place] % (Auto) 8.6 H Eos % (Auto) 2.3 Baso % (Auto) 1.0 Neut # (Auto) 3.0 Lymph # (Auto) 1.5 [place] # (Auto) 0.4 Eos # (Auto) 0.1 Baso # (Auto) 0.0 WBC Differential . Differential Comment Auto diff final Sodium 143 Potassium 3.6 Chloride 110 H Carbon Dioxide 22.2 Anion Gap 11 BUN 12 Creatinine 1.30 H Estimated GFR 41 L Random Glucose 86 Calcium 8.7 Magnesium 2.2 Microbiology 01/26/18 15:50 Catheterized Urine Urine Culture - Final Enterococcus faecalis 01/27/18 00:54 Stool Enteric Pathogens (PCR) - Final No enteric pathogens detected by PCR (No Salmonella sp., Shigella sp., Campylobacter sp., Yersinia enterocolitica, Vibrio sp., Norovirus, or EHEC (Shiga Toxin 1 or Shiga Toxin 2) detected. <Onesimo Chris - Last Filed: 01/28/18 17:09> Assessment and Plan - Plan Assessment: - C. Diff positive, epid positive Complaining of diarrhea for about a month, now with fecal urgency and incontinence. Unsure of hematochezia because she is legally blind. Occasional chills, unsure of fevers. Reports nausea, denies emesis. Denies abdominal pain. Afebrile, no leukocytosis Pt reports multiple episodes of C. Diff over the past three years, had a fecal transplant done in [place] 2 years ago. Last occurrence was in September of this year, was treated with Vancomycin, followed up with our service outpatient, advised to have repeat C. Diff testing done, was not done. Of note, her sister has resistant strain of C. Diff, lives with her sister. Last EGD and colonoscopy done in July of this year revealed mild gastritis and moderate diverticulosis. Pathology (gastric antrum) antral mucosa with no significant histopathologic abnormalities. - Anemia- Pt has history of GIB, noted to be Hemoccult positive in the ER, no chelle bloody stools have been witnessed Pt has CAD with S/P stents- on ASA and Plavix (01/28) No leukocytosis, afebrile. Started on Dificid and Vancomycin yesterday, ID following. Pt legally blind, discussed with RN states pt has had a few soft, but formed stools today, no obvious bleeding. Pt reports some nausea, denies emesis. Tolerating PO. H/H stable Plan: Continue Vancomycin and Dificid IVF Monitor for signs of worsening infection Monitor H/H Supportive care Our service will sign off, continue treatment for C. Diff Pt seemingly improving, reconsult as needed Have pt follow up with GI after DC Pt has been seen and examined by myself and Dr. Chris and this note is written on his behalf <Jane Cuevas - Last Filed: 01/28/18 13:13> - Plan Overall symptoms improved. On vancomicin/dificid. Diet as tolerated. GI will sign off. Reconsult as needed. Thank you The exam, history, and the medical decision-making described in the above note were completed with the assistance of the mid-level provider. I reviewed and agree with the findings presented. I attest that I had a [id number] encounter with the patient on the same day, and personally performed and documented my assessment and findings in the medical record. <Onesimo Chris - Last Filed: 01/28/18 17:09>
--- NOTE | 2018-01-28 17:12 | P.PNID ---
Subjective Remarks: c/o nausea denies disuria no fever Antibiotics: dificid oral vancomycin Allergies/Adverse Reactions: Allergies amoxicillin Allergy (Intermediate, Verified 08/23/17 12:18) throat pain Objective Vital Signs 01/27/18 20:00 01/28/18 00:00 01/28/18 04:00 Temperature 98.3 F 97.9 F 97.5 F L Pulse Rate 60 57 L 51 L Respiratory Rate 18 18 19 Blood Pressure 178/77 H 149/67 H 139/63 Pulse Oximetry 98 95 95 01/28/18 08:00 01/28/18 11:43 01/28/18 12:00 Temperature 97.6 F 97.4 F L Pulse Rate 49 L 48 L Respiratory Rate 18 18 Blood Pressure 182/77 H 158/69 H Pulse Oximetry 98 98 96 Intake & Output 01/27/18 01/28/18 01/28/18 18:59 06:59 18:59 Intake Total 400 / 400 2520 / 2520 Balance 400 / 400 2520 / 2520 Weight 108.6 kg Intake: IV 1999 / 1999 D5W/1/2 NS Inj 1,000 ML @ 100 2000 / 2000 mls/hr IV.CONT .Q10H [facility] Rx#: [id number] Oral 520 / 520 Intake (Blood Product) Amt 400 / 400 Rbc As-3 Leukoreduced Unit 400 / 400 [id number] Other: # Voids 5 3 Date of Last Bowel Movement 01/28/18 # Bowel Movements 1 01/26/18 15:50 Catheterized Urine Urine Culture - Final Enterococcus faecalis 01/27/18 00:54 Stool Enteric Pathogens (PCR) - Final No enteric pathogens detected by PCR (No Salmonella sp., Shigella sp., Campylobacter sp., Yersinia enterocolitica, Vibrio sp., Norovirus, or EHEC (Shiga Toxin 1 or Shiga Toxin 2) detected. 01/27/18 00:54 Stool Cryptosporidium Antigen - Final Negative - No Cryptosporicium antigen detected In selected cases of patients with a history of immunosuppression or foreign travel, a full ova and parasites examination may be desired. Contact the microbiology lab if full workup is indicated and subit another specimen for testing. 01/27/18 00:54 Stool Giardia Antigen (SEVERIANO) - Final Negative - No Giardia Antigen detected In selected cases of patients with a history of immunosuppression or foreign travel, a full ova and parasites examination may be desired. Contact the microbiology lab if full workup is indicated and subit another specimen for testing. 01/27/18 00:54 Stool Stool for WBCs - Final Rare WBC's Lab - Hematology Results 01/26/18 01/27/18 01/27/18 19:10 02:59 10:48 WBC 6.4 RBC 3.24 L Hgb 7.1 L 6.8 L* 7.7 L Hct 23.9 L 21.4 L 24.9 L MCV 66.0 L MCH 21.1 L MCHC 31.9 L RDW 19.9 H Plt Count 171 MPV 8.6 Prelim Diff (Auto) [employer] Neut % (Auto) 70.8 H Lymph % (Auto) 20.0 [place] % (Auto) 6.6 Eos % (Auto) 1.7 Baso % (Auto) 0.9 Neut # (Auto) 4.6 Lymph # (Auto) 1.3 [place] # (Auto) 0.4 Eos # (Auto) 0.1 Baso # (Auto) 0.1 WBC Differential . Differential Comment Auto diff final 01/27/18 01/28/18 18:30 05:24 WBC 5.0 RBC 3.49 L Hgb 8.0 L 7.6 L Hct 26.6 L 23.7 L MCV 67.7 L MCH 21.6 L MCHC 32.0 RDW 21.9 H Plt Count 177 MPV 8.5 Prelim Diff (Auto) Neut % (Auto) 59.0 Lymph % (Auto) 29.1 [place] % (Auto) 8.6 H Eos % (Auto) 2.3 Baso % (Auto) 1.0 Neut # (Auto) 3.0 Lymph # (Auto) 1.5 [place] # (Auto) 0.4 Eos # (Auto) 0.1 Baso # (Auto) 0.0 WBC Differential . Differential Comment Auto diff final Lab - Chemistry Results 01/27/18 01/28/18 02:59 05:24 Sodium 143 143 Potassium 4.0 3.6 Chloride 112 H 110 H Carbon Dioxide 22.4 22.2 Anion Gap 9 11 BUN 13 12 Creatinine 1.36 H 1.30 H Estimated GFR 39 L 41 L Random Glucose 83 86 Calcium 8.7 8.7 Magnesium 2.2 Physical Exam: GENERAL: NAD SKIN: Warm and dry. HEAD: Atraumatic. Normocephalic. EYES: Pupils equal and round. No scleral icterus. No injection or drainage. ENT: No nasal bleeding or discharge. Mucous membranes pink and moist. NECK: Trachea midline. No JVD. CARDIOVASCULAR: Regular rate and rhythm. RESPIRATORY: No accessory muscle use. Clear to auscultation. Breath sounds equal bilaterally. GASTROINTESTINAL: Abdomen soft, non-tender, mildly distended. Hepatic and splenic margins not palpable. MUSCULOSKELETAL: Extremities without clubbing, cyanosis, or edema. No obvious deformities. NEUROLOGICAL: Awake and alert. No obvious cranial nerve deficits. Motor grossly within normal limits. Five out of 5 muscle strength in the arms and legs. Normal speech. PSYCHIATRIC: appears withdrawn adn somewhat depressed Assessment and Plan - Plan recurrent C.diff Failed fecal transplant Bacteriruia, Entrococcus vs lower tract UTI - no e/o pyelonephritis cont dificid cont vanco po; after 2 weeks of tx completed withh swich to vanmycin taper vancomycin 125 mg po BID, then vancomycin 125 mg po daily, then vancomycin 125 mg po q 48 hrs, then vancomycin 125 mg po q 72 hrs x 5 doses pt needs to be evaluated by urologist for persistent UTIs - can be done as o/p
--- NOTE | 2018-01-28 23:15 | P.DS ---
Date of admission: 01/26/18 17:53 Primary care physician: Leti Hernandez MD Brief History from admission: This is a 67-year-old female with past medical history significant for COPD, hypertension, major depressive disorder, and melanoma surgically removed. She is presenting to the clinic today with several bouts of diarrhea the last month. She says the diarrhea comes and goes however recently has been very frequently. She has had similar episodes of this in the past and before is been told that she had a GI bleed. Usually this happens to her though is usually due to C. difficile that she has had that in the past as well. She has a chronic history of anemia and requires blood transfusion at that time but uncertain as to her last time or how many she has had. She is legally blind and is uncertain if she has noticed any blood in her stool. This morning she woke up with diarrhea covering everything in her bed and knew she needed to be evaluated by the hospital. Been feeling increased weakness as well as nausea. Denies any fevers chills or sweating. Has felt weak since the symptoms are recurring. She is on Lortabs for chronic lower back pain. She describes the abdominal pain she is feeling as a cramping pain that comes in waves mostly in the lower abdomen. It is relieved with bowel movements. DS: Diagnosis - Discharge Diagnosis (1) Visual impairment Status: Acute (2) Acute GI bleeding Status: Resolved DS: Medications - Discharge Medications Prescriptions: ferrous sulfate [FeroSul] 325 mg PO DAILY 30 Days #30 tab fidaxomicin [Dificid] 200 mg PO BID #20 tab pantoprazole 40 mg PO DAILY 30 Days #30 tab vancomycin See Label Instructions .ROUTE .COMPLEX #33 cap DS: Summary Hospital Course: Pt c. diff diarrhea clinically improved. asymptomtic from any UTI like symptoms. Doing well with dificd and vanc dosing. 67-year-old female with past history significant for COPD, coronary artery disease, hypertension, major depressive disorder, anxiety, chronic lower back pain and depression presented to the hospital for an acute GI bleed and was found to be C. difficile positive. Patient C. difficile diarrhea clinically improved. Was asymptomatic from any UTI symptoms. Patient has been maximal benefit from hospitalization is clinically stable for discharge. - Time Spent with Patient Total time spent providing and/or coordinating discharge services: Less than 30 minutes - Quality: VTE Deep Vein Thrombosis/Pulmonary Embolism Present on Admission: No Exam Vital signs: Vital Signs 01/28/18 00:00 01/28/18 04:00 01/28/18 08:00 Temperature 97.9 F 97.5 F L 97.6 F Pulse Rate 57 L 51 L 56 L Respiratory Rate 18 19 18 Blood Pressure 149/67 H 139/63 182/77 H Pulse Oximetry 95 95 98 01/28/18 11:43 01/28/18 12:00 01/28/18 16:00 Temperature 97.4 F L Pulse Rate 47 L 56 L Respiratory Rate 18 Blood Pressure 158/69 H Pulse Oximetry 98 96 01/28/18 18:11 01/28/18 20:00 Temperature 97.7 F 97.5 F L Pulse Rate 49 L 56 L Respiratory Rate 18 20 Blood Pressure 169/73 H 162/79 H Pulse Oximetry 96 97 Intake & Output 01/28/18 01/28/18 01/29/18 06:59 18:59 06:59 Intake Total 2520 / 2520 1480 / 1480 1000 / 1000 Balance 2520 / 2520 1480 / 1480 1000 / 1000 Weight 108.6 kg Intake: IV 2000 / 2000 1000 / 1000 1000 / 1000 D5W/1/2 NS Inj 1,000 ML @ 100 2000 / 2000 1000 / 1000 1000 / 1000 mls/hr IV.CONT .Q10H [facility] Rx#: [id number] Oral 520 / 520 480 / 480 Other: # Voids 3 3 Date of Last Bowel Movement 01/28/18 Narrative: Abdomen soft, nontender, nondistended No acute distress Results Procedures completed during hospitalization: . Labs on day of discharge: Labs from last 24 hours 01/28/18 01/28/18 01/28/18 22:40 05:24 05:24 WBC 5.0 RBC 3.49 L Hgb 7.6 L Hct 23.7 L MCV 67.7 L MCH 21.6 L MCHC 32.0 RDW 21.9 H Plt Count 177 MPV 8.5 Neut % (Auto) 59.0 Lymph % (Auto) 29.1 [place] % (Auto) 8.6 H Eos % (Auto) 2.3 Baso % (Auto) 1.0 Neut # (Auto) 3.0 Lymph # (Auto) 1.5 [place] # (Auto) 0.4 Eos # (Auto) 0.1 Baso # (Auto) 0.0 WBC Differential . Differential Comment Auto diff final Sodium 143 Potassium 3.6 Chloride 110 H Carbon Dioxide 22.2 Anion Gap 11 BUN 12 Creatinine 1.30 H Estimated GFR 41 L Random Glucose 86 Calcium 8.7 Magnesium 2.2 Urine Color Pending Urine Clarity Pending Urine pH Pending Ur Specific [place] Pending Urine Protein Pending Urine Glucose (UA) Pending Urine Ketones Pending Urine Occult Blood Pending Urine Nitrate Pending Urine Bilirubin Pending Ur Microscopic Review Pending Discharge Plan - Discharge Disposition Patient Disposition: /Home Health Service - Discharge Condition Condition: Stable - Discharge Order Discharge Orders: Discharge Order (Routine); Ordered 01/28/18 Ordered By: Angel Perea - Discharge Details Anticipated Discharge Date: 02/01/18 - Physicians Team Primary Care Provider: Leti Hernandez Attending Provider: Jacob Stokes Other Providers: Onesimo Chris MD ; Ora Obregon MD ; Angel Perea MD ; [facility],Ag[facility] ; Atif Higuera DO
[2018-01-28 23:23] LABS: Bacteria,Urine Few /hpf; Bilirubin,Urine Negative (Negative); Clarity,Urine Clear (Clear); Color,Urine Yellow (Yellw/Straw); Glucose,Urine (UA) Negative (Negative); Leukocyte Esterase,Urine Small (Negative); Nitrite,Urine Negative (Negative); Specific Gravity,Urine 1.005 (1.002-1.035); Squamous Epithelial Cell,Urine 2 /hpf (0-5)
[2018-01-29] MEDS: clonazePAM 0.5 MG Tablet PO PRN ×5 (00:35→23:44)
[2018-01-29] MEDS: Dextrose 5%/NaCl 0.45% Inj 1,000 ML IV.CONT SCH ×3 (04:35→20:24)
[2018-01-29 05:37] LABS: Baso % (Auto) 0.9 % (0.0-2.0); Eos # (Auto) 0.2 th/mm3 (0.0-0.4); Eos % (Auto) 4.5 % (0.0-4.0); Hematocrit 25.1 % (35.0-46.0); Hemoglobin 7.9 gm/dL (11.6-15.3); Lymph # (Auto) 1.1 th/mm3 (1.0-4.8); Lymph % (Auto) 29.1 % (9.0-44.0); Mean Corpuscular HGB Conc 31.6 % (32.0-36.0); Mean Corpuscular Hemoglobin 21.3 pg (27.0-34.0); Mean Corpuscular Volume 67.3 fL (80.0-100.0); Mean Platelet Volume 7.9 fL (7.0-11.0); Mono # (Auto) 0.3 th/mm3 (0.0-0.9); Neut # (Auto) 2.2 th/mm3 (1.8-7.7); Neut % (Auto) 57.5 % (16.0-70.0); Platelet Count 181 th/mm3 (150-450); Red Blood Count 3.73 mil/mm3 (4.00-5.30); Red Cell Distribution Width 21.5 % (11.6-17.2); White Blood Count 3.8 th/mm3 (4.0-11.0)
[2018-01-29 05:59] LABS: Calcium 8.8 mg/dL (8.5-10.1); Potassium 3.3 meq/L (3.5-5.1)
--- NOTE | 2018-01-29 07:18 | P.PNIM ---
Subjective Interval history: Patient seen and examined this morning. Nurse at bedside states that she was bradycardic down to the low 40s with increased PVCs overnight per telemetry. Patient states that she feels much better than when she came in and the last 3 days. She denies nausea/vomiting, abdominal pain, fever, chest pain, shortness of breath, dizziness, and lightheadedness. She was able to get up by herself to use the bedside commode with no issues and no lightheaded symptoms. She last had a bowel movement on 01/27 and it was soft, no diarrhea since then. Her appetite is not much improved. She knows that the plan was to discharge her yesterday but she does not feel ready to go home. She does not believe that she would be safe at home at this time because she cannot even eat yet. She would like to take a shower today. Physical Exam Vital signs: Vital Signs 01/28/18 08:00 01/28/18 11:43 01/28/18 12:00 Temperature 97.6 F 97.4 F L Pulse Rate 56 L 47 L Respiratory Rate 18 18 Blood Pressure 182/77 H 158/69 H Pulse Oximetry 98 98 96 01/28/18 16:00 01/28/18 18:11 01/28/18 20:00 Temperature 97.7 F 97.5 F L Pulse Rate 56 L 49 L 53 L Respiratory Rate 18 20 Blood Pressure 169/73 H 162/79 H Pulse Oximetry 96 97 01/29/18 00:00 01/29/18 04:00 Temperature 98 F 97.7 F Pulse Rate 39 L 44 L Respiratory Rate 18 18 Blood Pressure 129/61 130/59 L Pulse Oximetry 97 97 Intake & Output 01/28/18 01/29/18 01/29/18 18:59 06:59 18:59 Intake Total 1480 / 1480 1420 / 1420 Output Total 800 / 800 Balance 1480 / 1480 620 / 620 Weight 109 kg Intake: IV 1000 / 1000 1000 / 1000 D5W/1/2 NS Inj 1,000 ML @ 100 1000 / 1000 1000 / 1000 mls/hr IV.CONT .Q10H [facility] Rx#: [id number] Oral 480 / 480 420 / 420 Output: Urine 800 / 800 Other: # Voids 3 Narrative: GENERAL: Well appearing. HEAD: Atraumatic. Normocephalic. EYES: Pupils equal and round. No scleral icterus. No injection or drainage. NECK: Trachea midline. No JVD. CARDIOVASCULAR: Bradycardic rate and rhythm. No murmur appreciated. RESPIRATORY: No accessory muscle use. Clear to auscultation. Breath sounds equal bilaterally. GASTROINTESTINAL: Abdomen soft, non-tender, nondistended. MUSCULOSKELETAL: No obvious deformities. No clubbing. No cyanosis. No edema. 2+ pulses bilaterally. NEUROLOGICAL: Awake and alert. No obvious cranial nerve deficits. Motor grossly within normal limits. Normal speech. - Urinary Catheter Management Straight Cath placed during this visit: no Results - Labs CBC & Chem 7: 01/29/18 04:43 01/29/18 04:43 Laboratory Results - last 24 hr 01/28/18 01/29/18 01/29/18 22:40 04:43 04:43 WBC 3.8 L RBC 3.73 L Hgb 7.9 L Hct 25.1 L MCV 67.3 L MCH 21.3 L MCHC 31.6 L RDW 21.5 H Plt Count 181 MPV 7.9 Neut % (Auto) 57.5 Lymph % (Auto) 29.1 [place] % (Auto) 8.0 Eos % (Auto) 4.5 H Baso % (Auto) 0.9 Neut # (Auto) 2.2 Lymph # (Auto) 1.1 [place] # (Auto) 0.3 Eos # (Auto) 0.2 Baso # (Auto) 0.0 WBC Differential . Differential Comment Auto diff final Sodium 143 Potassium 3.3 L Chloride 109 H Carbon Dioxide 23.0 Anion Gap 11 BUN 7 Creatinine 1.32 H Estimated GFR 40 L Random Glucose 99 Calcium 8.8 Urine Color Yellow Urine Clarity Clear Urine pH 6.0 Ur Specific [place] 1.005 Urine Protein Negative Urine Glucose (UA) Negative Urine Ketones Negative Urine Occult Blood Moderate H Urine Nitrate Negative Urine Bilirubin Negative Urine Urobilinogen Less than 2 Ur Leukocyte Esterase Small H Urine RBC 6 H Urine WBC 18 H Ur Squamous Epith Cells 2 Urine Bacteria Few H Micro UA Comment Culture indicated Ur Microscopic Review Not Reportable Urine Culture Comments Culture indicated Microbiology 01/26/18 15:50 Catheterized Urine Urine Culture - Final Enterococcus faecalis Assessment and Plan - Assessment (1) Acute GI bleeding Code(s): K92.2 - Gastrointestinal hemorrhage, unspecified Status: Resolved (2) Anemia Code(s): D64.9 - Anemia, unspecified Status: Chronic (3) COPD (chronic obstructive pulmonary disease) Code(s): J44.9 - Chronic obstructive pulmonary disease, unspecified Status: Chronic (4) HTN (hypertension) Code(s): I10 - Essential (primary) hypertension Status: Chronic (5) CAD (coronary artery disease) Code(s): I25.10 - Atherosclerotic heart disease of [place] coronary artery without angina pectoris Status: Chronic (6) Depressed Code(s): F32.9 - Major depressive disorder, single episode, unspecified Status : Chronic - Plan 67-year-old female with past history significant for COPD, coronary artery disease, hypertension, major depressive disorder, anxiety, chronic lower back pain and depression presented to the hospital for an acute GI bleed and was found to be C. difficile positive. GI bleed/ C diff S/p one unit of blood 01/27. 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 C diff is positive. -Gastroenterology and ID consulted -GI has signed off -Monitor CBC -improved to 7.9/25.1 today compared to 7.6/23.1 on the previous day -Protonix IV -Start iron tablets -continue PO Vancomycin and Fidaxomicin Coronary artery disease S/p stents -Continue Plavix and ASA Bradycardia -HR down to the low 40's overnight with increased PVCs per telemetry -Improved on exam this morning -Continue to monitor -Cardiology consult COPD The pt is still a smoker -Albuterol nebulizer as needed for shortness of breath -smoking cessation instruction Hypertension Relatively well controlled. Holding amlodipine due to bradycardia -Continue home amlodipine Major depressive disorder Mood is stable -Continue home medications DVT prophylaxis with SCDs Discussed Condition With: Patient's nurse Discharge Planning: Discharge was planned with Home health, but CM looking into SNF placement (3) COPD (chronic obstructive pulmonary disease) Qualifiers: COPD type: unspecified COPD Qualified Code(s): J44.9 - Chronic obstructive pulmonary disease, unspecified (4) HTN (hypertension) Qualifiers: Hypertension type: essential hypertension Qualified Code(s): I10 - Essential (primary) hypertension (5) CAD (coronary artery disease) Qualifiers: Coronary Disease-Associated Artery/Lesion type: unspecified vessel or lesion type Associated angina: without angina (6) Depressed Qualifiers: Depression Type: major depressive disorder Major depression recurrence: recurrent Active/Remission status: in partial remission Qualified Code(s): F33.41 - Major depressive disorder, recurrent, in partial remission
[2018-01-29] MEDS ORDERED: clonazePAM 0.5 MG Tablet PO PRN (07:37)
[2018-01-29] MEDS: Pantoprazole Inj 40 MG Vial IV.PUSH SCH (08:19)
[2018-01-29] MEDS: Ferrous Sulfate 325 MG Tablet PO SCH (09:22)
--- NOTE | 2018-01-29 17:21 | P.PNID ---
Subjective Remarks: Bradycardic episodes, cards ff co chills, feeling cold c/o nausea- same No diarrhea denies disuria no fever Antibiotics: dificid oral vancomycin Allergies/Adverse Reactions: Allergies amoxicillin Allergy (Intermediate, Verified 08/23/17 12:18) throat pain Objective Vital Signs 01/28/18 18:11 01/28/18 20:00 01/29/18 00:00 Temperature 97.7 F 97.5 F L 98 F Pulse Rate 49 L 53 L 39 L Respiratory Rate 18 20 18 Blood Pressure 169/73 H 162/79 H 129/61 Pulse Oximetry 96 97 97 01/29/18 04:00 01/29/18 08:00 01/29/18 09:38 Temperature 97.7 F 97.7 F Pulse Rate 44 L 73 Respiratory Rate 18 20 Blood Pressure 130/59 L 161/70 H Pulse Oximetry 97 95 95 01/29/18 12:00 Temperature 97.2 F L Pulse Rate 50 L Respiratory Rate 20 Blood Pressure 155/70 H Pulse Oximetry 99 Intake & Output 01/28/18 01/29/18 01/29/18 18:59 06:59 18:59 Intake Total 1480 / 1480 1420 / 1420 1000 / 1000 Output Total 800 / 800 Balance 1480 / 1480 620 / 620 1000 / 1000 Weight 109 kg Intake: IV 1000 / 1000 1000 / 1000 1000 / 1000 D5W/1/2 NS Inj 1,000 ML @ 100 1000 / 1000 1000 / 1000 1000 / 1000 mls/hr IV.CONT .Q10H [facility] Rx#: [id number] Oral 480 / 480 420 / 420 Output: Urine 800 / 800 Other: # Voids 3 01/28/18 22:40 Clean Catch Urine Urine Culture - Preliminary Immature growth - reincubate 01/26/18 15:50 Catheterized Urine Urine Culture - Final Enterococcus faecalis 01/27/18 00:54 Stool Enteric Pathogens (PCR) - Final No enteric pathogens detected by PCR (No Salmonella sp., Shigella sp., Campylobacter sp., Yersinia enterocolitica, Vibrio sp., Norovirus, or EHEC (Shiga Toxin 1 or Shiga Toxin 2) detected. 01/27/18 00:54 Stool Cryptosporidium Antigen - Final Negative - No Cryptosporicium antigen detected In selected cases of patients with a history of immunosuppression or foreign travel, a full ova and parasites examination may be desired. Contact the microbiology lab if full workup is indicated and subit another specimen for testing. 01/27/18 00:54 Stool Giardia Antigen (SEVERIANO) - Final Negative - No Giardia Antigen detected In selected cases of patients with a history of immunosuppression or foreign travel, a full ova and parasites examination may be desired. Contact the microbiology lab if full workup is indicated and subit another specimen for testing. 01/27/18 00:54 Stool Stool for WBCs - Final Rare WBC's Lab - Hematology Results 01/27/18 01/28/18 01/29/18 18:30 05:24 04:43 WBC 5.0 3.8 L RBC 3.49 L 3.73 L Hgb 8.0 L 7.6 L 7.9 L Hct 26.6 L 23.7 L 25.1 L MCV 67.7 L 67.3 L MCH 21.6 L 21.3 L MCHC 32.0 31.6 L RDW 21.9 H 21.5 H Plt Count 177 181 MPV 8.5 7.9 Neut % (Auto) 59.0 57.5 Lymph % (Auto) 29.1 29.1 [place] % (Auto) 8.6 H 8.0 Eos % (Auto) 2.3 4.5 H Baso % (Auto) 1.0 0.9 Neut # (Auto) 3.0 2.2 Lymph # (Auto) 1.5 1.1 [place] # (Auto) 0.4 0.3 Eos # (Auto) 0.1 0.2 Baso # (Auto) 0.0 0.0 WBC Differential . . Differential Comment Auto diff final Auto diff final Lab - Chemistry Results 01/28/18 01/29/18 05:24 04:43 Sodium 143 143 Potassium 3.6 3.3 L Chloride 110 H 109 H Carbon Dioxide 22.2 23.0 Anion Gap 11 11 BUN 12 7 Creatinine 1.30 H 1.32 H Estimated GFR 41 L 40 L Random Glucose 86 99 Calcium 8.7 8.8 Magnesium 2.2 Physical Exam: GENERAL: NAD SKIN: Warm and dry. HEAD: Atraumatic. Normocephalic. EYES: Pupils equal and round. No scleral icterus. No injection or drainage. ENT: No nasal bleeding or discharge. Mucous membranes pink and moist. NECK: Trachea midline. No JVD. CARDIOVASCULAR: Regular rate and rhythm. RESPIRATORY: No accessory muscle use. Clear to auscultation. Breath sounds equal bilaterally. GASTROINTESTINAL: Abdomen soft, non-tender, mildly distended. Hepatic and splenic margins not palpable. MUSCULOSKELETAL: Extremities without clubbing, cyanosis, or edema. No obvious deformities. NEUROLOGICAL: Awake and alert. No obvious cranial nerve deficits. Motor grossly within normal limits. Five out of 5 muscle strength in the arms and legs. Normal speech. PSYCHIATRIC: appears withdrawn adn somewhat depressed Assessment and Plan - Plan recurrent C.diff: clinically resolved Failed fecal transplant Bacteriruia, Entrococcus vs lower tract UTI - no e/o pyelonephritis Persistent nausea ? medx Abn LFTs (alk phos) CT from 01/24 w/o biliary or colonic acute findings cont dificid cont vanco po; after 2 weeks of tx completed withh swich to vanmycin taper vancomycin 125 mg po BID, then vancomycin 125 mg po daily, then vancomycin 125 mg po q 48 hrs, then vancomycin 125 mg po q 72 hrs x 5 doses pt needs to be evaluated by urologist for persistent UTIs - can be done as o/p repeat LFTs
[2018-01-29] MEDS: Gabapentin 400 MG Capsule PO SCH (18:10)
[2018-01-29 18:40] LABS: Albumin 2.9 g/dL (3.4-5.0)
[2018-01-29 18:41] LABS: Total Protein 6.6 g/dL (6.4-8.2)
--- NOTE | 2018-01-29 19:12 | MB ---
cc: Atif Higuera DO DATE: 01/29/2018 REASON FOR CONSULTATION: Bradycardia. HISTORY OF PRESENT ILLNESS: Magalys Crespo is a pleasant 67-year-old female, whom I see in the office and presented to [facility] due to diarrhea. She has had multiple episodes of Clostridium difficile and felt like she was having problems with this once again. She states that she has been told in the past that she has had a GI bleed when she has had extensive diarrhea. While here, she was noted to have a hemoglobin as low at 6.8 and transfused 1 unit. I was called by Dr. Lenz earlier in the week about this and discussed that due to her multivessel stenting in July that she would need to stay on aspirin and Plavix if possible. He restarted her back on her aspirin and Plavix at that time. She was being ready to be discharged and it was noted that she had episodes of bradycardia with heart rates in the 40s to 50s. During these episodes, she was hemodynamically stable and asymptomatic. I was asked to see her due to the bradycardic episodes. In seeing her, she feels overall exhausted, but relates this to her extensive amount of diarrhea. PAST MEDICAL HISTORY: 1. CAD. 2. Chronic obstructive pulmonary disease. 3. Clostridium difficile diarrhea. 4. Hyperlipidemia. 5. Hypertension. 6. Depressive disorder. 7. Panic attacks. 8. Melanoma skin cancer. PAST SURGICAL HISTORY: 1. Spinal fusion. 2. Appendectomy. 3. Tonsillectomy. 4. Cardiac catheterization (07/02/2017) with PCI of anomalous left circumflex with an Tom drug-eluting stent (2.75 x 22). Cardiac catheterization (06/29/2017) with PCI of LAD with an [place] drug-eluting stent (3.5 x 8). ALLERGIES: AMOXICILLIN. MEDICATIONS: 1. Hydrocodone/acetaminophen 5/325 every 6 hours. 2. Aspirin 81 mg daily. 3. Plavix 75 mg daily. 4. Nitro sublingual as needed. 5. Gabapentin 400 mg t.i.d. 6. Klonopin 0.5 mg q.i.d. 7. Norvasc 2.5 mg daily. 8. Lipitor 20 mg daily. FAMILY HISTORY: Sister recently diagnosed with metastatic breast cancer. Denies premature coronary artery disease within the family. SOCIAL HISTORY: The patient smokes daily. Denies alcohol or drug abuse. 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 REVIEW OF SYSTEMS: Fourteen systems were reviewed including osteopathic. Pertinent positives and negatives above, otherwise negative. PHYSICAL EXAMINATION: VITAL SIGNS: Temperature 97.7, heart rate 53, blood pressure 155/70, respirations 20, pulse oximetry 99% on room air. GENERAL: The patient is in no acute distress, alert, awake and oriented x3. HEENT: Extraocular muscles intact. Mucous membranes moist. NECK: Supple. No JVD at 45 degrees. No carotid bruits heard bilaterally. Carotid upstroke is brisk in nature. HEART: Bradycardic but positive first and second heart sounds. LUNGS: Clear to auscultation bilaterally. No wheezes, rales or rhonchi. ABDOMEN: Soft, nontender, nondistended. No organomegaly noted. EXTREMITIES: Show trace edema. Femoral pulses intact bilaterally. NEUROLOGIC: No focal deficits. SKIN: Warm, dry and intact. OSTEOPATHIC: Mild lordosis, no kyphoscoliosis or paraspinal tender points. LABORATORY DATA: Hemoglobin 7.9, hematocrit 25.1, platelets 181. Potassium 3.3, BUN 7, creatinine 1.32. IMPRESSION: 1. Asymptomatic bradycardia. 2. Previous gastrointestinal bleed. 3. Coronary artery disease with multivessel stenting as above. 4. Chronic anemia. 5. Chronic obstructive pulmonary disease. 6. Hypertension. 7. Tobacco abuse. 8. Depression. RECOMMENDATIONS: 1. Ms. Crespo presented with C. difficile diarrhea and required transfusion of 1 unit of packed red blood cells. 2. Due to her multivessel stenting she needs to continue on aspirin and Plavix. 3. As far as her bradycardia, some of this may be due to possible sleep apnea, but she also has episodes during the day. This is most likely due to lying in bed all day and not being active. She is currently asymptomatic from this and no high risk AV blocks are noted. No further workup at this time. 4. If she does continue to be bradycardic and becomes symptomatic, consideration would be made for further evaluation, but my concern is with her active infection placing a pacemaker would not be in the best of options due to risk of infection. 5. No further workup from my standpoint. 6. I spoke to her for greater than 3 minutes about tobacco cessation. Thank you for allowing me to see Magalys Crespo. If there are any questions, please do not hesitate to call. DO YASMIN Beckman/karissa , 01:56 PM , 02:08 PM
[2018-01-29 19:37] LABS: Hematocrit 26.9 % (35.0-46.0); Hemoglobin 8.3 gm/dL (11.6-15.3)
[2018-01-30 05:01] LABS: Calcium 8.8 mg/dL (8.5-10.1); Carbon Dioxide 22.6 meq/L (21.0-32.0); Potassium 3.6 meq/L (3.5-5.1)
[2018-01-30] MEDS: Dextrose 5%/NaCl 0.45% Inj 1,000 ML IV.CONT SCH ×2 (05:29→15:05)
--- NOTE | 2018-01-30 07:02 | P.PNIM ---
Subjective Interval history: Patient seen and examined this morning. She states that she still feels weak and experienced some dizziness when she stood up to use the bedside commode. In addition, she still feels her heart fluttering from an irregular rhythm but is much better than the previous day. She is still not eating well. She had a mushy bowel movements but no diarrhea yesterday. Physical Exam Vital signs: Vital Signs 01/29/18 08:00 01/29/18 09:38 01/29/18 12:00 Temperature 97.7 F 97.2 F L Pulse Rate 73 50 L Respiratory Rate 20 20 Blood Pressure 161/70 H 155/70 H Pulse Oximetry 95 95 99 01/29/18 16:00 01/29/18 20:00 01/30/18 00:00 Temperature 97.4 F L 97.2 F L 98.2 F Pulse Rate 58 L 88 54 L Respiratory Rate 18 20 20 Blood Pressure 158/70 H 148/64 H 135/65 Pulse Oximetry 98 97 99 01/30/18 04:00 Temperature 97.5 F L Pulse Rate 46 L Respiratory Rate 18 Blood Pressure 118/74 Pulse Oximetry 97 Intake & Output 01/29/18 01/30/18 01/30/18 18:59 06:59 18:59 Intake Total 1480 / 1480 2240 / 2240 Output Total 400 / 400 Balance 1480 / 1480 1840 / 1840 Weight 109 kg Intake: IV 1000 / 1000 2000 / 2000 D5W/1/2 NS Inj 1,000 ML @ 100 1000 / 1000 2000 / 2000 mls/hr IV.CONT .Q10H [facility] Rx#: [id number] Oral 480 / 480 240 / 240 Output: Urine 400 / 400 Other: # Voids 3 2 Date of Last Bowel Movement 01/29/18 # Bowel Movements 0 0 Narrative: GENERAL: Well appearing. HEAD: Atraumatic. Normocephalic. EYES: Pupils equal and round. No scleral icterus. No injection or drainage. NECK: Trachea midline. No JVD. CARDIOVASCULAR: Bradycardic rate and rhythm. No murmur appreciated. RESPIRATORY: No accessory muscle use. Clear to auscultation. Breath sounds equal bilaterally. GASTROINTESTINAL: Abdomen soft, non-tender, nondistended. MUSCULOSKELETAL: No obvious deformities. No clubbing. No cyanosis. No edema. 2+ pulses bilaterally. NEUROLOGICAL: Awake and alert. No obvious cranial nerve deficits. Motor grossly within normal limits. Normal speech. - Urinary Catheter Management Straight Cath placed during this visit: no Results - Labs CBC & Chem 7: 01/29/18 19:02 01/30/18 03:48 Laboratory Results - last 24 hr 01/29/18 01/29/18 01/30/18 04:43 19:02 03:48 Hgb 8.3 L Hct 26.9 L Sodium 145 Potassium 3.6 Chloride 111 H Carbon Dioxide 22.6 Anion Gap 11 BUN 6 L Creatinine 1.38 H Estimated GFR 38 L Random Glucose 96 Calcium 8.8 Total Bilirubin 0.4 Direct Bilirubin 0.2 Indirect Bilirubin 0.2 AST 13 L ALT 10 Alkaline Phosphatase 125 H Total Protein 6.6 D Albumin 2.9 L Microbiology 01/28/18 22:40 Clean Catch Urine Urine Culture - Preliminary Immature growth - reincubate Assessment and Plan - Assessment (1) Acute GI bleeding Code(s): K92.2 - Gastrointestinal hemorrhage, unspecified Status: Resolved (2) Anemia Code(s): D64.9 - Anemia, unspecified Status: Chronic (3) COPD (chronic obstructive pulmonary disease) Code(s): J44.9 - Chronic obstructive pulmonary disease, unspecified Status: Chronic (4) HTN (hypertension) Code(s): I10 - Essential (primary) hypertension Status: Chronic (5) CAD (coronary artery disease) Code(s): I25.10 - Atherosclerotic heart disease of [place] coronary artery without angina pectoris Status: Chronic (6) Depressed Code(s): F32.9 - Major depressive disorder, single episode, unspecified Status : Chronic - Plan 67-year-old female with past history significant for COPD, coronary artery disease, hypertension, major depressive disorder, anxiety, chronic lower back pain and depression presented to the hospital for an acute GI bleed and was found to be C. difficile positive. GI bleed/ C diff S/p one unit of blood 01/27. 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 C diff is positive. -Gastroenterology and ID consulted -GI has signed off -Monitor CBC -improved to 8.3/26.9 today compared to7.9/25.1 on the previous day -Protonix IV -Start iron tablets -Continue PO Vancomycin and Fidaxomicin Coronary artery disease S/p stents -Continue Plavix and ASA Bradycardia -HR down improved to the low 50's overnight -Continue to monitor -Cardiology consult - no further workup or therapy needed COPD The pt is still a smoker -Albuterol nebulizer as needed for shortness of breath -Smoking cessation instruction Hypertension -Relatively well controlled -Continue holding amlodipine due to bradycardia Major depressive disorder Mood is stable -Continue home medications Poor appetite -Chronic -Will discontinue dextrose fluids to facilitate increased movement and stimulate appetite -PT to assist with ambulation and strengthening exercises DVT prophylaxis with SCDs Discussed Condition With: Nurse Discharge Planning: Discharge was planned with Home health, but CM looking into SNF placement (3) COPD (chronic obstructive pulmonary disease) Qualifiers: COPD type: unspecified COPD Qualified Code(s): J44.9 - Chronic obstructive pulmonary disease, unspecified (4) HTN (hypertension) Qualifiers: Hypertension type: essential hypertension Qualified Code(s): I10 - Essential (primary) hypertension (5) CAD (coronary artery disease) Qualifiers: Coronary Disease-Associated Artery/Lesion type: unspecified vessel or lesion type Associated angina: without angina (6) Depressed Qualifiers: Depression Type: major depressive disorder Major depression recurrence: recurrent Active/Remission status: in partial remission Qualified Code(s): F33.41 - Major depressive disorder, recurrent, in partial remission
[2018-01-30] MEDS: Pantoprazole Inj 40 MG Vial IV.PUSH SCH (09:35)
[2018-01-30] MEDS: Ferrous Sulfate 325 MG Tablet PO SCH (09:35)
[2018-01-30] MEDS: Gabapentin 400 MG Capsule PO SCH ×3 (10:56→17:14)
[2018-01-30] MEDS: clonazePAM 0.5 MG Tablet PO PRN ×2 (13:43→20:26)
--- NOTE | 2018-01-30 13:45 | P.PNCA ---
Subjective Interval history: No events overnight Heart rates 40-70, asymptomatic Does feel tired, but did not sleep last night Physical Exam Vital signs: Vital Signs 01/29/18 16:00 01/29/18 20:00 01/30/18 00:00 Temperature 97.4 F L 97.2 F L 98.2 F Pulse Rate 58 L 88 54 L Respiratory Rate 18 20 20 Blood Pressure 158/70 H 148/64 H 135/65 Pulse Oximetry 98 97 99 01/30/18 04:00 01/30/18 08:00 01/30/18 08:36 Temperature 97.5 F L 98.4 F Pulse Rate 46 L 42 L Respiratory Rate 18 20 Blood Pressure 118/74 128/58 L Pulse Oximetry 97 98 97 01/30/18 12:00 Temperature 97.5 F L Pulse Rate 69 Respiratory Rate 20 Blood Pressure 137/62 Pulse Oximetry 98 Intake & Output 01/29/18 01/30/18 01/30/18 18:59 06:59 18:59 Intake Total 1480 / 1480 2240 / 2240 Output Total 400 / 400 Balance 1480 / 1480 1840 / 1840 Weight 109 kg Intake: IV 1000 / 1000 2000 / 2000 D5W/1/2 NS Inj 1,000 ML @ 100 1000 / 1000 2000 / 2000 mls/hr IV.CONT .Q10H [facility] Rx#: [id number] Oral 480 / 480 240 / 240 Output: Urine 400 / 400 Other: # Voids 3 2 Date of Last Bowel Movement 01/29/18 # Bowel Movements 0 0 Narrative: GENERAL: Well appearing. HEAD: Atraumatic. Normocephalic. EYES: Pupils equal and round. No scleral icterus. No injection or drainage. NECK: Trachea midline. No JVD. CARDIOVASCULAR: Bradycardic rate and rhythm. No murmur appreciated. RESPIRATORY: No accessory muscle use. Clear to auscultation. Breath sounds equal bilaterally. GASTROINTESTINAL: Abdomen soft, non-tender, nondistended. MUSCULOSKELETAL: No obvious deformities. No clubbing. No cyanosis. No edema. 2+ pulses bilaterally. NEUROLOGICAL: Awake and alert. No obvious cranial nerve deficits. Motor grossly within normal limits. Normal speech. - Urinary Catheter Management Straight Cath placed during this visit: no Assessment and Plan - Assessment (1) C. difficile diarrhea Code(s): A04.72 - Enterocolitis due to Clostridium difficile, not specified as recurrent Status: Acute (2) Bradycardia Code(s): R00.1 - Bradycardia, unspecified Status: Acute (3) Acute GI bleeding Code(s): K92.2 - Gastrointestinal hemorrhage, unspecified Status: Resolved (4) CAD (coronary artery disease) Code(s): I25.10 - Atherosclerotic heart disease of [place] coronary artery without angina pectoris Status: Chronic (5) Anemia Code(s): D64.9 - Anemia, unspecified Status: Chronic - Plan 1) C. Diff Per infectious disease 2) CAD with multi-vessel stenting Con't ASA/Plavix 3) Asymptomatic bradycardia Possible sleep apnea? vs obesity hypoventilation syndrome TSH normal No further work up needed (4) CAD (coronary artery disease) Qualifiers: Coronary Disease-Associated Artery/Lesion type: unspecified vessel or lesion type Associated angina: without angina
[2018-01-31] MEDS: clonazePAM 0.5 MG Tablet PO PRN ×3 (03:10→17:42)
[2018-01-31 06:34] LABS: Hematocrit 25.1 % (35.0-46.0); Mean Corpuscular HGB Conc 31.7 % (32.0-36.0); Mean Corpuscular Hemoglobin 21.6 pg (27.0-34.0); Mean Corpuscular Volume 68.1 fL (80.0-100.0); Mean Platelet Volume 8.4 fL (7.0-11.0); Platelet Count 166 th/mm3 (150-450); Red Blood Count 3.69 mil/mm3 (4.00-5.30); Red Cell Distribution Width 21.8 % (11.6-17.2); White Blood Count 3.9 th/mm3 (4.0-11.0)
[2018-01-31 06:50] LABS: Albumin 2.9 g/dL (3.4-5.0); Anion Gap 11 meq/L (5-15); Aspartate Aminotransferase 21 U/L (15-37); Blood Urea Nitrogen 7 mg/dL (7-18); Calcium 9.1 mg/dL (8.5-10.1); Carbon Dioxide 21.3 meq/L (21.0-32.0); Chloride 112 meq/L (98-107); Glomerular Filtration Rate 38 mL/min (>89); Glucose,Random 85 mg/dL (74-106); Potassium 3.7 meq/L (3.5-5.1); Sodium 144 meq/L (136-145)
[2018-01-31 06:52] LABS: Alanine Aminotransferase 14 U/L (10-53)
[2018-01-31 06:54] LABS: Alkaline Phosphatase 132 U/L (45-117); Total Protein 6.5 g/dL (6.4-8.2)
--- NOTE | 2018-01-31 09:26 | P.PNIM ---
Subjective Interval history: Says she is feeling generally weak. Denies any chest pain or shortness of breath. Says she does not want to go to SNF she like to go to home with home health, but too weak today. No bowel movements today. Physical Exam Vital signs: Vital Signs 01/30/18 12:00 01/30/18 16:00 01/30/18 20:00 Temperature 97.5 F L 98.0 F 98.3 F Pulse Rate 69 44 L 53 L Respiratory Rate 20 20 20 Blood Pressure 137/62 132/64 130/59 L Pulse Oximetry 98 98 99 01/31/18 00:00 01/31/18 04:00 Temperature 97.7 F 97.8 F Pulse Rate 49 L 54 L Respiratory Rate 20 20 Blood Pressure 148/65 H 129/60 Pulse Oximetry 99 97 Intake & Output 01/30/18 01/31/18 01/31/18 18:59 06:59 18:59 Intake Total 1420 / 1420 420 / 420 Output Total 600 / 600 Balance 1420 / 1420 -180 / -180 Weight 109 kg Intake: IV 1000 / 1000 D5W/1/2 NS Inj 1,000 ML @ 100 1000 / 1000 mls/hr IV.CONT .Q10H [facility] Rx#: [id number] Oral 420 / 420 420 / 420 Output: Urine 400 / 400 Urine Amount (Catheter) 200 / 200 Straight 200 / 200 Other: # Voids 5 5 Date of Last Bowel Movement 01/29/18 # Bowel Movements 1 1 Narrative: GENERAL: Patient lying in bed. Appears comfortable. SKIN: Warm and dry. HEAD: Normocephalic. EYES: No scleral icterus. No injection or drainage. NECK: Supple, trachea midline. No JVD. CARDIOVASCULAR: Regular rate and rhythm without murmurs, gallops, or rubs. RESPIRATORY: Breath sounds equal bilaterally. No accessory muscle use. GASTROINTESTINAL: Abdomen soft, non-tender, nondistended. MUSCULOSKELETAL: No cyanosis, trace peripheral edema BACK: Nontender without obvious deformity. No CVA tenderness. - Urinary Catheter Management Straight Cath placed during this visit: no Results - Labs CBC & Chem 7: 01/31/18 03:40 01/31/18 03:40 Laboratory Results - last 24 hr 01/31/18 01/31/18 03:40 03:40 WBC 3.9 L RBC 3.69 L Hgb 8.0 L Hct 25.1 L MCV 68.1 L MCH 21.6 L MCHC 31.7 L RDW 21.8 H Plt Count 166 MPV 8.4 Sodium 144 Potassium 3.7 Chloride 112 H Carbon Dioxide 21.3 Anion Gap 11 BUN 7 Creatinine 1.38 H Estimated GFR 38 L Random Glucose 85 Calcium 9.1 Total Bilirubin 0.3 AST 21 ALT 14 Alkaline Phosphatase 132 H Total Protein 6.5 Albumin 2.9 L Microbiology 01/28/18 22:40 Clean Catch Urine Urine Culture - Final Enterococcus faecalis Assessment and Plan - Assessment (1) Visual impairment Code(s): H54.7 - Unspecified visual loss Status: Acute (2) Acute GI bleeding Code(s): K92.2 - Gastrointestinal hemorrhage, unspecified Status: Resolved - Plan 67-year-old female with past history significant for COPD, coronary artery disease, hypertension, major depressive disorder, anxiety, chronic lower back pain and depression presented to the hospital for an acute GI bleed and was found to be C. difficile positive. //GI bleed/ C diff S/p one unit of blood 01/27. 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 C diff is positive. -Gastroenterology and ID consulted -GI has signed off -Monitor CBC -improved to 8.3/26.9 today compared to7.9/25.1 on the previous day -Protonix IV -Start iron tablets -Continue PO Vancomycin taper as per ID. //Coronary artery disease S/p stents -Continue Plavix and ASA //Bradycardia -HR down improved to the low 50's overnight -Continue to monitor -Cardiology consult -TSH normal. No further workup or therapy needed = Patient should be worked up for sleep apnea as outpatient //COPD The pt is still a smoker -Albuterol nebulizer as needed for shortness of breath -Smoking cessation instruction //Hypertension -Relatively well controlled -Continue holding amlodipine due to bradycardia = Blood pressure acceptable. Continue to monitor. //Major depressive disorder Mood is stable -Continue home medications //Poor appetite -Chronic -Will discontinue dextrose fluids to facilitate increased movement and stimulate appetite -PT to assist with ambulation and strengthening exercises //DVT prophylaxis with SCDs Discussed Condition With: Patient, nurse Discharge Planning: Patient too weak to go home with home health at this time. Does not want to go to SNF. Will discuss with case management.
[2018-01-31] MEDS: Pantoprazole Inj 40 MG Vial IV.PUSH SCH (09:34)
[2018-01-31] MEDS: Gabapentin 400 MG Capsule PO SCH ×3 (09:34→17:42)
[2018-01-31] MEDS: Ferrous Sulfate 325 MG Tablet PO SCH (09:35)
--- NOTE | 2018-01-31 12:46 | P.PNCA ---
Subjective Interval history: No events overnight Hemodynamically stable Physical Exam Vital signs: Vital Signs 01/30/18 16:00 01/30/18 20:00 01/31/18 00:00 Temperature 98.0 F 98.3 F 97.7 F Pulse Rate 44 L 53 L 49 L Respiratory Rate 20 20 20 Blood Pressure 132/64 130/59 L 148/65 H Pulse Oximetry 98 99 99 01/31/18 04:00 01/31/18 08:00 01/31/18 09:43 Temperature 97.8 F 97.8 F Pulse Rate 54 L 44 L Respiratory Rate 20 20 Blood Pressure 129/60 149/65 H Pulse Oximetry 97 96 98 Intake & Output 01/30/18 01/31/18 01/31/18 18:59 06:59 18:59 Intake Total 1420 / 1420 420 / 420 Output Total 600 / 600 Balance 1420 / 1420 -180 / -180 Weight 109 kg Intake: IV 1000 / 1000 D5W/1/2 NS Inj 1,000 ML @ 100 1000 / 1000 mls/hr IV.CONT .Q10H [facility] Rx#: [id number] Oral 420 / 420 420 / 420 Output: Urine 400 / 400 Urine Amount (Catheter) 200 / 200 Straight 200 / 200 Other: # Voids 5 5 Date of Last Bowel Movement 01/29/18 # Bowel Movements 1 1 Narrative: GENERAL: Patient lying in bed. Appears comfortable. SKIN: Warm and dry. HEAD: Normocephalic. EYES: No scleral icterus. No injection or drainage. NECK: Supple, trachea midline. No JVD. CARDIOVASCULAR: Regular rate and rhythm without murmurs, gallops, or rubs. RESPIRATORY: Breath sounds equal bilaterally. No accessory muscle use. GASTROINTESTINAL: Abdomen soft, non-tender, nondistended. MUSCULOSKELETAL: No cyanosis, trace peripheral edema BACK: Nontender without obvious deformity. No CVA tenderness. - Urinary Catheter Management Straight Cath placed during this visit: no Assessment and Plan - Assessment (1) C. difficile diarrhea Code(s): A04.72 - Enterocolitis due to Clostridium difficile, not specified as recurrent Status: Acute (2) Bradycardia Code(s): R00.1 - Bradycardia, unspecified Status: Acute (3) Acute GI bleeding Code(s): K92.2 - Gastrointestinal hemorrhage, unspecified Status: Resolved (4) CAD (coronary artery disease) Code(s): I25.10 - Atherosclerotic heart disease of [place] coronary artery without angina pectoris Status: Chronic (5) Anemia Code(s): D64.9 - Anemia, unspecified Status: Chronic - Plan 1) C. Diff Per infectious disease 2) CAD with multi-vessel stenting Con't ASA/Plavix 3) Asymptomatic bradycardia Possible sleep apnea? vs obesity hypoventilation syndrome TSH normal No further work up needed 4) Will see PRN, call with questions (4) CAD (coronary artery disease) Qualifiers: Coronary Disease-Associated Artery/Lesion type: unspecified vessel or lesion type Associated angina: without angina
--- NOTE | 2018-01-31 13:28 | ECG ---
Date Performed: 01/30/2018 Time Performed: 15:26:22 PTAGE: 67 years EKG: SINUS BRADYCARDIA INCOMPLETE RIGHT BUNDLE BRANCH BLOCK BORDERLINE ECG Compared to PREVIOUS TRACING , the frequent premature atrial contractions have resolved. PREVIOUS TRA CIN08/23/2017 12.59 DOCTOR: Roxana Rivera Interpretating Date/Time 01/31/2018 13:26:13
[2018-02-01 01:40] VITALS: RESP 18
[2018-02-01] MEDS: clonazePAM 0.5 MG Tablet PO PRN ×3 (01:42→17:29)
[2018-02-01] MEDS: Gabapentin 400 MG Capsule PO SCH ×3 (08:52→17:29)
[2018-02-01] MEDS: Ferrous Sulfate 325 MG Tablet PO SCH (08:53)
[2018-02-01] MEDS: Pantoprazole Inj 40 MG Vial IV.PUSH SCH (08:53)
--- NOTE | 2018-02-01 09:47 | P.PNIM ---
Subjective Interval history: patient is not sure if she wants to go home or stay in the hospital. She says she does not like alf facilities. Denies any chest pain or shortness of breath. Physical Exam Vital signs: Vital Signs 01/31/18 09:43 01/31/18 12:00 01/31/18 14:47 Temperature 97.8 F Pulse Rate 50 L 6 L Respiratory Rate 20 Blood Pressure 144/66 H Pulse Oximetry 98 96 01/31/18 16:00 01/31/18 16:15 01/31/18 20:00 Temperature 97.9 F 97.9 F Pulse Rate 46 L 52 L 54 L Respiratory Rate 20 Blood Pressure 152/66 H 140/64 Pulse Oximetry 96 99 01/31/18 23:06 02/01/18 00:00 02/01/18 04:00 Temperature 97.9 F 98.2 F Pulse Rate 51 L 52 L Respiratory Rate 20 18 18 Blood Pressure 126/58 L 113/57 L Pulse Oximetry 96 98 02/01/18 08:00 Temperature 97.4 F L Pulse Rate 48 L Respiratory Rate 18 Blood Pressure 136/69 Pulse Oximetry 98 Intake & Output 01/31/18 02/01/18 02/01/18 18:59 06:59 18:59 Intake Total 360 / 360 480 / 480 Output Total 600 / 600 Balance 360 / 360 -120 / -120 Weight 109.8 kg Intake: Oral 360 / 360 480 / 480 Output: Urine 600 / 600 Other: # Voids 5 Date of Last Bowel Movement 01/29/18 # Bowel Movements 0 0 Narrative: GENERAL: Patient lying in bed. Appears comfortable. No change on exam. Appears comfortable SKIN: Warm and dry. HEAD: Normocephalic. EYES: No scleral icterus. No injection or drainage. NECK: Supple, trachea midline. No JVD. CARDIOVASCULAR: Regular rate and rhythm without murmurs, gallops, or rubs. RESPIRATORY: Breath sounds equal bilaterally. No accessory muscle use. GASTROINTESTINAL: Abdomen soft, non-tender, nondistended. MUSCULOSKELETAL: No cyanosis, trace peripheral edema BACK: Nontender without obvious deformity. No CVA tenderness. - Urinary Catheter Management Straight Cath placed during this visit: no Results - Labs CBC & Chem 7: 01/31/18 03:40 01/31/18 03:40 Assessment and Plan - Assessment (1) Visual impairment Code(s): H54.7 - Unspecified visual loss Status: Acute (2) Acute GI bleeding Code(s): K92.2 - Gastrointestinal hemorrhage, unspecified Status: Resolved - Plan 67-year-old female with past history significant for COPD, coronary artery disease, hypertension, major depressive disorder, anxiety, chronic lower back pain and depression presented to the hospital for an acute GI bleed and was found to be C. difficile positive. //GI bleed/ C diff S/p one unit of blood 01/27. 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 C diff is positive. -Gastroenterology and ID consulted -GI has signed off -Monitor CBC -improved to 8.3/26.9 today compared to7.9/25.1 on the previous day -Protonix IV -Start iron tablets -Continue PO Vancomycin taper as per ID. //Coronary artery disease S/p stents -Continue Plavix and ASA //Bradycardia -HR down improved to the low 50's overnight -Continue to monitor -Cardiology consult -TSH normal. No further workup or therapy needed = Patient should be worked up for sleep apnea as outpatient //COPD The pt is still a smoker -Albuterol nebulizer as needed for shortness of breath -Smoking cessation instruction //Hypertension -Relatively well controlled -Continue holding amlodipine due to bradycardia = Blood pressure acceptable. Continue to monitor. //Major depressive disorder Mood is stable -Continue home medications //Poor appetite -Chronic -Will discontinue dextrose fluids to facilitate increased movement and stimulate appetite -PT to assist with ambulation and strengthening exercises //DVT prophylaxis with SCDs Discharge Planning: patient able to go to SNF vs Home with HH. Does not want to go to SNF.
[2018-02-02] MEDS: clonazePAM 0.5 MG Tablet PO PRN ×2 (03:55→10:25)
[2018-02-02 05:44] VITALS: TEMP 97.8
[2018-02-02 07:23] LABS: Baso % (Auto) 0.9 % (0.0-2.0); Eos # (Auto) 0.2 th/mm3 (0.0-0.4); Eos % (Auto) 3.9 % (0.0-4.0); Hematocrit 24.2 % (35.0-46.0); Hemoglobin 7.6 gm/dL (11.6-15.3); Lymph # (Auto) 1.4 th/mm3 (1.0-4.8); Mean Corpuscular HGB Conc 31.5 % (32.0-36.0); Mean Corpuscular Hemoglobin 21.4 pg (27.0-34.0); Mean Corpuscular Volume 68.1 fL (80.0-100.0); Mean Platelet Volume 8.5 fL (7.0-11.0); Mono # (Auto) 0.3 th/mm3 (0.0-0.9); Mono % (Auto) 7.3 % (0.0-8.0); Neut # (Auto) 2.4 th/mm3 (1.8-7.7); Neut % (Auto) 55.9 % (16.0-70.0); Platelet Count 171 th/mm3 (150-450); Red Blood Count 3.54 mil/mm3 (4.00-5.30); Red Cell Distribution Width 23.1 % (11.6-17.2); White Blood Count 4.2 th/mm3 (4.0-11.0)
[2018-02-02 07:49] LABS: Albumin 2.7 g/dL (3.4-5.0); Carbon Dioxide 24.5 meq/L (21.0-32.0); Magnesium 1.8 mg/dL (1.5-2.5); Potassium 3.8 meq/L (3.5-5.1)
[2018-02-02] MEDS: Ferrous Sulfate 325 MG Tablet PO SCH (09:30)
[2018-02-02] MEDS: Gabapentin 400 MG Capsule PO SCH (09:31)
[2018-02-02] MEDS: Pantoprazole Inj 40 MG Vial IV.PUSH SCH (09:32)
[2018-02-02 09:45] VITALS: BP 133/76; O2SAT 95
[2018-02-02] MEDS ORDERED: Iron Sucrose Inj 100 MG/5 ML Vial IV.PUSH ONE (10:00)
[2018-02-02 10:19] VITALS: PULSE 65
--- NOTE | 2018-02-02 10:59 | P.PNIM ---
Subjective Interval history: Patient says she is comfortable. Denies any chest pain or shortness of breath. Denies any bleeding. No bowel movements in several days, however denies any feeling of constipation. Denies any abdominal discomfort. Physical Exam Vital signs: Vital Signs 02/01/18 12:00 02/01/18 14:24 02/01/18 16:00 Temperature 97.5 F L 97.7 F Pulse Rate 61 50 L Respiratory Rate 18 18 Blood Pressure 138/74 152/68 H Pulse Oximetry 98 98 99 02/01/18 17:17 02/01/18 20:00 02/02/18 00:00 Temperature 97.8 F 97.9 F Pulse Rate 53 L 44 L Respiratory Rate 18 18 Blood Pressure 136/69 116/57 L Pulse Oximetry 98 96 98 02/02/18 04:00 02/02/18 08:00 02/02/18 09:59 Temperature 97.8 F 97.8 F Pulse Rate 54 L 65 Respiratory Rate 18 18 Blood Pressure 156/69 H 133/76 Pulse Oximetry 96 95 95 Intake & Output 02/01/18 02/02/18 02/02/18 18:59 06:59 18:59 Intake Total 480 / 480 240 / 240 Output Total 800 / 800 Balance 480 / 480 -560 / -560 Weight 108.4 kg Intake: Oral 480 / 480 240 / 240 Output: Urine 800 / 800 Other: # Voids 4 Date of Last Bowel Movement 01/29/18 # Bowel Movements 0 Narrative: GENERAL: Patient lying in bed. Appears comfortable. Again, no change on exam. Appears comfortable SKIN: Warm and dry. HEAD: Normocephalic. EYES: No scleral icterus. No injection or drainage. NECK: Supple, trachea midline. No JVD. CARDIOVASCULAR: Regular rate and rhythm without murmurs, gallops, or rubs. RESPIRATORY: Breath sounds equal bilaterally. No accessory muscle use. GASTROINTESTINAL: Abdomen soft, non-tender, nondistended. MUSCULOSKELETAL: No cyanosis, trace peripheral edema BACK: Nontender without obvious deformity. No CVA tenderness. - Urinary Catheter Management Straight Cath placed during this visit: no Results - Labs CBC & Chem 7: 02/02/18 06:37 02/02/18 06:37 Laboratory Results - last 24 hr 02/02/18 02/02/18 06:37 06:37 WBC 4.2 RBC 3.54 L Hgb 7.6 L Hct 24.2 L MCV 68.1 L MCH 21.4 L MCHC 31.5 L RDW 23.1 H Plt Count 171 MPV 8.5 Neut % (Auto) 55.9 Lymph % (Auto) 32.0 Story % (Auto) 7.3 Eos % (Auto) 3.9 Baso % (Auto) 0.9 Neut # (Auto) 2.4 Lymph # (Auto) 1.4 Story # (Auto) 0.3 Eos # (Auto) 0.2 Baso # (Auto) 0.0 WBC Differential . Differential Comment Auto diff final Sodium 144 Potassium 3.8 Chloride 110 H Carbon Dioxide 24.5 Anion Gap 10 BUN 14 Creatinine 1.30 H Estimated GFR 41 L Random Glucose 89 Calcium 9.0 Phosphorus 3.0 Magnesium 1.8 Albumin 2.7 L Assessment and Plan - Assessment (1) Visual impairment Code(s): H54.7 - Unspecified visual loss Status: Acute (2) Acute GI bleeding Code(s): K92.2 - Gastrointestinal hemorrhage, unspecified Status: Resolved - Plan 67-year-old female with past history significant for COPD, coronary artery disease, hypertension, major depressive disorder, anxiety, chronic lower back pain and depression presented to the hospital for an acute GI bleed and was found to be C. difficile positive. //GI bleed/ C diff S/p one unit of blood 01/27. 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 C diff is positive. -Gastroenterology and ID consulted -GI has signed off -Monitor CBC -improved to 8.3/26.9 today compared to7.9/25.1 on the previous day -Protonix IV -Start iron tablets = Regarding anemia. Patient will continue on iron replacement. Hemoglobin 7.6 , relatively stable. Will administer IV iron prior to discharge. -Continue PO Vancomycin taper, decided to complete treatment course as per ID. //Coronary artery disease S/p stents -Continue Plavix and ASA //Bradycardia -HR down improved to the low 50's overnight -Continue to monitor -Cardiology consult -TSH normal. No further workup or therapy needed = Patient should be worked up for sleep apnea as outpatient //COPD The pt is still a smoker -Albuterol nebulizer as needed for shortness of breath -Smoking cessation instruction //Hypertension -Relatively well controlled -Continue holding amlodipine due to bradycardia = Blood pressure acceptable. Continue to monitor. //Major depressive disorder Mood is stable -Continue home medications //Poor appetite -Chronic -Will discontinue dextrose fluids to facilitate increased movement and stimulate appetite -PT to assist with ambulation and strengthening exercises //DVT prophylaxis with SCDs Discharge Planning: patient able to go to SNF vs Home with HH. Does not want to go to SNF. Will discharge home with home health.
--- NOTE | 2018-02-02 11:01 | P.DS ---
Date of admission: 01/26/18 17:53 Primary care physician: Leti Hernandez MD Brief History from admission: This is a 67-year-old female with past medical history significant for COPD, hypertension, major depressive disorder, and melanoma surgically removed. She is presenting to the clinic today with several bouts of diarrhea the last month. She says the diarrhea comes and goes however recently has been very frequently. She has had similar episodes of this in the past and before is been told that she had a GI bleed. Usually this happens to her though is usually due to C. difficile that she has had that in the past as well. She has a chronic history of anemia and requires blood transfusion at that time but uncertain as to her last time or how many she has had. She is legally blind and is uncertain if she has noticed any blood in her stool. This morning she woke up with diarrhea covering everything in her bed and knew she needed to be evaluated by the hospital. Been feeling increased weakness as well as nausea. Denies any fevers chills or sweating. Has felt weak since the symptoms are recurring. She is on Lortabs for chronic lower back pain. She describes the abdominal pain she is feeling as a cramping pain that comes in waves mostly in the lower abdomen. It is relieved with bowel movements. DS: Diagnosis - Discharge Diagnosis (1) Visual impairment Status: Acute (2) Acute GI bleeding Status: Resolved DS: Medications - Discharge Medications Prescriptions: ferrous sulfate [FeroSul] 325 mg PO DAILY 30 Days #30 tab fidaxomicin [Dificid] 200 mg PO BID #20 tab pantoprazole 40 mg PO DAILY 30 Days #30 tab vancomycin See Label Instructions .ROUTE .COMPLEX #33 cap DS: Summary Hospital Course: Hemoglobin down to 6.8 during admission, and improved to above 8 after a unit of blood. GI was consulted. Patient was found to have C. difficile positive, and ID was consulted. Patient was started on treatment for C. difficile which we'll continue. For iron deficiency anemia with ferritin of 14, patient was given IV iron transfusion he'll be started on iron tablets. Patient is to follow-up with GI, primary care as outpatient For problem-based summary from most recent progress note, please see below. 67-year-old female with past history significant for COPD, coronary artery disease, hypertension, major depressive disorder, anxiety, chronic lower back pain and depression presented to the hospital for an acute GI bleed and was found to be C. difficile positive. // C diff //suspicion for GI bleed on admission S/p one unit of blood 01/27. 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 C diff is positive. -Gastroenterology and ID consulted -GI has signed off -Monitor CBC -improved to 8.3/26.9 today compared to7.9/25.1 on the previous day -Protonix IV -Start iron tablets = Regarding anemia. Patient will continue on iron replacement. Hemoglobin 7.6 , relatively stable. Will administer IV iron prior to discharge. -Continue PO Vancomycin taper, decided to complete treatment course as per ID. //Coronary artery disease S/p stents -Continue Plavix and ASA //Bradycardia -HR down improved to the low 50's overnight -Continue to monitor -Cardiology consult -TSH normal. No further workup or therapy needed = Patient should be worked up for sleep apnea as outpatient //COPD The pt is still a smoker -Albuterol nebulizer as needed for shortness of breath -Smoking cessation instruction //Hypertension -Relatively well controlled -Continue holding amlodipine due to bradycardia = Blood pressure acceptable. Continue to monitor. //Major depressive disorder Mood is stable -Continue home medications //Poor appetite -Chronic -Will discontinue dextrose fluids to facilitate increased movement and stimulate appetite -PT to assist with ambulation and strengthening exercises //DVT prophylaxis with SCDs Discharge Planning: patient able to go to SNF vs Home with HH. Does not want to go to SNF. Will discharge home with home health. - Time Spent with Patient Total time spent providing and/or coordinating discharge services: Greater than 30 minutes - Quality: VTE Deep Vein Thrombosis/Pulmonary Embolism Present on Admission: No Exam Vital signs: Vital Signs 02/01/18 12:00 02/01/18 14:24 02/01/18 16:00 Temperature 97.5 F L 97.7 F Pulse Rate 61 50 L Respiratory Rate 18 18 Blood Pressure 138/74 152/68 H Pulse Oximetry 98 98 99 02/01/18 17:17 02/01/18 20:00 02/02/18 00:00 Temperature 97.8 F 97.9 F Pulse Rate 53 L 44 L Respiratory Rate 18 18 Blood Pressure 136/69 116/57 L Pulse Oximetry 98 96 98 02/02/18 04:00 02/02/18 08:00 02/02/18 09:59 Temperature 97.8 F 97.8 F Pulse Rate 54 L 65 Respiratory Rate 18 18 Blood Pressure 156/69 H 133/76 Pulse Oximetry 96 95 95 Intake & Output 02/01/18 02/02/18 02/02/18 18:59 06:59 18:59 Intake Total 480 / 480 240 / 240 Output Total 800 / 800 Balance 480 / 480 -560 / -560 Weight 108.4 kg Intake: Oral 480 / 480 240 / 240 Output: Urine 800 / 800 Other: # Voids 4 Date of Last Bowel Movement 01/29/18 # Bowel Movements 0 Results Procedures completed during hospitalization: no invasive procedures. Labs on day of discharge: Labs from last 24 hours 02/02/18 02/02/18 06:37 06:37 WBC 4.2 RBC 3.54 L Hgb 7.6 L Hct 24.2 L MCV 68.1 L MCH 21.4 L MCHC 31.5 L RDW 23.1 H Plt Count 171 MPV 8.5 Neut % (Auto) 55.9 Lymph % (Auto) 32.0 [place] % (Auto) 7.3 Eos % (Auto) 3.9 Baso % (Auto) 0.9 Neut # (Auto) 2.4 Lymph # (Auto) 1.4 [place] # (Auto) 0.3 Eos # (Auto) 0.2 Baso # (Auto) 0.0 WBC Differential . Differential Comment Auto diff final Sodium 144 Potassium 3.8 Chloride 110 H Carbon Dioxide 24.5 Anion Gap 10 BUN 14 Creatinine 1.30 H Estimated GFR 41 L Random Glucose 89 Calcium 9.0 Phosphorus 3.0 Magnesium 1.8 Albumin 2.7 L Discharge Plan - Discharge Disposition Patient Disposition: Disch W/Home Health Service - Discharge Condition Condition: Stable - Discharge Order Discharge Orders: Discharge Order (Routine); Ordered 01/28/18 Ordered By: Angel Perea - Discharge Details Anticipated Discharge Date: 02/01/18 - Physicians Team Primary Care Provider: Leti Hernandez Attending Provider: Jacob Stokes Other Providers: Onesimo Chris MD ; Ora Obregon MD ; Angel Perea MD ; [facility],[place] ; Atif Higuera DO
[2018-02-02 11:50] LABS: % Iron Saturation 7.1 % (20-50)
== END 2018-02-02 12:22 | disposition home health service (06) ==
LOC: NEPE 14:47 → NEDA 17:53 → N04 20:51
PROVIDERS: ADMIT Internal Medicine; ATTEND Internal Medicine